=== PATIENT | female | born 1940 | race Caucasian/White ===

== ENCOUNTER 2017-01-23 23:00 | Inpatient (IN) | payer OTHER, MEDICAID, MEDICARE ==
[~2017-01-23] VITALS: Ht 134.6 cm; Wt 41.3 kg
[2017-01-23 23:15] VITALS: BP 129/62; PULSE 78; RESP 22; TEMP 98.1; O2SAT 98
[2017-01-24] VITALS (7 sets, daily range): BP systolic 120–136; BP diastolic 61–72; PULSE 65–85; RESP 15–18; TEMP 96.4–98.1; O2SAT 90–98
[2017-01-24] MEDS ORDERED: PERC5TAB12 PO (00:10)
--- NOTE | 2017-01-24 00:10 | PD ---
HPI Chief Complaint: Pain: Acute or Chronic Time Seen by Provider: 23:38 Travel History International Travel<30 days: No Contact w/Intl Traveler<30days: No Traveled to known affect area: No History of Present Illness HPI This is a 76-year-old female who has a history of breast cancer but unfortunately is too frail to receive chemotherapy who presents to the emergency department having recently had a workup at [facility] demonstrating diffuse bony metastasis. She comes into the emergency department today with poorly controlled pain. She says her pain is mostly in her back, constant, severe, worse with movement, improved with rest. She's been taking hydrocodone at home but that has not been helping. Her daughter says that when she was in the hospital she was on morphine and Percocet and that seemed to do better. Otherwise she has no new symptoms and she has a PET scan scheduled for tomorrow. They primarily came to the emergency department so she could get her pain under control. PFSH Past Medical History Cancer: Yes (SPINAL, LUNG, BREAST) Diminished Hearing: No Tetanus Vaccination: > 5 Years Influenza Vaccination: No ?: Not Past Surgical History Abdominal Surgery: Yes (HERNIA REPAIR) Appendectomy: Yes Hysterectomy: Yes Other Surgery: Yes (L MASTECTOMY) Social History Alcohol Use: No Tobacco Use: Yes Substance Use: No Allergies-Medications (Allergen,Severity, Reaction): Coded Allergies: Egg Allergy (Verified Allergy, Unknown, 01/23/17) Review of Systems Except as stated in HPI: all other systems reviewed are Neg Physical Exam Narrative GENERAL: Frail elderly female SKIN: Focused skin assessment warm and dry. HEAD: Atraumatic. Normocephalic. EYES: Pupils equal and round. No injection or drainage. ENT: Moist mucous membranes NECK: Trachea midline. CARDIOVASCULAR: Regular rate and rhythm. No murmur appreciated. RESPIRATORY: Clear to auscultation. Breath sounds equal bilaterally. GASTROINTESTINAL: Abdomen soft, non-tender, nondistended. MUSCULOSKELETAL: No obvious deformities. NEUROLOGICAL: Awake and alert. No obvious cranial nerve deficits. Moving all extremities. PSYCHIATRIC: Appropriate mood and affect; insight and judgment normal. Data Data Last Documented VS Vital Signs Date Time Temp Pulse Resp B/P Pulse Ox O2 Delivery O2 Flow Rate FiO2 01/23/17 23:15 98.1 78 22 129/62 98 Orders Morphine Inj (Morphine Inj) (01/24/17 00:00) [facility] Medical Decision Making Medical Screen Exam Complete: Yes Emergency Medical Condition: Yes Differential Diagnosis Compression fracture, metastatic disease, chronic pain Narrative Course This is a 76-year-old female has a history of breast cancer who was recently diagnosed with diffuse bony metastases. She is having poorly controlled pain. She just had an extensive workup at [facility]. Family is mostly concerned with controlling her pain and they don't want any additional studies done and she is scheduled for a PET scan tomorrow and has a follow-up with her oncologist later this week. Patient was given a dose of IV morphine. She'll be discharged on Percocet which should alleviate her symptoms better than Lortab. I think she is safe for discharge and follow-up tomorrow. Diagnosis Primary Impression: Pain of metastatic malignancy Patient Instructions: General Instructions Additional Instructions: If you develop severe chest pain, shortness of breath, sweating, lightheadedness , dizziness or difficulty breathing return to the emergency department immediately. Follow-up with her oncologist as scheduled. Med/Other Pt SpecificInfo: Prescription(s) given Scripts Oxycodone-Acetaminophen (Percocet)5-325 mg Tab1-2 Tab PO Q6H PRN (PAIN) #40 TAB Ref 0 Prov:Saray Elaine MD 01/24/17 Disposition: 01 DISCHARGE HOME Condition: Stable Saray Elaine MD Jan 24, 2017 00:10
[2017-01-24] MEDS ORDERED: WHEEMIS3 (01:16)
[2017-01-24] MEDS ORDERED: ONDANSETRON HCL 4 MG/2 ML VIAL ONE (01:55)
[2017-01-24] MEDS ORDERED: ONDANSETRON HCL 4 MG/2 ML VIAL IV ONE (02:00)
[2017-01-24] MEDS ORDERED: LACTULOSE SYRUP 20 GM/30 ML CUP PO ONE (02:15)
[2017-01-24] MEDS ORDERED: MORPHINE SULFATE 8 MG/ML INJ IV PUSH ONE ×2 (04:45)
[2017-01-24 06:43] LABS: AUTOMATED NEUTROPHIL # 11.3 TH/MM3 (1.8-7.7); BASOPHIL % 0.2 % (0.0-2.0); EOSINOPHIL # 0.2 TH/MM3 (0-0.4); HEMATOCRIT 32.2 % (35.0-46.0); LYMPH % 13.2 % (9.0-44.0); LYMPHOCYTE # 1.9 TH/MM3 (1.0-4.8); MEAN CELL VOLUME 91.9 FL (80.0-100.0); MEAN CORPUSCULAR HEMOGLOBIN 30.7 PG (27.0-34.0); MEAN CORPUSCULAR HGB CONC 33.3 % (32.0-36.0); MONO % 8.6 % (0.0-8.0); PLATELET COUNT 304 TH/MM3 (150-450); RED CELL DISTRIBUTION WIDTH 14.8 % (11.6-17.2); WHITE BLOOD COUNT 14.6 TH/MM3 (4.0-11.0)
[2017-01-24 06:46] LABS: HEMO FLAGS AUTO DIFF
--- NOTE | 2017-01-24 06:53 | RADRPT ---
EXAM DATE/TIME: 01/24/2017 06:31 [facility] COMPARISON: No previous studies available for comparison. INDICATIONS : Upper to middle back pain. MEDICAL HISTORY : None. SURGICAL HISTORY : None. ENCOUNTER: Initial ACUITY: 1 day PAIN SCORE: 0/10 LOCATION: Bilateral T-spine FINDINGS: There is normal alignment of the thoracic vertebral bodies. There is some mild chronic appearing loss of height of T6. No spondylolisthesis is seen. No paraspinal soft tissue swelling is demonstrated.. CONCLUSION: Mild chronic appearing loss of height of T6. Otherwise, unremarkable exam for patient's age. Telly Galloway MD on January 24, 2017 at 6:50 Board Certified Radiologist. This report was verified electronically.
--- NOTE | 2017-01-24 06:54 | RADRPT ---
EXAM DATE/TIME: 01/24/2017 06:33 [facility] COMPARISON: No previous studies available for comparison. INDICATIONS : Chest pain, Upper back pain. MEDICAL HISTORY : None. SURGICAL HISTORY : None. ENCOUNTER: Initial ACUITY: 1 day PAIN SCORE: 5/10 LOCATION: Bilateral chest FINDINGS: A single view of the chest demonstrates the lungs to be symmetrically aerated without evidence of mas s, infiltrate or effusion. The cardiomediastinal contours are unremarkable. Osseous structures are intact. CONCLUSION: No acute intrathoracic disease. Telly Galloway MD on January 24, 2017 at 6:52 Board Certified Radiologist. This report was verified electronically.
[2017-01-24 06:57] LABS: ALT (GPT) 19 U/L (10-53); ANION GAP 8 MEQ/L (5-15); AST (GOT) 39 U/L (15-37); BLOOD UREA NITROGEN 32 MG/DL (7-18); CHLORIDE 103 MEQ/L (98-107); GLOMERULAR FILTRATION RATE 65 ML/MIN (>89); POTASSIUM 4.1 MEQ/L (3.5-5.1); SODIUM (NA) 141 MEQ/L (136-145)
[2017-01-24 06:58] LABS: ALKALINE PHOSPHATASE 198 U/L (45-117); TOTAL BILIRUBIN ADULT 0.1 MG/DL (0.2-1.0)
[2017-01-24 07:24] LABS: BANDS 5 % (0-6); EOSINOPHILS 1 % (0-4); MYELOCYTES 2 % (0-0); NEUTROPHIL # MANUAL DIFF 11.4 TH/MM3 (1.8-7.7); OVALOCYTES 1+ (NORMAL); PLATELET ESTIMATE SMEAR NORMAL (NORMAL); PLATELET MORPHOLOGY NORMAL (NORMAL); POLYS (SEG NEUTROPHILS) 71 % (16-70); SCAN/DIFF FINAL DIFF MANUAL; WBC DIFF SAMPLE 100
[2017-01-24] MEDS ORDERED: ONDANSETRON HCL 4 MG/2 ML VIAL IVP ONE (08:00)
[2017-01-24] MEDS ORDERED: NALOXONE HCL 0.4 MG/ML AMP IV PRN (08:15)
[2017-01-24] MEDS ORDERED: SENNOSIDES 8.6 MG TAB PO PRN (08:15)
[2017-01-24] MEDS ORDERED: MAGNESIUM HYDROXIDE SUSP 30 ML CUP PO PRN (08:15)
[2017-01-24] MEDS ORDERED: oxyCODONE/ACETAMINOPHEN 5 MG/325 MG TAB PO PRN (08:15)
[2017-01-24] MEDS ORDERED: SODIUM CHLORIDE 0.9% FLUSH 10 ML FLUSH IV FLUSH PRN (08:15)
[2017-01-24] MEDS ORDERED: HYDROmorphone HCL PF 1 MG/ML VIAL IV PUSH PRN (08:15)
[2017-01-24] MEDS ORDERED: BISACODYL 10 MG SUPP RECTAL PRN (08:15)
[2017-01-24] MEDS ORDERED: LACTULOSE SYRUP 20 GM/30 ML CUP PO PRN (08:15)
[2017-01-24] MEDS ORDERED: HYDROmorphone HCL PF 1 MG/ML VIAL IVS ONE (09:30)
[2017-01-24] MEDS: SODIUM CHLORIDE 0.9% FLUSH 10 ML FLUSH IV FLUSH SCH ×2 (09:57→21:58)
[2017-01-24] MEDS: ENOXAPARIN SODIUM 40 MG/0.4 ML SYRINGE SQ SCH (09:57)
[2017-01-24] MEDS: DOCUSATE SODIUM 50 MG/SENNA 8.6 MG TAB PO SCH ×2 (09:57→21:57)
[2017-01-24 10:59] LABS: BACTERIA, URINE OCC /hpf; BLOOD, URINE NEG (NEG); COMMENT (UR) CULT NOT INDICATED; CULTURE IF INDICATED CULT NOT INDICATED; GLUCOSE,URINE NEG (NEG); HYALINE CAST, URINE 1 /lpf (RARE); KETONE, URINE NEG (NEG); NITRITE,URINE NEG (NEG); SQUAMOUS EPITHELIAL CELL URINE 1 /hpf (0-5); URINE COLOR YELLOW (YELLW/STRAW)
--- NOTE | 2017-01-24 12:44 | HHI.HP ---
HPI Service [facility] Hospitalists Primary Care Physician Porsche Angeles MD Admission Diagnosis metastatic breast cancer to chest and spine, intractable pain Diagnoses: Chief Complaint: Intractable back pain Travel History International Travel<30 Days: No Contact w/Intl Traveler <30 Da: No Traveled to Known Affected Are: No History of Present Illness Written by Danielle Avila PA-C acting as scribe for Dr. Cortés on 01/24/17 at 12:18. This is 76-year-old female with past medical history significant for breast cancer s/p left mastectomy May 2016 as well as adjuvant radiation treatments but not deemed a candidate for chemotherapy due to multiple comorbidities, COPD, h/o brain aneurysm and AAA who presented to [facility] ED with complaints of intractable back pain. Patient was recently treated at [facility] for aspiration pneumonia last week. During that hospitalization, CT scan was obtained which revealed diffuse bony metastasis. Patient is followed by Dr. Kirkpatrick as an outpatient and has been diagnosed with stage IIB breast carcinoma with both lobular and ductal features. She also had micrometastatic disease in one of the lymph nodes. Her cancer is hormone receptor positive. Following her mastectomy, patient had a PET scan which showed a small focal hypermetabolic mass in the anterior left chest wall. She has a repeat PET scan scheduled for today at noon. At present, patient's pain is controlled but she is actively vomiting due to side effect from her narcotic medication. She complains of 3 month history of back pain that has become much more severe and located in her mid upper back. She also reports left anterior chest wall pain. Additionally, she reports pain and weakness in the left upper extremity. She denies any complaints of radicular pain or weakness in her legs. She denies any fever, chills, headache, vision changes, shortness of breath, chest pain or abdominal pain. She also denies any bowel or bladder incontinence. Review of Systems Except as stated in HPI: all other systems reviewed are Neg Past Family Social History Past Medical History Breast cancer with bony metastasis Recent hospitalization at [facility] for aspiration pneumonia last week COPD Brain aneurysm AAA Anxiety Migraine headaches Osteoporosis Past Surgical History Left mastectomy May 2016 Appendectomy Hernia repair 2 Hysterectomy Reported Medications RN in the process of completing med rec of patients home medications Allergies: Coded Allergies: Egg Allergy (Verified Allergy, Unknown, 01/23/17) Active Ordered Medications Current Medications Medications (Trade) Dose Ordered Sig/Jimmy Route Start Time Stop Time Status Last Admin (NS Flush) 2 ml UNSCH PRN IV FLUSH 01/24/17 08:15 (NS Flush) 2 ml BID IV FLUSH 01/24/17 09:00 01/24/17 09:57 (Zofran Inj) 4 mg Q6H PRN IVP 01/24/17 08:15 (Lovenox Inj) 40 mg Q24H SQ 01/24/17 09:00 01/24/17 09:57 (Narcan Inj) 0.4 mg UNSCH PRN IV 01/24/17 08:15 (Klarissa-Colace) 1 tab BID PO 01/24/17 09:00 01/24/17 09:57 (Milk Of Magnesia Liq) 30 ml Q12H PRN PO 01/24/17 08:15 (Senokot) 17.2 mg Q12H PRN PO 01/24/17 08:15 (Dulcolax Supp) 10 mg DAILY PRN RECTAL 01/24/17 08:15 (Lactulose Liq) 30 ml DAILY PRN PO 01/24/17 08:15 (Percocet 5-325 Mg) 1 tab Q4H PRN PO 01/24/17 08:15 (Percocet 10-325 Mg) 1 tab Q4H PRN PO 01/24/17 08:15 (Dilaudid Pf Inj) 1 mg Q4H PRN IV PUSH 01/24/17 08:15 Family History Father, age 84, diabetes, hypertension and COPD Mother, at age 96 of natural causes Social History Patient has a history of tobacco use of 3 packs per day but has recently been weaning down to 3 cigs daily and has not had any cigarettes for the past few weeks. She denies any alcohol consumption or illicit drug use. Physical Exam Vital Signs Vital Signs Date Time Temp Pulse Resp B/P Pulse Ox O2 Delivery O2 Flow Rate FiO2 01/24/17 11:11 72 15 120/61 97 Nasal Cannula 2 01/24/17 11:10 72 15 120/61 95 01/24/17 08:00 70 16 121/63 98 Room Air 01/24/17 05:00 80 16 120/72 96 01/23/17 23:15 98.1 78 22 129/62 98 Physical Exam GENERAL: This is a frail elderly female who appears her stated age. Actively vomiting. Daughter is at the bedside. SKIN: No rashes, ecchymoses or lesions. Cool and dry. HEAD: Atraumatic. Normocephalic. No temporal or scalp tenderness. EYES: H/o brain aneurysm with left pupil dilated/larger than right, (+)left eyelid droop and decreased extraocular motions in the left eye. No scleral icterus. No injection or drainage. ENT: Nose without drainage. Airway patent. NECK: Trachea midline. No JVD or lymphadenopathy. Supple, nontender, no meningeal signs. CARDIOVASCULAR: Regular rate and rhythm without murmurs. RESPIRATORY: Bibasilar crackles noted. Breath sounds equal bilaterally. GASTROINTESTINAL: Abdomen soft, non-tender, nondistended. No hepato-splenomegaly , or palpable masses. No guarding. MUSCULOSKELETAL: Extremities without clubbing, cyanosis, or edema. No joint tenderness, effusion, or edema noted. No calf tenderness. (+)tenderness to palpation left anterior chest and diffusely over the upper, mid and low back. NEUROLOGICAL: Awake and alert. Able to move all extremities. Motor and sensory function grossly intact. Normal speech. Laboratory Laboratory Tests Test 01/24/17 01/24/17 06:25 10:30 White Blood Count 14.6 Red Blood Count 3.50 Hemoglobin 10.7 Hematocrit 32.2 Mean Corpuscular Volume 91.9 Mean Corpuscular Hemoglobin 30.7 Mean Corpuscular Hemoglobin 33.3 Concent Red Cell Distribution Width 14.8 Platelet Count 304 Mean Platelet Volume 8.8 Neutrophils (%) (Auto) 77.0 Lymphocytes (%) (Auto) 13.2 Monocytes (%) (Auto) 8.6 Eosinophils (%) (Auto) 1.0 Basophils (%) (Auto) 0.2 Neutrophils # (Auto) 11.3 Lymphocytes # (Auto) 1.9 Monocytes # (Auto) 1.3 Eosinophils # (Auto) 0.2 Basophils # (Auto) 0.0 CBC Comment AUTO DIFF Differential Total Cells 100 Counted Neutrophils % (Manual) 71 Band Neutrophils % 5 Lymphocytes % 12 Monocytes % 9 Eosinophils % 1 Neutrophils # (Manual) 11.4 Myelocytes 2 Differential Comment FINAL DIFF MANUAL Platelet Estimate NORMAL Platelet Morphology Comment NORMAL Ovalocytes 1+ Sodium Level 141 Potassium Level 4.1 Chloride Level 103 Carbon Dioxide Level 30.0 Anion Gap 8 Blood Urea Nitrogen 32 Creatinine 0.85 Estimat Glomerular Filtration 65 Rate Random Glucose 78 Calcium Level 10.0 Total Bilirubin 0.1 Aspartate Amino Transf 39 (AST/SGOT) Alanine Aminotransferase 19 (ALT/SGPT) Alkaline Phosphatase 198 Total Protein 6.2 Albumin 3.0 Urine Color YELLOW Urine Turbidity HAZY Urine pH 6.0 Urine Specific [place] 1.018 Urine Protein NEG Urine Glucose (UA) NEG Urine Ketones NEG Urine Occult Blood NEG Urine Nitrite NEG Urine Bilirubin NEG Urine Urobilinogen LESS THAN 2.0 Urine Leukocyte Esterase SMALL Urine RBC LESS THAN 1 Urine WBC 1 Urine Squamous Epithelial 1 Cells Urine Bacteria OCC Urine Hyaline Casts 1 Microscopic Urinalysis Comment CULT NOT INDICATED Result Diagram: 01/24/17 0625 01/24/17 0625 Imaging Last Impressions Thoracic Spine X-Ray 01/24/17 0000 Signed Impressions: Service Date/Time: Tuesday, January 24, 2017 06:31 - CONCLUSION: Mild chronic appearing loss of height of T6. Otherwise, unremarkable exam for patient's age. Telly Galloway MD Chest X-Ray 01/24/17 0000 Signed Impressions: Service Date/Time: Tuesday, January 24, 2017 06:33 - CONCLUSION: No acute intrathoracic disease. Telly Galloway MD Assessment and Plan Assessment and Plan 76-year-old female with past medical history significant for breast cancer s/p left mastectomy May 2016 as well as adjuvant radiation treatments, COPD, h/ o brain aneurysm and AAA who presented to [facility] ED with complaints of intractable back pain. Recent workup in [facility] revealed diffuse bony metastases. Intractable back pain Breast cancer Newly diagnosed diffuse bony metastases - Thoracic spine xray, images personally reviewed, shows chronic appearing loss of body height of T6 - Pain management with Percocet po and Dilaudid 1mg IV q 4h prn for breakthrough pain. Bowel regimen ordered. - IV Zofran when necessary nausea/vomiting - Consult Dr. Kirkpatrick , her oncologist - Discussed with the patient and daughter consultation of palliative care. They are both agreeable. Palliative care consult placed. Recent hospitalization for aspiration pneumonia - Incentive spirometry at the bedside encouraged hourly use - Bedside swallow evaluation ordered Leukocytosis - Likely stress/situational - Patient is afebrile. CXR, images personally reviewed, shows no acute cardiopulmonary disease - Repeat labs to monitor trend Anemia - mild - no evidence of active bleeding - monitor as indicated COPD Long history of tobaccoism, quit several weeks ago - Supplemental oxygen as needed to maintain O2 sats above 92% - DuoNeb as needed - Will resume any home bronchodilator therapy once med rec has been completed DVT prophylaxis - Lovenox 40 mg subcutaneous daily This note was transcribed by meera Avila. I, Dr. Anisa Cortés personally performed the history, physical exam, and medical decision making; and confirmed the accuracy of the information in the transcribed note. Authenticated by Dr. Anisa Cortés on 01/24/17 at 12:18. Code Status DNR Discussed Condition With ED physician, nursing staff, patient and daughter Danielle Avila Jan 24, 2017 12:44 Anisa Cortés MD Jan 24, 2017 15:07
[2017-01-24] MEDS ORDERED: VENTAER INH (14:04)
[2017-01-24] MEDS ORDERED: AMOX875T2 PO (14:04)
[2017-01-24] MEDS ORDERED: TAMO20TA6 PO (14:04)
[2017-01-24] MEDS ORDERED: DULE100A INH (14:04)
[2017-01-24] MEDS ORDERED: ALEN1TAB48 PO (14:04)
[2017-01-24] MEDS ORDERED: CARB100C PO (14:04)
[2017-01-24] MEDS ORDERED: ASPI325T PO (14:04)
[2017-01-24] MEDS ORDERED: PRED10 PO (14:04)
[2017-01-24] MEDS ORDERED: IPRASOL INH (14:04)
[2017-01-24] MEDS ORDERED: ALPR0.25 PO (14:04)
[2017-01-24] MEDS: ONDANSETRON HCL 4 MG/2 ML VIAL IVP PRN (14:06)
[2017-01-24] MEDS ORDERED: OMEP40CA2 PO (14:28)
[2017-01-24] MEDS ORDERED: ALBUTEROL SULFATE 90 MCG/ACT HFA 8 GM INHALER INH PRN (14:45)
[2017-01-24] MEDS ORDERED: METOCLOPRAMIDE HCL 10 MG/2 ML VIAL IV PUSH PRN (15:15)
[2017-01-24] MEDS: oxyCODONE/ACETAMINOPHEN 10 MG/325 MG TAB PO PRN ×2 (16:20→21:57)
--- NOTE | 2017-01-24 19:58 | EKG ---
Date Performed: 01/23/2017 Time Performed: 23:34:34 PTAGE: 76 years EKG: Sinus rhythm NORMAL ECG NO PREVIOUS TRACING DOCTOR: Pari Gautam Interpretating Date/Time 01/24/2017 19:57:21
--- NOTE | 2017-01-24 19:58 | EKG ---
Date Performed: 01/24/2017 Time Performed: 07:24:18 PTAGE: 76 years EKG: Sinus rhythm NORMAL ECG PREVIOUS TRACING : 01/23/2017 23.34 Since previous tracing, no significant change noted DOCTOR: Pari Gautam Interpretating Date/Time 01/24/2017 19:57:30
[2017-01-24] MEDS ORDERED: NON-FORMULARY DRUG (Mometasone-Formoterol 120 Act Inh (Dulera 120 Act Inh) 2 PUFF) INH SCH (21:00)
[2017-01-24] MEDS: RESP: ALBUTEROL 2.5 MG/IPRATROPIUM 0.5 MG NEB (PRN) NEB (22:05)
[2017-01-25] VITALS (7 sets, daily range): BP systolic 103–143; BP diastolic 56–70; PULSE 74–81; RESP 16–20; TEMP 96.9–98.8; O2SAT 90–98
[2017-01-25] MEDS: oxyCODONE/ACETAMINOPHEN 10 MG/325 MG TAB PO PRN ×3 (02:53→18:37)
[2017-01-25 06:30] LABS: AUTOMATED NEUTROPHIL # 7.7 TH/MM3 (1.8-7.7); BASOPHIL % 0.4 % (0.0-2.0); EOSINOPHIL # 0.3 TH/MM3 (0-0.4); EOSINOPHIL % 2.5 % (0.0-4.0); HEMATOCRIT 28.5 % (35.0-46.0); HEMO FLAGS DIFF FINAL; LYMPH % 13.6 % (9.0-44.0); LYMPHOCYTE # 1.4 TH/MM3 (1.0-4.8); MEAN CELL VOLUME 91.6 FL (80.0-100.0); MEAN CORPUSCULAR HEMOGLOBIN 31.4 PG (27.0-34.0); MEAN CORPUSCULAR HGB CONC 34.3 % (32.0-36.0); MONO % 7.1 % (0.0-8.0); NEUT % 76.4 % (16.0-70.0); PLATELET COUNT 261 TH/MM3 (150-450); RED BLOOD COUNT 3.11 MIL/MM3 (4.00-5.30); RED CELL DISTRIBUTION WIDTH 14.4 % (11.6-17.2); WHITE BLOOD COUNT 10.1 TH/MM3 (4.0-11.0)
[2017-01-25 07:01] LABS: BICARBONATE 30.7 MEQ/L (21.0-32.0); POTASSIUM 4.5 MEQ/L (3.5-5.1)
[2017-01-25] MEDS: ONDANSETRON HCL 4 MG/2 ML VIAL IVP PRN (07:51)
[2017-01-25] MEDS: DOCUSATE SODIUM 50 MG/SENNA 8.6 MG TAB PO SCH ×2 (08:30→22:07)
[2017-01-25] MEDS: TAMOXIFEN CITRATE 10 MG TAB PO SCH (08:30)
[2017-01-25] MEDS: PANTOPRAZOLE SOD 40 MG DELAYED RELEASE TAB PO SCH (08:30)
[2017-01-25] MEDS: ENOXAPARIN SODIUM 40 MG/0.4 ML SYRINGE SQ SCH (08:30)
[2017-01-25] MEDS: SODIUM CHLORIDE 0.9% FLUSH 10 ML FLUSH IV FLUSH SCH ×2 (08:31→22:00)
[2017-01-25] MEDS: ASPIRIN 325 MG TAB PO SCH (08:31)
[2017-01-25] MEDS: RESP: ALBUTEROL 2.5 MG/IPRATROPIUM 0.5 MG NEB (PRN) NEB (08:43)
[2017-01-25] MEDS: DULERA INH SCH ×2 (09:50→22:07)
--- NOTE | 2017-01-25 10:50 | HHI.PR ---
Subjective Remarks Patient reports she is feeling better. Ribs and back pain controlled with Percocet. No shortness of breath. She is eager to go home. Objective Vitals Vital Signs Date Time Temp Pulse Resp B/P Pulse Ox O2 Delivery O2 Flow Rate FiO2 01/25/17 08:47 97 Nasal Cannula 3.00 01/25/17 07:50 96.9 74 20 143/63 90 01/25/17 04:00 98.2 81 16 103/61 95 01/25/17 03:53 16 01/25/17 01:00 98.8 78 16 112/62 96 01/24/17 20:00 98.1 76 16 130/67 93 01/24/17 16:00 96.4 85 18 136/65 90 01/24/17 12:00 96.9 65 18 128/66 91 01/24/17 11:11 72 15 120/61 97 Nasal Cannula 2 01/24/17 11:10 72 15 120/61 95 I/O 01/24/17 01/24/17 01/24/17 01/25/17 01/25/17 01/25/17 06:59 14:59 22:59 06:59 14:59 22:59 Intake Total 240 ml 120 ml Balance 240 ml 120 ml Intake Oral 240 ml 120 ml # Voids 1 1 # Bowel Movements 1 Result Diagram: 01/25/17 0551 01/25/17 0537 Imaging Last Impressions Thoracic Spine X-Ray 01/24/17 0000 Signed Impressions: Service Date/Time: Tuesday, January 24, 2017 06:31 - CONCLUSION: Mild chronic appearing loss of height of T6. Otherwise, unremarkable exam for patient's age. Telly Galloway MD Chest X-Ray 01/24/17 0000 Signed Impressions: Service Date/Time: Tuesday, January 24, 2017 06:33 - CONCLUSION: No acute intrathoracic disease. Telly Galloway MD Objective Remarks GENERAL: Frail, elderly female in no apparent distress. CARDIOVASCULAR: Normal rate and regular rhythm without murmurs, gallops, or rubs. RESPIRATORY: Good respiratory efforts. Breath sounds equal and clear to auscultation bilaterally. GASTROINTESTINAL: Abdomen soft, non-tender, non-distended. Normal active bowel sounds MUSCULOSKELETAL: Diffusely tender anterior lower ribs and in the thoracic region. NEURO: Alert & Oriented x4 to person, place, time, situation. Moves all ext x4 PSYCH: Appropriate mood and affect. A/P Assessment and Plan 76-year-old female with past medical history significant for breast cancer s/p left mastectomy May 2016 as well as adjuvant radiation treatments, COPD, h/ o brain aneurysm and AAA who presented to [facility] ED with complaints of intractable back pain. Recent workup in [facility] revealed diffuse bony metastases. Intractable back pain Breast cancer Newly diagnosed diffuse bony metastases at recent outside hospital admission per family .per ER note, She just had a CT scan performed on January 15 at [facility] which demonstrates lytic lesions throughout the axial and appendicular skeleton suggestive of extensive metastatic disease - Thoracic spine xray, images personally reviewed, shows chronic appearing loss of body height of T6 -Pain currently controlled with Percocet. Bowel regimen ordered. - IV Zofran when necessary nausea/vomiting -Awaiting further input from oncology. -Palliative care previously consulted. Recent hospitalization for aspiration pneumonia - Incentive spirometry at the bedside encouraged hourly use - Bedside swallow evaluation ordered Anemia - mild - no evidence of active bleeding - monitor as indicated COPD Long history of tobaccoism, quit several weeks ago - Supplemental oxygen as needed to maintain O2 sats above 92% - DuoNeb as needed DVT prophylaxis - Lovenox 40 mg subcutaneous daily Discharge Planning Awaiting input from Oncology. Adele Michaud MD Jan 25, 2017 10:50
[2017-01-25] MEDS ORDERED: PERC5TAB12 PO (10:56)
[2017-01-25] MEDS ORDERED: SENN1TAB PO (10:56)
--- NOTE | 2017-01-25 14:05 | PD.CONS ---
Consult Service Palliative Care Consult Requested By Dr. Cortés. Primary Care Physician Porsche Angeles MD Reason for Consultation a. To assist with evaluation and management of symptoms including: Pain and debility. b. To assist medical decision maker(s) with: better understanding of current medical conditions; weighing benefits/burdens of medical treatment options; making medical treatment decisions. . HPI History of Present Illness Mrs. Gunter is a 76-year-old female with a past medical history significant for invasive mammary carcinoma status post left simple mastectomy with sentinel lymph node sampling which was positive for micrometastasis. Patient underwent radiation therapy to left breast, she was not a candidate for chemotherapy secondary to multiple comorbidities. Patient also with history of COPD and emphysema, O2 dependent. Patient presented to ED on 01/23/17 endorsing severe pain to back and chest. As per medical records, patient just had a CT scan performed on 01/15/17 at [facility] which demonstrates lytic lesions throughout the axial and appendicular skeleton suggestive of extensive metastatic disease. Thoracic spine chest x-ray showing mild chronic appearing loss of height of T6. Chest x-ray negative for acute process. UA negative for nitrates, small leukocyte. Patient was admitted for further management. Palliative care has been consulted for further clarifications of goals of care and assistance with pain management. Oncology consultation pending. Reviewed medical records. Patient following with Dr. Kirkpatrick outpatient. Last seen on 12/16/16. Patient has completed adjuvant radiation treatments to her left breast and continues with tamoxifen. As per medical record,/CT scan was previously obtained which showed some increase uptake medially on the left chest wall. Patient was advised that because of her age and other comorbidities that she was not a candidate for chemotherapy. She has been recently treated at [facility] for pneumonia. Patient seen in her room, resting in bed in no acute distress. Alert and oriented x self, place and situation. Patient endorsing pain to chest and thoracic spine. pain is sharp, intermittent. Currently rated at 5/10. Taking Percocet 10/325mg q4h PRN. Has taken 4 doses since admission. Patient feels that Percocet is more effective than home regimen of Lortab. Endorsing mild nausea earlier this morning. Tolerating regular diet, no difficulty swallowing. No vomiting, shortness of breath or abdominal discomfort reported. Patient afebrile, stable hemodynamically. Currently on 3 L O2 via nasal cannula, oxygen saturation in the mid 90s. Laboratory workup today showing WBC 10.1, Hgb 9.8, platelet count 261. Sodium 140, potassium 4.1, BUN/creatinine 28 /0.79. Met with patient and daughter Cynthia. Obtain a past medical history and psychosocial history. In this first visit, reviewed the role of palliative care in regards to symptom management as well as to assistance with advance directives and goals of care. Patient with a good understanding of her diagnosis to include breast cancer with bony metastasis. Reviewed that her disease is metastatic and is not curable. Pending oncology consultation for treatment recommendations. Patient not likely candidate for chemotherapy given his chronic comorbidities and poor performance status. Patient tells me that if radiation to bony lesions is offered, she will likely proceed. Discussed difference between palliative radiation versus curative treatment. Introduce hospice philosophy and benefits. Discussed the future role of hospice should her clinical condition continues to worsen, increased since important or additional functional decline. Patient and family receptive to this. Assisted patient in completion of living will and designation of healthcare surrogate. . Function/Cognitive Trajectory Patient residing with daughter prior to this hospitalization. Progressive decline, debility. Independent with ADLs, requiring intermittent assistance with bathing. Walking without assistance device. O2 at home secondary to COPD. . Review of Systems Constitutional: COMPLAINS OF: Fatigue, Weight loss, Pain, DENIES: Fever Endocrine: DENIES: Heat/cold intolerance Eyes: DENIES: Eye pain Ears, nose, mouth, throat: DENIES: Hearing loss, Nasal discharge, Hoarseness, Running Nose Respiratory: COMPLAINS OF: Cough, Shortness of breath Cardiovascular: COMPLAINS OF: Chest pain, Dyspnea on Exertion, DENIES: Lower Extremity Edema Gastrointestinal: COMPLAINS OF: Nausea, DENIES: Abdominal pain, Vomiting, Difficulty Swallowing Genitourinary: DENIES: Urinary frequency, Urinary incontinence Musculoskeletal: COMPLAINS OF: Back pain, DENIES: Stiffness, Decreased range of motion Integumentary: DENIES: Abnormal pigmentation, Pruritus Hematologic/Lymphatics: COMPLAINS OF: Bruising Immunologic/Allergic: DENIES: Eczema Neurologic: COMPLAINS OF: Headache, DENIES: Localized weakness, Seizures, Speech Problems Psychiatric: COMPLAINS OF: Anxiety, Depression, DENIES: Hallucinations, Agitation Past Family Social History Coded Allergies: Egg Allergy (Verified Allergy, Unknown, 01/23/17) Past Medical History Breast cancer with bony metastasis COPD Brain aneurysm AAA Anxiety Migraine headaches Osteoporosis Arthritis Cataracts Ptosis of the left eyelid . Past Surgical History Left mastectomy May 2016 Appendectomy Hernia repair 2 Hysterectomy . Reported Medications Senna Plus 8.6-50 mg (Sennosides-Docusate Sodium) 1 Tab Tab 1 Tab PO BID Percocet (Oxycodone-Acetaminophen) 5-325 mg Tab 1-2 Tab PO Q6H PRN Omeprazole 40 Mg Cap 40 Mg PO DAILY Duoneb (Ipratropium-Albuterol Neb) 0.5-2.5 Mg/3 Ml Neb 1 Nebule INH Q6HR NEB Dulera 120 Act Inh (Mometasone-Formoterol 120 Act Inh) 100-5 Mcg/Act Inh 2 Puff INH BID Ventolin Hfa 18 GM Inh (Albuterol Sulfate) 90 Mcg/Act Aer 1 Puff INH Q4H PRN Alendronate (Alendronate Sodium) 70 Mg Tab 70 Mg PO Q7D Aspirin 325 Mg Tab 325 Mg PO DAILY Alprazolam 0.25 Mg Tab 0.25 Mg PO Q8H PRN Tamoxifen (Tamoxifen Citrate) 20 Mg Tab 20 Mg PO DAILY Amoxicillin-Clavulanate 875-125 mg Tab 875 Mg PO BID 7 Days Prednisone 10 Mg Tab 10 Mg PO BID Carbamazepine 100 Mg Chew 100 Mg PO TID . Current Medications Medications (Trade) Dose Ordered Sig/Jimmy Route Start Time Stop Time Status Last Admin (NS Flush) 2 ml UNSCH PRN IV FLUSH 01/24/17 08:15 (NS Flush) 2 ml BID IV FLUSH 01/24/17 09:00 01/25/17 08:31 (Zofran Inj) 4 mg Q6H PRN IVP 01/24/17 08:15 01/25/17 07:51 (Lovenox Inj) 40 mg Q24H SQ 01/24/17 09:00 01/25/17 08:30 (Narcan Inj) 0.4 mg UNSCH PRN IV 01/24/17 08:15 (Klarissa-Colace) 1 tab BID PO 01/24/17 09:00 01/25/17 08:30 (Milk Of Magnesia Liq) 30 ml Q12H PRN PO 01/24/17 08:15 (Senokot) 17.2 mg Q12H PRN PO 01/24/17 08:15 (Dulcolax Supp) 10 mg DAILY PRN RECTAL 01/24/17 08:15 01/24/17 14:58 (Lactulose Liq) 30 ml DAILY PRN PO 01/24/17 08:15 (Percocet 5-325 Mg) 1 tab Q4H PRN PO 01/24/17 08:15 (Percocet 10-325 Mg) 1 tab Q4H PRN PO 01/24/17 08:15 01/25/17 07:54 (Dilaudid Pf Inj) 1 mg Q4H PRN IV PUSH 01/24/17 08:15 (Dilaudid Pf Inj) 0.5 mg Q4H PRN IV PUSH 01/24/17 14:45 (Proair Hfa Inh) 1 puff Q4H PRN INH 01/24/17 14:45 (Xanax) 0.25 mg Q8H PRN PO 01/24/17 14:45 (Aspirin) 325 mg DAILY PO 01/25/17 09:00 01/25/17 08:31 (TEGretol CHEW) 100 mg TID PO 01/24/17 18:00 01/25/17 12:27 (Nolvadex) 20 mg DAILY PO 01/25/17 09:00 01/25/17 08:30 (Protonix) 40 mg DAILY PO 01/25/17 09:00 01/25/17 08:30 (Reglan Inj) 10 mg Q8H PRN IV PUSH 01/24/17 15:15 Patient Own Medication PT OWN MED: DUL... BID INH 01/24/17 21:00 01/25/17 09:50 Family History Father, age 84, diabetes, hypertension and COPD Mother, at age 96 of natural causes . Substance Use Tobacco: Smoked call of her adult years and continues to smoke 2-3 cigarettes a day. Alcohol: None reported. Prescription med abuse: None reported. Illicits: None reported. . Psychosocial History Patient originally from [place]. Moved to [place] in 1956. She is , has 3 children. 2 daughters and 1 son who lives in [place]. 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 No history. Residing with daughter Cynthia and grandchild prior to this hospitalization. . Spiritual/Cultural Factors No samaritan affiliation. . Living Will: Copy in medical record Health Care Surrogate: Copy in medical record Durable Power of Metal Weather Stripper: Never completed Date completed: 01/25/17. Health Care Surrogate(s): HCS/daughter Cynthia Ty grandson/alt HCS: Rafael Ty . Documented care wishes: Living will completed with standard verbiage as it pertains to life support. . Today's verbally stated goals: No code. DNR/DNI. Continue conservative management short of no code. Pending oncology consultation. . Family/friends goals: Daughter Cynthia fully supportive of patient's goals of care. . Ethical and Legal Issues No ethical legal issues identified. . Physical Exam Vital Signs Date Time Temp Pulse Resp B/P Pulse Ox O2 Delivery O2 Flow Rate FiO2 01/25/17 11:30 98.2 78 20 111/58 95 01/25/17 08:47 97 Nasal Cannula 3.00 01/25/17 07:50 96.9 74 20 143/63 90 01/25/17 04:00 98.2 81 16 103/61 95 01/25/17 03:53 16 01/25/17 01:00 98.8 78 16 112/62 96 01/24/17 20:00 98.1 76 16 130/67 93 01/24/17 16:00 96.4 85 18 136/65 90 01/24/17 01/25/17 18:59 06:59 Intake Total 360 ml Balance 360 ml Intake Oral 360 ml # Voids 1 # Bowel Movements 1 Exam CONSTITUTIONAL/GENERAL: This is a thin elderly female in no apparent distress. TUBES/LINES/DRAINS: PIV's, nasal cannula. SKIN: No jaundice, rashes, or lesions. Ecchymoses on upper extremities. No wounds seen anteriorly. Skin temperature appropriate. Not diaphoretic. HEAD: Atraumatic. Normocephalic. EYES: Pupils equal and round and reactive. Extraocular motions intact. No scleral icterus. No injection or drainage. ptosis to left eye. ENT: Hearing grossly normal. Nose without bleeding or purulent drainage. Moist oral mucosa. NECK: Trachea midline. Supple, nontender. CARDIOVASCULAR: Regular rate and rhythm without murmurs, gallops, or rubs. No JVD. Peripheral pulses symmetric. RESPIRATORY/CHEST: Symmetric, unlabored respirations. Clear to auscultation. Breath sounds equal bilaterally. No wheezes, rales, or rhonchi. GASTROINTESTINAL: Abdomen round, mildly distended, nontender. No guarding. Bowel sounds present. GENITOURINARY: Without palpable bladder distension. MUSCULOSKELETAL: Extremities without clubbing, cyanosis, or edema. No mottling or clubbing. NEUROLOGICAL: Awake and alert. Motor and sensory grossly within normal limits. Follows commands. Cognitively sharp. Moves all extremities. PSYCHIATRIC: No obvious anxiety/depression. Pleasant and cooperative. . Diagnostic Tests Laboratory Laboratory Tests Test 01/24/17 01/24/17 01/25/17 01/25/17 06:25 10:30 05:37 05:51 White Blood Count 14.6 TH/MM3 10.1 TH/MM3 (4.0-11.0) (4.0-11.0) Red Blood Count 3.50 MIL/MM3 3.11 MIL/MM3 (4.00-5.30) (4.00-5.30) Hemoglobin 10.7 GM/DL 9.8 GM/DL (11.6-15.3) (11.6-15.3) Hematocrit 32.2 % 28.5 % (35.0-46.0) (35.0-46.0) Mean Corpuscular Volume 91.9 FL 91.6 FL (80.0-100.0) (80.0-100.0) Mean Corpuscular Hemoglobin 30.7 PG 31.4 PG (27.0-34.0) (27.0-34.0) Mean Corpuscular Hemoglobin 33.3 % 34.3 % Concent (32.0-36.0) (32.0-36.0) Red Cell Distribution Width 14.8 % 14.4 % (11.6-17.2) (11.6-17.2) Platelet Count 304 TH/MM3 261 TH/MM3 (150-450) (150-450) Mean Platelet Volume 8.8 FL 8.7 FL (7.0-11.0) (7.0-11.0) Neutrophils (%) (Auto) 77.0 % 76.4 % (16.0-70.0) (16.0-70.0) Lymphocytes (%) (Auto) 13.2 % 13.6 % (9.0-44.0) (9.0-44.0) Monocytes (%) (Auto) 8.6 % (0.0-8.0) 7.1 % (0.0-8.0) Eosinophils (%) (Auto) 1.0 % (0.0-4.0) 2.5 % (0.0-4.0) Basophils (%) (Auto) 0.2 % (0.0-2.0) 0.4 % (0.0-2.0) Neutrophils # (Auto) 11.3 TH/MM3 7.7 TH/MM3 (1.8-7.7) (1.8-7.7) Lymphocytes # (Auto) 1.9 TH/MM3 1.4 TH/MM3 (1.0-4.8) (1.0-4.8) Monocytes # (Auto) 1.3 TH/MM3 0.7 TH/MM3 (0-0.9) (0-0.9) Eosinophils # (Auto) 0.2 TH/MM3 0.3 TH/MM3 (0-0.4) (0-0.4) Basophils # (Auto) 0.0 TH/MM3 0.0 TH/MM3 (0-0.2) (0-0.2) CBC Comment AUTO DIFF DIFF FINAL Differential Total Cells 100 Counted Neutrophils % (Manual) 71 % (16-70) Band Neutrophils % 5 % (0-6) Lymphocytes % 12 % (9-44) Monocytes % 9 % (0-8) Eosinophils % 1 % (0-4) Neutrophils # (Manual) 11.4 TH/MM3 (1.8-7.7) Myelocytes 2 % (0-0) Differential Comment FINAL DIFF MANUAL Platelet Estimate NORMAL (NORMAL) Platelet Morphology Comment NORMAL (NORMAL) Ovalocytes 1+ (NORMAL) Sodium Level 141 MEQ/L 140 MEQ/L (136-145) (136-145) Potassium Level 4.1 MEQ/L 4.5 MEQ/L (3.5-5.1) (3.5-5.1) Chloride Level 103 MEQ/L 105 MEQ/L (98-107) (98-107) Carbon Dioxide Level 30.0 MEQ/L 30.7 MEQ/L (21.0-32.0) (21.0-32.0) Anion Gap 8 MEQ/L (5-15) 4 MEQ/L (5-15) Blood Urea Nitrogen 32 MG/DL (7-18) 28 MG/DL (7-18) Creatinine 0.85 MG/DL 0.79 MG/DL (0.50-1.00) (0.50-1.00) Estimat Glomerular Filtration 65 ML/MIN (>89) 71 ML/MIN (>89) Rate Random Glucose 78 MG/DL 89 MG/DL (74-106) (74-106) Calcium Level 10.0 MG/DL 10.1 MG/DL (8.5-10.1) (8.5-10.1) Total Bilirubin 0.1 MG/DL (0.2-1.0) Aspartate Amino Transf 39 U/L (15-37) (AST/SGOT) Alanine Aminotransferase 19 U/L (10-53) (ALT/SGPT) Alkaline Phosphatase 198 U/L (45-117) Total Protein 6.2 GM/DL (6.4-8.2) Albumin 3.0 GM/DL (3.4-5.0) Urine Color YELLOW (YELLW/STRAW) Urine Turbidity HAZY (CLEAR) Urine pH 6.0 (5.0-8.5) Urine Specific [place] 1.018 (1.002-1.035) Urine Protein NEG mg/dL (NEG-TRACE) Urine Glucose (UA) NEG mg/dL (NEG) Urine Ketones NEG mg/dL (NEG) Urine Occult Blood NEG (NEG) Urine Nitrite NEG (NEG) Urine Bilirubin NEG (NEG) Urine Urobilinogen LESS THAN 2.0 MG/DL (LESS THAN 2.0) Urine Leukocyte Esterase SMALL (NEG) Urine RBC LESS THAN 1 /hpf (0-3) Urine WBC 1 /hpf (0-5) Urine Squamous Epithelial 1 /hpf (0-5) Cells Urine Bacteria OCC /hpf (NONE) Urine Hyaline Casts 1 /lpf (RARE) Microscopic Urinalysis Comment CULT NOT INDICATED Result Diagram: 01/25/17 0551 01/25/17 0537 Imaging Last Impressions Thoracic Spine X-Ray 01/24/17 0000 Signed Impressions: Service Date/Time: Tuesday, January 24, 2017 06:31 - CONCLUSION: Mild chronic appearing loss of height of T6. Otherwise, unremarkable exam for patient's age. Telly Galloway MD Chest X-Ray 01/24/17 0000 Signed Impressions: Service Date/Time: Tuesday, January 24, 2017 06:33 - CONCLUSION: No acute intrathoracic disease. Telly Galloway MD Patient/Family Conference Present at Family Conference: Patient and daughter Cynthia. . Family Conference Time (mins): 48 Family Conference Location: Bedside Issues Discussed: * Palliative care role, purpose, approach * Additional medical, psychosocial, and spiritual history * Patients general health, functional status, and cognitive changes in the months leading up to the current hospitalization * Patient/family understanding of the current medical problems -metastatic breast cancer * Patient/family understanding of prognosis * Patients goals of care as best understood from advance directives and/or conversations and/or values * Current medical treatment options and benefits/burdens of those options * Questions answered to the best of my ability * Palliative care contact information provided * Risks, benefits and limitations of CPR given patient's clinical condition and metastatic disease. * Hospice philosophy and benefits . Assessment and Plan Disease Oriented Problem List: (1) Pain of metastatic malignancy (2) COPD (chronic obstructive pulmonary disease) with emphysema (3) Anemia (4) Physical deconditioning Symptom Scale: (1) Pain 0-10 Scale: 5 Comment: Secondary to burden of disease. Bony metastasis. (2) Nausea 0-10 Scale: 0 (3) Debility 0-10 Scale: Unable to quantify Comment: Progressive. Worsen within the past 2 months. Pertinent Non-Medical Issues Psychosocial: Originally from [place]. , has 3 children. 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 Spiritual: No samaritan affiliation. Legal: Advance directives completed. Ethical issues impacting care: No ethical issues identified. Patient participating in medical decision-making. . Important Contacts HCS/daughter Cynthia Ty grandson/alt HCS: Rafael Ty . Prognosis Mrs. Gunter is a 76-year-old female with a past medical history significant for invasive mammary carcinoma status post left simple mastectomy with sentinel lymph node sampling which was positive for micrometastasis. Patient underwent radiation therapy to left breast, she was not a candidate for chemotherapy secondary to multiple comorbidities. Patient also with history of COPD and emphysema, O2 dependent. Patient with newly diagnosed bony metastasis. Patient at high risk for further complications, continue decline and . . Code Status: No Code Plan * CODE STATUS: No code. DNR/DNI. Community DNR has been completed. Copy in chart. * MEDICAL DECISION-MAKING: Patient participating in medical decision-making. Patient demonstrates a good understanding of her medical condition and the ability to weight the benefits and burdens of treatment options. Patient designated her daughter Cynthia as HCS, alternate surrogate grandson Rafael Ty. * GOALS OF CARE: Patient electing to continue with current conservative management short of no code. Pending oncology consultation. Patient understands that chemotherapy may not be an option secondary to comorbidities and frailty status. Patient receptive to palliative radiation to bony metastasis if offered. Introduce hospice philosophy and benefits. Discussed the future role of hospice should patient's clinical condition continues to worsen, increased symptom burden or additional physical decline. Patient and daughter receptive to this. * SYMPTOMS: =Pain to chest and thoracic spine, secondary to bony metastasis/ burden of disease. Home regimen of Lortab. Patient feels that home regimen is not effective. Currently on Percocet 5/325mg q4h for moderate pain or 10/325mg q4h PRN for severe pain. Has received 4 doses of 10/325mg since admission. Patient feels that pain is controlled at this time. Palliative care recommends continuation of Percocet PRN when discharge home. May consider long-acting opioid, morphine ER 20 mg every 12 hours in addition to Percocet PRN = Shortness of breath, history of COPD -O2 dependent. = Debility, progressive and worsened during the past 2 months. * Palliative care assisted in completion of living will or designation of healthcare surrogate. Copies in chart. * Palliative care contact information has been provided to patient and daughter. * Palliative care will continue to follow-up for further clarifications of goals of care as patient's clinical course continued to evolve. . Time Spent Total Floor Time (mins): 97 (Total time to include review and summarization of available medical records to include prior oncology and radiation oncology notes , physical exam, goals of care conversation with patient and daughter, assistance in completion of living will and community DNR.) >50% Counseling/Coord of Care: Yes Thank you for the opportunity to participate in the care of Ms. Gunter. Attestation To help prompt me to consider important information that might be impacting today's encounter and assessment, information from prior notes written by myself or my colleagues may have been "brought forward" into today's note. My signature on this note, however, is an attestation that I personally performed the exam, history, and/or decision-making noted today, and, unless otherwise indicated, the interactions with patient, family, and staff as well as the review of records all occurred today. I also attest that the listed assessment and stated plan reflect my best clinical judgment today based on the combination of historical information, prior notes, and today's exam/ interactions. When time spent is documented, it refers only to time spent today by the signer, or if indicated, combined time spent today by collaborating physician/nurse practitioner. Ysabel Garnica Jan 25, 2017 14:05
[2017-01-25] MEDS: ALPRAZolam 0.25 MG TAB PO PRN (22:00)
[2017-01-25] MEDS: HYDROmorphone HCL PF 1 MG/ML VIAL IV PUSH PRN (22:05)
[2017-01-26 00:30] VITALS: BP 115/58; PULSE 75; RESP 18; TEMP 98.2; O2SAT 95
[2017-01-26 04:30] VITALS: BP 130/61; PULSE 77; RESP 18; TEMP 99; O2SAT 94
--- NOTE | 2017-01-26 05:55 | MB ---
cc: SHANIQUA BALES DATE OF 1940 DATE OF CONSULTATION January 25, 2017 REASON FOR CONSULTATION Patient with a history of breast cancer who presents with severe back pain. CHIEF COMPLAINT Back pain. Severe weakness. HISTORY OF PRESENT ILLNESS Ms. Gunter is a 75-year-old female who has a diagnosis of Stage II-B, T2 N1 M0 breast cancer. She was diagnosed in 2015 after she developed a painful lump in her left breast. A mammogram revealed suspicious abnormality in the left breast. She underwent ultrasound-guided biopsy which confirmed invasive mammary carcinoma with mixed ductal and lobular features. This was ER positive 41%, NC negative, HER2 negative tumor. She underwent left breast mastectomy. Final biopsy confirmed the above diagnosis. She had one sentinel lymph node which was positive for micrometastatic disease. There was lymphovascular invasion. She was deemed not to be a candidate for any chemotherapy. She received adjuvant radiation treatments. The patient recently was seen in the oncology clinic post mastectomy. She had a PET scan which showed a small focal hypermetabolic mass in the anterior left chest wall. A follow-up PET scan was recommended. The patient was felt scheduled for this PET scan yesterday but unfortunately she was not able to get this done because she developed severe back pain. She was brought to the emergency room. The patient tells me that recently she was admitted to [facility] for aspiration pneumonia. During her hospitalization a CT scan revealed diffuse bony metastasis. I do not have access to this imaging. The patient was admitted to the hospital. She is currently receiving IV narcotics to control her pain. She appears weak and frail. Her pain is in control at this time. She denies any headache, no chest pain, no shortness of breath, no abdominal pain. No lower extremity edema or pain. REVIEW OF SYSTEMS A comprehensive 14-point review of systems was completed which is negative except as described in the HPI. PAST MEDICAL HISTORY 1. Breast cancer. 2. Recent hospitalization at [facility]. 3. COPD. 4. Brain aneurysm. 5. AAA. 6. Anxiety. 7. Migraine headaches. 8. Osteoporosis. PAST SURGICAL HISTORY 1. Left mastectomy in May of 2016. 2. Appendectomy. 3. Hernia repair surgery. 4. Hysterectomy. MEDICATIONS 1. Aspirin 325 mg p.o. daily. 2. Tamoxifen 20 mg p.o. daily. 3. Pantoprazole 40 mg p.o. daily. 4. Carbamazepine 800 mg p.o. t.i.d. 5. DuoNebs q.6 hours p.r.n. 6. Reglan 10 mg IV q.8 hours p.r.n. 7. Dilaudid 0.5 mg IV q.4 hours p.r.n. 8. Albuterol 1 tablet q. 4 hours INH. 9. Alprazolam 0.25 mg p.o. q.8 hours p.r.n. 10. Lovenox 40 mg subcu q. 24 hours. 11. Senna 1 tablet p.o. b.i.d. 12. Zofran 4 mg IV q.6 hours p.r.n. 13. Milk of Magnesia 30 cc p.o. q.12 hours. 14. Senokot 17.2 mg p.o. q.12 hours. 15. Percocet 5/325 mg 1 tablet p.o. q.4 hours p.r.n. 16. Dilaudid 1 mg IV q.4 hours p.r.n. ALLERGIES No known drug allergies. FAMILY HISTORY Reviewed and is noncontributory to this admission. SOCIAL HISTORY She does has a past history of smoking three packs per day but she has cut down to three cigarettes daily. She has more than 30 pack-year smoking history. No alcohol or drug use. PHYSICAL EXAMINATION VITAL SIGNS: Blood pressure is 120/56, pulse is in the 70s, temperature is 98.5, O2 sats are 98% on room air. GENERAL: Thin, elderly, frail female in no apparent distress. HEENT: Pupils are equal, round, reactive to light. EOMI. No oral thrush. No oral lesions. NECK: Supple. No JVD, no bruits. No lymphadenopathy. CHEST: Clear to auscultation bilaterally. CARDIAC: S1, S2. Regular rate and rhythm. ABDOMEN: Nontender, nondistended. Bowel sounds are present. EXTREMITIES: Without any edema, erythema or cyanosis. SKIN: Without any petechiae, lesion or bruises. NEURO: No focal deficits. PSYCHIATRIC: Mood and affect is appropriate. Tenderness in the upper and lower back. LABORATORY DATA WBC 7.1, hemoglobin 9.8, platelet count 261. Serum chemistries - Sodium 140, potassium 4.5, chloride 103, CO2 30, anion gap 8, BUN 32, creatinine 0.85, GFR 65, total bilirubin 0.1, AST 39, ALT 19, alk phos 198, total protein 6.2, albumin 3.0. X-RAYS Reviewed in the EMR. ASSESSMENT AND PLAN This is a 76-year-old female who has a history of Stage II breast cancer who has undergone left-sided mastectomy. She is currently on hormone blockade therapy. She had micrometastasis to her lymph nodes. She did receive adjuvant radiation therapy. She now presents with intractable pain in her upper back and lower back. 1. Concern for bony metastatic disease. She apparently had CT scans at [facility] and I am being told that there was bony metastatic disease seen in the CT scans. She now has severe back pain in both upper and lower spinal area. We need to make sure that she does not have any metastatic disease to the spine. We will obtain MRI of the lumbar and thoracic spine. If she is found to have any lesions, will need to have a biopsy. We will try to obtain imaging from [facility] to evaluate the distribution of bony metastatic disease that was seen on the CT. According to the patient, this was a CT scan of the chest, abdomen and pelvis. I had a long discussion with the patient and I also spoke with her daughter. The patient was scheduled for a PET scan outpatient but she did not have that completed. She will need a PET scan in the outpatient setting. I will obtain tumor markers including CEA, CA15-3 and CA27-29. This could be metastatic breast cancer but there is also a possibility of lung cancer since the patient has a very long history of tobacco abuse. 2. Intractable back pain. Continue pain control with IV narcotics and p.r.n. oral pain meds. 3. Anemia. Obtain anemia studies. Thank you for allowing me to participate in the care of this patient. I will continue to follow this patient along. MD MEREDITH Mejia/FREDY /1:03 AM /5:37 AM
[2017-01-26 07:50] VITALS: BP 119/63; PULSE 77; RESP 20; TEMP 98.4; O2SAT 96
[2017-01-26] MEDS: TAMOXIFEN CITRATE 10 MG TAB PO SCH (08:02)
[2017-01-26] MEDS: ASPIRIN 325 MG TAB PO SCH (08:02)
[2017-01-26] MEDS: ENOXAPARIN SODIUM 40 MG/0.4 ML SYRINGE SQ SCH (08:02)
[2017-01-26] MEDS: DOCUSATE SODIUM 50 MG/SENNA 8.6 MG TAB PO SCH ×2 (08:02→20:06)
[2017-01-26] MEDS: PANTOPRAZOLE SOD 40 MG DELAYED RELEASE TAB PO SCH (08:03)
[2017-01-26] MEDS: oxyCODONE/ACETAMINOPHEN 10 MG/325 MG TAB PO PRN ×3 (08:03→20:06)
[2017-01-26] MEDS: DULERA INH SCH ×2 (08:05→20:08)
[2017-01-26] MEDS: SODIUM CHLORIDE 0.9% FLUSH 10 ML FLUSH IV FLUSH SCH ×2 (08:05→20:09)
[2017-01-26 08:28] LABS: TRANSFERRIN IRON PROFILE 177 MG/DL (200-360)
--- NOTE | 2017-01-26 09:46 | HHI.PR ---
Subjective Remarks Patient reports she is feeling okay. Back pain is controlled. Not much appetite. No nausea or vomiting. Objective Vitals Vital Signs Date Time Temp Pulse Resp B/P Pulse Ox O2 Delivery O2 Flow Rate FiO2 01/26/17 07:50 98.4 77 20 119/63 96 01/26/17 04:30 99.0 77 18 130/61 94 01/26/17 00:30 98.2 75 18 115/58 95 01/25/17 22:35 16 01/25/17 20:45 98.6 74 20 137/70 96 01/25/17 19:37 16 01/25/17 15:50 98.5 76 20 120/56 98 01/25/17 11:30 98.2 78 20 111/58 95 I/O 01/25/17 01/25/17 01/25/17 01/26/17 01/26/17 01/26/17 07:00 15:00 23:00 07:00 15:00 23:00 Intake Total 120 ml 360 ml 480 ml 120 ml Output Total 450 ml 400 ml Balance 120 ml 360 ml 30 ml -280 ml Intake Oral 120 ml 360 ml 480 ml 120 ml Output Urine Total 450 ml 400 ml # Voids 1 2 # Bowel Movements 0 Result Diagram: 01/25/17 0551 01/25/17 0537 Objective Remarks GENERAL: Frail, elderly female in no apparent distress. CARDIOVASCULAR: Normal rate and regular rhythm without murmurs, gallops, or rubs. RESPIRATORY: Good respiratory efforts. Breath sounds equal and clear to auscultation bilaterally. GASTROINTESTINAL: Abdomen soft, non-tender, non-distended. Normal active bowel sounds MUSCULOSKELETAL: Diffusely tender anterior lower ribs and in the thoracic region. NEURO: Alert & Oriented x4 to person, place, time, situation. Moves all ext x4 PSYCH: Appropriate mood and affect. A/P Assessment and Plan 76-year-old female with past medical history significant for breast cancer s/p left mastectomy May 2016 as well as adjuvant radiation treatments, COPD, h/ o brain aneurysm and AAA who presented to [facility] ED with complaints of intractable back pain. Recent workup in [facility] revealed diffuse bony metastases. Intractable back pain Breast cancer Newly diagnosed diffuse bony metastases at recent outside hospital admission per family .per ER note, She just had a CT scan performed on January 15 at [facility] which demonstrates lytic lesions throughout the axial and appendicular skeleton suggestive of extensive metastatic disease - Thoracic spine x-ray, images personally reviewed, shows chronic appearing loss of body height of T6 - Pain currently controlled with Percocet. Bowel regimen ordered. - IV Zofran when necessary nausea/vomiting - Appreciate oncology input. MRI ordered. We'll need biopsy, tumor markers ordered per oncology. - Palliative care following. Anemia - mild - no evidence of active bleeding - monitor as indicated COPD Long history of tobaccoism, quit several weeks ago - Supplemental oxygen as needed to maintain O2 sats above 92% - DuoNeb as needed DVT prophylaxis - Lovenox 40 mg subcutaneous daily Discharge Planning Continue inpatient care. Workup ongoing. Adele Michaud MD Jan 26, 2017 09:46
[2017-01-26 11:00] VITALS: BP 114/56; PULSE 76; RESP 20; TEMP 98.9; O2SAT 96
[2017-01-26 15:30] VITALS: BP 143/65; PULSE 97; RESP 20; TEMP 97.3; O2SAT 97
[2017-01-26] MEDS ORDERED: GADODIAMIDE PF 287 MG/ML 10 ML VIAL (for RAD MRI) IV ONE (16:27)
--- NOTE | 2017-01-26 16:38 | HHI.HCPN ---
Reason for visit a. To assist with evaluation and management of symptoms including: Pain and debility. b. To assist medical decision maker(s) with: better understanding of current medical conditions; weighing benefits/burdens of medical treatment options; making medical treatment decisions. . Subjective/Interval History Mrs. Gunter is a 76-year-old female with a past medical history significant for invasive mammary carcinoma status post left simple mastectomy with sentinel lymph node sampling which was positive for micrometastasis. Patient underwent radiation therapy to left breast, she was not a candidate for chemotherapy secondary to multiple comorbidities. Patient also with history of COPD and emphysema, O2 dependent. Patient presented to ED on 01/23/17 endorsing severe pain to back and chest. As per medical records, patient just had a CT scan performed on 01/15/17 at [facility] which demonstrates lytic lesions throughout the axial and appendicular skeleton suggestive of extensive metastatic disease. Palliative care has been consulted for further clarifications of goals of care and assistance with pain management. Oncology, Dr. Kirkpatrick consulted on 01/25/17. recommending MRI of lumbar of thoracic spine, if lesions are found, biopsy needed. Patient to follow-up with outpatient PET scan, pending tumor markers. As per oncology, this may represent metastatic breast cancer versus lung cancer given patient's long history of tobacco abuse. Patient seen in her room earlier this morning, resting in bed in no acute distress. Alert and oriented x self, place and situation. Patient endorsing pain to chest and thoracic spine. pain is sharp, intermittent. Reports that pain is controlled with Percocet 10/325mg q4h PRN. Tolerating regular diet, no difficulty swallowing. Poor oral intake. Ate 10% of her breakfast. No vomiting, shortness of breath or abdominal discomfort reported. Patient afebrile, stable hemodynamically. Oxygen saturation in the high 90s. No new laboratory or imaging for review. Met with patient and daughter Cynthia. Daughter Cynthia reports feeling optimistic but is realistic to the fact that patient is likely to have metastatic disease. Ongoing goals of care conversation at this time, pending MRI and additional studies. Daughter verbalized that patient's quality of life to include symptom management is their priority. . Family/friend interactions See interval note. . Advance Directives Living Will: Copy in medical record Health Care Surrogate: Copy in medical record Durable Power of Form Tamping Machine Operator: Never completed Advance Directive Specifics Date completed: 01/25/17. Health Care Surrogate(s): HCS/daughter Cynthia Ty grandson/alt HCS: Rafael Ty . Documented care wishes: Living will completed with standard verbiage as it pertains to life support. . Significant change in goals: Goals of care remain unchanged. Pending additional testing. . Objective Vital Signs Date Time Temp Pulse Resp B/P Pulse Ox O2 Delivery O2 Flow Rate FiO2 01/26/17 11:00 98.9 76 20 114/56 96 01/26/17 07:50 98.4 77 20 119/63 96 01/26/17 04:30 99.0 77 18 130/61 94 01/26/17 00:30 98.2 75 18 115/58 95 01/25/17 22:35 16 01/25/17 20:45 98.6 74 20 137/70 96 01/25/17 19:37 16 Intake & Output 01/26/17 01/26/17 07:00 19:00 Intake Total 600 ml Output Total 850 ml Balance -250 ml Intake Oral 600 ml Output Urine Total 850 ml Physical Exam CONSTITUTIONAL/GENERAL: This is a thin elderly female in no apparent distress. TUBES/LINES/DRAINS: PIV's. SKIN: No jaundice, rashes, or lesions. Ecchymoses on upper extremities. No wounds seen anteriorly. Skin temperature appropriate. Not diaphoretic. HEAD: Atraumatic. Normocephalic. EYES: Pupils equal and round and reactive. Extraocular motions intact. No scleral icterus. No injection or drainage. ptosis to left eye. ENT: Hearing grossly normal. Nose without bleeding or purulent drainage. Moist oral mucosa. NECK: Trachea midline. Supple, nontender. CARDIOVASCULAR: Regular rate and rhythm without murmurs, gallops, or rubs. No JVD. Peripheral pulses symmetric. RESPIRATORY/CHEST: Symmetric, unlabored respirations. Clear to auscultation. Breath sounds equal bilaterally. No wheezes, rales, or rhonchi. GASTROINTESTINAL: Abdomen round, mildly distended, nontender. No guarding. Bowel sounds present. GENITOURINARY: Without palpable bladder distension. MUSCULOSKELETAL: Extremities without clubbing, cyanosis, or edema. No mottling or clubbing. NEUROLOGICAL: Awake and alert. Motor and sensory grossly within normal limits. Follows commands. Cognitively sharp. Moves all extremities. PSYCHIATRIC: Pleasant and cooperative. . Diagnostic Tests Laboratory Laboratory Tests Test 01/24/17 01/24/17 01/25/17 01/25/17 06:25 10:30 05:37 05:51 White Blood Count 14.6 TH/MM3 10.1 TH/MM3 (4.0-11.0) (4.0-11.0) Red Blood Count 3.50 MIL/MM3 3.11 MIL/MM3 (4.00-5.30) (4.00-5.30) Hemoglobin 10.7 GM/DL 9.8 GM/DL (11.6-15.3) (11.6-15.3) Hematocrit 32.2 % 28.5 % (35.0-46.0) (35.0-46.0) Mean Corpuscular Volume 91.9 FL 91.6 FL (80.0-100.0) (80.0-100.0) Mean Corpuscular Hemoglobin 30.7 PG 31.4 PG (27.0-34.0) (27.0-34.0) Mean Corpuscular Hemoglobin 33.3 % 34.3 % Concent (32.0-36.0) (32.0-36.0) Red Cell Distribution Width 14.8 % 14.4 % (11.6-17.2) (11.6-17.2) Platelet Count 304 TH/MM3 261 TH/MM3 (150-450) (150-450) Mean Platelet Volume 8.8 FL 8.7 FL (7.0-11.0) (7.0-11.0) Neutrophils (%) (Auto) 77.0 % 76.4 % (16.0-70.0) (16.0-70.0) Lymphocytes (%) (Auto) 13.2 % 13.6 % (9.0-44.0) (9.0-44.0) Monocytes (%) (Auto) 8.6 % (0.0-8.0) 7.1 % (0.0-8.0) Eosinophils (%) (Auto) 1.0 % (0.0-4.0) 2.5 % (0.0-4.0) Basophils (%) (Auto) 0.2 % (0.0-2.0) 0.4 % (0.0-2.0) Neutrophils # (Auto) 11.3 TH/MM3 7.7 TH/MM3 (1.8-7.7) (1.8-7.7) Lymphocytes # (Auto) 1.9 TH/MM3 1.4 TH/MM3 (1.0-4.8) (1.0-4.8) Monocytes # (Auto) 1.3 TH/MM3 0.7 TH/MM3 (0-0.9) (0-0.9) Eosinophils # (Auto) 0.2 TH/MM3 0.3 TH/MM3 (0-0.4) (0-0.4) Basophils # (Auto) 0.0 TH/MM3 0.0 TH/MM3 (0-0.2) (0-0.2) CBC Comment AUTO DIFF DIFF FINAL Differential Total Cells 100 Counted Neutrophils % (Manual) 71 % (16-70) Band Neutrophils % 5 % (0-6) Lymphocytes % 12 % (9-44) Monocytes % 9 % (0-8) Eosinophils % 1 % (0-4) Neutrophils # (Manual) 11.4 TH/MM3 (1.8-7.7) Myelocytes 2 % (0-0) Differential Comment FINAL DIFF MANUAL Platelet Estimate NORMAL (NORMAL) Platelet Morphology Comment NORMAL (NORMAL) Ovalocytes 1+ (NORMAL) Sodium Level 141 MEQ/L 140 MEQ/L (136-145) (136-145) Potassium Level 4.1 MEQ/L 4.5 MEQ/L (3.5-5.1) (3.5-5.1) Chloride Level 103 MEQ/L 105 MEQ/L (98-107) (98-107) Carbon Dioxide Level 30.0 MEQ/L 30.7 MEQ/L (21.0-32.0) (21.0-32.0) Anion Gap 8 MEQ/L (5-15) 4 MEQ/L (5-15) Blood Urea Nitrogen 32 MG/DL (7-18) 28 MG/DL (7-18) Creatinine 0.85 MG/DL 0.79 MG/DL (0.50-1.00) (0.50-1.00) Estimat Glomerular Filtration 65 ML/MIN (>89) 71 ML/MIN (>89) Rate Random Glucose 78 MG/DL 89 MG/DL (74-106) (74-106) Calcium Level 10.0 MG/DL 10.1 MG/DL (8.5-10.1) (8.5-10.1) Total Bilirubin 0.1 MG/DL (0.2-1.0) Aspartate Amino Transf 39 U/L (15-37) (AST/SGOT) Alanine Aminotransferase 19 U/L (10-53) (ALT/SGPT) Alkaline Phosphatase 198 U/L (45-117) Total Protein 6.2 GM/DL (6.4-8.2) Albumin 3.0 GM/DL (3.4-5.0) Urine Color YELLOW (YELLW/STRAW) Urine Turbidity HAZY (CLEAR) Urine pH 6.0 (5.0-8.5) Urine Specific [place] 1.018 (1.002-1.035) Urine Protein NEG mg/dL (NEG-TRACE) Urine Glucose (UA) NEG mg/dL (NEG) Urine Ketones NEG mg/dL (NEG) Urine Occult Blood NEG (NEG) Urine Nitrite NEG (NEG) Urine Bilirubin NEG (NEG) Urine Urobilinogen LESS THAN 2.0 MG/DL (LESS THAN 2.0) Urine Leukocyte Esterase SMALL (NEG) Urine RBC LESS THAN 1 /hpf (0-3) Urine WBC 1 /hpf (0-5) Urine Squamous Epithelial 1 /hpf (0-5) Cells Urine Bacteria OCC /hpf (NONE) Urine Hyaline Casts 1 /lpf (RARE) Microscopic Urinalysis Comment CULT NOT INDICATED Test 01/26/17 01/26/17 06:48 06:49 Iron Level 31 MCG/DL (50-170) Total Iron Binding Capacity 248 MCG/DL (250-450) Percent Iron Saturation 12.5 % (20-50) Transferrin 177 MG/DL (213-418) Vitamin B12 Level 298 PG/ML (193-986) Carcinoembryonic Antigen 2.5 NG/ML (0.2-5.0) CA 15-3 Antigen 34.1 U/ML (0.0-32.4) Result Diagram: 01/25/17 0551 01/25/17 0537 Assessment and Plan Disease Oriented Problem List: (1) Pain of metastatic malignancy (2) COPD (chronic obstructive pulmonary disease) with emphysema (3) Anemia (4) Physical deconditioning Symptom Scale: (1) Pain 0-10 Scale: 4 Comment: Secondary to burden of disease. Bony metastasis. (2) Nausea 0-10 Scale: 0 (3) Debility 0-10 Scale: Unable to quantify Comment: Progressive. Worsen within the past 2 months. Pertinent Non-Medical Issues Psychosocial: Originally from [place]. , has 3 children. 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 Spiritual: No faith affiliation. Legal: Advance directives completed. Ethical issues impacting care: No ethical issues identified. Patient participating in medical decision-making. . Important Contacts HCS/daughter Cynthia Ty grandson/alt HCS: Rafael Ty . Prognosis Mrs. Gunter is a 76-year-old female with a past medical history significant for invasive mammary carcinoma status post left simple mastectomy with sentinel lymph node sampling which was positive for micrometastasis. Patient underwent radiation therapy to left breast, she was not a candidate for chemotherapy secondary to multiple comorbidities. Patient also with history of COPD and emphysema, O2 dependent. Patient with newly diagnosed bony metastasis. Patient at high risk for further complications, continue decline and . . Code Status: No Code Plan * CODE STATUS: No code. DNR/DNI. Community DNR has been completed. Copy in chart. * MEDICAL DECISION-MAKING: Patient participating in medical decision-making. Patient demonstrates a good understanding of her medical condition and the ability to weight the benefits and burdens of treatment options. Patient designated her daughter Cynthia as HCS, alternate surrogate grandson Rafael Ty. * GOALS OF CARE: Patient electing to continue with current conservative management short of no code. Pending MRI results and additional testing to confirm metastatic breast ca vs lung cancer given patient's history with tobacco abuse, oncology following. Patient and daughter tell me that patient's quality of life/adequate control of pain and other symptoms is their main priority at this time. Discussed the future role of hospice should patient's clinical condition continues to worsen, increased symptom burden or additional physical decline. * SYMPTOMS: =Pain to chest and thoracic spine, secondary to burden of disease. Home regimen of Lortab. Patient feels that home regimen is not effective. Currently on Percocet 5/325mg q4h for moderate pain or 10/325mg q4h PRN for severe pain. Patient reports that pain is controlled with current management. Palliative care recommends continuation of Percocet PRN when discharge home. May consider long-acting opioid, morphine ER 20 mg every 12 hours in addition to Percocet PRN = Shortness of breath, history of COPD -O2 dependent. = Debility , progressive and worsened during the past 2 months. = Decreased oral intake, exacerbated by nausea. Subsequent available as needed. Patient a 10% of her breakfast this morning, requesting ensure with meals. Verbal order placed with bedside RN. * Ongoing emotional support and active listening has been provided. Patient's daughter requesting palliative care to follow-up tomorrow 01/27/17 once MRI results are available. * Palliative care contact information has been provided to patient and daughter. * Palliative care will continue to follow-up for further clarifications of goals of care as patient's clinical course continued to evolve. . Time Spent Total Floor Time (mins): 32 (Total time to include review medical records, physical exam, discussion with patient and daughter, and case discussion with bedside RN.) >50% Counseling/Coord of Care: Yes Attestation To help prompt me to consider important information that might be impacting today's encounter and assessment, information from prior notes written by myself or my colleagues may have been "brought forward" into today's note. My signature on this note, however, is an attestation that I personally performed the exam, history, and/or decision-making noted today, and, unless otherwise indicated, the interactions with patient, family, and staff as well as the review of records all occurred today. I also attest that the listed assessment and stated plan reflect my best clinical judgment today based on the combination of historical information, prior notes, and today's exam/ interactions. When time spent is documented, it refers only to time spent today by the signer, or if indicated, combined time spent today by collaborating physician/nurse practitioner. Ysabel Garnica Jan 26, 2017 16:38
--- NOTE | 2017-01-26 16:53 | RADRPT ---
EXAM DATE/TIME: 01/26/2017 15:12 [facility] COMPARISON: No previous studies available for comparison. INDICATIONS : Metastatic disease. CONTRAST: 9 cc Omniscan (gadodiamide) IV MEDICAL HISTORY : Carcinoma, breast. Chronic obstructive pulmonary disease. SURGICAL HISTORY : Mastectomy, left. Inguinal hernia repair. Hysterectomy. Aneurysm clipping. ENCOUNTER: Initial ACUITY: 4-6 days PAIN SCORE: 4/10 LOCATION: l-spine TECHNIQUE: Multiplanar multisequence MRI of the lumbar spine was performed with and without contrast. FINDINGS: The most caudal appearing lumbar vertebra is numbered as L5. VERTEBRAE: Markedly heterogeneous signal in a pattern suggesting widespread metastatic disease throughout all of the bones of the lumbar spine and sacrum Normal alignment. CONUS: Normal level and configuration. POST CONTRAST: Marked enhancement throughout the lumbar spine. T12-L1: The thecal sac has a normal diameter. No evidence of disc bulge or protrusion. The neural foramina are patent bilaterally. L1-L2: The thecal sac has a normal diameter. No evidence of disc bulge or protrusion. The neural foramina are patent bilaterally. L2-L3: The thecal sac has a normal diameter. No evidence of disc bulge or protrusion. The neural foramina are patent bilaterally. L3-L4: The thecal sac has a normal diameter. No evidence of disc bulge or protrusion. The neural foramina are patent bilaterally. L4-L5: The thecal sac has a normal diameter. No evidence of disc bulge or protrusion. The neural foramina are patent bilaterally. L5-S1: The thecal sac has a normal diameter. No evidence of disc bulge or protrusion. The neural foramina are patent bilaterally. CONCLUSION: Almost complete replacement of the bone marrow with widespread metastatic disease. No disc herniatio n or protrusion. No abnormal areas of enhancement within the epidural space. Zacarias Sagastume MD on January 26, 2017 at 16:50 Board Certified Radiologist. This report was verified electronically.
--- NOTE | 2017-01-26 16:59 | RADRPT ---
EXAM DATE/TIME: 01/26/2017 15:12 [place] COMPARISON: No previous studies available for comparison. INDICATIONS : Metastatic disease. Breast ca. CONTRAST: 9 cc Omniscan (gadodiamide) IV MEDICAL HISTORY : Carcinoma, breast. SURGICAL HISTORY : Mastectomy, left. Inguinal hernia repair. Aneurysm clipping. ENCOUNTER: Initial ACUITY: 3 day PAIN SCORE: 4/10 LOCATION: T-spine TECHNIQUE: Multiplanar multisequence MRI of the thoracic spine was performed. FINDINGS: VERTEBRA: Normal vertebral body height with diffuse kyphosis throughout the thoracic spine. Widespread metastat ic disease throughout the entire thoracic and visualized lumbar spine. Multiple lesions show marrow r eplacement, marrow edema and diffuse widespread enhancement. I do not see distinct compression fractu re ALIGNMENT: Diffuse kyphosis CORD: Normal position and configuration. POST CONTRAST: Widespread enhancement throughout the vertebral bodies. T1-T2: Normal. T2-T3: The thecal sac has a normal diameter. No evidence of disc bulge or protrusion. T3-T4: The thecal sac has a normal diameter. No evidence of disc bulge or protrusion. T4-T5: The thecal sac has a normal diameter. No evidence of disc bulge or protrusion. T5-T6: The thecal sac has a normal diameter. No evidence of disc bulge or protrusion. T6-T7: The thecal sac has a normal diameter. No evidence of disc bulge or protrusion. T7-T8: The thecal sac has a normal diameter. No evidence of disc bulge or protrusion. T8-T9: The thecal sac has a normal diameter. No evidence of disc bulge or protrusion. T9-T10: The thecal sac has a normal diameter. No evidence of disc bulge or protrusion. T10-T11: The thecal sac has a normal diameter. No evidence of disc bulge or protrusion. T11-T12: The thecal sac has a normal diameter. No evidence of disc bulge or protrusion. T12-L1: The thecal sac has a normal diameter. No evidence of disc bulge or protrusion. CONCLUSION: Widespread metastatic disease throughout the bones of the thoracic spine and upper lumbar spine. Both the posterior elements and vertebral bodies are involved. I do not see any evidence of compression f racture or mass effect upon the cord. No enhancement within the cord. Zacarias Sagastume MD on January 26, 2017 at 16:56 Board Certified Radiologist. This report was verified electronically.
[2017-01-26 20:00] VITALS: BP 167/74; PULSE 82; RESP 18; TEMP 97.2; O2SAT 93
[2017-01-26] MEDS: ALPRAZolam 0.25 MG TAB PO PRN (20:06)
[2017-01-26] MEDS: ONDANSETRON HCL 4 MG/2 ML VIAL IVP PRN (20:09)
--- NOTE | 2017-01-26 23:03 | PD.ONC.PN ---
Subjective Subjective Remarks frail/weak no fevers/bleeding pain better controlled d/w rn Objective Data Date Time Temp Pulse Resp B/P Pulse Ox O2 Delivery O2 Flow Rate FiO2 01/26/17 21:06 16 01/26/17 20:00 97.2 82 18 167/74 93 01/26/17 19:55 Nasal Cannula 2.00 01/26/17 15:30 97.3 97 20 143/65 97 01/26/17 11:00 98.9 76 20 114/56 96 01/26/17 07:50 98.4 77 20 119/63 96 01/26/17 04:30 99.0 77 18 130/61 94 01/26/17 00:30 98.2 75 18 115/58 95 01/26/17 01/26/17 01/26/17 07:00 15:00 23:00 Intake Total 120 ml 600 ml Output Total 400 ml Balance -280 ml 600 ml Result Diagram: 01/25/17 0551 01/25/17 0537 Laboratory Results Laboratory Tests Test 01/26/17 01/26/17 06:48 06:49 Iron Level 31 MCG/DL Total Iron Binding Capacity 248 MCG/DL Percent Iron Saturation 12.5 % Transferrin 177 MG/DL Vitamin B12 Level 298 PG/ML Carcinoembryonic Antigen 2.5 NG/ML CA 15-3 Antigen 34.1 U/ML Imaging Studies Last 24 hours Impressions Thoracic Spine MRI 01/26/17 0000 Signed Impressions: Service Date/Time: Thursday, January 26, 2017 15:12 - CONCLUSION: Widespread metastatic disease throughout the bones of the thoracic spine and upper lumbar spine. Both the posterior elements and vertebral bodies are involved. I do not see any evidence of compression fracture or mass effect upon the cord. No enhancement within the cord. Zacarias Sagastume MD Lumbar Spine MRI 01/26/17 0000 Signed Impressions: Service Date/Time: Thursday, January 26, 2017 15:12 - CONCLUSION: Almost complete replacement of the bone marrow with widespread metastatic disease. No disc herniation or protrusion. No abnormal areas of enhancement within the epidural space. Zacarias Sagastume MD Administered Medications Medications (Trade) Dose Ordered Sig/Jimmy Route PRN Reason Start Time Stop Time Status Last Admin Dose Admin Sodium Chloride (NS Flush) 2 ml BID IV FLUSH 01/24/17 09:00 01/26/17 20:09 Ondansetron HCl (Zofran Inj) 4 mg Q6H PRN IVP NAUSEA OR VOMITING 01/24/17 08:15 01/26/17 20:09 Enoxaparin Sodium (Lovenox Inj) 40 mg Q24H SQ 01/24/17 09:00 01/26/17 08:02 Senna/Docusate Sodium (Klarissa-Colace) 1 tab BID PO 01/24/17 09:00 01/26/17 20:06 Bisacodyl (Dulcolax Supp) 10 mg DAILY PRN RECTAL SEVERE CONSITIPATION 01/24/17 08:15 01/24/17 14:58 Oxycodone/ Acetaminophen (Percocet 10-325 Mg) 1 tab Q4H PRN PO PAIN SCALE 6 TO 10 01/24/17 08:15 01/26/17 20:06 Hydromorphone HCl (Dilaudid Pf Inj) 0.5 mg Q4H PRN IV PUSH BREAKTHROUGH PAIN 01/24/17 14:45 01/25/17 22:05 Alprazolam (Xanax) 0.25 mg Q8H PRN PO ANXIETY 01/24/17 14:45 01/26/17 20:06 Aspirin (Aspirin) 325 mg DAILY PO 01/25/17 09:00 01/26/17 08:02 Carbamazepine (TEGretol CHEW) 100 mg TID PO 01/24/17 18:00 01/26/17 17:23 Tamoxifen Citrate (Nolvadex) 20 mg DAILY PO 01/25/17 09:00 01/26/17 08:02 Pantoprazole Sodium (Protonix) 40 mg DAILY PO 01/25/17 09:00 01/26/17 08:03 Patient Own Medication PT OWN MED: DUL... BID INH 01/24/17 21:00 01/26/17 20:08 Objective Remarks GENERAL: nad, thin frail SKIN: Warm and dry. NECK: Supple, trachea midline. No JVD or lymphadenopathy. LYMPHATIC: No adenopathy. CARDIOVASCULAR: Regular rate and rhythm without murmurs. RESPIRATORY: Breath sounds equal bilaterally. No accessory muscle use. GASTROINTESTINAL: Abdomen soft, non-tender, nondistended. EXTREMITIES: No cyanosis, or edema. Assessment/Plan Problem List: (1) Anemia Status: Acute (2) Physical deconditioning Status: Acute (3) COPD (chronic obstructive pulmonary disease) with emphysema Status: Acute (4) Pain of metastatic malignancy Status: Acute (5) Breast cancer Status: Acute (6) Bone metastasis Status: Acute Assessment 76-year-old female who has a history of Stage II breast cancer who has undergone left-sided mastectomy. She is currently on hormone blockade therapy. She had micrometastasis to her lymph nodes. She did receive adjuvant radiation therapy but no adjuvant chemotherapy. She now presents with intractable pain in her upper back and lower back. 1. Diffused bony metastatic disease based on MRI lumbar and thoracic spine - will ask IR for biopsy - Obtain CT chest/abdomen and pelvis to assess disease - Likely metastatic breast cancer or another primary such as lung ca - CA 15-3 elevated 2. Intractable back pain. Continue pain control with IV narcotics and p.r.n. oral pain meds. 3. Anemia. iron deficient - will give iron infusion d/w Eric Casey MD Jan 26, 2017 23:03
[2017-01-27] VITALS (8 sets, daily range): BP systolic 104–153; BP diastolic 54–79; PULSE 69–81; RESP 16–20; TEMP 96.7–98.4; O2SAT 90–97
[2017-01-27] MEDS: oxyCODONE/ACETAMINOPHEN 10 MG/325 MG TAB PO PRN ×3 (01:12→18:20)
[2017-01-27] MEDS: DULERA INH SCH ×2 (08:52→20:53)
[2017-01-27] MEDS: TAMOXIFEN CITRATE 10 MG TAB PO SCH (08:53)
[2017-01-27] MEDS: SODIUM CHLORIDE 0.9% FLUSH 10 ML FLUSH IV FLUSH SCH ×2 (08:54→20:51)
[2017-01-27] MEDS: DOCUSATE SODIUM 50 MG/SENNA 8.6 MG TAB PO SCH ×2 (08:55→20:50)
[2017-01-27] MEDS: ENOXAPARIN SODIUM 40 MG/0.4 ML SYRINGE SQ SCH (09:00)
[2017-01-27] MEDS: ASPIRIN 325 MG TAB PO SCH (09:00)
[2017-01-27] MEDS: PANTOPRAZOLE SOD 40 MG DELAYED RELEASE TAB PO SCH (09:00)
--- NOTE | 2017-01-27 10:43 | HHI.PR ---
Subjective Remarks Patient complains of persistent rib and back pain. Percocet helps when she receives it. Objective Vitals Vital Signs Date Time Temp Pulse Resp B/P Pulse Ox O2 Delivery O2 Flow Rate FiO2 01/27/17 07:30 98.0 71 20 108/54 96 01/27/17 04:00 97.7 69 16 108/57 96 01/27/17 02:12 16 01/27/17 00:00 98.2 73 17 129/62 97 01/26/17 20:00 97.2 82 18 167/74 93 01/26/17 19:55 Nasal Cannula 2.00 01/26/17 15:30 97.3 97 20 143/65 97 01/26/17 11:00 98.9 76 20 114/56 96 I/O 01/26/17 01/26/17 01/26/17 01/27/17 01/27/17 01/27/17 07:00 15:00 23:00 07:00 15:00 23:00 Intake Total 120 ml 600 ml Output Total 400 ml Balance -280 ml 600 ml Intake Oral 120 ml 600 ml Output Urine Total 400 ml # Voids 1 Result Diagram: 01/25/17 0551 01/25/17 0537 Imaging Last Impressions Thoracic Spine MRI 01/26/17 0000 Signed Impressions: Service Date/Time: Thursday, January 26, 2017 15:12 - CONCLUSION: Widespread metastatic disease throughout the bones of the thoracic spine and upper lumbar spine. Both the posterior elements and vertebral bodies are involved. I do not see any evidence of compression fracture or mass effect upon the cord. No enhancement within the cord. Zacarias Sagastume MD Lumbar Spine MRI 01/26/17 0000 Signed Impressions: Service Date/Time: Thursday, January 26, 2017 15:12 - CONCLUSION: Almost complete replacement of the bone marrow with widespread metastatic disease. No disc herniation or protrusion. No abnormal areas of enhancement within the epidural space. Zacarias Sagastume MD Thoracic Spine X-Ray 01/24/17 0000 Signed Impressions: Service Date/Time: Tuesday, January 24, 2017 06:31 - CONCLUSION: Mild chronic appearing loss of height of T6. Otherwise, unremarkable exam for patient's age. Telly Galloway MD Chest X-Ray 01/24/17 0000 Signed Impressions: Service Date/Time: Tuesday, January 24, 2017 06:33 - CONCLUSION: No acute intrathoracic disease. Telly Galloway MD Objective Remarks GENERAL: Frail, elderly female in no apparent distress. CARDIOVASCULAR: Normal rate and regular rhythm without murmurs, gallops, or rubs. RESPIRATORY: Good respiratory efforts. Breath sounds equal and clear to auscultation bilaterally. GASTROINTESTINAL: Abdomen soft, non-tender, non-distended. Normal active bowel sounds MUSCULOSKELETAL: Diffusely tender anterior lower ribs and in the thoracic region. NEURO: Alert & Oriented x4 to person, place, time, situation. Moves all ext x4 PSYCH: Appropriate mood and affect. A/P Assessment and Plan 76-year-old female with past medical history significant for breast cancer s/p left mastectomy May 2016 as well as adjuvant radiation treatments, COPD, h/ o brain aneurysm and AAA who presented to [facility] ED with complaints of intractable back pain. Recent workup in [facility] revealed diffuse bony metastases. Intractable back pain Breast cancer Newly diagnosed diffuse bony metastases at recent outside hospital admission per family .per ER note, She just had a CT scan performed on January 15 at [facility] which demonstrates lytic lesions throughout the axial and appendicular skeleton suggestive of extensive metastatic disease -Oncology following - MRI confirmed widespread metastatic disease to the thoracic and lumbar spine. - CT-guided biopsy ordered per oncology. - IV Zofran when necessary nausea/vomiting - Palliative care following. - Add long-acting morphine 15 mg twice a day. Anemia - mild - no evidence of active bleeding - monitor as indicated COPD Long history of tobaccoism, quit several weeks ago - Supplemental oxygen as needed to maintain O2 sats above 92% - DuoNeb as needed DVT prophylaxis - Lovenox 40 mg subcutaneous daily Discharge Planning Continue inpatient care. Workup ongoing. Adele Michaud MD Jan 27, 2017 10:43
--- NOTE | 2017-01-27 11:46 | HHI.HCPN ---
Reason for visit a. To assist with evaluation and management of symptoms including: Pain and debility. b. To assist medical decision maker(s) with: better understanding of current medical conditions; weighing benefits/burdens of medical treatment options; making medical treatment decisions. . Subjective/Interval History Mrs. Gunter is a 76-year-old female with a past medical history significant for invasive mammary carcinoma status post left simple mastectomy with sentinel lymph node sampling which was positive for micrometastasis. Patient underwent radiation therapy to left breast, she was not a candidate for chemotherapy secondary to multiple comorbidities. Patient also with history of COPD and emphysema, O2 dependent. Patient presented to ED on 01/23/17 endorsing severe pain to back and chest. As per medical records, patient just had a CT scan performed on 01/15/17 at [facility] which demonstrates lytic lesions throughout the axial and appendicular skeleton suggestive of extensive metastatic disease. Palliative care has been consulted for further clarifications of goals of care and assistance with pain management. Oncology, Dr. Kirkpatrick consulted on 01/25/17. MRI of lumbar of thoracic spine revealing widespread metastasis. Pending CT of chest and abdomen/pelvis to assess progression of disease. Patient is scheduled for bone biopsy today. As per oncology, likely metastatic breast cancer or another primary such as lung cancer given her smoking history. No new laboratory for review. Patient seen in her room, resting in bed in no acute distress. Alert and oriented x self, place and situation. Patient endorsing pain to chest that is intermittent and sharp. Exacerbated by inspiration, alleviated with pain medications. Pain currently rated at 7/10. Patient endorsing poor appetite, ate some dinner last night. Fasting this morning for bone biopsy. Ensure was order yesterday with meals. Patient endorsing shortness of breath on minimal exertion, reports feeling weak. Denies nausea, vomiting or dominant no discomfort. Last bowel movement yesterday. Patient reports feeling sad as her pain seems to be worsen. Educated patient on current pain management and encourage her to report pain to nursing staff before pain reaches moderate to severe. Patient reports feeling too weak and is worry that she may not regain strength. Discussed with patient that additional workup such as bone biopsy is still pending, oncology following. Spiritual services offered and accepted. Referral made. Provided ongoing emotional support and active listening to patient. Palliative care will follow up for assistance with symptom management and emotional support. Case discussed with ALESSANDRA Swann. . Family/friend interactions No family at bedside during my visit. . Advance Directives Living Will: Copy in medical record Health Care Surrogate: Copy in medical record Durable Power of Cardiovascular Technologist: Never completed Advance Directive Specifics Date completed: 01/25/17. Health Care Surrogate(s): HCS/daughter Cynthia Ty grandson/alt HCS: Rafael Ty . Documented care wishes: Living will completed with standard verbiage as it pertains to life support. . Significant change in goals: No code. DNR/DNI. Continue with conservative management short of no code. Pending bone biopsy. . Objective Vital Signs Date Time Temp Pulse Resp B/P Pulse Ox O2 Delivery O2 Flow Rate FiO2 01/27/17 07:30 98.0 71 20 108/54 96 01/27/17 04:00 97.7 69 16 108/57 96 01/27/17 02:12 16 01/27/17 00:00 98.2 73 17 129/62 97 01/26/17 20:00 97.2 82 18 167/74 93 01/26/17 19:55 Nasal Cannula 2.00 01/26/17 15:30 97.3 97 20 143/65 97 Intake & Output 01/27/17 01/27/17 07:00 19:00 Intake Total 600 ml Balance 600 ml Intake Oral 600 ml # Voids 1 Physical Exam CONSTITUTIONAL/GENERAL: This is a thin elderly female in no apparent distress. TUBES/LINES/DRAINS: PIV's. Nasal cannula. SKIN: No jaundice, rashes, or lesions. Ecchymoses on upper extremities, left upper arm. No wounds seen anteriorly. Skin temperature appropriate. Not diaphoretic. HEAD: Atraumatic. Normocephalic. EYES: Pupils equal and round and reactive. Extraocular motions intact. No scleral icterus. No injection or drainage. ptosis to left eye. ENT: Hearing grossly normal. Nose without bleeding or purulent drainage. Moist oral mucosa. NECK: Trachea midline. Supple, nontender. CARDIOVASCULAR: Regular rate and rhythm without murmurs, gallops, or rubs. No JVD. Peripheral pulses symmetric. RESPIRATORY/CHEST: Symmetric, unlabored respirations. Clear to auscultation. Breath sounds equal bilaterally. No wheezes, rales, or rhonchi. GASTROINTESTINAL: Abdomen round, mildly distended, nontender. No guarding. Bowel sounds present. GENITOURINARY: Without palpable bladder distension. MUSCULOSKELETAL: Extremities without clubbing, cyanosis, or edema. No mottling or clubbing. NEUROLOGICAL: Awake and alert. Motor and sensory grossly within normal limits. Follows commands. Cognitively sharp. Moves all extremities. PSYCHIATRIC: Sad. Diagnostic Tests Laboratory Laboratory Tests Test 01/25/17 01/25/17 01/26/17 01/26/17 05:37 05:51 06:48 06:49 Sodium Level 140 MEQ/L (136-145) Potassium Level 4.5 MEQ/L (3.5-5.1) Chloride Level 105 MEQ/L (98-107) Carbon Dioxide Level 30.7 MEQ/L (21.0-32.0) Anion Gap 4 MEQ/L (5-15) Blood Urea Nitrogen 28 MG/DL (7-18) Creatinine 0.79 MG/DL (0.50-1.00) Estimat Glomerular Filtration 71 ML/MIN (>89) Rate Random Glucose 89 MG/DL (74-106) Calcium Level 10.1 MG/DL (8.5-10.1) White Blood Count 10.1 TH/MM3 (4.0-11.0) Red Blood Count 3.11 MIL/MM3 (4.00-5.30) Hemoglobin 9.8 GM/DL (11.6-15.3) Hematocrit 28.5 % (35.0-46.0) Mean Corpuscular Volume 91.6 FL (80.0-100.0) Mean Corpuscular Hemoglobin 31.4 PG (27.0-34.0) Mean Corpuscular Hemoglobin 34.3 % Concent (32.0-36.0) Red Cell Distribution Width 14.4 % (11.6-17.2) Platelet Count 261 TH/MM3 (150-450) Mean Platelet Volume 8.7 FL (7.0-11.0) Neutrophils (%) (Auto) 76.4 % (16.0-70.0) Lymphocytes (%) (Auto) 13.6 % (9.0-44.0) Monocytes (%) (Auto) 7.1 % (0.0-8.0) Eosinophils (%) (Auto) 2.5 % (0.0-4.0) Basophils (%) (Auto) 0.4 % (0.0-2.0) Neutrophils # (Auto) 7.7 TH/MM3 (1.8-7.7) Lymphocytes # (Auto) 1.4 TH/MM3 (1.0-4.8) Monocytes # (Auto) 0.7 TH/MM3 (0-0.9) Eosinophils # (Auto) 0.3 TH/MM3 (0-0.4) Basophils # (Auto) 0.0 TH/MM3 (0-0.2) CBC Comment DIFF FINAL Differential Comment Iron Level 31 MCG/DL (50-170) Total Iron Binding Capacity 248 MCG/DL (250-450) Percent Iron Saturation 12.5 % (20-50) Transferrin 177 MG/DL (213-418) Vitamin B12 Level 298 PG/ML (193-986) Carcinoembryonic Antigen 2.5 NG/ML (0.2-5.0) CA 15-3 Antigen 34.1 U/ML (0.0-32.4) Result Diagram: 01/25/17 0551 01/25/17 0537 Imaging Last 48 hours Impressions Thoracic Spine MRI 01/26/17 0000 Signed Impressions: Service Date/Time: Thursday, January 26, 2017 15:12 - CONCLUSION: Widespread metastatic disease throughout the bones of the thoracic spine and upper lumbar spine. Both the posterior elements and vertebral bodies are involved. I do not see any evidence of compression fracture or mass effect upon the cord. No enhancement within the cord. Zacarias Sagastume MD Lumbar Spine MRI 01/26/17 0000 Signed Impressions: Service Date/Time: Thursday, January 26, 2017 15:12 - CONCLUSION: Almost complete replacement of the bone marrow with widespread metastatic disease. No disc herniation or protrusion. No abnormal areas of enhancement within the epidural space. Zacarias Sagastume MD Assessment and Plan Disease Oriented Problem List: (1) Pain of metastatic malignancy (2) COPD (chronic obstructive pulmonary disease) with emphysema (3) Anemia (4) Physical deconditioning Symptom Scale: (1) Pain 0-10 Scale: 7 Comment: Secondary to burden of disease. Bony metastasis. (2) Nausea 0-10 Scale: 0 (3) Debility 0-10 Scale: Unable to quantify Comment: Progressive. Worsen within the past 2 months. Pertinent Non-Medical Issues Psychosocial: Originally from [place]. , has 3 children. 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 Spiritual: No synagogue affiliation. Legal: Advance directives completed. Ethical issues impacting care: No ethical issues identified. Patient participating in medical decision-making. . Important Contacts HCS/daughter Cynthia Ty grandson/alt HCS: Rafael Ty . Prognosis Mrs. Gunter is a 76-year-old female with a past medical history significant for invasive mammary carcinoma status post left simple mastectomy with sentinel lymph node sampling which was positive for micrometastasis. Patient underwent radiation therapy to left breast, she was not a candidate for chemotherapy secondary to multiple comorbidities. Patient also with history of COPD and emphysema, O2 dependent. Patient with newly diagnosed bony metastasis. Patient at high risk for further complications, continue decline and . . Code Status: No Code Plan * CODE STATUS: No code. DNR/DNI. Community DNR has been completed. * MEDICAL DECISION-MAKING: Patient participating in medical decision-making. Patient demonstrates a good understanding of her medical condition and the ability to weight the benefits and burdens of treatment options. Patient designated her daughter Cynthia as HCS, alternate surrogate grandson Rafael Ty. * GOALS OF CARE: Patient electing to continue with current conservative management short of no code. Oncology following, MRI of lumbar and thoracic spine revealing widespread metastatic disease throughout the bones of the thoracic and lumbar spine. Pending bone biopsy, oncology following. Patient wishing to continue goals of care conversation once pathology report is available and treatment options have been discussed. The future role of hospice has been discussed with patient and daughter should patient's clinical condition continues to worsen, increased symptom burden or additional physical decline. * SYMPTOMS: =Pain to chest and thoracic spine, secondary to burden of disease. Currently on Percocet 5/325mg q4h for moderate pain or 10/325mg q4h PRN for severe pain. Has taken 5 doses of Percocet 10/325 mg with moderate effect. Continue endorsing severe pain to chest wall and lumbar thoracic spine. Morphine ER 15 mg q12h added this morning by attending. Patient's morphine equivalent daily dose for the past 24h is 75mg. In the setting of intractable pain, Morphine ER can be safely titrated up to 25mg q12h. Patient was encourage to notify nursing staff of pain greater than 4/10. = Shortness of breath, history of COPD -O2 dependent. = Debility, progressive and worsened during the past 2 months. = Decreased oral intake, exacerbated by nausea. Ensure with meals was added yesterday at patient's request. * Case discussed with bedside ALESSANDRA Swann. * Ongoing emotional support and active listening has been provided. * Spiritual services offered and accepted. Referral made. * Palliative care contact information has been provided to patient and daughter. * Palliative care will continue to follow-up for further clarifications of goals of care, assist with symptom management and provide emotional support as patient's clinical course continued to evolve. . Time Spent Total Floor Time (mins): 40 (Total time to include review of medical records, physical exam, bedside conversation with patient and case discussion with bedside ALESSANDRA Swann.) >50% Counseling/Coord of Care: Yes Attestation To help prompt me to consider important information that might be impacting today's encounter and assessment, information from prior notes written by myself or my colleagues may have been "brought forward" into today's note. My signature on this note, however, is an attestation that I personally performed the exam, history, and/or decision-making noted today, and, unless otherwise indicated, the interactions with patient, family, and staff as well as the review of records all occurred today. I also attest that the listed assessment and stated plan reflect my best clinical judgment today based on the combination of historical information, prior notes, and today's exam/ interactions. When time spent is documented, it refers only to time spent today by the signer, or if indicated, combined time spent today by collaborating physician/nurse practitioner. Ysabel aGrnica Jan 27, 2017 11:46
[2017-01-27] MEDS: HYDROmorphone HCL PF 1 MG/ML VIAL IV PUSH PRN (13:35)
[2017-01-27] MEDS: ONDANSETRON HCL 4 MG/2 ML VIAL IVP PRN (13:46)
[2017-01-27] MEDS: IRON SUCROSE INJ 200 MG in SODIUM CHLORIDE 0.9% INJ 100 ML IV SCH (13:47)
[2017-01-27 13:51] LABS: APTT (PATIENT) 22.3 SEC (24.3-30.1); INTERNATIONAL NORMALIZED RATIO 0.9 RATIO; PROTHROMBIN TIME - PATIENT 10.4 SEC (9.8-11.6)
[2017-01-27] MEDS ORDERED: MIDAZOLAM HCL 5 MG/5 ML VIAL ONE (16:00)
[2017-01-27] MEDS ORDERED: fentaNYL CITRATE 250 MCG/5 ML AMP ONE (16:01)
--- NOTE | 2017-01-27 17:02 | PD.RAD ---
Post CT Procedure Prog Note Pre Procedure Diagnosis: (1) Bone metastasis Post Procedure Diagnosis: Procedure Date: Jan 27, 2017 Supervising Radiologist: Yomi Salgado Proceduralist/Assist: Casi Diggs Anesthesia: Conscious Sedation Plan of Activity Patient to Unit: [facility] See PACS Report for procedural detail/treatment Yomi Salgado MD Jan 27, 2017 17:02
[2017-01-27] MEDS ORDERED: IOHEXOL 350 MG/ML 10 ML VIAL (for RAD DIAG) IV ONE (18:15)
--- NOTE | 2017-01-27 18:29 | RADRPT ---
EXAM DATE/TIME: 01/27/2017 16:16 [facility] COMPARISON: MRI LUMBAR SPINE W & W/O CONTRAST, January 26, 2017, 15:12. MRI THORACIC SPINE W & W/O CONTRAST, January 082016, 15:12. INDICATIONS : Breast cancer; evaluate for metastases. IV CONTRAST: 85 cc Omnipaque 350 (iohexol) IV ; Cumulative dose for multiple exams. ORAL CONTRAST: No oral contrast ingested. RADIATION DOSE: 6.73 CTDIvol (mGy) ; Combined studies - Thorax/Abdomen/Pelvis MEDICAL HISTORY : Aneurysm, abdominal. Renal calculi. Chronic obstructive pulmonary disease.Hypertension, breast cancer . SURGICAL HISTORY : Appendectomy. Mastectomy, left. ENCOUNTER: Initial ACUITY: 1 day PAIN SCALE: 0/10 LOCATION: abdomen. TECHNIQUE: Volumetric scanning of the abdomen and pelvis was performed. Using automated exposure control and ad justment of the mA and/or kV according to patient size, radiation dose was kept as low as reasonably achievable to obtain optimal diagnostic quality images. DICOM format image data is available electro nically for review and comparison. FINDINGS: Mild hepatic steatosis. There is dilatation of the common bile duct up to 1.3 cm. There is aneurysmal dilatation of the infrarenal abdominal aorta which measures 4.4 x 4.7 cm in AP and transverse dimens ion on axial image 32. On image 34 measures 4.4 x 4.8 cm in AP and transverse dimension. Common iliac arteries are mildly increased in diameter, 1.5 cm on the left and 1.8 cm on the right. Urinary bladd er is unremarkable. The patient is status post hysterectomy. There is no evidence of bowel obstructio n. Stomach unremarkable. Small bowel loops are unremarkable. There is no ascites. There are bilateral internal iliac artery aneurysms measuring 2.8 cm on the right and one point centimeters on the left. There is a large exophytic cyst of the right measuring 5.9 cm at the lower pole. A few tiny 2 mm george culi within both kidneys, nonobstructing. The osseous structures demonstrate diffuse lytic lesions th roughout the visualized bones. CONCLUSION: 1. Atherosclerotic disease and infrarenal abdominal aortic aneurysm extending 8.5 cm in cephalocaudal extent, bilateral common iliac artery dilatation and focal aneurysmal dilatation of the bilateral in ternal iliac arteries. 2. Hepatic steatosis. 3. There is dilatation of the common hepatic and common bile duct believed to be secondary to mass ef fect from the aortic aneurysm which displaces the pancreas anteriorly. 4. Widespread osseous metastatic disease. Pancho Valencia MD on January 27, 2017 at 18:23 Board Certified Radiologist. This report was verified electronically.
--- NOTE | 2017-01-27 18:35 | RADRPT ---
EXAM DATE/TIME: 01/27/2017 16:16 [facility] COMPARISON: CT ABDOMEN & PELVIS W CONTRAST, January 27, 2017, 16:16. MRI THORACIC SPINE W & W/O CONTRAST, January 26, 2017, 15:12. CHEST SINGLE AP, January 24, 2017, 6:33. INDICATIONS : Breast cancer; evaluate for metastases. IV CONTRAST: 85 cc Omnipaque 350 (iohexol) IV ; Cumulative dose for multiple exams. RADIATION DOSE: 6.73 CTDIvol (mGy) ; Combined studies - Thorax/Abdomen/Pelvis MEDICAL HISTORY : Aneurysm, abdominal. Chronic obstructive pulmonary disease. Renal calculi.Hypertension, breast cancer . SURGICAL HISTORY : Appendectomy. Mastectomy, left. ENCOUNTER: Initial ACUITY: 1 day PAIN SCALE: 0/10 LOCATION: chest TECHNIQUE: Volumetric scanning of the chest was performed. Using automated exposure control and adjustment of t he mA and/or kV according to patient size, radiation dose was kept as low as reasonably achievable to obtain optimal diagnostic quality images. DICOM format image data is available electronically for review and comparison. Follow-up recommendations for incidentally detected pulmonary nodules are based at a minimum on nodul e size and patient risk factors according to Fleischner Society Guidelines. FINDINGS: There is widespread metastatic disease to the visualized axial and appendicular skeleton with numerou s lytic lesions scattered throughout the visualized bones. There are is severe emphysema. There is li near scarring in the lingula and left lower lobe. Probable scarring in the right middle lobe and righ t lower lobe severe costophrenic angle atelectatic changes suspected. No definite masses are seen in the lungs. There is no adenopathy. No pleural or pericardial effusions. Atherosclerotic disease is id entified. CONCLUSION: 1. Widespread osseous metastatic disease and severe emphysema. Pancho Valencia MD on January 27, 2017 at 18:31 Board Certified Radiologist. This report was verified electronically.
[2017-01-27] MEDS ORDERED: MORPHINE SULFATE 15 MG CONTROLLED RELEASE TAB PO SCH (21:00)
--- NOTE | 2017-01-27 23:45 | PD.ONC.PN ---
Subjective Subjective Remarks plans for biopsy today having pain no fevers/no cough no bleeding weak d/w rn Objective Data Date Time Temp Pulse Resp B/P Pulse Ox O2 Delivery O2 Flow Rate FiO2 01/27/17 20:00 98.1 72 17 104/57 95 01/27/17 18:15 96.7 74 20 150/70 90 01/27/17 17:46 72 17 153/79 91 01/27/17 17:16 98.0 81 18 143/73 91 01/27/17 11:30 98.4 73 20 113/54 96 01/27/17 07:30 98.0 71 20 108/54 96 01/27/17 04:00 97.7 69 16 108/57 96 01/27/17 02:12 16 01/27/17 00:00 98.2 73 17 129/62 97 01/27/17 01/27/17 01/27/17 06:59 14:59 22:59 Intake Total 120 ml Output Total 400 ml Balance -280 ml Result Diagram: 01/25/17 0551 01/25/17 0537 Laboratory Results Laboratory Tests Test 01/27/17 13:14 Prothrombin Time 10.4 SEC Prothromb Time International 0.9 RATIO Ratio Activated Partial 22.3 SEC Thromboplast Time Administered Medications Medications (Trade) Dose Ordered Sig/Jimmy Route PRN Reason Start Time Stop Time Status Last Admin Dose Admin Sodium Chloride (NS Flush) 2 ml BID IV FLUSH 01/24/17 09:00 01/27/17 20:51 Ondansetron HCl (Zofran Inj) 4 mg Q6H PRN IVP NAUSEA OR VOMITING 01/24/17 08:15 01/27/17 13:46 Enoxaparin Sodium (Lovenox Inj) 40 mg Q24H SQ 01/24/17 09:00 01/26/17 08:02 Senna/Docusate Sodium (Klarissa-Colace) 1 tab BID PO 01/24/17 09:00 01/27/17 20:50 Bisacodyl (Dulcolax Supp) 10 mg DAILY PRN RECTAL SEVERE CONSITIPATION 01/24/17 08:15 01/24/17 14:58 Oxycodone/ Acetaminophen (Percocet 10-325 Mg) 1 tab Q4H PRN PO PAIN SCALE 6 TO 10 01/24/17 08:15 01/27/17 18:20 Hydromorphone HCl (Dilaudid Pf Inj) 0.5 mg Q4H PRN IV PUSH BREAKTHROUGH PAIN 01/24/17 14:45 01/27/17 13:35 Alprazolam (Xanax) 0.25 mg Q8H PRN PO ANXIETY 01/24/17 14:45 01/26/17 20:06 Aspirin (Aspirin) 325 mg DAILY PO 01/25/17 09:00 01/26/17 08:02 Carbamazepine (TEGretol CHEW) 100 mg TID PO 01/24/17 18:00 01/27/17 18:19 Tamoxifen Citrate (Nolvadex) 20 mg DAILY PO 01/25/17 09:00 01/27/17 08:53 Pantoprazole Sodium (Protonix) 40 mg DAILY PO 01/25/17 09:00 01/26/17 08:03 Patient Own Medication PT OWN MED: DUL... BID INH 01/24/17 21:00 01/27/17 20:53 Iron Sucrose/ Sodium Chloride (Venofer Inj/NS Inj) 110 ml @ 110 mls/hr DAILY IV 01/27/17 09:00 01/29/17 09:59 01/27/17 13:47 Morphine Sulfate (Oramorph Sr) 15 mg Q12HR PO 01/27/17 21:00 01/27/17 20:51 Objective Remarks GENERAL: nad/weak SKIN: Warm and dry. NECK: Supple, trachea midline. No JVD or lymphadenopathy. LYMPHATIC: No adenopathy. CARDIOVASCULAR: Regular rate and rhythm without murmurs. RESPIRATORY: Breath sounds equal bilaterally. No accessory muscle use. GASTROINTESTINAL: Abdomen soft, non-tender, nondistended. EXTREMITIES: No cyanosis, or edema. Assessment/Plan Problem List: (1) Anemia Status: Acute (2) Physical deconditioning Status: Acute (3) COPD (chronic obstructive pulmonary disease) with emphysema Status: Acute (4) Pain of metastatic malignancy Status: Acute (5) Breast cancer Status: Acute (6) Bone metastasis Status: Acute Assessment 76-year-old female who has a history of Stage II breast cancer who has undergone left-sided mastectomy. She is currently on hormone blockade therapy. She had micrometastasis to her lymph nodes. She did receive adjuvant radiation therapy but no adjuvant chemotherapy. She now presents with intractable pain in her upper back and lower back. 1. Diffused bony metastatic disease based on MRI lumbar and thoracic spine - IR to biopsy today - CTT chest/abdomen and pelvis to assess disease - Likely metastatic breast cancer but could be another primary such as lung ca - CA 15-3 elevated 2. Intractable back pain. - Pain not controlled with Oramorph 15. requiring break through dilaudid IV. Will increase oramorph to 30 mg BID 3. Anemia. iron deficient - getting iron infusion Long discussion with patient and her daughter. d/w Eric Casey MD Jan 27, 2017 23:45
[2017-01-28] VITALS: BP 99/57; PULSE 76; RESP 17; TEMP 98.5; O2SAT 91
[2017-01-28] MEDS: oxyCODONE/ACETAMINOPHEN 10 MG/325 MG TAB PO PRN ×2 (01:33→23:38)
[2017-01-28 04:00] VITALS: BP 104/54; PULSE 72; RESP 17; TEMP 98.1; O2SAT 97
[2017-01-28 06:54] LABS: HEMATOCRIT 29.2 % (35.0-46.0); MEAN CELL VOLUME 91.8 FL (80.0-100.0); MEAN CORPUSCULAR HGB CONC 33.8 % (32.0-36.0); PLATELET COUNT 306 TH/MM3 (150-450); RED BLOOD COUNT 3.19 MIL/MM3 (4.00-5.30); RED CELL DISTRIBUTION WIDTH 14.4 % (11.6-17.2); REVIEW FLAG FINAL; WHITE BLOOD COUNT 9.6 TH/MM3 (4.0-11.0)
[2017-01-28 07:15] LABS: BICARBONATE 32.3 MEQ/L (21.0-32.0); POTASSIUM 3.9 MEQ/L (3.5-5.1)
--- NOTE | 2017-01-28 07:46 | RADRPT ---
EXAM DATE/TIME: 01/27/2017 16:35 [facility] COMPARISON: No previous studies available for comparison. INDICATIONS : Metastatic breast cancer. SEDATION TIME: 30 minutes BIOPSY SITE: Left ilium. MEDICATION(S): 1.) 2 mg midazolam (Versed) IV 2.) 100 mcg fentanyl (Sublimaze) IV DEVICE(S): 1.) 12 gauge Bone biopsy needle MEDICAL HISTORY : Aneurysm, abdominal. Hypertension. Chronic obstructive pulmonary disease. Breast cancer, renal stones . SURGICAL HISTORY : Appendectomy. Mastectomy, left. ENCOUNTER: Initial ACUITY: 1 day PAIN SCORE: 0/10 LOCATION: Left pelvis A total of two core specimen(s) were obtained and sent to the laboratory for pathologic evaluation. PROCEDURE: 1. CT guided bone deep biopsy. 2. Conscious sedation with continuous EKG and oximetry monitoring. 3. EKG and oximetry remained stable throughout the procedure. Prior to the procedure informed consent was obtained. Any appropriate prior imaging studies were rev iewed. Using automated exposure control and adjustment of the mA and/or kV according to patient size, radiat ion dose was kept as low as reasonably achievable to obtain optimal diagnostic quality images. DICOM format image data is available electronically for review and comparison. The site was prepped in a sterile fashion. Full sterile technique was used, including cap, mask, lilibeth rile gloves and gown and a large sterile sheet. Hand hygiene and 2% chlorhexidine and/or betadine/al cohol prep was utilized per protocol for cutaneous antisepsis. The skin and subcutaneous tissues wer e infiltrated with local anesthetic solution. With CT guidance the previously identified target was localized. Biopsy was performed using the presc ribed needle as above. Adequate hemostasis was obtained with compression at the puncture site. Follow-up CT scan reveals no hemorrhage. The patient tolerated the procedure well and there were no complications. The patient was returned to the Radiology Outpatient Unit in stable condition. CONCLUSION: Uncomplicated CT guided biopsy of left iliac bone. Yomi Salgado MD on January 28, 2017 at 7:44 Board Certified Radiologist. This report was verified electronically.
[2017-01-28 08:00] VITALS: BP 111/58; PULSE 74; RESP 20; TEMP 98.3; O2SAT 94
[2017-01-28] MEDS: IRON SUCROSE INJ 200 MG in SODIUM CHLORIDE 0.9% INJ 100 ML IV SCH (08:52)
[2017-01-28] MEDS: PANTOPRAZOLE SOD 40 MG DELAYED RELEASE TAB PO SCH (08:52)
[2017-01-28] MEDS: ENOXAPARIN SODIUM 40 MG/0.4 ML SYRINGE SQ SCH (08:53)
[2017-01-28] MEDS: DOCUSATE SODIUM 50 MG/SENNA 8.6 MG TAB PO SCH ×2 (08:53→20:33)
[2017-01-28] MEDS: ASPIRIN 325 MG TAB PO SCH (08:53)
[2017-01-28] MEDS: TAMOXIFEN CITRATE 10 MG TAB PO SCH (08:54)
[2017-01-28] MEDS: SODIUM CHLORIDE 0.9% FLUSH 10 ML FLUSH IV FLUSH SCH ×2 (08:54→20:36)
[2017-01-28] MEDS: MORPHINE SULFATE 30 MG CONTROLLED RELEASE TAB PO SCH ×2 (08:54→20:33)
[2017-01-28] MEDS: DULERA INH SCH ×2 (08:55→20:36)
--- NOTE | 2017-01-28 10:15 | HHI.PR ---
Subjective Remarks Patient reports that her pain is better controlled with the increased dose of morphine. No nausea or vomiting. Objective Vitals Vital Signs Date Time Temp Pulse Resp B/P Pulse Ox O2 Delivery O2 Flow Rate FiO2 01/28/17 08:00 98.3 74 20 111/58 94 01/28/17 04:00 98.1 72 17 104/54 97 01/28/17 00:00 98.5 76 17 99/57 91 01/27/17 20:00 98.1 72 17 104/57 95 01/27/17 18:15 96.7 74 20 150/70 90 01/27/17 17:46 72 17 153/79 91 01/27/17 17:16 98.0 81 18 143/73 91 01/27/17 11:30 98.4 73 20 113/54 96 I/O 01/27/17 01/27/17 01/27/17 01/28/17 01/28/17 01/28/17 06:59 14:59 22:59 06:59 14:59 22:59 Intake Total 120 ml Output Total 400 ml Balance -280 ml IV Total 120 ml Output Urine Total 400 ml # Voids 1 1 1 Result Diagram: 01/28/17 0557 01/28/17 0557 Objective Remarks GENERAL: Frail, elderly female in no apparent distress. CARDIOVASCULAR: Normal rate and regular rhythm without murmurs, gallops, or rubs. RESPIRATORY: Good respiratory efforts. Breath sounds equal and clear to auscultation bilaterally. GASTROINTESTINAL: Abdomen soft, non-tender, non-distended. Normal active bowel sounds MUSCULOSKELETAL: Diffusely tender anterior lower ribs and in the thoracic region. NEURO: Alert & Oriented x4 to person, place, time, situation. Moves all ext x4 PSYCH: Appropriate mood and affect. A/P Assessment and Plan 76-year-old female with past medical history significant for breast cancer s/p left mastectomy May 2016 as well as adjuvant radiation treatments, COPD, h/ o brain aneurysm and AAA who presented to [facility] ED with complaints of intractable back pain. Recent workup in [facility] revealed diffuse bony metastases. Intractable back pain Breast cancer Newly diagnosed diffuse bony metastases at recent outside hospital admission per family .per ER note, She just had a CT scan performed on January 15 at [facility] which demonstrates lytic lesions throughout the axial and appendicular skeleton suggestive of extensive metastatic disease -Oncology following - MRI confirmed widespread metastatic disease to the thoracic and lumbar spine. - Status post CT-guided biopsy. Pathology pending. - IV Zofran when necessary nausea/vomiting - Palliative care following. -Continue Oramorph 30 mg twice a day. Anemia - Iron deficiency - Iron infusion ongoing - no evidence of active bleeding - monitor COPD Long history of tobaccoism, quit several weeks ago - Supplemental oxygen as needed to maintain O2 sats above 92% - DuoNeb as needed DVT prophylaxis - Lovenox 40 mg subcutaneous daily Discharge Planning Plan for DC in 1-2 days. Will need [facility]. Adele Michaud MD Jan 28, 2017 10:15
[2017-01-28 12:00] VITALS: BP 110/55; PULSE 72; RESP 20; TEMP 98; O2SAT 93
--- NOTE | 2017-01-28 12:29 | PD.ONC.PN ---
Subjective Subjective Remarks Afebrile overnight. s/p biopsy yesterday. Denies any pain at present. when she does have pain its beneath her right breast bone and in her back. Objective Data Date Time Temp Pulse Resp B/P Pulse Ox O2 Delivery O2 Flow Rate FiO2 01/28/17 08:00 98.3 74 20 111/58 94 01/28/17 04:00 98.1 72 17 104/54 97 01/28/17 00:00 98.5 76 17 99/57 91 01/27/17 20:00 98.1 72 17 104/57 95 01/27/17 18:15 96.7 74 20 150/70 90 01/27/17 17:46 72 17 153/79 91 01/27/17 17:16 98.0 81 18 143/73 91 Result Diagram: 01/28/17 0557 01/28/17 0557 Laboratory Results Laboratory Tests Test 01/27/17 01/28/17 13:14 05:57 Prothrombin Time 10.4 SEC Prothromb Time International 0.9 RATIO Ratio Activated Partial 22.3 SEC Thromboplast Time White Blood Count 9.6 TH/MM3 Red Blood Count 3.19 MIL/MM3 Hemoglobin 9.9 GM/DL Hematocrit 29.2 % Mean Corpuscular Volume 91.8 FL Mean Corpuscular Hemoglobin 31.0 PG Mean Corpuscular Hemoglobin 33.8 % Concent Red Cell Distribution Width 14.4 % Platelet Count 306 TH/MM3 Mean Platelet Volume 8.0 FL Sodium Level 141 MEQ/L Potassium Level 3.9 MEQ/L Chloride Level 104 MEQ/L Carbon Dioxide Level 32.3 MEQ/L Anion Gap 5 MEQ/L Blood Urea Nitrogen 18 MG/DL Creatinine 0.78 MG/DL Estimat Glomerular Filtration 72 ML/MIN Rate Random Glucose 95 MG/DL Calcium Level 12.2 MG/DL Protein Corrected Calcium MG/DL Total Protein 5.8 GM/DL Administered Medications Medications (Trade) Dose Ordered Sig/Jimmy Route PRN Reason Start Time Stop Time Status Last Admin Dose Admin Sodium Chloride (NS Flush) 2 ml BID IV FLUSH 01/24/17 09:00 01/28/17 08:54 Ondansetron HCl (Zofran Inj) 4 mg Q6H PRN IVP NAUSEA OR VOMITING 01/24/17 08:15 01/27/17 13:46 Enoxaparin Sodium (Lovenox Inj) 40 mg Q24H SQ 01/24/17 09:00 01/28/17 08:53 Senna/Docusate Sodium (Klarissa-Colace) 1 tab BID PO 01/24/17 09:00 01/27/17 20:50 Bisacodyl (Dulcolax Supp) 10 mg DAILY PRN RECTAL SEVERE CONSITIPATION 01/24/17 08:15 01/24/17 14:58 Oxycodone/ Acetaminophen (Percocet 10-325 Mg) 1 tab Q4H PRN PO PAIN SCALE 6 TO 10 01/24/17 08:15 01/28/17 01:33 Hydromorphone HCl (Dilaudid Pf Inj) 0.5 mg Q4H PRN IV PUSH BREAKTHROUGH PAIN 01/24/17 14:45 01/27/17 13:35 Alprazolam (Xanax) 0.25 mg Q8H PRN PO ANXIETY 01/24/17 14:45 01/26/17 20:06 Aspirin (Aspirin) 325 mg DAILY PO 01/25/17 09:00 01/28/17 08:53 Carbamazepine (TEGretol CHEW) 100 mg TID PO 01/24/17 18:00 01/28/17 08:53 Tamoxifen Citrate (Nolvadex) 20 mg DAILY PO 01/25/17 09:00 01/28/17 08:54 Pantoprazole Sodium (Protonix) 40 mg DAILY PO 01/25/17 09:00 01/28/17 08:52 Patient Own Medication PT OWN MED: DUL... BID INH 01/24/17 21:00 01/28/17 08:55 Iron Sucrose/ Sodium Chloride (Venofer Inj/NS Inj) 110 ml @ 110 mls/hr DAILY IV 01/27/17 09:00 01/29/17 09:59 01/28/17 08:52 Morphine Sulfate (Oramorph Sr) 30 mg Q12HR PO 01/28/17 09:00 01/28/17 08:54 Objective Remarks GENERAL: Elderly female upright in bed in nad. SKIN: Warm and dry. HEAD: Normocephalic. EYES: No injection or drainage. NECK: Supple, trachea midline. CARDIOVASCULAR: Regular rate and rhythm RESPIRATORY: Breath sounds equal bilaterally. No accessory muscle use. GASTROINTESTINAL: Abdomen soft, non-tender, nondistended. EXTREMITIES: No cyanosis NEUROLOGICAL: awake and alert, normal speech. Assessment/Plan Problem List: (1) Anemia Status: Acute (2) Physical deconditioning Status: Acute (3) COPD (chronic obstructive pulmonary disease) with emphysema Status: Acute (4) Pain of metastatic malignancy Status: Acute (5) Breast cancer Status: Acute (6) Bone metastasis Status: Acute Assessment 76-year-old female who has a history of Stage II breast cancer who has undergone left-sided mastectomy. She is currently on hormone blockade therapy. She had micrometastasis to her lymph nodes. She did receive adjuvant radiation therapy but no adjuvant chemotherapy. She now presents with intractable pain in her upper back and lower back. 1. Diffuse bony metastatic disease based on MRI lumbar and thoracic spine - s/p biopsy in IR on 01/27, pathology pending. - CTT chest/abdomen and pelvis to assess disease - Likely metastatic breast cancer but could be another primary such as lung ca - CA 15-3 elevated 2. Intractable back pain. - on Oramorph 30 mg BID with Percocet 10/325 for breakthrough. pain seems to be well controlled on this regimen. 3. Anemia. iron deficient --iron sucrose given. 4. hypercalcemia: ?hypercalcemia of malignancy. start hydration. may need pamidronate. discharge: patient clear for discharge from oncology perspective when pain is controlled and calcium improved. fs faxed to new patient referrals for follow up in 1-2 weeks. Attending Statement The exam, history, and the medical decision-making described in the above note were completed with the assistance of the mid-level provider. I reviewed and agree with the findings presented. I attest that I had a [id number] encounter with the patient on the same day, and personally performed and documented my assessment and findings in the medical record. Long discussion with patient and her daughter Pain better controlled with current regimen Hypercalcemia of malignancy with bone mets--With give IV Zometa 4mg X 1 Bone biopsy was completed --path pending Pain control/nutrition/supportive care and PT over the weekend d/w Gisele Alejandro Jan 28, 2017 12:29 Eric Kirkpatrick MD Jan 28, 2017 21:34
--- NOTE | 2017-01-28 12:42 | HHI.HCPN ---
Reason for visit a. To assist with evaluation and management of symptoms including: Pain and debility. b. To assist medical decision maker(s) with: better understanding of current medical conditions; weighing benefits/burdens of medical treatment options; making medical treatment decisions. . Subjective/Interval History Mrs. Gunter is a 76-year-old female with a past medical history significant for invasive mammary carcinoma status post left simple mastectomy with sentinel lymph node sampling which was positive for micrometastasis. Patient underwent radiation therapy to left breast, she was not a candidate for chemotherapy secondary to multiple comorbidities. Patient also with history of COPD and emphysema, O2 dependent. Patient presented to ED on 01/23/17 endorsing severe pain to back and chest. MRI of lumbar of thoracic spine 01/26/17 revealing widespread metastasis. Oncology, Dr. Casimiro louie. Palliative care has been consulted for further clarifications of goals of care and assistance with pain management. Patient underwent biopsy of left iliac bone on 01/28/17, pending pathology. Abdomen and pelvis CT revealing infrarenal AAA extending 8.5 cm, dilation of the common hepatic and bile duct likely secondary to mass effect from the AAA which displaces the pancreas anteriorly, widespread osseous metastatic disease. Patient was placed yesterday on morphine SR 15 mg twice a day for refractory pain to lumbar and chest bone. Patient seen in her room, resting in bed in no acute distress. Alert and oriented x self, place and situation. Patient in good spirit, endorsing no pain or discomfort. Morphine SR was increased from 15 mg to 30 mg twice a day with good effect. Appetite has improved, she ate her breakfast plus ensure this morning. Denies nausea. Last bowel movement today. Denies shortness of breath. Patient tells me that she is likely to be discharge sometime early next week. Patient remains afebrile, stable hemodynamically. On O2 via nasal cannula 3 L, oxygen saturation in the mid to high 90s. Case discussed with ALESSANDRA Swann. . Family/friend interactions No family at bedside during my visit. . Advance Directives Living Will: Copy in medical record Health Care Surrogate: Copy in medical record Durable Power of Groundskeeping Maintenance: Never completed Advance Directive Specifics Date completed: 01/25/17. Health Care Surrogate(s): HCS/daughter Cynthia Ty grandson/alt HCS: Rafael Ty . Documented care wishes: Living will completed with standard verbiage as it pertains to life support. . Significant change in goals: Goals of care remain unchanged. Continue conservative management short of no code. . Objective Vital Signs Date Time Temp Pulse Resp B/P Pulse Ox O2 Delivery O2 Flow Rate FiO2 01/28/17 08:00 98.3 74 20 111/58 94 01/28/17 04:00 98.1 72 17 104/54 97 01/28/17 00:00 98.5 76 17 99/57 91 01/27/17 20:00 98.1 72 17 104/57 95 01/27/17 18:15 96.7 74 20 150/70 90 01/27/17 17:46 72 17 153/79 91 01/27/17 17:16 98.0 81 18 143/73 91 Intake & Output 01/28/17 01/28/17 07:00 19:00 # Voids 1 Physical Exam CONSTITUTIONAL/GENERAL: This is a thin elderly female in no apparent distress. TUBES/LINES/DRAINS: PIV's. Nasal cannula. SKIN: No jaundice, rashes, or lesions. Ecchymoses on upper extremities, left upper arm. No wounds seen anteriorly. Skin temperature appropriate. Not diaphoretic. HEAD: Atraumatic. Normocephalic. EYES: Pupils equal and round and reactive. Extraocular motions intact. No scleral icterus. No injection or drainage. ptosis to left eye. ENT: Hearing grossly normal. Nose without bleeding or purulent drainage. Moist oral mucosa. NECK: Trachea midline. Supple, nontender. CARDIOVASCULAR: Regular rate and rhythm without murmurs, gallops, or rubs. No JVD. Peripheral pulses symmetric. RESPIRATORY/CHEST: Symmetric, unlabored respirations. Clear to auscultation. Breath sounds equal bilaterally. No wheezes, rales, or rhonchi. GASTROINTESTINAL: Abdomen round, mildly distended, nontender. No guarding. Bowel sounds present. GENITOURINARY: Without palpable bladder distension. MUSCULOSKELETAL: Extremities without clubbing, cyanosis, or edema. No mottling or clubbing. NEUROLOGICAL: Awake and alert. Motor and sensory grossly within normal limits. Follows commands. Cognitively sharp. Moves all extremities. PSYCHIATRIC: Pleasant and cooperative. . Diagnostic Tests Laboratory Laboratory Tests Test 7/1901/26/17 01/27/17 01/28/17 06:48 06:49 13:14 05:57 Iron Level 31 MCG/DL (50-170) Total Iron Binding Capacity 248 MCG/DL (250-450) Percent Iron Saturation 12.5 % (20-50) Transferrin 177 MG/DL (213-418) Vitamin B12 Level 298 PG/ML (193-986) Carcinoembryonic Antigen 2.5 NG/ML (0.2-5.0) CA 15-3 Antigen 34.1 U/ML (0.0-32.4) Prothrombin Time 10.4 SEC (9.8-11.6) Prothromb Time International 0.9 RATIO Ratio Activated Partial 22.3 SEC Thromboplast Time (24.3-30.1) White Blood Count 9.6 TH/MM3 (4.0-11.0) Red Blood Count 3.19 MIL/MM3 (4.00-5.30) Hemoglobin 9.9 GM/DL (11.6-15.3) Hematocrit 29.2 % (35.0-46.0) Mean Corpuscular Volume 91.8 FL (80.0-100.0) Mean Corpuscular Hemoglobin 31.0 PG (27.0-34.0) Mean Corpuscular Hemoglobin 33.8 % Concent (32.0-36.0) Red Cell Distribution Width 14.4 % (11.6-17.2) Platelet Count 306 TH/MM3 (150-450) Mean Platelet Volume 8.0 FL (7.0-11.0) Sodium Level 141 MEQ/L (136-145) Potassium Level 3.9 MEQ/L (3.5-5.1) Chloride Level 104 MEQ/L (98-107) Carbon Dioxide Level 32.3 MEQ/L (21.0-32.0) Anion Gap 5 MEQ/L (5-15) Blood Urea Nitrogen 18 MG/DL (7-18) Creatinine 0.78 MG/DL (0.50-1.00) Estimat Glomerular Filtration 72 ML/MIN (>89) Rate Random Glucose 95 MG/DL (74-106) Calcium Level 12.2 MG/DL (8.5-10.1) Protein Corrected Calcium MG/DL (8.5-10.1) Total Protein 5.8 GM/DL (6.4-8.2) Result Diagram: 01/28/17 0557 01/28/17 0557 Imaging Last Impressions Thoracic Spine MRI 01/26/17 0000 Signed Impressions: Service Date/Time: Thursday, January 26, 2017 15:12 - CONCLUSION: Widespread metastatic disease throughout the bones of the thoracic spine and upper lumbar spine. Both the posterior elements and vertebral bodies are involved. I do not see any evidence of compression fracture or mass effect upon the cord. No enhancement within the cord. Zacarias Sagastume MD Lumbar Spine MRI 01/26/17 0000 Signed Impressions: Service Date/Time: Thursday, January 26, 2017 15:12 - CONCLUSION: Almost complete replacement of the bone marrow with widespread metastatic disease. No disc herniation or protrusion. No abnormal areas of enhancement within the epidural space. Zacarias Sagastume MD Chest CT 01/26/17 0000 Signed Impressions: Service Date/Time: January 16:16 - CONCLUSION: 1. Widespread osseous metastatic disease and severe emphysema. Pancho Valencia MD Bone Biopsy CT 01/26/17 0000 Signed Impressions: Service Date/Time: January 16:35 - CONCLUSION: Uncomplicated CT guided biopsy of left iliac bone. Yomi Salgado MD Abdomen/Pelvis CT 01/26/17 0000 Signed Impressions: Service Date/Time: January 16:16 - CONCLUSION: 1. Atherosclerotic disease and infrarenal abdominal aortic aneurysm extending 8.5 cm in cephalocaudal extent, bilateral common iliac artery dilatation and focal aneurysmal dilatation of the bilateral internal iliac arteries. 2. Hepatic steatosis. 3. There is dilatation of the common hepatic and common bile duct believed to be secondary to mass effect from the aortic aneurysm which displaces the pancreas anteriorly. 4. Widespread osseous metastatic disease. Pancho Valencia MD Thoracic Spine X-Ray 01/24/17 0000 Signed Impressions: Service Date/Time: Tuesday, January 24, 2017 06:31 - CONCLUSION: Mild chronic appearing loss of height of T6. Otherwise, unremarkable exam for patient's age. Telly Galloway MD Chest X-Ray 01/24/17 0000 Signed Impressions: Service Date/Time: Tuesday, January 24, 2017 06:33 - CONCLUSION: No acute intrathoracic disease. Telly Galloway MD Procedures * 01/27/17 -left iliac biopsy. . Assessment and Plan Disease Oriented Problem List: (1) Pain of metastatic malignancy (2) COPD (chronic obstructive pulmonary disease) with emphysema (3) Anemia (4) Physical deconditioning Symptom Scale: (1) Pain 0-10 Scale: 0 Comment: Secondary to burden of disease. Bony metastasis. (2) Nausea 0-10 Scale: 0 (3) Debility 0-10 Scale: Unable to quantify Comment: Progressive. Worsen within the past 2 months. Pertinent Non-Medical Issues Psychosocial: Originally from [place]. , has 3 children. 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 Spiritual: No christianity affiliation. Legal: Advance directives completed. Ethical issues impacting care: No ethical issues identified. Patient participating in medical decision-making. . Important Contacts HCS/daughter Cynthia Ty grandson/alt HCS: Rafael Ty . Prognosis Mrs. Gunter is a 76-year-old female with a past medical history significant for invasive mammary carcinoma status post left simple mastectomy with sentinel lymph node sampling which was positive for micrometastasis. Patient underwent radiation therapy to left breast, she was not a candidate for chemotherapy secondary to multiple comorbidities. Patient also with history of COPD and emphysema, O2 dependent. Patient with newly diagnosed bony metastasis. Patient at high risk for further complications, continue decline and . . Code Status: No Code Plan * CODE STATUS: DNR/DNI. Community DNR completed. * MEDICAL DECISION-MAKING: Patient participating in medical decision-making. Patient demonstrates a good understanding of her medical condition and the ability to weight the benefits and burdens of treatment options. Patient designated her daughter Cynthia as HCS, alternate surrogate grandson Rafael Ty. * GOALS OF CARE: Patient electing to continue with current conservative management short of no code. Patient wishing to continue goals of care conversation once left iliac bone pathology report is available and treatment options have been discussed. The future role of hospice has been discussed with patient and daughter should patient's clinical condition continues to worsen, increased symptom burden or additional physical decline. Patient and family receptive to this. * SYMPTOMS: =Pain to chest and thoracic spine, secondary to burden of disease. Patient was placed on morphine SR 15 mg twice a day yesterday, dose was increased to 30 mg today secondary to intractable pain. Patient reports that current pain regimen is effective, endorses no pain this morning. Currently on Percocet 5/325mg q4h for moderate pain or 10/325mg q4h PRN for severe pain as needed. = Shortness of breath, history of COPD -O2 dependent. Currently on 3 L nasal cannula = Debility, progressive and worsened during the past 2 months. = Decreased oral intake, improving. Ensure with meals ordered. * Case discussed with bedside ALESSANDRA Swann. * Ongoing emotional support and active listening provided. * Spiritual services offered and accepted. Referral made. * Palliative care contact information has been provided to patient and daughter. * Palliative care will continue to follow-up as needed for further clarifications of goals of care, assist with symptom management and provide emotional support as patient's clinical course continued to evolve. . Time Spent Total Floor Time (mins): 28 (Total time to include review medical records, physical exam, goals of care conversation with patient and case discussion with bedside ALESSANDRA Swann.) >50% Counseling/Coord of Care: Yes Attestation To help prompt me to consider important information that might be impacting today's encounter and assessment, information from prior notes written by myself or my colleagues may have been "brought forward" into today's note. My signature on this note, however, is an attestation that I personally performed the exam, history, and/or decision-making noted today, and, unless otherwise indicated, the interactions with patient, family, and staff as well as the review of records all occurred today. I also attest that the listed assessment and stated plan reflect my best clinical judgment today based on the combination of historical information, prior notes, and today's exam/ interactions. When time spent is documented, it refers only to time spent today by the signer, or if indicated, combined time spent today by collaborating physician/nurse practitioner. Ysabel Garnica Jan 28, 2017 12:41
[2017-01-28] MEDS ORDERED: WHEEMIS3 (13:45)
[2017-01-28] MEDS ORDERED: BEDSIDE COMMODE1 MI1 (13:45)
[2017-01-28] MEDS ORDERED: WALKER WHEELS/F1 MIS (13:45)
--- NOTE | 2017-01-28 13:47 | HHI.FF ---
Face to Face Verification Diagnosis: (1) Pain of metastatic malignancy (2) Breast cancer (3) Bone metastasis (4) Physical deconditioning Physical Therapy Order: Evaluate and Treat, Improve ambulation, Strength and gait training Home Health Nursing Order: Medical education Signs/symptoms of disease process Medication education-adverse effect Nursing assessment with vital signs I have seen patient Henrietta Gunter on 01/28/17. My clinical findings support the need for the requested home health care services because: Ltd mobility - disease progression Deconditioned w/ increased weakness Limited ability to care for self Need for psychosocial assistance High risk of falls I certify that my clinical findings support that this patient is homebound because: Unsteady gait/balance Need for psychosocial assistance Adele Michaud MD Jan 28, 2017 13:47
[2017-01-28 16:00] VITALS: BP 121/57; PULSE 80; RESP 20; TEMP 97.7; O2SAT 94
[2017-01-28] MEDS: SODIUM CHLOR 0.9% 1000 ML INJ 1,000 ML IV SCH (16:30)
[2017-01-28 20:00] VITALS: BP 137/65; PULSE 83; RESP 17; TEMP 97.6; O2SAT 97
[2017-01-28] MEDS ORDERED: ZOLEDRONIC ACID INJ 4 MG in SODIUM CHLOR 0.9% 250 ML INJ 150 ML IV ONE (21:45)
[2017-01-29] VITALS: BP 143/63; PULSE 91; RESP 17; TEMP 97; O2SAT 93
[2017-01-29 04:00] VITALS: BP 113/58; PULSE 70; RESP 18; TEMP 97.3; O2SAT 97
[2017-01-29 07:16] LABS: AUTOMATED NEUTROPHIL # 8.9 TH/MM3 (1.8-7.7); BASOPHIL % 0.3 % (0.0-2.0); EOSINOPHIL # 0.1 TH/MM3 (0-0.4); HEMATOCRIT 27.6 % (35.0-46.0); HEMO FLAGS DIFF FINAL; LYMPH % 12.4 % (9.0-44.0); LYMPHOCYTE # 1.4 TH/MM3 (1.0-4.8); MEAN CELL VOLUME 91.5 FL (80.0-100.0); MEAN CORPUSCULAR HEMOGLOBIN 30.7 PG (27.0-34.0); MEAN CORPUSCULAR HGB CONC 33.6 % (32.0-36.0); MONO % 6.8 % (0.0-8.0); NEUT % 79.5 % (16.0-70.0); PLATELET COUNT 291 TH/MM3 (150-450); RED BLOOD COUNT 3.01 MIL/MM3 (4.00-5.30); RED CELL DISTRIBUTION WIDTH 14.9 % (11.6-17.2); WHITE BLOOD COUNT 11.2 TH/MM3 (4.0-11.0)
[2017-01-29 07:57] LABS: BICARBONATE 30.7 MEQ/L (21.0-32.0); POTASSIUM 3.7 MEQ/L (3.5-5.1)
[2017-01-29 08:00] VITALS: BP 131/61; PULSE 73; RESP 20; TEMP 98.1; O2SAT 95
[2017-01-29] MEDS: PANTOPRAZOLE SOD 40 MG DELAYED RELEASE TAB PO SCH (08:39)
[2017-01-29] MEDS: TAMOXIFEN CITRATE 10 MG TAB PO SCH (08:39)
[2017-01-29] MEDS: ASPIRIN 325 MG TAB PO SCH (08:40)
[2017-01-29] MEDS: ENOXAPARIN SODIUM 40 MG/0.4 ML SYRINGE SQ SCH (08:40)
[2017-01-29] MEDS: DOCUSATE SODIUM 50 MG/SENNA 8.6 MG TAB PO SCH ×2 (08:40→20:59)
[2017-01-29] MEDS: IRON SUCROSE INJ 200 MG in SODIUM CHLORIDE 0.9% INJ 100 ML IV SCH (08:41)
[2017-01-29] MEDS: MORPHINE SULFATE 30 MG CONTROLLED RELEASE TAB PO SCH ×2 (08:42→20:59)
[2017-01-29] MEDS: SODIUM CHLORIDE 0.9% FLUSH 10 ML FLUSH IV FLUSH SCH ×2 (08:43→20:59)
[2017-01-29] MEDS: DULERA INH SCH ×2 (09:00→20:59)
--- NOTE | 2017-01-29 10:33 | HHI.PR ---
Subjective Remarks Pain is controlled. Getting iron infusion. Objective Vitals Vital Signs Date Time Temp Pulse Resp B/P Pulse Ox O2 Delivery O2 Flow Rate FiO2 01/29/17 08:00 98.1 73 20 131/61 95 01/29/17 04:00 97.3 70 18 113/58 97 01/29/17 00:00 97.0 91 17 143/63 93 01/28/17 20:00 97.6 83 17 137/65 97 01/28/17 16:00 97.7 80 20 121/57 94 01/28/17 12:00 98.0 72 20 110/55 93 I/O 01/28/17 01/28/17 01/28/17 01/29/17 01/29/17 01/29/17 07:00 15:00 23:00 07:00 15:00 23:00 Intake Total 598 ml Balance 598 ml Intake Oral 480 ml IV Total 118 ml # Voids 1 2 1 1 # Bowel Movements 1 Result Diagram: 01/29/1751601/29/17516 Objective Remarks GENERAL: Frail, elderly female in no apparent distress. CARDIOVASCULAR: Normal rate and regular rhythm without murmurs, gallops, or rubs. RESPIRATORY: Good respiratory efforts. Breath sounds equal and clear to auscultation bilaterally. GASTROINTESTINAL: Abdomen soft, non-tender, non-distended. Normal active bowel sounds MUSCULOSKELETAL: Diffusely tender anterior lower ribs and in the thoracic region. NEURO: Alert & Oriented x4 to person, place, time, situation. Moves all ext x4 PSYCH: Appropriate mood and affect. A/P Assessment and Plan 76-year-old female with past medical history significant for breast cancer s/p left mastectomy May 2016 as well as adjuvant radiation treatments, COPD, h/ o brain aneurysm and AAA who presented to [facility] ED with complaints of intractable back pain. Recent workup in [facility] revealed diffuse bony metastases. Intractable back pain Breast cancer Newly diagnosed diffuse bony metastases at recent outside hospital admission per family .per ER note, She just had a CT scan performed on January 15 at [facility] which demonstrates lytic lesions throughout the axial and appendicular skeleton suggestive of extensive metastatic disease -Oncology following - MRI confirmed widespread metastatic disease to the thoracic and lumbar spine. - Status post CT-guided biopsy. Pathology pending. - IV Zofran when necessary nausea/vomiting - Palliative care following. -Continue Oramorph 30 mg twice a day. Anemia - Iron deficiency -Continue iron infusion. - no evidence of active bleeding - monitor COPD Long history of tobaccoism, quit several weeks ago - Supplemental oxygen as needed to maintain O2 sats above 92% - DuoNeb as needed DVT prophylaxis - Lovenox 40 mg subcutaneous daily Discharge Planning Plan for DC on Tuesday Adele Michaud MD Jan 29, 2017 10:33
[2017-01-29 12:00] VITALS: BP 121/59; PULSE 77; RESP 18; TEMP 98.5; O2SAT 93
[2017-01-29] MEDS: SODIUM CHLOR 0.9% 1000 ML INJ 1,000 ML IV SCH (15:49)
[2017-01-29 16:00] VITALS: BP 115/61; PULSE 72; RESP 20; TEMP 97.1; O2SAT 95
[2017-01-29] MEDS: oxyCODONE/ACETAMINOPHEN 10 MG/325 MG TAB PO PRN (19:52)
[2017-01-29 20:00] VITALS: BP 168/80; PULSE 85; RESP 17; TEMP 96.6; O2SAT 91
[2017-01-30] VITALS: BP 123/68; PULSE 78; RESP 18; TEMP 99; O2SAT 96
[2017-01-30 04:00] VITALS: BP 113/61; PULSE 78; RESP 17; TEMP 99.4; O2SAT 97
[2017-01-30 06:53] LABS: BICARBONATE 30.8 MEQ/L (21.0-32.0); POTASSIUM 3.5 MEQ/L (3.5-5.1)
[2017-01-30] MEDS: ONDANSETRON ODT 4 MG TAB PO PRN ×2 (07:58→20:44)
[2017-01-30] MEDS: PANTOPRAZOLE SOD 40 MG DELAYED RELEASE TAB PO SCH (07:59)
[2017-01-30] MEDS: DOCUSATE SODIUM 50 MG/SENNA 8.6 MG TAB PO SCH ×2 (07:59→20:48)
[2017-01-30] MEDS: ASPIRIN 325 MG TAB PO SCH (07:59)
[2017-01-30] MEDS: TAMOXIFEN CITRATE 10 MG TAB PO SCH (07:59)
[2017-01-30 08:00] VITALS: BP 130/70; PULSE 81; RESP 24; O2SAT 93
[2017-01-30] MEDS: MORPHINE SULFATE 30 MG CONTROLLED RELEASE TAB PO SCH (08:00)
[2017-01-30] MEDS: SODIUM CHLORIDE 0.9% FLUSH 10 ML FLUSH IV FLUSH SCH ×2 (08:00→20:45)
[2017-01-30] MEDS: ENOXAPARIN SODIUM 40 MG/0.4 ML SYRINGE SQ SCH (08:00)
[2017-01-30] MEDS: DULERA INH SCH ×2 (08:01→20:47)
--- NOTE | 2017-01-30 11:52 | HHI.PR ---
Subjective Remarks Discussed with RN and patient's daughter at bedside. She is getting too sedated with the 30 mg of Oramorph. She reports her pain is well controlled. No nausea or vomiting. Objective Vitals Vital Signs Date Time Temp Pulse Resp B/P Pulse Ox O2 Delivery O2 Flow Rate FiO2 01/30/17 08:00 81 24 130/70 93 01/30/17 04:00 99.4 78 17 113/61 97 01/30/17 00:00 99.0 78 18 123/68 96 01/29/17 20:00 96.6 85 17 168/80 91 01/29/17 16:00 97.1 72 20 115/61 95 01/29/17 12:00 98.5 77 18 121/59 93 I/O 01/29/17 01/29/17 01/29/17 01/30/17 01/30/17 01/30/17 07:00 15:00 23:00 07:00 15:00 23:00 Intake Total 120 ml 120 ml 0 ml Output Total 300 ml Balance -180 ml 120 ml 0 ml Intake Oral 120 ml 120 ml 0 ml Output Urine Total 300 ml # Voids 1 1 0 # Bowel Movements 0 0 Result Diagram: 01/29/17 0517 01/30/17 0516 Objective Remarks GENERAL: Frail, elderly female in no apparent distress. CARDIOVASCULAR: Normal rate and regular rhythm without murmurs, gallops, or rubs. RESPIRATORY: Good respiratory efforts. Breath sounds equal and clear to auscultation bilaterally. GASTROINTESTINAL: Abdomen soft, non-tender, non-distended. Normal active bowel sounds MUSCULOSKELETAL: Diffusely tender to palpation anterior lower ribs and in the thoracic region. NEURO: Alert & Oriented x4 to person, place, time, situation. Moves all ext x4 PSYCH: Appropriate mood and affect. A/P Assessment and Plan 76-year-old female with past medical history significant for breast cancer s/p left mastectomy May 2016 as well as adjuvant radiation treatments, COPD, h/ o brain aneurysm and AAA who presented to [facility] ED with complaints of intractable back pain. Recent workup in [facility] revealed diffuse bony metastases. Intractable back pain Breast cancer Newly diagnosed diffuse bony metastases at recent outside hospital admission per family .per ER note, She just had a CT scan performed on January 15 at [facility] which demonstrates lytic lesions throughout the axial and appendicular skeleton suggestive of extensive metastatic disease -Oncology following - MRI confirmed widespread metastatic disease to the thoracic and lumbar spine. - Status post CT-guided biopsy. Pathology pending. - IV Zofran when necessary nausea/vomiting - Palliative care following. -Decrease or more to 15 mg twice a day. Continue PRN Percocet Anemia - Iron deficiency -Continue iron infusion. - no evidence of active bleeding - monitor COPD Long history of tobaccoism, quit several weeks ago - Supplemental oxygen as needed to maintain O2 sats above 92% - DuoNeb as needed DVT prophylaxis - Lovenox 40 mg subcutaneous daily Discharge Planning Plan for DC tomorrow with home health. Adele Michaud MD Jan 30, 2017 11:52
[2017-01-30 12:00] VITALS: BP 107/61; PULSE 82; RESP 20; TEMP 96.9; O2SAT 93
[2017-01-30 16:00] VITALS: BP 103/53; PULSE 62; RESP 20; TEMP 95.9; O2SAT 99
[2017-01-30 20:00] VITALS: BP 110/55; PULSE 73; RESP 16; TEMP 98.9; O2SAT 93
[2017-01-30] MEDS: MORPHINE SULFATE 15 MG CONTROLLED RELEASE TAB PO SCH (20:44)
[2017-01-31] VITALS: BP 112/50; PULSE 76; RESP 16; TEMP 98.5; O2SAT 93
[2017-01-31 04:00] VITALS: BP 112/52; PULSE 72; RESP 16; TEMP 98.5; O2SAT 98
[2017-01-31 08:00] VITALS: BP 114/58; PULSE 75; RESP 20; TEMP 98.3; O2SAT 99
[2017-01-31] MEDS ORDERED: MORP1TAB24 PO (08:33)
--- NOTE | 2017-01-31 09:19 | HHI.DS ---
Discharge Summary Admission Date Jan 24, 2017 at 15:07 Discharge Date: Jan 31, 2017 Admitting Diagnosis metastatic breast cancer to chest and spine, intractable pain (1) Bone metastasis ICD Code: C79.51 (2) Physical deconditioning ICD Code: R53.81 (3) Pain of metastatic malignancy ICD Code: G89.3 (4) Debility ICD Code: R53.81 (5) COPD (chronic obstructive pulmonary disease) with emphysema ICD Code: J43.[address]-guided biopsy Brief History - From Admission Written by Danielle Avila PA-C acting as scribe for Dr. Cortés on 01/24/17 at 12:18. This is 76-year-old female with past medical history significant for breast cancer s/p left mastectomy May 2016 as well as adjuvant radiation treatments but not deemed a candidate for chemotherapy due to multiple comorbidities, COPD, h/o brain aneurysm and AAA who presented to [facility] ED with complaints of intractable back pain. Patient was recently treated at [facility] for aspiration pneumonia last week. During that hospitalization, CT scan was obtained which revealed diffuse bony metastasis. Patient is followed by Dr. Kirkpatrick as an outpatient and has been diagnosed with stage IIB breast carcinoma with both lobular and ductal features. She also had micrometastatic disease in one of the lymph nodes. Her cancer is hormone receptor positive. Following her mastectomy, patient had a PET scan which showed a small focal hypermetabolic mass in the anterior left chest wall. She has a repeat PET scan scheduled for today at noon. At present, patient's pain is controlled but she is actively vomiting due to side effect from her narcotic medication. She complains of 3 month history of back pain that has become much more severe and located in her mid upper back. She also reports left anterior chest wall pain. Additionally, she reports pain and weakness in the left upper extremity. She denies any complaints of radicular pain or weakness in her legs. She denies any fever, chills, headache, vision changes, shortness of breath, chest pain or abdominal pain. She also denies any bowel or bladder incontinence. CBC/BMP: 01/29/17 0517 01/30/17 0516 Significant Findings Laboratory Tests Test 01/29/17 01/30/17 05:17 05:16 White Blood Count 11.2 TH/MM3 (4.0-11.0) Red Blood Count 3.01 MIL/MM3 (4.00-5.30) Hemoglobin 9.3 GM/DL (11.6-15.3) Hematocrit 27.6 % (35.0-46.0) Neutrophils (%) (Auto) 79.5 % (16.0-70.0) Neutrophils # (Auto) 8.9 TH/MM3 (1.8-7.7) Estimat Glomerular Filtration 79 ML/MIN (>89) 70 ML/MIN (>89) Rate Calcium Level 12.5 MG/DL 11.2 MG/DL (8.5-10.1) (8.5-10.1) Total Protein 5.9 GM/DL (6.4-8.2) Blood Urea Nitrogen 22 MG/DL (7-18) PE at Discharge GENERAL: Frail, elderly female in no apparent distress. CARDIOVASCULAR: Normal rate and regular rhythm without murmurs, gallops, or rubs. RESPIRATORY: Good respiratory efforts. Breath sounds equal and clear to auscultation bilaterally. GASTROINTESTINAL: Abdomen soft, non-tender, non-distended. Normal active bowel sounds MUSCULOSKELETAL: Diffusely tender to palpation anterior lower ribs and in the thoracic region. NEURO: Alert & Oriented x4 to person, place, time, situation. Moves all ext x4 PSYCH: Appropriate mood and affect. Pt update on day of discharge Pain is controlled. No increased in shortness of breath. Eating and drinking okay. Hospital Course 76-year-old female with past medical history significant for breast cancer s/p left mastectomy May 2016 as well as adjuvant radiation treatments, COPD, h/ o brain aneurysm and AAA who presented to [facility] ED with complaints of intractable back pain. Recent workup in [facility] revealed diffuse bony metastases. Evaluation and treatment course detailed below: Intractable back pain Breast cancer Newly diagnosed diffuse bony metastases at recent outside hospital admission per family .per ER note, She just had a CT scan performed on January 15 at [facility] which demonstrates lytic lesions throughout the axial and appendicular skeleton suggestive of extensive metastatic disease -Oncology and palliative care followed the patient - MRI confirmed widespread metastatic disease to the thoracic and lumbar spine. - Status post CT-guided biopsy. Pathology pending. -Pain is controlled with oral more 50 mg twice a day and PRN Percocet - Patient has a scheduled PET scan on Tuesday and will follow-up with oncology this week. Anemia - Iron deficiency. Hematology/oncology followed the patient. She received 3 days of iron infusion. She did not have any evidence of active bleeding. H& H remained stable. Will continue to follow up outpatient. COPD Long history of tobaccoism, quit several weeks ago - Continue home Supplemental oxygen as needed to maintain O2 sats above 92% - DuoNeb as needed Pt Condition on Discharge: Stable Discharge Disposition: Disch w/ Home Health Serv Discharge Time: > 30 minutes Discharge Instructions DIET: Follow Instructions for: Heart Healthy Diet Activities you can perform: Regular-No Restrictions New Medications: Bedside Commode (Bedside Commode) 1 Mis Mis 1 EA .ROUTE DIRECTED #1 EA Walker with Front Wheels (Walker with Front Wheels) 1 Mis Mis 1 EA .ROUTE DIRECTED #1 Ref 0 EA Wheelchair (Wheelchair) 1 Mis Mis 1 EA .ROUTE DIRECTED #1 Ref 0 EA Morphine ER (Morphine ER) 15 Mg Tab 15 MG PO Q12HR #60 TAB Sennosides-Docusate Sodium (Senna Plus 8.6-50 mg) 1 Tab Tab 1 TAB PO BID #60 TAB Continued Medications: Albuterol 18 GM Inh (Ventolin Hfa 18 GM Inh) 90 Mcg/Act Aer 1 PUFF INH Q4H PRN SHORTNESS OF BREATH #1 Ref 0 INHALER Alendronate (Alendronate) 70 Mg Tab 70 MG PO Q7D Osteporosis Treatment #4 Ref 0 TAB Alprazolam (Alprazolam) 0.25 Mg Tab 0.25 MG PO Q8H PRN ANXIETY Ref 0 TAB Aspirin (Aspirin) 325 Mg Tab 325 MG PO DAILY #30 Ref 0 TAB Carbamazepine (Carbamazepine) 100 Mg Chew 100 MG PO TID #60 Ref 0 TAB Ipratropium-Albuterol Neb (Duoneb) 0.5-2.5 Mg/3 Ml Neb 1 NEBULE INH Q6HR NEB Breathing Treatment #120 Ref 0 NEBULE Mometasone-Formoterol 120 Act Inh (Dulera 120 Act Inh) 100-5 Mcg/Act Inh 2 PUFF INH BID Asthma Management #1 Ref 0 INHALER Omeprazole (Omeprazole) 40 Mg Cap 40 MG PO DAILY #30 Ref 0 CAP Oxycodone-Acetaminophen (Percocet) 5-325 mg Tab 1-2 TAB PO Q6H PRN PAIN #60 Ref 0 TAB (This prescription has been renewed) Prednisone (Prednisone) 10 Mg Tab 10 MG PO BID #2 Ref 0 TAB Tamoxifen (Tamoxifen) 20 Mg Tab 20 MG PO DAILY Chemotherapy Management #60 Ref 0 TAB Discontinued Medications: Amoxicillin-Clavulanate (Amoxicillin-Clavulanate) 875-125 mg Tab 875 MG PO BID not for use in CrCl <30 mL/minute Infection Days 7 Ref 0 TAB Adele Michaud MD Jan 31, 2017 09:19
[2017-01-31] MEDS: MORPHINE SULFATE 15 MG CONTROLLED RELEASE TAB PO SCH (10:13)
[2017-01-31] MEDS: DOCUSATE SODIUM 50 MG/SENNA 8.6 MG TAB PO SCH (10:13)
[2017-01-31] MEDS: PANTOPRAZOLE SOD 40 MG DELAYED RELEASE TAB PO SCH (10:13)
[2017-01-31] MEDS: ASPIRIN 325 MG TAB PO SCH (10:13)
[2017-01-31] MEDS: TAMOXIFEN CITRATE 10 MG TAB PO SCH (10:13)
[2017-01-31] MEDS: SODIUM CHLORIDE 0.9% FLUSH 10 ML FLUSH IV FLUSH SCH (10:14)
[2017-01-31] MEDS: DULERA INH SCH (10:15)
[2017-01-31] MEDS: ENOXAPARIN SODIUM 40 MG/0.4 ML SYRINGE SQ SCH (10:17)
[2017-01-31 12:00] VITALS: BP 129/60; PULSE 78; RESP 24; TEMP 98.3; O2SAT 97
--- NOTE | 2017-01-31 13:11 | PD.ONC.PN ---
Subjective Subjective Remarks Afebrile overnight. Patient feeling well today. Pain improved. Objective Data Date Time Temp Pulse Resp B/P Pulse Ox O2 Delivery O2 Flow Rate FiO2 01/31/17 12:00 98.3 78 24 129/60 97 01/31/17 08:00 98.3 75 20 114/58 99 01/31/17 04:00 98.5 72 16 112/52 98 01/31/17 00:00 98.5 76 16 112/50 93 01/30/17 20:00 98.9 73 16 110/55 93 01/30/17 16:00 95.9 62 20 103/53 99 01/31/17 01/31/17 01/31/17 06:59 14:59 22:59 Intake Total 150 ml Output Total 400 ml Balance -250 ml Result Diagram: 01/29/1751601/30/17515 Administered Medications Medications (Trade) Dose Ordered Sig/Jimmy Route PRN Reason Start Time Stop Time Status Last Admin Dose Admin Sodium Chloride (NS Flush) 2 ml BID IV FLUSH 01/24/17 09:00 01/31/17 10:14 Ondansetron HCl (Zofran Inj) 4 mg Q6H PRN IVP NAUSEA OR VOMITING 01/24/17 08:15 01/27/17 13:46 Enoxaparin Sodium (Lovenox Inj) 40 mg Q24H SQ 01/24/17 09:00 01/31/17 10:17 Senna/Docusate Sodium (Klarissa-Colace) 1 tab BID PO 01/24/17 09:00 01/31/17 10:13 Bisacodyl (Dulcolax Supp) 10 mg DAILY PRN RECTAL SEVERE CONSITIPATION 01/24/17 08:15 01/24/17 14:58 Oxycodone/ Acetaminophen (Percocet 10-325 Mg) 1 tab Q4H PRN PO PAIN SCALE 6 TO 10 01/24/17 08:15 01/29/17 19:52 Hydromorphone HCl (Dilaudid Pf Inj) 0.5 mg Q4H PRN IV PUSH BREAKTHROUGH PAIN 01/24/17 14:45 01/27/17 13:35 Alprazolam (Xanax) 0.25 mg Q8H PRN PO ANXIETY 01/24/17 14:45 01/26/17 20:06 Aspirin (Aspirin) 325 mg DAILY PO 01/25/17 09:00 01/31/17 10:13 Carbamazepine (TEGretol CHEW) 100 mg TID PO 01/24/17 18:00 01/31/17 10:13 Tamoxifen Citrate (Nolvadex) 20 mg DAILY PO 01/25/17 09:00 01/31/17 10:13 Pantoprazole Sodium (Protonix) 40 mg DAILY PO 01/25/17 09:00 01/31/17 10:13 Metoclopramide HCl (Reglan Inj) 10 mg Q8H PRN IV PUSH NAUSEA OR VOMITING 01/24/17 15:15 01/29/17 10:13 Patient Own Medication PT OWN MED: DUL... BID INH 01/24/17 21:00 01/31/17 10:15 Ondansetron HCl (Zofran Odt) 4 mg Q6H PRN PO NAUSEA OR VOMITING 01/29/17 16:00 01/30/17 20:44 Morphine Sulfate (Oramorph Sr) 15 mg Q12HR PO 01/30/17 21:00 01/31/17 10:13 Objective Remarks GENERAL: Elderly female sitting up in bed in [facility]. SKIN: Warm and dry. HEAD: Normocephalic. EYES: No injection or drainage. NECK: Supple, trachea midline. CARDIOVASCULAR: Regular rate and rhythm RESPIRATORY: Breath sounds equal bilaterally. No accessory muscle use. GASTROINTESTINAL: Abdomen soft, non-tender, nondistended. EXTREMITIES: No cyanosis NEUROLOGICAL: awake and alert, normal speech. Assessment/Plan Problem List: (1) Anemia Status: Acute (2) Physical deconditioning Status: Acute (3) COPD (chronic obstructive pulmonary disease) with emphysema Status: Acute (4) Pain of metastatic malignancy Status: Acute (5) Breast cancer Status: Acute (6) Bone metastasis Status: Acute Assessment 76-year-old female who has a history of Stage II breast cancer who has undergone left-sided mastectomy. She is currently on hormone blockade therapy. She had micrometastasis to her lymph nodes. She did receive adjuvant radiation therapy but no adjuvant chemotherapy. She now presents with intractable pain in her upper back and lower back. 1. Diffuse bony metastatic disease based on MRI lumbar and thoracic spine - s/p biopsy in IR on 01/27, pathology pending. - CTT chest/abdomen and pelvis show widespread osseous disease - Likely metastatic breast cancer but could be another primary such as lung ca - CA 15-3 elevated 2. Intractable back pain. - on Oramorph 15 mg BID with Percocet 10/325 for breakthrough. pain seems to be well controlled on this regimen. 3. Anemia. iron deficient --iron sucrose given. 4. hypercalcemia: ?hypercalcemia of malignancy. Zometa given. calcium improving. discharge: patient clear for discharge. d/w patient's daughter. patient goes to [facility] for labs. advised to obtain CBC, CMP Tuesday and follow up with Dr. Kirkpatrick this . Attending Statement The exam, history, and the medical decision-making described in the above note were completed with the assistance of the mid-level provider. I reviewed and agree with the findings presented. I attest that I had a [id number] encounter with the patient on the same day, and personally performed and documented my assessment and findings in the medical record. Gisele Wilson Jan 31, 2017 13:11 Eric Kirkpatrick MD Feb 01, 2017 22:49
[2017-01-31 13:12] LABS: POTASSIUM 3.5 MEQ/L (3.5-5.1)
[2017-01-31] MEDS: oxyCODONE/ACETAMINOPHEN 10 MG/325 MG TAB PO PRN (13:59)
== END 2017-01-31 15:40 | disposition home health service (06) | DRG 479 ==
LOC: NEPC 23:00 → NEDA 01-24 07:45 → HOCB 01-24 11:42 → OBSVTOIN 01-24 15:07
PROVIDERS: ADMIT Family Medicine; ATTEND Family Medicine
PROC: 0QB33ZX Excision of Left Pelvic Bone, Percutaneous Approach, Diagnostic (ICD-10-PCS; principal; 2017-01-27)
DX: C79.51 Secondary malignant neoplasm of bone (principal); Z99.81 Dependence on supplemental oxygen; E83.52 Hypercalcemia; C50.912 Malignant neoplasm of unspecified site of left female breast; J44.9 Chronic obstructive pulmonary disease, unspecified; D50.9 Iron deficiency anemia, unspecified; F17.210 Nicotine dependence, cigarettes, uncomplicated; F41.9 Anxiety disorder, unspecified; G89.3 Neoplasm related pain (acute) (chronic); M81.0 Age-related osteoporosis without current pathological fracture; I71.4 Abdominal aortic aneurysm, without rupture; Z17.0 Estrogen receptor positive status [ER+]; Z92.3 Personal history of irradiation
CPT/HCPCS: 20225; 71010; 71260; 72072; 72157; 72158; 74177; 77012; 80048; 80053; 81001; 82378; 82607; 82747; 83540; 83550; 84155; 84466; 85007; 85025; 85027; 85610; 85730; 86300; 88305; 88341; 88342; 93005; 94150; 94640; 94664; 96374; 96375; 96376; 99152; 99153; A9579; J1170; J1650; J1756; J2250; J2270; J2405; J2765; J3010; J3489; J7030; J7050; Q9967

== ENCOUNTER 2017-02-27 14:35 | Inpatient (IN) | payer OTHER, MEDICARE ==
[~2017-02-27] VITALS: Ht 157.5 cm; Wt 38.1 kg
[~2017-02-27 14:35] MED LIST: ALEN1TAB48 PO; ALPR0.25 PO; ASPI325T PO; BEDSIDE COMMODE1 MI1; CARB100C PO; DULE100A INH; IPRASOL INH; MORP1TAB24 PO; OMEP40CA2 PO; PERC5TAB12 PO; PRED10 PO; SENN1TAB PO; TAMO20TA6 PO; VENTAER INH; WALKER WHEELS/F1 MIS; WHEEMIS3
[2017-02-27 14:44] VITALS: BP 115/58; PULSE 84; RESP 26; TEMP 98.5; O2SAT 96
[2017-02-27] MEDS ORDERED: PIPERACIL-TAZO 4.5 GM PREMIX 100 ML IV ONE (15:00)
[2017-02-27] MEDS ORDERED: methylPREDNISolone SOD SUCC 125 MG/2 ML VIAL IV ONE (15:00)
[2017-02-27] MEDS ORDERED: AZITHROMYCIN INJ 500 MG in SODIUM CHLOR 0.9% 250 ML INJ 250 ML IV ONE (15:00)
[2017-02-27] MEDS ORDERED: SODIUM CHLORIDE 0.9% FLUSH 10 ML FLUSH IVF PRN (15:00)
--- NOTE | 2017-02-27 15:09 | PD ---
HPI Chief Complaint: Respiratory Distress Time Seen by Provider: 14:56 Travel History International Travel<30 days: No Contact w/Intl Traveler<30days: No Traveled to known affect area: No History of Present Illness HPI Patient comes in by EMS complaining of shortness of breath that began around 10 AM this morning. Patient's been using breathing treatments at home with no improvement of symptoms. Patient complaining of pain throughout her lungs is worse with deep inspiration. Denies any radiation of the pain. Denies any nausea, vomiting, headaches, or known fevers. Patient is currently on antibiotics for an aspiration pneumonia and daughter's concern is thinking that may have happened again. States her mother has had some difficulty swallowing. Denies any loss change in bowel or bladder. Patient is currently on chemotherapy for metastatic breast cancer. Patient is a DNR and has paperwork with her. PFSH Past Medical History Arthritis: No Asthma: No Anxiety: No Depression: Yes Heart Rhythm Problems: No Cancer: Yes (SPINAL, LUNG, BREAST) Cardiovascular Problems: Yes (AAA) High Cholesterol: No Chemotherapy: No Chest Pain: Yes (R/T BONES) Congestive Heart Failure: No COPD: Yes Cerebrovascular Accident: No Diminished Hearing: No Endocrine: No Gastrointestinal Disorders: Yes GERD: Yes Genitourinary: Yes Headaches: Yes Hiatal Hernia: No Hypertension: Yes Immune Disorder: No Implanted Vascular Access Dvce: Yes Kidney Stones: Yes Musculoskeletal: Yes Neurologic: Yes Psychiatric: Yes Reproductive: No Respiratory: Yes Migraines: Yes Radiation Therapy: Yes Renal Failure: No Seizures: No Sleep Apnea: No Ulcer: No ?: Not Past Surgical History Abdominal Surgery: Yes (HERNIA REPAIR, APPENDECTOMY ) Appendectomy: Yes Body Medical Devices: PIPELINE DEVICE Cardiac Surgery: Yes Ear Surgery: No Endocrine Surgery: No Eye Surgery: No Genitourinary Surgery: No Gynecologic Surgery: Yes (LEFT MASTECTOMY ) Hysterectomy: Yes Neurologic Surgery: Yes (BRAIN ANEURYSM) Oral Surgery: No Thoracic Surgery: No Other Surgery: Yes (L MASTECTOMY, DOUBLE HERNIA REPAIR, BRAIN ANEURYSM , HYSTERECTOMY, APPENDEC) Social History Alcohol Use: No Tobacco Use: Yes Substance Use: No Allergies-Medications (Allergen,Severity, Reaction): Coded Allergies: egg (Unverified Allergy, Unknown, 02/22/17) grapefruit (Verified Allergy, Unknown, 02/27/17) CONTRAINCDICATED WITH IBRANCE Reported Meds & Prescriptions Reported Meds & Active Scripts Active Senna Plus 8.6-50 mg (Sennosides-Docusate Sodium) 1 Tab Tab 1 Tab PO BID Percocet (Oxycodone-Acetaminophen) 5-325 mg Tab 1-2 Tab PO Q6H PRN Reported Ibrance (Palbociclib) 125 Mg Capsule 125 Mg PO HS 21 DAYS ON, 7 DAYS OFF Morphine ER (Morphine Sulfate) 30 Mg Tab 30 Mg PO Q12HR Miralax Powder (Polyethylene Glycol 3350 Powder) 17 Gm Powd 17 Gm PO DAILY PRN Mix and dissolve one measuring cap-ful (17 grams) in water or juice. Zofran (Ondansetron HCl) 4 Mg Tab 4 Mg PO Q6HR PRN Breo Ellipta Inh (Fluticasone/Vilanterol) 100-25 Mcg/Act Inh 1 Puff INH BID Use daily at the same time. Omeprazole 40 Mg Cap 40 Mg PO DAILY Duoneb (Ipratropium-Albuterol Neb) 0.5-2.5 Mg/3 Ml Neb 1 Nebule INH Q6HR NEB Ventolin Hfa 18 GM Inh (Albuterol Sulfate) 90 Mcg/Act Aer 1 Puff INH Q4H PRN Aspirin 325 Mg Tab 325 Mg PO DAILY Alprazolam 0.25 Mg Tab 0.25 Mg PO Q8H PRN Review of Systems Except as stated in HPI: all other systems reviewed are Neg Physical Exam Narrative GENERAL: Well-developed, under nourished, and non-ill appearing. SKIN: Focused skin assessment warm and dry. HEAD: Atraumatic. Normocephalic. EYES: Pupils equal and round. EOMI. No scleral icterus. No injection or drainage. ENT: No nasal bleeding or discharge. Mucous membranes pink and moist. NECK: Trachea midline. Supple. No nuclear rigidity. CARDIOVASCULAR: Regular rate and rhythm. No murmur appreciated. RESPIRATORY: Mild accessory muscle use. Mild respiratory distress. Decreased breath sounds throughout able speak in full sentences without difficulty. MUSCULOSKELETAL: No obvious deformities. No clubbing. No cyanosis. No edema. Full range of motion of bilateral upper extremities. NEUROLOGICAL: Awake and alert. No obvious cranial nerve deficits. Motor grossly within normal limits. Normal speech. PSYCHIATRIC: Appropriate mood and affect; insight and judgment normal. Data Data Last Documented VS Vital Signs Date Time Temp Pulse Resp B/P (MAP) Pulse Ox O2 Delivery O2 Flow Rate FiO2 02/27/17 16:00 26 95 Nasal Cannula 2.00 02/27/17 14:44 98.5 84 115/58 (77) Orders Orders Electrocardiogram (02/27/17 14:56) Basic Metabolic Panel (Bmp) (02/27/17 14:56) Complete Blood Count With Diff (02/27/17 14:56) Lactic Acid Sepsis Protocol (02/27/17 14:56) Blood Culture (02/27/17 14:56) Chest, Single Ap (02/27/17 14:56) Arterial Blood Gas (Abg) (02/27/17 14:56) Ecg Monitoring (02/27/17 14:56) Iv Access Insert/Monitor (02/27/17 14:56) Oximetry (02/27/17 14:56) Oxygen Administration (02/27/17 14:56) Sodium Chloride 0.9% Flush (Ns Flush) (02/27/17 15:00) Piperacil-Tazo 4.5 Gm Premix (Zosyn 4.5 (02/27/17 15:00) Azithromycin Inj (Zithromax Inj) (02/27/17 15:00) Albuterol-Ipratropium Neb (Duoneb Neb) (02/27/17 15:00) Methylprednisolone So Succ Inj (Solumedr (02/27/17 15:00) Morphine Inj (Morphine Inj) (02/27/17 15:45) Ondansetron Inj (Zofran Inj) (02/27/17 15:45) Hydromorphone Pf Inj (Dilaudid Pf Inj) (02/27/17 15:45) Ct Pulmonary Angiogram (02/27/17 ) Prothrombin Time / Inr (Pt) (02/27/17 16:03) Act Partial Throm Time (Ptt) (02/27/17 16:03) Iohexol 350 Inj (Omnipaque 350 Inj) (02/27/17 17:49) Add Patient To Providers List (02/27/17 ) Place In Observation (02/27/17 ) Vital Signs (Adult) ELXUS.Q4H (02/27/17 19:26) Activity Bed Rest (02/27/17 19:26) Intake + Output 06,14,22 (02/27/17 19:26) Diet Heart Healthy (02/28/17 Breakfast) Resp Oxygen Torsten C Titrat 1-4 L (02/27/17 ) Sodium Chloride 0.9% Flush (Ns Flush) (02/27/17 19:30) Sodium Chloride 0.9% Flush (Ns Flush) (02/27/17 21:00) Admit Order (Ed Use Only) (02/27/17 19:33) Labs Laboratory Tests Test 02/27/17 15:05 02/27/17 15:18 02/27/17 15:25 02/27/17 16:55 Blood Urea Nitrogen 13 MG/DL Creatinine 0.69 MG/DL Random Glucose 101 MG/DL Calcium Level 8.8 MG/DL Sodium Level 142 MEQ/L Potassium Level 4.1 MEQ/L Chloride Level 112 MEQ/L Carbon Dioxide Level 24.7 MEQ/L Anion Gap 5 MEQ/L Estimat Glomerular Filtration Rate 82 ML/MIN Blood Gas Puncture Site RT RADIAL Blood Gas Patient Temperature 98.6 Blood Gas HCO3 21 mmol/L Blood Gas Base Excess -3.2 mmol/L Blood Gas Oxygen Saturation 90 % Arterial Blood pH 7.38 Arterial Blood Partial Pressure CO2 37 mmHg Arterial Blood Partial Pressure O2 65 mmHG Arterial Blood Oxygen Content 11.2 Vol % Arterial Blood Carboxyhemoglobin 3.0 % Arterial Blood Methemoglobin 0.7 % Blood Gas Hemoglobin 8.9 G/DL Oxygen Delivery Device NASAL CANNULA Blood Gas Liter Flow 2 L/M Lactic Acid Level 1.5 mmol/L White Blood Count 3.0 TH/MM3 Red Blood Count 3.05 MIL/MM3 Hemoglobin 9.4 GM/DL Hematocrit 29.4 % Mean Corpuscular Volume 96.4 FL Mean Corpuscular Hemoglobin 30.7 PG Mean Corpuscular Hemoglobin Concent 31.9 % Red Cell Distribution Width 16.9 % Platelet Count 77 TH/MM3 Mean Platelet Volume 8.7 FL Neutrophils (%) (Auto) 58.1 % Lymphocytes (%) (Auto) 37.3 % Monocytes (%) (Auto) 2.8 % Eosinophils (%) (Auto) 1.2 % Basophils (%) (Auto) 0.6 % Neutrophils # (Auto) 1.7 TH/MM3 Lymphocytes # (Auto) 1.1 TH/MM3 Monocytes # (Auto) 0.1 TH/MM3 Eosinophils # (Auto) 0.0 TH/MM3 Basophils # (Auto) 0.0 TH/MM3 CBC Comment AUTO DIFF Differential Comment AUTO DIFF CONFIRMED Platelet Estimate LOW Platelet Morphology Comment NORMAL Red Cell Morphology Comment Prothrombin Time 12.4 SEC Prothromb Time International Ratio 1.1 RATIO Activated Partial Thromboplast Time 25.6 SEC MDM Medical Decision Making Medical Screen Exam Complete: Yes Emergency Medical Condition: Yes Interpretation(s) Chest x-ray read by the radiologist shows: Slight right lung base linear atelectasis. EKG reviewed by Dr. Chauhan shows sinus rhythm with ventricular rate of 92. No STEMI. CT pulmonary angiogram read by the radiologist shows: There is no evidence for PE for technique. Differential Diagnosis COPD exacerbation, pneumonia, pneumothorax, pleural effusion, electrolyte abnormality, worsening metastatic disease, other Narrative Course Patient was seen and examined. IV was established. Patient was in cardiac monitoring. Initial laboratory and radiological studies were ordered. Patient was given steroids and DuoNeb, long with a dose of Zosyn and Zithromax based on patient's history. 1605 patient reports improvement of symptoms status post breathing treatments, IV antibiotics, and steroids. Discussed chest x-ray findings and need for CT pulmonary angiogram with patient and family is agreeable to proceed. Discussed patient with Dr. Chauhan who saw and evaluated patient and is in agreement with plan of care. Will await CT results and final disposition. [address] findings with patient and family. Patient was not comfortable going home secondary to breathing issues and her pain. We'll place patient on observation for additional breathing treatments and steroids along with additional pain control. Discussed this with Dr. Chauhan, who is agreement with plan of care and disposition. Discussed patient with hospitalist who is agreeable to admit the patient. Physician Communication Physician Communication [address] Dsouza, who is agreeable to admit the patient for additional breathing treatments, steroids, and pain control. Diagnosis Primary Impression: COPD exacerbation Additional Impression: Pain of metastatic malignancy Admitting Information Admitting Physician Requests: Observation Condition: Stable Nadeem Savage Feb 27, 2017 15:09
[2017-02-27] MEDS: RESP: ALBUTEROL 2.5 MG/IPRATROPIUM 0.5 MG NEB (SCH) INH (15:19)
[2017-02-27 15:20] VITALS: O2SAT 94
[2017-02-27 15:30] LABS: BLOOD GAS BASE EXCESS -3.2 mmol/L (-2-2); BLOOD GAS HCO3 21 mmol/L (22-26); BLOOD GAS METHEMOGLOBIN 0.7 % (0-2); BLOOD GAS O2 HGB SATURATION 90 % (90-100); BLOOD GAS OXYGEN CONTENT 11.2 Vol % (12.0-20.0); BLOOD GAS PCO2 37 mmHg (38-42); BLOOD GAS PO2 65 mmHG (61-120); BLOOD GAS TOTAL HGB 8.9 G/DL (12.0-16.0); CRITICAL VALUE NO; DRAW SITE RT RADIAL; LITER FLOW 2 L/M; NUMBER OF ARTERIAL PUNCTURES 1; OXYGEN DEVICE NASAL CANNULA; STAT YES; TEMP CORR TO 98.6; ULNAR PULSE PRESENT
[2017-02-27] MEDS ORDERED: MORPHINE SULFATE 4 MG/ML INJ IV PUSH ONE (15:45)
[2017-02-27] MEDS ORDERED: HYDROmorphone HCL PF 1 MG/ML VIAL IV PUSH ONE (15:45)
[2017-02-27] MEDS ORDERED: ONDANSETRON HCL 4 MG/2 ML VIAL IV PUSH ONE (15:45)
--- NOTE | 2017-02-27 15:51 | RADRPT ---
EXAM DATE/TIME: 02/27/2017 15:26 [facility] COMPARISON: CHEST SINGLE AP, January 24, 2017, 6:33. INDICATIONS : Shortness of breath. MEDICAL HISTORY : Aneurysm, abdominal. Hypertension Chronic obstructive pulmonary disease. Breast cancer Renal ston es SURGICAL HISTORY : Appendectomy. Mastectomy, left. ENCOUNTER: Initial ACUITY: 1 day PAIN SCORE: 10/10 LOCATION: Bilateral Back FINDINGS: Slight right lung base atelectasis is seen. There are atherosclerotic calcifications of the aorta due to chronic atherosclerotic disease.There is no appreciable pleural effusion for technique. Heart an d mediastinum are unremarkable. CONCLUSION: Slight right lung base linear atelectasis. Kathryn Arroyo MD on February 27, 2017 at 15:48 Board Certified Radiologist. This report was verified electronically.
[2017-02-27 16:00] VITALS: RESP 26; O2SAT 95
[2017-02-27 16:08] LABS: BICARBONATE 24.7 MEQ/L (21.0-32.0); POTASSIUM 4.1 MEQ/L (3.5-5.1)
[2017-02-27 16:13] LABS: AUTOMATED NEUTROPHIL # 1.7 TH/MM3 (1.8-7.7); BASOPHIL % 0.6 % (0.0-2.0); EOSINOPHIL % 1.2 % (0.0-4.0); HEMATOCRIT 29.4 % (35.0-46.0); LYMPH % 37.3 % (9.0-44.0); LYMPHOCYTE # 1.1 TH/MM3 (1.0-4.8); MEAN CELL VOLUME 96.4 FL (80.0-100.0); MEAN CORPUSCULAR HEMOGLOBIN 30.7 PG (27.0-34.0); MEAN CORPUSCULAR HGB CONC 31.9 % (32.0-36.0); MONO % 2.8 % (0.0-8.0); NEUT % 58.1 % (16.0-70.0); PLATELET COUNT 77 TH/MM3 (150-450); RED BLOOD COUNT 3.05 MIL/MM3 (4.00-5.30); RED CELL DISTRIBUTION WIDTH 16.9 % (11.6-17.2)
--- NOTE | 2017-02-27 17:19 | PD ---
Data Data Last Documented VS Vital Signs Date Time Temp Pulse Resp B/P (MAP) Pulse Ox O2 Delivery O2 Flow Rate FiO2 02/27/17 16:00 26 95 Nasal Cannula 2.00 02/27/17 14:44 98.5 84 115/58 (77) Orders Orders Electrocardiogram (02/27/17 14:56) Basic Metabolic Panel (Bmp) (02/27/17 14:56) Complete Blood Count With Diff (02/27/17 14:56) Lactic Acid Sepsis Protocol (02/27/17 14:56) Blood Culture (02/27/17 14:56) Chest, Single Ap (02/27/17 14:56) Arterial Blood Gas (Abg) (02/27/17 14:56) Ecg Monitoring (02/27/17 14:56) Iv Access Insert/Monitor (02/27/17 14:56) Oximetry (02/27/17 14:56) Oxygen Administration (02/27/17 14:56) Sodium Chloride 0.9% Flush (Ns Flush) (02/27/17 15:00) Piperacil-Tazo 4.5 Gm Premix (Zosyn 4.5 (02/27/17 15:00) Azithromycin Inj (Zithromax Inj) (02/27/17 15:00) Albuterol-Ipratropium Neb (Duoneb Neb) (02/27/17 15:00) Methylprednisolone So Succ Inj (Solumedr (02/27/17 15:00) Morphine Inj (Morphine Inj) (02/27/17 15:45) Ondansetron Inj (Zofran Inj) (02/27/17 15:45) Hydromorphone Pf Inj (Dilaudid Pf Inj) (02/27/17 15:45) Ct Pulmonary Angiogram (02/27/17 ) Prothrombin Time / Inr (Pt) (02/27/17 16:03) Act Partial Throm Time (Ptt) (02/27/17 16:03) Iohexol 350 Inj (Omnipaque 350 Inj) (02/27/17 17:49) Add Patient To Providers List (02/27/17 ) Place In Observation (02/27/17 ) Vital Signs (Adult) LEXUS.Q4H (02/27/17 19:26) Activity Bed Rest (02/27/17 19:26) Intake + Output 06,14,22 (02/27/17 19:26) Resp Oxygen Torsten C Titrat 1-4 L (02/27/17 ) Sodium Chloride 0.9% Flush (Ns Flush) (02/27/17 19:30) Sodium Chloride 0.9% Flush (Ns Flush) (02/27/17 21:00) Admit Order (Ed Use Only) (02/27/17 19:33) Labs Laboratory Tests Test 02/27/17 15:05 02/27/17 15:18 02/27/17 15:25 02/27/17 16:55 Blood Urea Nitrogen 13 MG/DL Creatinine 0.69 MG/DL Random Glucose 101 MG/DL Calcium Level 8.8 MG/DL Sodium Level 142 MEQ/L Potassium Level 4.1 MEQ/L Chloride Level 112 MEQ/L Carbon Dioxide Level 24.7 MEQ/L Anion Gap 5 MEQ/L Estimat Glomerular Filtration Rate 82 ML/MIN Blood Gas Puncture Site RT RADIAL Blood Gas Patient Temperature 98.6 Blood Gas HCO3 21 mmol/L Blood Gas Base Excess -3.2 mmol/L Blood Gas Oxygen Saturation 90 % Arterial Blood pH 7.38 Arterial Blood Partial Pressure CO2 37 mmHg Arterial Blood Partial Pressure O2 65 mmHG Arterial Blood Oxygen Content 11.2 Vol % Arterial Blood Carboxyhemoglobin 3.0 % Arterial Blood Methemoglobin 0.7 % Blood Gas Hemoglobin 8.9 G/DL Oxygen Delivery Device NASAL CANNULA Blood Gas Liter Flow 2 L/M Lactic Acid Level 1.5 mmol/L White Blood Count 3.0 TH/MM3 Red Blood Count 3.05 MIL/MM3 Hemoglobin 9.4 GM/DL Hematocrit 29.4 % Mean Corpuscular Volume 96.4 FL Mean Corpuscular Hemoglobin 30.7 PG Mean Corpuscular Hemoglobin Concent 31.9 % Red Cell Distribution Width 16.9 % Platelet Count 77 TH/MM3 Mean Platelet Volume 8.7 FL Neutrophils (%) (Auto) 58.1 % Lymphocytes (%) (Auto) 37.3 % Monocytes (%) (Auto) 2.8 % Eosinophils (%) (Auto) 1.2 % Basophils (%) (Auto) 0.6 % Neutrophils # (Auto) 1.7 TH/MM3 Lymphocytes # (Auto) 1.1 TH/MM3 Monocytes # (Auto) 0.1 TH/MM3 Eosinophils # (Auto) 0.0 TH/MM3 Basophils # (Auto) 0.0 TH/MM3 CBC Comment AUTO DIFF Differential Comment AUTO DIFF CONFIRMED Platelet Estimate LOW Platelet Morphology Comment NORMAL Red Cell Morphology Comment Prothrombin Time 12.4 SEC Prothromb Time International Ratio 1.1 RATIO Activated Partial Thromboplast Time 25.6 SEC MDM Supervised Visit with WILY: Yes Narrative Course I, Dr. Chauhan, have reviewed the advance practice practitioner's documentation and am in agreement, met with the patient face to face, made the diagnosis, and the medical decision making was done by me. *My assessment and Findings: Patient seen and examined by me in addition to Palomo Savage, this is an unfortunate 76-year-old female presents emergency Department with shortness of breath. She does have a history of cancer. After an at length discussion regarding pain control versus admission to the hospital the patient ultimately opted for admission to the hospital. PE study was negative. Further management by medical team Diagnosis Primary Impression: COPD (chronic obstructive pulmonary disease) with emphysema Additional Impression: COPD exacerbation Condition: Stable Jono Chauhan MD Feb 27, 2017 17:19
[2017-02-27 17:34] LABS: HEMO FLAGS AUTO DIFF
[2017-02-27 17:35] LABS: PLATELET ESTIMATE SMEAR LOW (NORMAL); PLATELET MORPHOLOGY NORMAL (NORMAL); SCAN/DIFF AUTO DIFF CONFIRMED
[2017-02-27 17:41] LABS: APTT (PATIENT) 25.6 SEC (24.3-30.1); INTERNATIONAL NORMALIZED RATIO 1.1 RATIO; PROTHROMBIN TIME - PATIENT 12.4 SEC (9.8-11.6)
[2017-02-27] MEDS ORDERED: IOHEXOL 350 MG/ML 10 ML VIAL (for RAD DIAG) IVCONTRAST ONE (17:49)
--- NOTE | 2017-02-27 18:08 | RADRPT ---
EXAM DATE/TIME: 02/27/2017 17:45 [facility] COMPARISON: MRI THORACIC SPINE W & W/O CONTRAST, January 26, 2017, 15:12. CT THORAX W CONTRAST, January 27, 2017, 16:1 6. INDICATIONS : Respiratory distress; rule out pulmonary embolus. IV CONTRAST: 60 cc Omnipaque 350 (iohexol) IV RADIATION DOSE: 21.58 CTDIvol (mGy) MEDICAL HISTORY : Cardiovascular disease. Hypertension. Chronic obstructive pulmonary disease.Breast and lung cancer SURGICAL HISTORY : Mastectomy, left. ENCOUNTER: Initial ACUITY: 1 day PAIN SCALE: 6/10 LOCATION: chest TECHNIQUE: Volumetric scanning of the chest was performed using a pulmonary embolism protocol MIP images were re constructed. Using automated exposure control and adjustment of the mA and/or kV according to patien t size, radiation dose was kept as low as reasonably achievable to obtain optimal diagnostic quality images. DICOM format image data is available electronically for review and comparison. Follow-up recommendations for detected pulmonary nodules are based at a minimum on nodule size and pa tient risk factors according to Fleischner Society Guidelines. FINDINGS: Widespread bony metastatic disease is seen manifested as multiple lytic lesions not changed. The re is atelectasis and/or infiltrate in right middle lobe and lingula. There is no evidence for PE for technique. There is no pleural effusion. CONCLUSION: There is no evidence for PE for technique. Kathryn Arroyo MD on February 27, 2017 at 18:02 Board Certified Radiologist. This report was verified electronically.
[2017-02-27] MEDS ORDERED: FLUT1INH INH (18:27)
[2017-02-27] MEDS ORDERED: MIRA3350 PO (18:33)
[2017-02-27] MEDS ORDERED: ZOFR4TAB PO (18:33)
[2017-02-27] MEDS ORDERED: PALB125C PO (18:33)
[2017-02-27] MEDS ORDERED: MORP1TAB25 PO (18:33)
[2017-02-27] MEDS ORDERED: SODIUM CHLORIDE 0.9% FLUSH 10 ML FLUSH IV FLUSH PRN (19:30)
[2017-02-27] MEDS ORDERED: PALB125C (20:03)
[2017-02-27 20:28] VITALS: O2SAT 95
[2017-02-27 20:43] VITALS: BP 111/56; PULSE 92; RESP 16; O2SAT 96
[2017-02-27] MEDS ORDERED: SENNOSIDES 8.6 MG TAB PO PRN (21:30)
[2017-02-27] MEDS ORDERED: ACETAMINOPHEN 325 MG TAB PO PRN ×2 (21:30)
[2017-02-27] MEDS ORDERED: ONDANSETRON HCL 4 MG/2 ML VIAL IVP PRN (21:30)
[2017-02-27] MEDS ORDERED: NALOXONE HCL 0.4 MG/ML AMP IV PRN (21:30)
[2017-02-27] MEDS ORDERED: BISACODYL 10 MG SUPP RECTAL PRN (21:30)
[2017-02-27] MEDS ORDERED: oxyCODONE/ACETAMINOPHEN 10 MG/325 MG TAB PO PRN (21:30)
[2017-02-27] MEDS ORDERED: MORPHINE SULFATE 30 MG CONTROLLED RELEASE TAB PO SCH (21:30)
[2017-02-27] MEDS ORDERED: Vancomycin Consult Pharmacy 1 EA OTHER SCH (21:30)
[2017-02-27] MEDS ORDERED: MAGNESIUM HYDROXIDE SUSP 30 ML CUP PO PRN (21:30)
--- NOTE | 2017-02-27 21:40 | EKG ---
Date Performed: 02/27/2017 Time Performed: 16:24:14 PTAGE: 76 years EKG: Sinus rhythm NORMAL ECG NO PREVIOUS TRACING DOCTOR: Serge Hall Interpretating Date/Time 02/27/2017 21:37:51
[2017-02-27] MEDS ORDERED: PHARMACY ORDERED LAB ONE (21:45)
[2017-02-27] MEDS ORDERED: VANCOMYCIN IV ONE (22:00)
[2017-02-27] MEDS ORDERED: SODIUM CHLOR 0.9% IV ONE (22:00)
[2017-02-27] MEDS ORDERED: VANCOMYCIN INJ 750 MG in SODIUM CHLOR 0.9% 250 ML INJ 250 ML IV ONE (22:00)
[2017-02-27 22:09] VITALS: BP 107/56; PULSE 88; RESP 18; TEMP 98.1; O2SAT 91
--- NOTE | 2017-02-27 22:28 | HHI.HP ---
[facility] Porsche Angeles MD Admission Diagnosis COPD exacerbation, metastatic cancer Diagnoses: Chief Complaint: cough Travel History International Travel<30 Days: No Contact w/Intl Traveler <30 Da: No Traveled to Known Affected Are: No History of Present Illness Written by DAX Schilling acting as scribe for [Zakio] on 02/27/17 at 22 :07. 76 y/o female with a history of breast cancer with mets to the bone, anxiety, arthritis, copd on 2L cont at home, AAA, and emphysema presented to the ED with shortness of breath. Patient states she was at home and was having increasing shortness of breath despite breathing treatments. She states she has a non productive cough, and it is exacerbated by drinking liquids. She denies any associated fever, chills. She has worsening upper back pain radiating around her chest wall not relieved with Percocet. She was prescribed doxycycline 2 days ago for aspiration pneumonia, but per the daughter her cough seems to be worse. She is currently on oral chemotherapy and follows outpatient with Dr. Bailey. Review of Systems Except as stated in HPI: all other systems reviewed are Neg Past Family Social History Past Medical History Breast Cancer with mets to bone Anxiety Arthritis Asthma COPD Emphysema Migraines Osteoporosis AAA 4.3 Past Surgical History Appendectomy Breast Biopsy Hernia Repair Hysterectomy Left Mastectomy in 2016 Reported Medications Current Medications Medications (Trade) Dose Ordered Sig/Jimmy Route Start Time Stop Time Status Last Admin (NS Flush) 2 ml UNSCH PRN IVF 02/27/17 15:00 (NS Flush) 2 ml UNSCH PRN IV FLUSH 02/27/17 19:30 (NS Flush) 2 ml BID IV FLUSH 02/27/17 21:00 (Xanax) 0.25 mg Q8H PRN PO 02/27/17 21:30 (Breo Ellipta 100-25 Inh) 1 puff BID INH 02/28/17 09:00 (Duoneb Neb) 1 ampule QID NEB INH 02/28/17 08:00 (Protonix) 40 mg DAILY PO 02/28/17 09:00 (SoluMEDROL INJ) 60 mg Q8HR IV PUSH 02/27/17 22:00 Piperacillin Sod/ Tazobactam Sod 100 ml @ 200 mls/hr Q6H IV 02/27/17 22:00 Pharmacy Profile Note 0 ml @ 0 mls/hr UNSCH OTHER 02/27/17 21:30 (Oramorph Sr) 30 mg Q12HR PO 02/27/17 22:00 (Tylenol) 650 mg Q4H PRN PO 02/27/17 21:30 (Zofran Inj) 4 mg Q6H PRN IVP 02/27/17 21:30 (Tylenol) 650 mg Q6H PRN PO 02/27/17 21:30 (Roxicodone) 15 mg Q4H PRN PO 02/27/17 21:30 (Dilaudid Pf Inj) 0.5 mg Q3H PRN IV 02/27/17 21:30 (Narcan Inj) 0.4 mg UNSCH PRN IV 02/27/17 21:30 (Klarissa-Colace) 1 tab BID PO 02/28/17 09:00 (Milk Of Magnvirgil Liq) 30 ml Q12H PRN PO 02/27/17 21:30 (Senokot) 17.2 mg Q12H PRN PO 02/27/17 21:30 (Dulcolax Supp) 10 mg DAILY PRN RECTAL 02/27/17 21:30 Vancomycin HCl 750 mg/Sodium Chloride 257.5 ml @ 262.5 mls/ hr ONCE ONCE IV 02/27/17 22:00 02/27/17 22:58 Vancomycin HCl 500 mg/Sodium Chloride 100 ml @ 200 mls/hr Q24H IV 02/28/17 22:00 (Roxicodone) 10 mg Q4H PRN PO 02/27/17 22:15 UNV (Tessalon) 200 mg Q8H PRN PO 02/27/17 22:15 UNV (Mucinex Er) 600 mg BID PO 02/27/17 22:15 UNV Non-Formulary Medication 125 mg HS PO 02/28/17 21:00 UNV Allergies: Coded Allergies: egg (Unverified Allergy, Unknown, 02/22/17) grapefruit (Verified Allergy, Unknown, 02/27/17) CONTRAINCDICATED WITH IBRANCE Active Ordered Medications Current Medications Medications (Trade) Dose Ordered Sig/Jimmy Route Start Time Stop Time Status Last Admin (NS Flush) 2 ml UNSCH PRN IVF 02/27/17 15:00 (NS Flush) 2 ml UNSCH PRN IV FLUSH 02/27/17 19:30 (NS Flush) 2 ml BID IV FLUSH 02/27/17 21:00 (Xanax) 0.25 mg Q8H PRN PO 02/27/17 21:30 (Breo Ellipta 100-25 Inh) 1 puff BID INH 02/28/17 09:00 (Duoneb Neb) 1 ampule QID NEB INH 02/28/17 08:00 (Protonix) 40 mg DAILY PO 02/28/17 09:00 (SoluMEDROL INJ) 60 mg Q8HR IV PUSH 02/27/17 22:00 Piperacillin Sod/ Tazobactam Sod 100 ml @ 200 mls/hr Q6H IV 02/27/17 22:00 Pharmacy Profile Note 0 ml @ 0 mls/hr UNSCH OTHER 02/27/17 21:30 (Oramorph Sr) 30 mg Q12HR PO 02/27/17 22:00 (Tylenol) 650 mg Q4H PRN PO 02/27/17 21:30 (Zofran Inj) 4 mg Q6H PRN IVP 02/27/17 21:30 (Tylenol) 650 mg Q6H PRN PO 02/27/17 21:30 (Roxicodone) 15 mg Q4H PRN PO 02/27/17 21:30 (Dilaudid Pf Inj) 0.5 mg Q3H PRN IV 02/27/17 21:30 (Narcan Inj) 0.4 mg UNSCH PRN IV 02/27/17 21:30 (Klarissa-Colace) 1 tab BID PO 02/28/17 09:00 (Milk Of Magnesia Liq) 30 ml Q12H PRN PO 02/27/17 21:30 (Senokot) 17.2 mg Q12H PRN PO 02/27/17 21:30 (Dulcolax Supp) 10 mg DAILY PRN RECTAL 02/27/17 21:30 Vancomycin HCl 750 mg/Sodium Chloride 257.5 ml @ 262.5 mls/ hr ONCE ONCE IV 02/27/17 22:00 02/27/17 22:58 Vancomycin HCl 500 mg/Sodium Chloride 100 ml @ 200 mls/hr Q24H IV 02/28/17 22:00 (Roxicodone) 10 mg Q4H PRN PO 02/27/17 22:15 UNV (Tessalon) 200 mg Q8H PRN PO 02/27/17 22:15 UNV (Mucinex Er) 600 mg BID PO 02/27/17 22:15 UNV Non-Formulary Medication 125 mg HS PO 02/28/17 21:00 UNV Family History Patient denies any family history, no heart disease or cancer. Social History Tobacco use: 2 cigarettes a day Alcohol use: Denies Illicit drug use: Denies Physical Exam Vital Signs Vital Signs Date Time Temp Pulse Resp B/P (MAP) Pulse Ox O2 Delivery O2 Flow Rate FiO2 02/27/17 20:47 02/27/17 20:43 92 16 111/56 (74) 96 Nasal Cannula 3.00 02/27/17 20:28 95 Nasal Cannula 3.00 02/27/17 16:00 26 95 Nasal Cannula 2.00 02/27/17 16:00 95 Nasal Cannula 2.00 02/27/17 15:20 94 Nasal Cannula 2.00 02/27/17 14:51 96 Nasal Cannula 2.00 02/27/17 14:44 98.5 84 26 115/58 (77) 96 Physical Exam GENERAL: This is a well-nourished, well-developed patient, in no apparent distress. SKIN: No rashes, ecchymoses or lesions. Cool and dry. HEAD: Atraumatic. Normocephalic. No temporal or scalp tenderness. EYES: Pupils equal round and reactive. Left eye stenosis ENT: Nose without bleeding, purulent drainage or septal hematoma. Airway patent. NECK: Trachea midline. No JVD or lymphadenopathy. Supple, nontender, no meningeal signs. CARDIOVASCULAR: Tachycardic rate and rhythm without murmurs, gallops, or rubs. RESPIRATORY: Diminished Breath sounds equal bilaterally. No wheezes, rales, or rhonchi. GASTROINTESTINAL: Abdomen soft, non-tender, nondistended. No guarding. MUSCULOSKELETAL: Extremities without clubbing, cyanosis, or edema. Upper back spine tenderness with palpitation. No calf tenderness. NEUROLOGICAL: Awake and alert. Motor and sensory grossly within normal limits. Normal speech. Laboratory Laboratory Tests Test 02/27/17 15:05 02/27/17 15:18 02/27/17 15:25 02/27/17 16:55 Blood Urea Nitrogen 13 Creatinine 0.69 Random Glucose 101 Calcium Level 8.8 Sodium Level 142 Potassium Level 4.1 Chloride Level 112 Carbon Dioxide Level 24.7 Anion Gap 5 Estimat Glomerular Filtration Rate 82 Blood Gas Puncture Site RT RADIAL Blood Gas Patient Temperature 98.6 Blood Gas HCO3 21 Blood Gas Base Excess -3.2 Blood Gas Oxygen Saturation 90 Arterial Blood pH 7.38 Arterial Blood Partial Pressure CO2 37 Arterial Blood Partial Pressure O2 65 Arterial Blood Oxygen Content 11.2 Arterial Blood Carboxyhemoglobin 3.0 Arterial Blood Methemoglobin 0.7 Blood Gas Hemoglobin 8.9 Oxygen Delivery Device NASAL CANNULA Blood Gas Liter Flow 2 Lactic Acid Level 1.5 White Blood Count 3.0 Red Blood Count 3.05 Hemoglobin 9.4 Hematocrit 29.4 Mean Corpuscular Volume 96.4 Mean Corpuscular Hemoglobin 30.7 Mean Corpuscular Hemoglobin Concent 31.9 Red Cell Distribution Width 16.9 Platelet Count 77 Mean Platelet Volume 8.7 Neutrophils (%) (Auto) 58.1 Lymphocytes (%) (Auto) 37.3 Monocytes (%) (Auto) 2.8 Eosinophils (%) (Auto) 1.2 Basophils (%) (Auto) 0.6 Neutrophils # (Auto) 1.7 Lymphocytes # (Auto) 1.1 Monocytes # (Auto) 0.1 Eosinophils # (Auto) 0.0 Basophils # (Auto) 0.0 CBC Comment AUTO DIFF Differential Comment AUTO DIFF CONFIRMED Platelet Estimate LOW Platelet Morphology Comment NORMAL Red Cell Morphology Comment Prothrombin Time 12.4 Prothromb Time International Ratio 1.1 Activated Partial Thromboplast Time 25.6 Date/Time Source Procedure Growth Status 02/27/17 15:10 Blood Peripheral Aerobic Blood Culture Pending Received 02/27/17 15:10 Blood Peripheral Anaerobic Blood Culture Pending Received Result Diagram: 02/27/17 7640 02/27/17 1505 Imaging Chest x-ray with right lung base atelectasis image interpreted by me Lewis VTE Risk Assessment Caprini VTE Risk Assessment: Mod/High Risk (score >= 2) VTE Pharm Contraindication: High risk for bleeding Caprini Risk Assessment Model Point Value = 1 Point Value = 2 Point Value = 3 Point Value = 5 Age 41-60 Minor surgery BMI > 25 kg/m2 Swollen legs Varicose veins or History of unexplained or recurrent spontaneous Oral contraceptives or hormone replacement Sepsis (< 1 month) Serious lung disease, including pneumonia (< 1 month) Abnormal pulmonary function Acute myocardial infarction Congestive heart failure (< 1 month) History of inflammatory bowel disease Medical patient at bed rest Age 61-74 Arthroscopic surgery Major open surgery (> 45 min) Laparoscopic surgery (> 45 min) Malignancy Confined to bed (> 72 hours) Immobilizing plaster cast Central venous access Age >= 75 History of VTE Family history of VTE Factor V Leiden Prothrombin [id number] Lupus anticoagulant Anticardiolipin antibodies Elevated serum homocysteine Heparin-induced thrombocytopenia Other congenital or acquired thrombophilia Stroke (< 1 month) Elective arthroplasty Hip, pelvis, or leg fracture Acute spinal cord injury (< 1 month) Prophylaxis Regimen Total Risk Factor Score Risk Level Prophylaxis Regimen 0-1 Low Early ambulation 2 Moderate Order ONE of the following: *Sequential Compression Device (SCD) *Heparin 5000 units SQ BID 3-4 Higher Order ONE of the following medications: *Heparin 5000 units SQ TID *Enoxaparin/Lovenox 40 mg SQ daily (WT < 150 kg, CrCl > 30 mL/min) *Enoxaparin/Lovenox 30 mg SQ daily (WT < 150 kg, CrCl > 10-29 mL/min) *Enoxaparin/Lovenox 30 mg SQ BID (WT < 150 kg, CrCl > 30 mL/min) AND/OR *Sequential Compression Device (SCD) 5 or more Highest Order ONE of the following medications: *Heparin 5000 units SQ TID (Preferred with Epidurals) *Enoxaparin/Lovenox 40 mg SQ daily (WT < 150 kg, CrCl > 30 mL/min) *Enoxaparin/Lovenox 30 mg SQ daily (WT < 150 kg, CrCl > 10-29 mL/min) *Enoxaparin/Lovenox 30 mg SQ BID (WT < 150 kg, CrCl > 30 mL/min) AND *Sequential Compression Device (SCD) Assessment and Plan Problem List: (1) Aspiration pneumonia ICD Code: J69.0 - Pneumonitis due to inhalation of food and vomit Status: Acute (2) Sepsis ICD Code: A41.9 - Sepsis, unspecified organism Status: Acute (3) Bone metastasis ICD Code: C79.51 - Secondary malignant neoplasm of bone Status: Acute Assessment and Plan 76 y/o female with a history of breast cancer with mets to the bone, anxiety, arthritis, copd on 2L cont at home, AAA, and emphysema presented to the ED with shortness of breath. Sepsis, immunocompromised due to chemotherapy, WBC 3.0, respiratory rate 26, suspected due to Aspiration pneumonia from drinking liquids CT chest reviewed and shows atelectasis and/or infiltrate in right middle lobe. -IV antibiotics: Vancomycin and Zosyn cover for hospital-acquired pneumonia -ST for swallow eval,may consider GI for dilation -Mucinex PO BID -CBC in AM COPD exacerbation, likely related to pneumonia with history of chronic respiratory failure on home oxygen at 2 L -Duonebs ordered -Solumedrol IV -O2 as needed Bone Metastasis -Cont home chemotherapy -Will consider Dr. Kirkpatrick input if needed -Pain management with IV Dilaudid and po oxycodone DVT prophylaxis: SCDs, hold chemical due to acute thrombocytopenia Code status: DNR Code Status DNR Discussed Condition With Patient and patients daughter This note was transcribed by DAX Liu. I, Dr. Conrad Dsouza personally performed the history, physical exam, and medical decision making; and confirmed the accuracy of the information in the transcribed note. Authenticated by Dr. Conrad Dsouza on 02/27/17 at 22:35. Physician Certification 2 Midnight Certification Type: Admission for Inpatient Services Order for Inpatient Services The services are ordered in accordance with Medicare regulations or non- Medicare payer requirements, as applicable. In the case of services not specified as inpatient-only, they are appropriately provided as inpatient services in accordance with the 2-midnight benchmark. Estimated LOS (days): 2 days is the estimated time the patient will need to remain in the hospital, assuming treatment plan goals are met and no additional complications. Post-Hospital Plan: Not yet determined Problem Qualifiers (1) Aspiration pneumonia: Qualified Codes: J69.0 - Pneumonitis due to inhalation of food and vomit (2) Sepsis: Qualified Codes: A41.9 - Sepsis, unspecified organism Christina Archer Feb 27, 2017 22:28 Conrad Dsouza MD Feb 27, 2017 22:35
[2017-02-27] MEDS: SODIUM CHLORIDE 0.9% FLUSH 10 ML FLUSH IV FLUSH SCH (23:33)
[2017-02-27] MEDS: methylPREDNISolone SOD SUCC 125 MG/2 ML VIAL IV PUSH SCH (23:33)
[2017-02-27] MEDS: PIPERACIL-TAZO 4.5 GM PREMIX 100 ML IV SCH (23:33)
[2017-02-28] VITALS (8 sets, daily range): BP systolic 99–129; BP diastolic 53–65; PULSE 88–103; RESP 16–20; TEMP 96.1–98.3; O2SAT 93–97
[2017-02-28] MEDS: ALPRAZolam 0.25 MG TAB PO PRN ×2 (01:34→22:38)
[2017-02-28] MEDS: MORPHINE SULFATE 30 MG CONTROLLED RELEASE TAB PO SCH ×3 (01:35→22:28)
[2017-02-28] MEDS: guaiFENesin E.R. 600 MG TAB PO SCH ×3 (01:37→22:28)
[2017-02-28] MEDS: PIPERACIL-TAZO 4.5 GM PREMIX 100 ML IV SCH ×4 (06:01→22:31)
[2017-02-28] MEDS: methylPREDNISolone SOD SUCC 125 MG/2 ML VIAL IV PUSH SCH (06:02)
[2017-02-28] MEDS: RESP: ALBUTEROL 2.5 MG/IPRATROPIUM 0.5 MG NEB (SCH) INH ×4 (07:55→21:05)
--- NOTE | 2017-02-28 08:52 | HHI.PR ---
Subjective Remarks Pt states that she is still having a lot of pain but the meds seem to be helping. She states "I have pain on all the same places". She states that she does have a cough but cannot "bring up anything". Denies any fevers or chills. States that she came in because of SOB and pain. Her oncologist is Objective Vitals Vital Signs Date Time Temp Pulse Resp B/P (MAP) Pulse Ox O2 Delivery O2 Flow Rate FiO2 02/28/17 07:55 96 Nasal Cannula 2.00 02/28/17 04:00 98.1 88 16 116/60 (78) 93 02/28/17 01:04 96.1 91 16 129/65 (86) 94 02/27/17 22:09 98.1 88 18 107/56 (73) 91 02/27/17 20:47 02/27/17 20:43 92 16 111/56 (74) 96 Nasal Cannula 3.00 02/27/17 20:28 95 Nasal Cannula 3.00 02/27/17 16:00 26 95 Nasal Cannula 2.00 02/27/17 16:00 95 Nasal Cannula 2.00 02/27/17 15:20 94 Nasal Cannula 2.00 02/27/17 14:51 96 Nasal Cannula 2.00 02/27/17 14:44 98.5 84 26 115/58 (77) 96 I/O 02/27/17 02/27/17 02/27/17 02/28/17 02/28/17 02/28/17 07:00 15:00 23:00 07:00 15:00 23:00 Intake Total 240 ml Balance 240 ml Intake Oral 240 ml # Voids 1 Result Diagram: 02/27/17 1655 02/27/17 1505 Objective Remarks GENERAL: This is a well-nourished, well-developed patient, laying in bed. EYES: Left eye stenosis ENT: Nose without drainage . Airway patent. NECK: Trachea midline. No JVD or lymphadenopathy. Supple, nontender, no meningeal signs. CARDIOVASCULAR:RRR without murmurs RESPIRATORY: Diminished Breath sounds equal bilaterally. No wheezes, rales, or rhonchi. GASTROINTESTINAL: Abdomen soft, non-tender, nondistended. No guarding. MUSCULOSKELETAL: Extremities without edema. Upper back spine tenderness with palpitation. No calf tenderness. NEUROLOGICAL: Awake and alert. Motor and sensory grossly within normal limits. Normal speech. A/P Problem List: (1) Aspiration pneumonia ICD Code: J69.0 - Pneumonitis due to inhalation of food and vomit Status: Acute (2) Sepsis ICD Code: A41.9 - Sepsis, unspecified organism Status: Acute (3) Bone metastasis ICD Code: C79.51 - Secondary malignant neoplasm of bone Status: Acute Assessment and Plan 76 y/o female with a history of breast cancer with mets to the bone, anxiety, arthritis, copd on 2L cont at home, AAA, and emphysema presented to the ED with shortness of breath, cough and pain. Sepsis, immunocompromised due to chemotherapy, WBC 3.0, respiratory rate 26, suspected due to Aspiration pneumonia from drinking liquids. CT chest reviewed and shows atelectasis and/or infiltrate in right middle lobe. -currently on Vancomycin and Zosyn IV cover for hospital-acquired pneumonia.. Closely monitor Cr levels. Consult ID for assistance on Abx management in an immunocompromised pt -ST for swallow eval,may consider GI for dilation. -Mucinex PO BID -CBC in AM COPD exacerbation, likely related to pneumonia with history of chronic respiratory failure on home oxygen at 2 L -Duonebs ordered -change Solumedrol IV to 40mg q8hr -O2 as needed -encourage use of IS q1hr while awake. Bone Metastasis -Cont home chemotherapy -consult to Dr. Kirkpatrick in place. -Pain management with IV Dilaudid and morphine and oxycodone. will consult palliative care as well for assistance. PT and ST consulted. Appreciate input DVT prophylaxis: SCDs, hold chemical due to acute thrombocytopenia Discharge Planning d/c pending further recommendations Problem Qualifiers (1) Aspiration pneumonia: Qualified Codes: J69.0 - Pneumonitis due to inhalation of food and vomit (2) Sepsis: Qualified Codes: A41.9 - Sepsis, unspecified organism Anisa Cortés MD Feb 28, 2017 08:52
[2017-02-28] MEDS: DOCUSATE SODIUM 50 MG/SENNA 8.6 MG TAB PO SCH ×2 (09:15→22:32)
[2017-02-28] MEDS: PANTOPRAZOLE SOD 40 MG DELAYED RELEASE TAB PO SCH (09:15)
[2017-02-28] MEDS: SODIUM CHLORIDE 0.9% FLUSH 10 ML FLUSH IV FLUSH SCH ×2 (09:20→22:29)
[2017-02-28] MEDS: FLUTICASONE 100 MCG/VILANTEROL 25 MCG INHALER INH SCH ×2 (09:20→22:30)
--- NOTE | 2017-02-28 14:51 | PD.CONS ---
Consult Service Palliative Care Consult Requested By Shannan Cortés MD. Primary Care Physician Porsche Angeles MD Reason for Consultation a. To assist with evaluation and management of symptoms including: Pain, shortness of breath, decreased appetite, debility. b. To assist medical decision maker(s) with: better understanding of current medical conditions; weighing benefits/burdens of medical treatment options; making medical treatment decisions. . HPI History of Present Illness Mrs. Gunter is a 76-year-old female with a past medical history significant for invasive mammary carcinoma status post left simple mastectomy with sentinel lymph node sampling which was positive for micrometastasis. 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 Patient also with history of COPD and emphysema, O2 dependent. Patient presented to ED via [facility] on 02/27/17 for evaluation of worsening shortness of breath and intractable pain. CTA negative for PE, chest x-ray revealing slight right lung base atelectasis. Laboratory workup revealing WBC 3.0, Hgb 9.4, platelet count 77. Sodium 142, potassium 4.1, BUN/creatinine 13/0.69. Patient was admitted for further management. Palliative care has been consulted for further assistance and symptom management, pain control. Patient following with Dr. Casimiro cruz. Last seen on 02/17/17. As per oncology medical records, patient has been on tamoxifen for hormonal blockage therapy area and she was initiated on Ibrance and started on Xgeva. Patient endorsing intractable pain to bony metastasis. She was on morphine ER 20 mg BID , dosed was increased to 30 mg on 02/17/17 while continued on Percocet 10/325mg for breakthrough pain. Reviewed prior medical history and acute hospitalizations. Most recent hospitalization from 01/23/17 to 01/31/17 secondary to intractable pain. During that admission, thoracic spine MRI revealing widespread metastatic disease throughout the bones of the thoracic spine and upper lumbar spine. No evidence of compression fracture noted. Lumbar spine MRI 01/26/17 revealing almost complete replacement of the bone marrow with widespread metastatic disease. No disc herniation of protrusion noted. Iliac bone biopsy obtained 01/27/17, pathology confirmed metastatic breast carcinoma. Abdomen/pelvis CT 01/27/17 revealing AAA extending 8.5 cm in cephalocaudal extent as well as widespread osseous metastatic disease. Patient seen in her room, she was resting in bed in no acute distress. Daughter Cynthia at bedside. Patient endorsing thoracic, lumbar and sacral pain as well as pain to left ribs that is described as sharp, intermittent. Exacerbated by movement, physical exertion. Alleviated to some extent with opioid medication. Home regimen of morphine ER 30 mg twice a day and Percocet 10/327 mg Q6h PRN for breakthrough pain. Patient reports that morphine ER dose was increased 2 weeks ago from 20 mg to 30 mg with good effect. However, patient reports that her pain has worsened since starting physical therapy at home. She reports that during first PT visit, her pain has worsened. Patient reports that pain is interfering with sleep and appetite. Patient denies nausea or vomiting. Frequently constipated, last BM 2 days ago. Appetite reported as poor. Patient remains afebrile, stable hemodynamically. Tolerating O2 via nasal cannula 2 L. Discussed patient's past medical history and psychosocial history. Reviewed events leading to this hospitalization, clinical course and current medical management. Patient tells me that her goal of therapy remains unchanged, continue with disease specific treatment under Dr. Kirkpatrick while maintaining the best quality of life. Patient's main goal is for pain and symptom control. Discussed at length home regimen and recommendations. All questions were answered in great detail. . Function/Cognitive Trajectory Patient residing with daughter prior to this hospitalization. Progressive decline, debility. Independent with ADLs, requiring intermittent assistance with bathing. Walking without assistance device. O2 at home secondary to COPD. No cognitive decline reported. . Review of Systems Constitutional: COMPLAINS OF: Fatigue, Weight loss, Change in appetite, Pain, Generalized weakness, DENIES: Fever Endocrine: DENIES: Abnorml menstrual pattern Eyes: DENIES: Eye pain, Vision loss Ears, nose, mouth, throat: DENIES: Tinnitus, Hearing loss, Ear Pain, Running Nose Respiratory: COMPLAINS OF: Shortness of breath, DENIES: Cough, Wheezing Cardiovascular: COMPLAINS OF: Chest pain, Dyspnea on Exertion, DENIES: Lower Extremity Edema Gastrointestinal: COMPLAINS OF: Constipation, Anorexia, DENIES: Abdominal pain , Nausea, Vomiting, Difficulty Swallowing Genitourinary: DENIES: Urinary incontinence Musculoskeletal: COMPLAINS OF: Back pain, DENIES: Muscle aches, Joint Swelling Integumentary: DENIES: Abnormal pigmentation, Rash Hematologic/Lymphatics: COMPLAINS OF: Bruising Immunologic/Allergic: DENIES: Eczema Neurologic: DENIES: Localized weakness, Seizures Psychiatric: COMPLAINS OF: Anxiety, DENIES: Confusion, Depression, Agitation Past Family Social History Coded Allergies: grapefruit (Verified Allergy, Unknown, 02/27/17) CONTRAINCDICATED WITH IBRANCE Past Medical History Breast cancer with bony metastasis COPD Brain aneurysm AAA Anxiety Migraine headaches Osteoporosis Arthritis Cataracts Ptosis of the left eyelid . Past Surgical History Appendectomy Breast Biopsy Hernia Repair Hysterectomy Left Mastectomy in 2016 . Reported Medications Senna Plus 8.6-50 mg (Sennosides-Docusate Sodium) 1 Tab Tab 1 Tab PO BID Percocet (Oxycodone-Acetaminophen) 5-325 mg Tab 1-2 Tab PO Q6H PRN Ibrance (Palbociclib) 125 Mg Capsule Ibrance (Palbociclib) 125 Mg Capsule 125 Mg PO HS 21 DAYS ON, 7 DAYS OFF Morphine ER (Morphine Sulfate) 30 Mg Tab 30 Mg PO Q12HR Miralax Powder (Polyethylene Glycol 3350 Powder) 17 Gm Powd 17 Gm PO DAILY PRN Mix and dissolve one measuring cap-ful (17 grams) in water or juice. Zofran (Ondansetron HCl) 4 Mg Tab 4 Mg PO Q6HR PRN Breo Ellipta Inh (Fluticasone/Vilanterol) 100-25 Mcg/Act Inh 1 Puff INH BID Use daily at the same time. Omeprazole 40 Mg Cap 40 Mg PO DAILY Duoneb (Ipratropium-Albuterol Neb) 0.5-2.5 Mg/3 Ml Neb 1 Nebule INH Q6HR NEB Ventolin Hfa 18 GM Inh (Albuterol Sulfate) 90 Mcg/Act Aer 1 Puff INH Q4H PRN Aspirin 325 Mg Tab 325 Mg PO DAILY Alprazolam 0.25 Mg Tab 0.25 Mg PO Q8H PRN . Current Medications Medications (Trade) Dose Ordered Sig/Jimmy Route Start Time Stop Time Status Last Admin (NS Flush) 2 ml UNSCH PRN IV FLUSH 02/27/17 19:30 (NS Flush) 2 ml BID IV FLUSH 02/27/17 21:00 02/28/17 09:20 (Xanax) 0.25 mg Q8H PRN PO 02/27/17 21:30 02/28/17 01:34 (Breo Ellipta 100-25 Inh) 1 puff BID INH 02/28/17 09:00 02/28/17 09:20 (Duoneb Neb) 1 ampule QID NEB INH 02/28/17 08:00 02/28/17 11:58 (Protonix) 40 mg DAILY PO 02/28/17 09:00 02/28/17 09:15 Piperacillin Sod/ Tazobactam Sod 100 ml @ 200 mls/hr Q6H IV 02/27/17 22:00 Future hold 02/28/17 12:20 Pharmacy Profile Note 0 ml @ 0 mls/hr UNSCH OTHER 02/27/17 21:30 (Oramorph Sr) 30 mg Q12HR PO 02/27/17 22:00 02/28/17 12:20 (Tylenol) 650 mg Q4H PRN PO 02/27/17 21:30 (Zofran Inj) 4 mg Q6H PRN IVP 02/27/17 21:30 (Tylenol) 650 mg Q6H PRN PO 02/27/17 21:30 (Roxicodone) 15 mg Q4H PRN PO 02/27/17 21:30 (Dilaudid Pf Inj) 0.5 mg Q3H PRN IV 02/27/17 21:30 (Narcan Inj) 0.4 mg UNSCH PRN IV 02/27/17 21:30 (Klarissa-Colace) 1 tab BID PO 02/28/17 09:00 02/28/17 09:15 (Milk Of Magnesia Liq) 30 ml Q12H PRN PO 02/27/17 21:30 (Senokot) 17.2 mg Q12H PRN PO 02/27/17 21:30 (Dulcolax Supp) 10 mg DAILY PRN RECTAL 02/27/17 21:30 (Roxicodone) 10 mg Q4H PRN PO 02/27/17 22:15 (Tessalon) 200 mg Q8H PRN PO 02/27/17 22:15 (Mucinex Er) 600 mg BID PO 02/27/17 22:15 02/28/17 09:15 (SoluMEDROL INJ) 40 mg Q8HR IV PUSH 02/28/17 14:00 (Duoneb Neb) 1 ampule Q6HR NEB PRN NEB 02/28/17 09:00 Vancomycin HCl 750 mg/Sodium Chloride 257.5 ml @ 250 mls/hr Q24H IV 03/01/17 04:00 Miscellaneous Information SPECIFIC LAB TO BE ... ONCE ONCE .XX 03/03/17 03:45 03/03/17 03:46 Patient Own Medication PT OWN MED: Ibrance (Palbocicl... HS PO 02/28/17 21:00 03/02/17 21:01 Miscellaneous Information PHYSICIAN MUST RE-OR... BID OTHER 03/03/17 09:00 Family History Father, age 84, diabetes, hypertension and COPD Mother, at age 96 of natural causes. . Substance Use Tobacco: Smoker. Continues to smoke 2-3 cigarettes daily. Alcohol: None. Prescription med abuse: None. Illicits: None. . Psychosocial History Patient originally from [place]. Moved to [place] in 1956. She is , has 3 children. 2 daughters and 1 son who lives in [place]. 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 No history. Residing with alexa Marie and grandchild prior to this hospitalization. . Spiritual/Cultural Factors No yazidism affiliations. . Health Care Surrogate: Copy in medical record Date completed: 01/25/17. . Health Care Surrogate(s): HCS/alexa Ty grandson/alt HCS: Rafael Ty . Documented care wishes: Living will completed with standard verbiage as it pertains to life support. . Today's verbally stated goals: No code. DNR/DNI. Continue disease specific management short of no code. . Family/friends goals: Alexa Marie fully supportive of patient's wishes. . Ethical and Legal Issues No ethical legal issues identified. . Physical Exam Vital Signs Date Time Temp Pulse Resp B/P (MAP) Pulse Ox O2 Delivery O2 Flow Rate FiO2 02/28/17 12:00 97.6 90 16 111/59 (76) 94 02/28/17 08:00 98.3 91 20 123/56 (78) 97 02/28/17 07:55 96 Nasal Cannula 2.00 02/28/17 04:00 98.1 88 16 116/60 (78) 93 02/28/17 01:04 96.1 91 16 129/65 (86) 94 02/27/17 22:09 98.1 88 18 107/56 (73) 91 02/27/17 20:47 02/27/17 20:43 92 16 111/56 (74) 96 Nasal Cannula 3.00 02/27/17 20:28 95 Nasal Cannula 3.00 02/27/17 16:00 26 95 Nasal Cannula 2.00 02/27/17 16:00 95 Nasal Cannula 2.00 02/27/17 15:20 94 Nasal Cannula 2.00 02/27/17 14:51 96 Nasal Cannula 2.00 02/27/17 14:44 98.5 84 26 115/58 (77) 96 02/28/17 03/01/17 18:59 06:59 # Voids 1 Exam CONSTITUTIONAL/GENERAL: This is a thin elderly female resting in bed in no acute distress. TUBES/LINES/DRAINS: Nasal cannula, PIV. SKIN: No jaundice, rashes, or lesions. Ecchymoses on upper extremities. No wounds seen anteriorly. Skin temperature appropriate. Not diaphoretic. HEAD: Atraumatic. Normocephalic. EYES: Pupils equal and round and reactive. Extraocular motions intact. No scleral icterus. No injection or drainage. Ptosis is to left eye. ENT: Hearing grossly normal. Nose without bleeding or purulent drainage. Moist oral mucosa. NECK: Trachea midline. Supple, nontender. CARDIOVASCULAR: Regular rate and rhythm without murmurs, gallops, or rubs. No JVD. Peripheral pulses symmetric. RESPIRATORY/CHEST: Symmetric, unlabored respirations. Clear, diminished to auscultation. Breath sounds equal bilaterally. No wheezes, rales, or rhonchi. GASTROINTESTINAL: Abdomen soft, round, non-tender. No guarding. Bowel sounds present. GENITOURINARY: Without palpable bladder distension. MUSCULOSKELETAL: Extremities without clubbing, cyanosis, or edema. Tender thoracic and lumbar spine to palpation. NEUROLOGICAL: Awake and alert x self, place and situation. Motor and sensory grossly within normal limits. Follows commands. Cognitively sharp. Moves all extremities. PSYCHIATRIC: No obvious anxiety/depression. no apparent hallucinations or other psychotic thought process. Pleasant and cooperative. . Diagnostic Tests Laboratory Laboratory Tests Test 02/27/17 15:05 02/27/17 15:18 02/27/17 15:25 02/27/17 16:55 Blood Urea Nitrogen 13 MG/DL (7-18) Creatinine 0.69 MG/DL (0.50-1.00) Random Glucose 101 MG/DL (74-106) Calcium Level 8.8 MG/DL (8.5-10.1) Sodium Level 142 MEQ/L (136-145) Potassium Level 4.1 MEQ/L (3.5-5.1) Chloride Level 112 MEQ/L (98-107) Carbon Dioxide Level 24.7 MEQ/L (21.0-32.0) Anion Gap 5 MEQ/L (5-15) Estimat Glomerular Filtration Rate 82 ML/MIN (>89) Blood Gas Puncture Site RT RADIAL Blood Gas Patient Temperature 98.6 Blood Gas HCO3 21 mmol/L (22-26) Blood Gas Base Excess -3.2 mmol/L (-2-2) Blood Gas Oxygen Saturation 90 % (90-100) Arterial Blood pH 7.38 (7.380-7.420) Arterial Blood Partial Pressure CO2 37 mmHg (38-42) Arterial Blood Partial Pressure O2 65 mmHG (61-120) Arterial Blood Oxygen Content 11.2 Vol % (12.0-20.0) Arterial Blood Carboxyhemoglobin 3.0 % (0-4) Arterial Blood Methemoglobin 0.7 % (0-2) Blood Gas Hemoglobin 8.9 G/DL (12.0-16.0) Oxygen Delivery Device NASAL CANNULA Blood Gas Liter Flow 2 L/M Lactic Acid Level 1.5 mmol/L (0.4-2.0) White Blood Count 3.0 TH/MM3 (4.0-11.0) Red Blood Count 3.05 MIL/MM3 (4.00-5.30) Hemoglobin 9.4 GM/DL (11.6-15.3) Hematocrit 29.4 % (35.0-46.0) Mean Corpuscular Volume 96.4 FL (80.0-100.0) Mean Corpuscular Hemoglobin 30.7 PG (27.0-34.0) Mean Corpuscular Hemoglobin Concent 31.9 % (32.0-36.0) Red Cell Distribution Width 16.9 % (11.6-17.2) Platelet Count 77 TH/MM3 (150-450) Mean Platelet Volume 8.7 FL (7.0-11.0) Neutrophils (%) (Auto) 58.1 % (16.0-70.0) Lymphocytes (%) (Auto) 37.3 % (9.0-44.0) Monocytes (%) (Auto) 2.8 % (0.0-8.0) Eosinophils (%) (Auto) 1.2 % (0.0-4.0) Basophils (%) (Auto) 0.6 % (0.0-2.0) Neutrophils # (Auto) 1.7 TH/MM3 (1.8-7.7) Lymphocytes # (Auto) 1.1 TH/MM3 (1.0-4.8) Monocytes # (Auto) 0.1 TH/MM3 (0-0.9) Eosinophils # (Auto) 0.0 TH/MM3 (0-0.4) Basophils # (Auto) 0.0 TH/MM3 (0-0.2) CBC Comment AUTO DIFF Differential Comment AUTO DIFF CONFIRMED Platelet Estimate LOW (NORMAL) Platelet Morphology Comment NORMAL (NORMAL) Red Cell Morphology Comment (NORMAL) Prothrombin Time 12.4 SEC (9.8-11.6) Prothromb Time International Ratio 1.1 RATIO Activated Partial Thromboplast Time 25.6 SEC (24.3-30.1) Result Diagram: 02/27/17 1655 02/27/17 1505 Microbiology Microbiology Date/Time Source Procedure Growth Status 02/27/17 15:10 Blood Peripheral Aerobic Blood Culture - Preliminary NO GROWTH IN 1 DAY Resulted 02/27/17 15:10 Blood Peripheral Anaerobic Blood Culture - Preliminary NO GROWTH IN 1 DAY Resulted 02/27/17 15:05 Blood Peripheral Aerobic Blood Culture - Preliminary NO GROWTH IN 1 DAY Resulted 02/27/17 15:05 Blood Peripheral Anaerobic Blood Culture - Preliminary NO GROWTH IN 1 DAY Resulted Patient/Family Conference Present at Family Conference: Patient and daughter Cynthia. Family Conference Time (mins): 32 Family Conference Location: Bedside Issues Discussed: * Palliative care role, purpose, approach * Additional medical, psychosocial, and spiritual history * Patients general health, functional status, and cognitive changes in the months leading up to the current hospitalization * Patient/family understanding of the current medical problems -metastatic breast cancer involving spine and ribs * Patient/family understanding of prognosis -high risk for further complications , clinical decline and * Patients goals of care as best understood from advance directives and/or conversations and/or values * Current medical treatment options and benefits/burdens of those options * Likely scenarios comparing ongoing aggressive care with a transition to comfort measures only * Questions answered to the best of my ability * Palliative care contact information provided * Hospice philosophy and benefits as previously discussed . Assessment and Plan Disease Oriented Problem List: (1) COPD exacerbation (2) Aspiration pneumonia (3) Pain of metastatic malignancy (4) Bone metastasis (5) Physical deconditioning Symptom Scale: (1) Pain 0-10 Scale: 8 Comment: To thoracic and lumbar spine secondary to bony metastasis. (2) Shortness of breath 0-10 Scale: Unable to quantify Comment: COPD, pneumonia. (3) Debility 0-10 Scale: Unable to quantify Comment: Progressive. Pertinent Non-Medical Issues Psychosocial: Originally from [place]. , has 3 children. 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 Spiritual: No yazidism affiliation. Legal: Advance directives completed. Ethical issues impacting care: No ethical issues identified. Patient participating in medical decision-making. . Important Contacts HCS/daughter Cynthia Ty grandson/alt HCS: Rafael Ty . Prognosis Mrs. Gunter is a 76-year-old female with a past medical history significant for invasive mammary carcinoma status post left simple mastectomy with sentinel lymph node sampling which was positive for micrometastasis. Patient also with history of COPD and emphysema, O2 dependent. Patient with newly diagnosed bony metastasis to entire spine and ribs, currently receiving palliative chemotherapy. Patient at high risk for further complications, continue decline and given multiple chronic ongoing comorbidities, progressive physical decline, advanced age and overall debilitated state. . Code Status: No Code Plan * CODE STATUS: No code. DNR/DNI. [facility] DNR completed on 01/25/17. Patient and daughter confirmed no CODE STATUS. * MEDICAL DECISION-MAKING: Patient participating in medical decision-making. Patient demonstrates a good understanding of her medical condition and the ability to weight the benefits and burdens of treatment options. Patient designated her daughter Cynthia as HCS, alternate surrogate grandson Rafael Ty. * GOALS OF CARE: Patient electing to continue with current disease specific management of metastatic breast cancer while maintaining the best quality of life. Goal of therapy is to achieve the best pain and symptom control. Patient currently under the treatment of Dr. Kirkpatrick, she plans to continue f/u upon discharge. Hospice philosophy and benefits has been previously introduced, patient and daughter receptive to hospice should her clinical condition worsened , increased symptom burden or additional physical decline. * SYMPTOMS: =Pain to chest and thoracic and lumbar spine, secondary to bony metastasis/burden of disease. pain is sharp, intermittent. Exacerbated by movement, physical exertion. Alleviated to some extent with opioid medication. Home regimen of morphine ER 30 mg twice a day and Percocet 10/327 mg Q6h PRN for breakthrough pain. Patient's pain goal is 4 to 5/10. Patient reports that morphine ER dose was increased 2 weeks ago from 20 mg to 30 mg with good effect. However, her pain has worsened since starting physical therapy at home. Patient remains currently on morphine ER 30 mg every 12 hours, Percocet has been discontinued as patient reports that is not longer effective. Currently on oxycodone 10 mg to 15mg q4h PRN and hydromorphone 0.5 mg IV Q3h PRN. Patient has received one dose of Dilaudid 1mg IV in the past 24 hours. Palliative care recommends to monitor opioid total use for the next 24 hours in order to make any further recommendations or adjustments. =Anxiety, exacerbated by pain. Xanax 0.25 mg every 8 hours PRN. Patient reports that at home she takes 4 doses in a 24-hour period. Palliative care recommends increasing interval to Xanax 0.25mg q6h PRN. = Constipation, exacerbated by opioid and bedrest. Last BM 2 days ago. Patient currently on Klarissa-Colace 1 tab twice a day. MOM, Dulcolax sup and Senokot available as needed. = Shortness of breath, COPD O2 dependent at home. Exacerbated by pneumonia. Currently tolerating O2 via nasal cannula 2 L. =Debility, progressive. Patient not tolerating PT at home secondary to worsening pain. * Patient was extensively educated and current pain regimen. * Palliative care contact information has been provided to patient and daughter. * Palliative care will continue to follow-up for assistance and symptom management as patient's clinical condition continues to evolve. . Time Spent Total Floor Time (mins): 66 (Total time to include review and summarization of available medical records to include prior hospitalizations, physical exam, goals of care conversation with patient and daughter, discussion regarding pain regimen and symptom management.) >50% Counseling/Coord of Care: Yes Thank you for the opportunity to participate in the care of Ms. Gunter. Attestation To help prompt me to consider important information that might be impacting today's encounter and assessment, information from prior notes written by myself or my colleagues may have been "brought forward" into today's note. My signature on this note, however, is an attestation that I personally performed the exam, history, and/or decision-making noted today, and, unless otherwise indicated, the interactions with patient, family, and staff as well as the review of records all occurred today. I also attest that the listed assessment and stated plan reflect my best clinical judgment today based on the combination of historical information, prior notes, and today's exam/ interactions. When time spent is documented, it refers only to time spent today by the signer, or if indicated, combined time spent today by collaborating physician/nurse practitioner. Ysabel Garnica Feb 28, 2017 14:51
[2017-02-28] MEDS: methylPREDNISolone SOD SUCC 40 MG/1 ML VIAL IV PUSH SCH ×2 (14:55→22:33)
[2017-02-28] MEDS: POLYETHYLENE GLYCOL 17 GM PKG PO SCH (14:55)
[2017-02-28 16:25] LABS: AUTOMATED NEUTROPHIL # 3.2 TH/MM3 (1.8-7.7); HEMATOCRIT 25.7 % (35.0-46.0); LYMPH % 7.4 % (9.0-44.0); LYMPHOCYTE # 0.3 TH/MM3 (1.0-4.8); MEAN CELL VOLUME 96.3 FL (80.0-100.0); MEAN CORPUSCULAR HEMOGLOBIN 31.7 PG (27.0-34.0); MEAN CORPUSCULAR HGB CONC 32.9 % (32.0-36.0); MONO % 1.3 % (0.0-8.0); NEUT % 91.3 % (16.0-70.0); PLATELET COUNT 58 TH/MM3 (150-450); RED BLOOD COUNT 2.66 MIL/MM3 (4.00-5.30); WHITE BLOOD COUNT 3.5 TH/MM3 (4.0-11.0)
[2017-02-28 16:30] LABS: HEMO FLAGS AUTO DIFF
[2017-02-28 16:49] LABS: BICARBONATE 20.9 MEQ/L (21.0-32.0); POTASSIUM 4.3 MEQ/L (3.5-5.1)
[2017-02-28 17:02] LABS: PLATELET ESTIMATE SMEAR LOW (NORMAL); PLATELET MORPHOLOGY NORMAL (NORMAL); SCAN/DIFF AUTO DIFF CONFIRMED
--- NOTE | 2017-02-28 17:08 | PD.ID.CON ---
History of Present Illness Service ID Consult Requested By Dr Valentin Reason for Consult PNA Primary Care Physician Porsche Angeles MD Diagnoses: History of Present Illness 70 yo with wide spread mestatic breast CA (sp L mastectomy) , and COPD , with still active tobacco use, presents with worsening SOB x few weeks and non produvctive cough She is unable to expecvtorate She apparently was unsuccessfullyn treated with abx (doxycyline) earlier for PNA she also c/o chest pain She is on NC O2 She is afebrile, WBC is low SHe Review of Systems Constitutional: COMPLAINS OF: Weight loss Respiratory: COMPLAINS OF: Cough, Shortness of breath Cardiovascular: COMPLAINS OF: Chest pain Musculoskeletal: COMPLAINS OF: Back pain Integumentary: COMPLAINS OF: Breast skin changes Except as stated in HPI: all other systems reviewed are Neg Past Family Social History Allergies: Coded Allergies: grapefruit (Verified Allergy, Unknown, 02/27/17) CONTRAINCDICATED WITH IBRANCE Past Medical History Breast Cancer with mets to bone Anxiety Arthritis Asthma COPD Emphysema Migraines Osteoporosis AAA 4.3 Past Surgical History Appendectomy Breast Biopsy Hernia Repair Hysterectomy Left Mastectomy in 2016 Active Ordered Medications Medications where reviewed in EMR Antibiotics Include: zosyn vncomycin Family History reviewed; non contributory Social History Tobacco use: 2 cigarettes a day Alcohol use: Denies Illicit drug use: Denies Physical Exam Vital Signs Vital Signs Date Time Temp Pulse Resp B/P (MAP) Pulse Ox O2 Delivery O2 Flow Rate FiO2 02/28/17 12:00 97.6 90 16 111/59 (76) 94 02/28/17 08:00 98.3 91 20 123/56 (78) 97 02/28/17 07:55 96 Nasal Cannula 2.00 02/28/17 04:00 98.1 88 16 116/60 (78) 93 02/28/17 01:04 96.1 91 16 129/65 (86) 94 02/27/17 22:09 98.1 88 18 107/56 (73) 91 02/27/17 20:47 02/27/17 20:43 92 16 111/56 (74) 96 Nasal Cannula 3.00 02/27/17 20:28 95 Nasal Cannula 3.00 Physical Exam CONSTITUTIONAL/GENERAL: This is a thin elderlly patient, in no apparent distress. TUBES/LINES/DRAINS: SKIN: No jaundice, rashes, or lesions. Skin temperature appropriate. Not diaphoretic. BREASTS: s/p mastectomy scar - well healed, nt very tender to palpation, no masses HEAD: Atraumatic. Normocephalic. EYES: Pupils equal and round and reactive. Extraocular motions intact. No scleral icterus. No injection or drainage. Fundi not examined. ENT: Hearing grossly normal. Nose without bleeding or purulent drainage. Throat without visible erythema, exudates, masses, or lesions. NECK: Trachea midline. Supple, nontender. CARDIOVASCULAR: Regular rate and rhythm without murmurs, gallops, or rubs. No JVD. Peripheral pulses symmetric. RESPIRATORY/CHEST: Symmetric, unlabored respirations. Rhonchi and wheezing to auscultation. Breath sounds equal bilaterally. GASTROINTESTINAL: Abdomen soft, non-tender, nondistended. No hepato-splenomegaly , or palpable masses. No guarding. Bowel sounds present. GENITOURINARY: Without palpable bladder distension. MUSCULOSKELETAL: Extremities without clubbing, cyanosis, or edema. No joint tenderness or effusion noted. No calf tenderness. No mottling or clubbing. LYMPHATICS: No palpable cervical or supraclavicular adenopathy. NEUROLOGICAL: Awake and alert. Motor and sensory grossly within normal limits. Follows commands. Clear speech. Moves all extremities. PSYCHIATRIC: No obvious anxiety/depression. no apparent hallucinations or other psychotic thought process. Laboratory Laboratory Tests Test 02/27/17 16:55 02/28/17 15:45 White Blood Count 3.0 3.5 Red Blood Count 3.05 2.66 Hemoglobin 9.4 8.5 Hematocrit 29.4 25.7 Mean Corpuscular Volume 96.4 96.3 Mean Corpuscular Hemoglobin 30.7 31.7 Mean Corpuscular Hemoglobin Concent 31.9 32.9 Red Cell Distribution Width 16.9 17.0 Platelet Count 77 58 Mean Platelet Volume 8.7 9.3 Neutrophils (%) (Auto) 58.1 91.3 Lymphocytes (%) (Auto) 37.3 7.4 Monocytes (%) (Auto) 2.8 1.3 Eosinophils (%) (Auto) 1.2 0.0 Basophils (%) (Auto) 0.6 0.0 Neutrophils # (Auto) 1.7 3.2 Lymphocytes # (Auto) 1.1 0.3 Monocytes # (Auto) 0.1 0.0 Eosinophils # (Auto) 0.0 0.0 Basophils # (Auto) 0.0 0.0 CBC Comment AUTO DIFF AUTO DIFF Differential Comment AUTO DIFF CONFIRMED Platelet Estimate LOW Platelet Morphology Comment NORMAL Red Cell Morphology Comment Prothrombin Time 12.4 Prothromb Time International Ratio 1.1 Activated Partial Thromboplast Time 25.6 Date/Time Source Procedure Growth Status 02/27/17 15:10 Blood Peripheral Aerobic Blood Culture - Preliminary NO GROWTH IN 1 DAY Resulted 02/27/17 15:10 Blood Peripheral Anaerobic Blood Culture - Preliminary NO GROWTH IN 1 DAY Resulted Result Diagram: 02/28/17 1545 02/27/17 1505 Imaging CXR R LL ATX Last Impressions Chest X-Ray 02/27/17 1456 Signed Impressions: Service Date/Time: Monday, February 27, 2017 15:26 - CONCLUSION: Slight right lung base linear atelectasis. Kathryn Arroyo MD CT Angiography 02/27/17 0000 Signed Impressions: Service Date/Time: Monday, February 27, 2017 17:45 - CONCLUSION: There is no evidence for PE for technique. Kathryn Arroyo MD Assessment and Plan Assessment and Plan RML/RLL infiltrate Metastatic breas ca - cont zosyn, vanco - add azithromycin - sputum clx if feasible - fu blood clx Discussed Condition With Dr Moo Aguilar,Sandra Pederson MD Feb 28, 2017 17:08
[2017-02-28] MEDS ORDERED: VANCOMYCIN 500 MG/NS 100 ML IV SCH ×2 (22:00)
[2017-02-28] MEDS: PALBOCICLIB PO SCH (22:29)
[2017-02-28] MEDS: AZITHROMYCIN INJ 500 MG in SODIUM CHLOR 0.9% 250 ML INJ 250 ML IV SCH (23:40)
[2017-03-01] VITALS (7 sets, daily range): BP systolic 100–126; BP diastolic 48–60; PULSE 85–102; RESP 17–18; TEMP 96.6–98.6; O2SAT 90–98
[2017-03-01] MEDS: VANCOMYCIN INJ 750 MG in SODIUM CHLOR 0.9% 250 ML INJ 250 ML IV SCH (02:45)
[2017-03-01] MEDS: PIPERACIL-TAZO 4.5 GM PREMIX 100 ML IV SCH ×4 (02:46→20:17)
[2017-03-01] MEDS: methylPREDNISolone SOD SUCC 40 MG/1 ML VIAL IV PUSH SCH ×3 (05:34→20:19)
[2017-03-01] MEDS: RESP: ALBUTEROL 2.5 MG/IPRATROPIUM 0.5 MG NEB (SCH) INH ×4 (08:00→20:37)
[2017-03-01] MEDS ORDERED: ALPRAZolam 0.25 MG TAB PO PRN (08:15)
[2017-03-01 08:22] LABS: LYMPH % 5.8 % (9.0-44.0); LYMPHOCYTE # 0.3 TH/MM3 (1.0-4.8); MEAN CELL VOLUME 96.3 FL (80.0-100.0); MEAN CORPUSCULAR HEMOGLOBIN 31.6 PG (27.0-34.0); MEAN CORPUSCULAR HGB CONC 32.8 % (32.0-36.0); MONO % 1.5 % (0.0-8.0); NEUT % 92.7 % (16.0-70.0); PLATELET COUNT 44 TH/MM3 (150-450); RED CELL DISTRIBUTION WIDTH 16.4 % (11.6-17.2); WHITE BLOOD COUNT 4.3 TH/MM3 (4.0-11.0)
[2017-03-01 08:29] LABS: HEMO FLAGS AUTO DIFF
--- NOTE | 2017-03-01 08:42 | HHI.PR ---
Subjective Remarks Pt states that she is feeling SOB. She feels that it is related to anxiety and gets panic attacks. Denies any chest pains. States that her "pains" are about a 3/10 at this time. Denies any nausea or vomiting. Objective Vitals Vital Signs Date Time Temp Pulse Resp B/P (MAP) Pulse Ox O2 Delivery O2 Flow Rate FiO2 03/01/17 04:00 97.6 85 17 118/56 (76) 98 03/01/17 00:00 97.5 87 18 106/56 (73) 95 02/28/17 21:05 94 Nasal Cannula 2.00 02/28/17 20:00 98.2 95 18 99/56 (70) 96 02/28/17 18:25 16 02/28/17 18:24 16 02/28/17 16:00 98.1 103 18 101/53 (69) 94 02/28/17 12:00 97.6 90 16 111/59 (76) 94 I/O 02/28/17 02/28/17 02/28/17 03/01/17 03/01/17 03/01/17 06:59 14:59 22:59 06:59 14:59 22:59 Intake Total 240 ml 240 ml 150 ml 600 ml Balance 240 ml 240 ml 150 ml 600 ml Intake Oral 240 ml 240 ml 150 ml IV Total 600 ml # Voids 2 2 Result Diagram: 03/01/17 0737 02/28/17 1545 Imaging Last Impressions Chest X-Ray 02/27/17 1456 Signed Impressions: Service Date/Time: Monday, February 27, 2017 15:26 - CONCLUSION: Slight right lung base linear atelectasis. Kathryn Arroyo MD CT Angiography 02/27/17 0000 Signed Impressions: Service Date/Time: Monday, February 27, 2017 17:45 - CONCLUSION: There is no evidence for PE for technique. Kathryn Arroyo MD Objective Remarks GENERAL: This is a well-nourished, well-developed patient, laying in bed. EYES: Left eye stenosis ENT: Airway patent. NECK: Trachea midline. No JVD or lymphadenopathy. Supple, nontender, no meningeal signs. CARDIOVASCULAR:RRR without murmurs RESPIRATORY: Diminished Breath sounds equal bilaterally. No wheezes GASTROINTESTINAL: Abdomen soft, non-tender, nondistended. No guarding. MUSCULOSKELETAL: Extremities without edema. No calf tenderness. NEUROLOGICAL: Awake and alert. Motor and sensory grossly within normal limits. Normal speech. A/P Problem List: (1) Aspiration pneumonia ICD Code: J69.0 - Pneumonitis due to inhalation of food and vomit Status: Acute (2) Sepsis ICD Code: A41.9 - Sepsis, unspecified organism Status: Acute (3) Bone metastasis ICD Code: C79.51 - Secondary malignant neoplasm of bone Status: Acute Assessment and Plan 76 y/o female with a history of breast cancer with mets to the bone, anxiety, arthritis, copd on 2L cont at home, AAA, and emphysema presented to the ED with shortness of breath, cough and pain. Sepsis, immunocompromised due to chemotherapy, WBC 3.0, respiratory rate 26 on admission, suspected due to Aspiration pneumonia from drinking liquids. CT chest reviewed and shows atelectasis and/or infiltrate in right middle lobe. -currently on Vancomycin and Zosyn IV cover for hospital-acquired pneumonia.. Closely monitor Cr levels. ID following and agrees w current choice of abx and has also added azithromycin -ST recommends regular thin liquid diet. -Mucinex PO BID -CBC in AM COPD exacerbation, likely related to pneumonia with history of chronic respiratory failure on home oxygen at 2 L -Duonebs ordered -on Solumedrol IV to 40mg q8hr, slowly continue to taper steroids. -O2 as needed -encourage use of IS q1hr while awake. Bone Metastasis -Cont home chemotherapy -consult to Dr. Kirkpatrick in place. -Pain management with IV Dilaudid and morphine and oxycodone. Palliative care following, would like to monitor pt on current pain med regimen for the next 24 hrs then adjust pain meds. Appreciate assistance. PT following. DVT prophylaxis: SCDs, hold chemical due to acute thrombocytopenia Discharge Planning Continue abx. Continue pain control. Xanax dose has been adjusted per palliative care's recommendations as pt does have increasing anxiety. D/C once pain better controlled, SOB improved and abx switch to po by ID. Problem Qualifiers (1) Aspiration pneumonia: Qualified Codes: J69.0 - Pneumonitis due to inhalation of food and vomit (2) Sepsis: Qualified Codes: A41.9 - Sepsis, unspecified organism Anisa Cortés MD Mar 01, 2017 08:42
[2017-03-01 08:43] LABS: BICARBONATE 20.5 MEQ/L (21.0-32.0); MAGNESIUM 2.5 MG/DL (1.5-2.5); POTASSIUM 4.2 MEQ/L (3.5-5.1)
[2017-03-01] MEDS ORDERED: ALPRAZolam 0.25 MG TAB PO ONE (08:45)
[2017-03-01 09:49] LABS: OVALOCYTES 1+ (NORMAL); PLATELET ESTIMATE SMEAR LOW (NORMAL); PLATELET MORPHOLOGY NORMAL (NORMAL); SCAN/DIFF AUTO DIFF CONFIRMED
[2017-03-01] MEDS: guaiFENesin E.R. 600 MG TAB PO SCH ×2 (09:59→20:16)
[2017-03-01] MEDS: MORPHINE SULFATE 30 MG CONTROLLED RELEASE TAB PO SCH ×2 (09:59→20:18)
[2017-03-01] MEDS: PANTOPRAZOLE SOD 40 MG DELAYED RELEASE TAB PO SCH (09:59)
[2017-03-01] MEDS: DOCUSATE SODIUM 50 MG/SENNA 8.6 MG TAB PO SCH ×2 (09:59→20:15)
[2017-03-01] MEDS: POLYETHYLENE GLYCOL 17 GM PKG PO SCH (10:00)
[2017-03-01] MEDS: SODIUM CHLORIDE 0.9% FLUSH 10 ML FLUSH IV FLUSH SCH ×2 (10:02→20:16)
[2017-03-01] MEDS: FLUTICASONE 100 MCG/VILANTEROL 25 MCG INHALER INH SCH ×2 (10:02→20:16)
[2017-03-01] MEDS: HYDROmorphone HCL PF 1 MG/ML VIAL IV PRN (11:07)
--- NOTE | 2017-03-01 13:37 | HHI.HCPN ---
Reason for visit a. To assist with evaluation and management of symptoms including: Pain, shortness of breath, decreased appetite, debility. b. To assist medical decision maker(s) with: better understanding of current medical conditions; weighing benefits/burdens of medical treatment options; making medical treatment decisions. . Subjective/Interval History Mrs. Gunter is a 76-year-old female with a past medical history significant for invasive mammary carcinoma status post left simple mastectomy with sentinel lymph node sampling which was positive for micrometastasis. 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 Patient also with history of COPD and emphysema, O2 dependent. Patient following with Dr. Kirkpatrick outpatient. Last seen on 02/17/17. As per oncology notes, patient has been on tamoxifen for hormonal blockage therapy area and she was initiated on Ibrance and started on Xgeva. Palliative care consulted for further assistance with pain and symptom management. Patient seen in her room, she was resting in bed in no acute distress. Eating lunch. Patient and oriented x self, place and situation. Endorsing thoracic, lumbar and sacral pain as well as pain to left ribs that is described as sharp, intermittent. Exacerbated by movement, physical exertion. Alleviated with rest and opioid medication. Patient endorsing shortness of breath with minimal exertion, nonproductive cough and decreased appetite. Last bowel movement 3 days ago, had MiraLAX early this morning. Patient currently on home regimen of morphine ER 30 mg twice a day and oxycodone 10mg to 15mg q4h PRN for breakthrough pain. In the past 24 hours, patient has taken 2 doses of oxycodone 10 mg with good effect. Xanax for anxiety was increased yesterday from every 8 hrs to every 6 hrs with good effect. Patient reports that she was able to participate in PT this morning, ambulating with walker. Require frequent rest secondary to pain and shortness of breath. Patient remains afebrile, stable hemodynamically. Tolerating O2 via nasal cannula 2 L. laboratory workup of today reviewed, platelet count trending down, today 44 from 58 yesterday. No new imaging for review. Blood culture 02/27/17 with no growth thus far. . Family/friend interactions No family at bedside. . Advance Directives Health Care Surrogate: Copy in medical record Advance Directive Specifics Date completed: 01/25/17. . Health Care Surrogate(s): HCS/daughter Cynthia Ty grandson/alt HCS: Rafael Ty . Documented care wishes: Living will completed with standard verbiage as it pertains to life support. . Significant change in goals: Goals of care remain unchanged. . Objective Vital Signs Date Time Temp Pulse Resp B/P (MAP) Pulse Ox O2 Delivery O2 Flow Rate FiO2 03/01/17 12:00 98.6 102 18 100/52 (68) 91 03/01/17 08:51 97.6 90 18 126/59 (81) 90 03/01/17 08:43 92 Nasal Cannula 2.00 03/01/17 04:00 97.6 85 17 118/56 (76) 98 03/01/17 00:00 97.5 87 18 106/56 (73) 95 02/28/17 21:05 94 Nasal Cannula 2.00 02/28/17 20:00 98.2 95 18 99/56 (70) 96 02/28/17 18:25 16 02/28/17 18:24 16 02/28/17 16:00 98.1 103 18 101/53 (69) 94 Intake & Output 03/01/17 03/01/17 07:00 19:00 Intake Total 600 ml Balance 600 ml IV Total 600 ml # Voids 1 Physical Exam CONSTITUTIONAL/GENERAL: This is a thin elderly female resting in bed in no acute distress. TUBES/LINES/DRAINS: Nasal cannula, PIV. SKIN: No jaundice, rashes, or lesions. Ecchymoses on upper extremities. No wounds seen anteriorly. Skin temperature appropriate. Not diaphoretic. Bilateral temporal wasting noted. HEAD: Atraumatic. Normocephalic. EYES: Pupils equal and round and reactive. Extraocular motions intact. No scleral icterus. No injection or drainage. Ptosis to left eye. ENT: Hearing grossly normal. Nose without bleeding or purulent drainage. Moist oral mucosa. NECK: Trachea midline. Supple, nontender. CARDIOVASCULAR: Regular rate and rhythm without murmurs, gallops, or rubs. No JVD. Peripheral pulses symmetric. RESPIRATORY/CHEST: Symmetric, unlabored respirations. Diminished to auscultation. O2 via nasal cannula at 2 L. GASTROINTESTINAL: Abdomen soft, round, non-tender. No guarding. Bowel sounds present. GENITOURINARY: Without palpable bladder distension. MUSCULOSKELETAL: Extremities without clubbing, cyanosis, or edema. Tender thoracic and lumbar spine to palpation. NEUROLOGICAL: Awake and alert x self, place and situation. Motor and sensory grossly within normal limits. Follows commands. Cognitively sharp. Moves all extremities. PSYCHIATRIC: No obvious anxiety/depression. no apparent hallucinations or other psychotic thought process. Pleasant and cooperative. . Diagnostic Tests Laboratory Laboratory Tests Test 02/27/17 15:05 02/27/17 15:18 02/27/17 15:25 02/27/17 16:55 Blood Urea Nitrogen 13 MG/DL (7-18) Creatinine 0.69 MG/DL (0.50-1.00) Random Glucose 101 MG/DL (74-106) Calcium Level 8.8 MG/DL (8.5-10.1) Sodium Level 142 MEQ/L (136-145) Potassium Level 4.1 MEQ/L (3.5-5.1) Chloride Level 112 MEQ/L (98-107) Carbon Dioxide Level 24.7 MEQ/L (21.0-32.0) Anion Gap 5 MEQ/L (5-15) Estimat Glomerular Filtration Rate 82 ML/MIN (>89) Blood Gas Puncture Site RT RADIAL Blood Gas Patient Temperature 98.6 Blood Gas HCO3 21 mmol/L (22-26) Blood Gas Base Excess -3.2 mmol/L (-2-2) Blood Gas Oxygen Saturation 90 % (90-100) Arterial Blood pH 7.38 (7.380-7.420) Arterial Blood Partial Pressure CO2 37 mmHg (38-42) Arterial Blood Partial Pressure O2 65 mmHG (61-120) Arterial Blood Oxygen Content 11.2 Vol % (12.0-20.0) Arterial Blood Carboxyhemoglobin 3.0 % (0-4) Arterial Blood Methemoglobin 0.7 % (0-2) Blood Gas Hemoglobin 8.9 G/DL (12.0-16.0) Oxygen Delivery Device NASAL CANNULA Blood Gas Liter Flow 2 L/M Lactic Acid Level 1.5 mmol/L (0.4-2.0) White Blood Count 3.0 TH/MM3 (4.0-11.0) Red Blood Count 3.05 MIL/MM3 (4.00-5.30) Hemoglobin 9.4 GM/DL (11.6-15.3) Hematocrit 29.4 % (35.0-46.0) Mean Corpuscular Volume 96.4 FL (80.0-100.0) Mean Corpuscular Hemoglobin 30.7 PG (27.0-34.0) Mean Corpuscular Hemoglobin Concent 31.9 % (32.0-36.0) Red Cell Distribution Width 16.9 % (11.6-17.2) Platelet Count 77 TH/MM3 (150-450) Mean Platelet Volume 8.7 FL (7.0-11.0) Neutrophils (%) (Auto) 58.1 % (16.0-70.0) Lymphocytes (%) (Auto) 37.3 % (9.0-44.0) Monocytes (%) (Auto) 2.8 % (0.0-8.0) Eosinophils (%) (Auto) 1.2 % (0.0-4.0) Basophils (%) (Auto) 0.6 % (0.0-2.0) Neutrophils # (Auto) 1.7 TH/MM3 (1.8-7.7) Lymphocytes # (Auto) 1.1 TH/MM3 (1.0-4.8) Monocytes # (Auto) 0.1 TH/MM3 (0-0.9) Eosinophils # (Auto) 0.0 TH/MM3 (0-0.4) Basophils # (Auto) 0.0 TH/MM3 (0-0.2) CBC Comment AUTO DIFF Differential Comment AUTO DIFF CONFIRMED Platelet Estimate LOW (NORMAL) Platelet Morphology Comment NORMAL (NORMAL) Red Cell Morphology Comment (NORMAL) Prothrombin Time 12.4 SEC (9.8-11.6) Prothromb Time International Ratio 1.1 RATIO Activated Partial Thromboplast Time 25.6 SEC (24.3-30.1) Test 02/28/17 15:45 03/01/17 07:37 White Blood Count 3.5 TH/MM3 (4.0-11.0) 4.3 TH/MM3 (4.0-11.0) Red Blood Count 2.66 MIL/MM3 (4.00-5.30) 2.60 MIL/MM3 (4.00-5.30) Hemoglobin 8.5 GM/DL (11.6-15.3) 8.2 GM/DL (11.6-15.3) Hematocrit 25.7 % (35.0-46.0) 25.0 % (35.0-46.0) Mean Corpuscular Volume 96.3 FL (80.0-100.0) 96.3 FL (80.0-100.0) Mean Corpuscular Hemoglobin 31.7 PG (27.0-34.0) 31.6 PG (27.0-34.0) Mean Corpuscular Hemoglobin Concent 32.9 % (32.0-36.0) 32.8 % (32.0-36.0) Red Cell Distribution Width 17.0 % (11.6-17.2) 16.4 % (11.6-17.2) Platelet Count 58 TH/MM3 (150-450) 44 TH/MM3 (150-450) Mean Platelet Volume 9.3 FL (7.0-11.0) 8.4 FL (7.0-11.0) Neutrophils (%) (Auto) 91.3 % (16.0-70.0) 92.7 % (16.0-70.0) Lymphocytes (%) (Auto) 7.4 % (9.0-44.0) 5.8 % (9.0-44.0) Monocytes (%) (Auto) 1.3 % (0.0-8.0) 1.5 % (0.0-8.0) Eosinophils (%) (Auto) 0.0 % (0.0-4.0) 0.0 % (0.0-4.0) Basophils (%) (Auto) 0.0 % (0.0-2.0) 0.0 % (0.0-2.0) Neutrophils # (Auto) 3.2 TH/MM3 (1.8-7.7) 4.0 TH/MM3 (1.8-7.7) Lymphocytes # (Auto) 0.3 TH/MM3 (1.0-4.8) 0.3 TH/MM3 (1.0-4.8) Monocytes # (Auto) 0.0 TH/MM3 (0-0.9) 0.1 TH/MM3 (0-0.9) Eosinophils # (Auto) 0.0 TH/MM3 (0-0.4) 0.0 TH/MM3 (0-0.4) Basophils # (Auto) 0.0 TH/MM3 (0-0.2) 0.0 TH/MM3 (0-0.2) CBC Comment AUTO DIFF AUTO DIFF Differential Comment AUTO DIFF CONFIRMED AUTO DIFF CONFIRMED Platelet Estimate LOW (NORMAL) LOW (NORMAL) Platelet Morphology Comment NORMAL (NORMAL) NORMAL (NORMAL) Blood Urea Nitrogen 13 MG/DL (7-18) 20 MG/DL (7-18) Creatinine 0.91 MG/DL (0.50-1.00) 0.87 MG/DL (0.50-1.00) Random Glucose 132 MG/DL (74-106) 125 MG/DL (74-106) Calcium Level 8.8 MG/DL (8.5-10.1) 8.3 MG/DL (8.5-10.1) Sodium Level 142 MEQ/L (136-145) 143 MEQ/L (136-145) Potassium Level 4.3 MEQ/L (3.5-5.1) 4.2 MEQ/L (3.5-5.1) Chloride Level 111 MEQ/L (98-107) 112 MEQ/L (98-107) Carbon Dioxide Level 20.9 MEQ/L (21.0-32.0) 20.5 MEQ/L (21.0-32.0) Anion Gap 10 MEQ/L (5-15) 11 MEQ/L (5-15) Estimat Glomerular Filtration Rate 60 ML/MIN (>89) 63 ML/MIN (>89) Ovalocytes 1+ (NORMAL) Magnesium Level 2.5 MG/DL (1.5-2.5) Result Diagram: 03/01/17 0737 03/01/17 0737 Microbiology Microbiology Date/Time Source Procedure Growth Status 02/27/17 15:10 Blood Peripheral Aerobic Blood Culture - Preliminary NO GROWTH IN 2 DAYS Resulted 02/27/17 15:10 Blood Peripheral Anaerobic Blood Culture - Preliminary NO GROWTH IN 2 DAYS Resulted 02/27/17 15:05 Blood Peripheral Aerobic Blood Culture - Preliminary NO GROWTH IN 2 DAYS Resulted 02/27/17 15:05 Blood Peripheral Anaerobic Blood Culture - Preliminary NO GROWTH IN 2 DAYS Resulted Assessment and Plan Disease Oriented Problem List: (1) COPD exacerbation (2) Aspiration pneumonia (3) Pain of metastatic malignancy (4) Bone metastasis (5) Physical deconditioning Symptom Scale: (1) Pain 0-10 Scale: 3 Comment: To thoracic and lumbar spine secondary to bony metastasis. (2) Shortness of breath 0-10 Scale: Unable to quantify Comment: COPD, pneumonia. (3) Debility 0-10 Scale: Unable to quantify Comment: Progressive. Pertinent Non-Medical Issues Psychosocial: Originally from [place]. , has 3 children. 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 Spiritual: No mormonism affiliation. Legal: Advance directives completed. Ethical issues impacting care: No ethical issues identified. Patient participating in medical decision-making. . Important Contacts HCS/daughter Cynthia Ty grandson/alt HCS: Rafael Ty . Prognosis Mrs. Gunter is a 76-year-old female with a past medical history significant for invasive mammary carcinoma status post left simple mastectomy with sentinel lymph node sampling which was positive for micrometastasis. Patient also with history of COPD and emphysema, O2 dependent. Patient with newly diagnosed bony metastasis to entire spine and ribs, currently receiving palliative chemotherapy. Patient at high risk for further complications, continue decline and given multiple chronic ongoing comorbidities, progressive physical decline, advanced age and overall debilitated state. . Code Status: No Code Plan * CODE STATUS: No code. DNR/DNI. Community DNR completed on 01/25/17. * MEDICAL DECISION-MAKING: Patient participating in medical decision-making. Patient demonstrates a good understanding of her medical condition and the ability to weight the benefits and burdens of treatment options. Patient designated her daughter Cynthia as HCS, alternate surrogate grandson Rafael Ty. * GOALS OF CARE: Goals of therapy remain unchanged. Patient electing to continue with current disease specific management of metastatic breast cancer while maintaining the best quality of life. Goal of therapy is to achieve the best pain and symptom control. Patient currently under the treatment of Dr. Kirkpatrick , she plans to continue f/u upon discharge. Hospice philosophy and benefits has been previously introduced, patient and daughter receptive to hospice should her clinical condition worsened, increased symptom burden or additional physical decline. * SYMPTOMS: * =Pain to chest and thoracic and lumbar spine, secondary to bony metastasis/ burden of disease. pain is sharp, intermittent. Exacerbated by movement, physical exertion. Alleviated with rest and opioid medication. Patient's pain goal is 4/10 to 5/10. Patient currently on home regimen of morphine ER 30 mg twice a day. Oxycodone 10mg to 15mg added q4h PRN for breakthrough pain. In the past 24 hours, patient has taken 2 doses of oxycodone 10 mg with good effect. Given Opioid use during the past 24 hours and pain reported as controlled, no further recommendations from pain management at this time. * =Anxiety, exacerbated by pain and shortness of breath. Xanax 0.25 mg frequency changed yesterday to q6h hours PRN with good effect. * = Constipation, exacerbated by opioid and bedrest. Last BM 3 days ago. Patient currently on Klarissa-Colace 1 tab twice a day. MOM, Dulcolax sup and Senokot available as needed. Received MiraLAX earlier this morning. Patient was encouraged to request Dulcolax suppository. * = Shortness of breath, COPD O2 dependent at home. Exacerbated by pneumonia. Currently tolerating O2 via nasal cannula 2 L. * =Debility, progressive. Patient not tolerating home PT secondary to worsening pain. Currently participating with PT. * Patient was extensively educated and current pain regimen. * Palliative care contact information has been provided to patient and daughter. * Palliative care will continue to follow-up for assistance and symptom management as patient's clinical condition continues to evolve. . Time Spent Total Floor Time (mins): 34 (Total time to include review of medical records, physical exam, and goals of care conversation/symptom control discussion with patient.) >50% Counseling/Coord of Care: Yes Attestation To help prompt me to consider important information that might be impacting today's encounter and assessment, information from prior notes written by myself or my colleagues may have been "brought forward" into today's note. My signature on this note, however, is an attestation that I personally performed the exam, history, and/or decision-making noted today, and, unless otherwise indicated, the interactions with patient, family, and staff as well as the review of records all occurred today. I also attest that the listed assessment and stated plan reflect my best clinical judgment today based on the combination of historical information, prior notes, and today's exam/ interactions. When time spent is documented, it refers only to time spent today by the signer, or if indicated, combined time spent today by collaborating physician/nurse practitioner. Ysabel Garnica Mar 01, 2017 13:37
[2017-03-01] MEDS: PALBOCICLIB PO SCH (20:16)
[2017-03-01] MEDS: ALPRAZolam 0.25 MG TAB PO PRN (20:25)
[2017-03-01] MEDS: AZITHROMYCIN INJ 500 MG in SODIUM CHLOR 0.9% 250 ML INJ 250 ML IV SCH (22:55)
[2017-03-01] MEDS: RESP: ALBUTEROL 2.5 MG/IPRATROPIUM 0.5 MG NEB (PRN) NEB (23:54)
[2017-03-02] VITALS (8 sets, daily range): BP systolic 110–141; BP diastolic 58–68; PULSE 89–96; RESP 12–18; TEMP 96–97.8; O2SAT 91–96
--- NOTE | 2017-03-02 00:18 | MB ---
cc: BALESROMAN ALMONTEIS DATE OF CONSULTATION: 03/01/2017 DATE OF : 1940 REASON FOR CONSULTATION Patient with history of metastatic breast cancer who presents with shortness of breath. HISTORY OF PRESENT ILLNESS: The patient is a 76 year-old female who has a diagnosis of stage IV breast cancer with mets to the bone involving the spine. She has metastatic disease involving the entire spine and her ribs. The patient is currently being treated with tamoxifen and Ibrance. She is also receiving Xgeva. The patient was originally diagnosed with stage II-B breast cancer in February of 2016. She underwent adjuvant radiation treatment. She did not receive any adjuvant chemotherapy treatment. She has undergone left breast mastectomy. The patient presents to the emergency department with symptoms of progressive dyspnea. She is on supplemental oxygen. She has a history of severe COPD. The patient also has a nonproductive cough. She has COPD exacerbation. On admission CT angiogram was obtained which did not show any evidence of pulmonary embolism. Widespread bony metastatic disease was seen. There was atelectasis / infiltrate in the right middle lobe and lingula. She also had a chest x-ray which again showed a slight right lung base linear atelectasis. The patient was admitted to the hospital. Blood cultures were obtained. Sputum culture was also obtained which is pending. The patient was started on IV antibiotics including vancomycin, azithromycin and Zosyn. She is also on IV steroids and breathing treatments. At the time of this exam, the patient was up and awake and she was eating her lunch. She has nasal cannula in place. She does not appear to be in any distress. Her O2 sats were in the mid 90s. She denies any headache, no blurry vision, no chest pain, no abdominal pain. No lower extremity edema or pain. She does have back pain due to diffusely metastatic disease. REVIEW OF SYSTEMS A comprehensive 14-point review of systems was completed which is negative except as described in the HPI. PAST MEDICAL HISTORY: 1. Stage IV breast cancer with metastases to the bone, involving her spine as well as ribs. 2. Anxiety. 3. Arthritis. 4. Asthma. 5. Severe COPD. 6. Severe asthma, chronically on supplemental oxygen. 7. Migraines. 8. History of osteoporosis. 9. Abdominal aortic aneurysm. PAST SURGICAL HISTORY: 1. Mastectomy. 2. Breast biopsy. 3. Appendectomy. 4. Total hysterectomy. FAMILY HISTORY: Reviewed, noncontributory to this admission. SOCIAL HISTORY: She smokes two cigarettes a day. She has a past medical history of greater than 50 pack-years smoking history. She states she has significantly cut down on her smoking. She denies any alcohol use. No illicit drug use. She lives with her daughter. MEDICATIONS: 1. Vancomycin IV q24 h. 2. Azithromycin 500 mg IV q24 hours. 3. Solu-Medrol 40 mg IV q8 h 4. Breo Ellipta one puff b.i.d. INH. 5. Pantoprazole 40 mg daily. 6. Senna Docusate p.o. b.i.d. p.r.n. 7. DuoNebs q6 h p.r.n. 8. Oxycodone 10 milligrams one tablet p.o. q4 hours p.r.n. 9. Tessalon 200 milligrams p.o. q8 hours p.r.n. 10. Guaifenesin 600 milligrams p.o. b.i.d. 11. Zosyn IV q6 hours. 12. Morphine sulfate 30 milligrams p.o. q12 hours. 13. Tylenol 650 milligrams p.o. q4 hours p.r.n. 14. Dilaudid 0.5 mg IV q3 hours p.r.n. 15. Milk of magnesia. 16. Senokot. 17. . ALLERGIES: No drug allergies. PHYSICAL EXAMINATION: VITAL SIGNS: Blood pressure is 121/60, pulse is in the 80s. Temperature 96.7. Respiratory rate 18. O2 sats are 95% on two liters nasal cannula. General: Elderly frail female who appears cachectic and quite deconditioned. HEENT: Pupils are equal, round, reactive to light. EOMI. No oral thrush. No oral lesions. Neck: Supple. No JVD, no bruits. No lymphadenopathy. Chest: Bilateral scattered rhonchi, bilateral upper lobe expiratory wheezes. Cardiac: S1-S2 regular rate and rhythm. Abdomen is soft, nontender, nondistended. Bowel sounds are present. Extremities: Without any edema, erythema or cyanosis. Skin: Without any petechiae, lesion or bruises. Neuro: No focal deficits. Psychiatric: Mood and affect is appropriate. LABORATORY DATA WBC 12.3, hemoglobin 8.2, MCV 96.3, platelet count 44. Serum chemistries show a sodium 143, potassium 4.2, chloride 112, CO2 20.5, BUN 20, creatinine 0.87, GFR is 0.87, lactic acid is 1.5, calcium is 8.3, magnesium 2.5. Serum coags show PT of 12.4, INR 1.1, PTT 25.6. IMAGING STUDIES Chest x-ray and CT angiogram was reviewed. ASSESSMENT/PLAN This is a 76-year-old female who has stage IV breast cancer with metastasis to the spine as well as to her ribs. She presents to the emergency room with progressive dyspnea. 1. Right lung pneumonia. I agree with antibiotics. She has been in the hospital in the last 30 days. She will be treated for HCAP. Blood cultures are pending. Continue steroids and breathing treatments. 2. COPD exacerbation. Plan as above. 3. Anemia with hemoglobin of 8.2. This is normocytic anemia with MCV of 96.3. Obtain iron studies. Check B12 and folate. 4. Thrombocytopenia. This is a significant drop from her baseline. We will check LDH and haptoglobin. We will review peripheral smear, will obtain a DIC panel. 5. Poor oral intake. Check pre-albumin, encourage oral intake, supplement meals with Ensure or Boost. 6. Stage IV breast cancer. Continue tamoxifen while in the hospital. Hold Ibrance. The patient will follow up in the clinic with me after hospital discharge. Thank you for allowing me to participate in the care of this patient. I will continue follow this patient along. MD MEREDITH Mejia/ADELINA /11:16 PM /11:42 PM NANCY
[2017-03-02] MEDS: ALPRAZolam 0.25 MG TAB PO PRN ×3 (04:21→22:38)
[2017-03-02] MEDS: PIPERACIL-TAZO 4.5 GM PREMIX 100 ML IV SCH ×4 (04:21→22:38)
[2017-03-02] MEDS: methylPREDNISolone SOD SUCC 40 MG/1 ML VIAL IV PUSH SCH ×3 (05:46→22:39)
[2017-03-02] MEDS: VANCOMYCIN INJ 750 MG in SODIUM CHLOR 0.9% 250 ML INJ 250 ML IV SCH (05:46)
[2017-03-02 06:50] LABS: AUTOMATED NEUTROPHIL # 4.1 TH/MM3 (1.8-7.7); HEMATOCRIT 25.9 % (35.0-46.0); LYMPH % 5.5 % (9.0-44.0); LYMPHOCYTE # 0.2 TH/MM3 (1.0-4.8); MEAN CELL VOLUME 96.8 FL (80.0-100.0); MEAN CORPUSCULAR HEMOGLOBIN 31.5 PG (27.0-34.0); MEAN CORPUSCULAR HGB CONC 32.5 % (32.0-36.0); MONO % 1.5 % (0.0-8.0); PLATELET COUNT 41 TH/MM3 (150-450); RED BLOOD COUNT 2.67 MIL/MM3 (4.00-5.30); RED CELL DISTRIBUTION WIDTH 16.4 % (11.6-17.2); WHITE BLOOD COUNT 4.4 TH/MM3 (4.0-11.0)
[2017-03-02 06:55] LABS: HEMO FLAGS AUTO DIFF
[2017-03-02 07:02] LABS: INTERNATIONAL NORMALIZED RATIO 1.1 RATIO; PROTHROMBIN TIME - PATIENT 12.4 SEC (9.8-11.6)
[2017-03-02 07:11] LABS: BICARBONATE 22.2 MEQ/L (21.0-32.0); POTASSIUM 3.8 MEQ/L (3.5-5.1)
[2017-03-02 08:10] LABS: SCAN/DIFF AUTO DIFF CONFIRMED
[2017-03-02] MEDS: PANTOPRAZOLE SOD 40 MG DELAYED RELEASE TAB PO SCH (09:08)
[2017-03-02] MEDS: MORPHINE SULFATE 30 MG CONTROLLED RELEASE TAB PO SCH ×2 (09:08→20:27)
[2017-03-02] MEDS: DOCUSATE SODIUM 50 MG/SENNA 8.6 MG TAB PO SCH ×2 (09:08→20:28)
[2017-03-02] MEDS: guaiFENesin E.R. 600 MG TAB PO SCH ×2 (09:09→20:27)
[2017-03-02] MEDS: POLYETHYLENE GLYCOL 17 GM PKG PO SCH (09:09)
[2017-03-02] MEDS: ASPIRIN 325 MG TAB PO SCH (09:09)
[2017-03-02] MEDS: FLUTICASONE 100 MCG/VILANTEROL 25 MCG INHALER INH SCH ×2 (09:17→20:26)
[2017-03-02] MEDS: SODIUM CHLORIDE 0.9% FLUSH 10 ML FLUSH IV FLUSH SCH ×2 (09:22→20:28)
[2017-03-02] MEDS: RESP: ALBUTEROL 2.5 MG/IPRATROPIUM 0.5 MG NEB (SCH) INH ×4 (09:35→20:16)
[2017-03-02] MEDS ORDERED: GETGO ROLLING W1 MI1 (10:34)
--- NOTE | 2017-03-02 15:21 | HHI.HCPN ---
Reason for visit a. To assist with evaluation and management of symptoms including: Pain, shortness of breath, decreased appetite, debility. b. To assist medical decision maker(s) with: better understanding of current medical conditions; weighing benefits/burdens of medical treatment options; making medical treatment decisions. . Subjective/Interval History Mrs. Gunter is a 76-year-old female with a past medical history significant for invasive mammary carcinoma status post left simple mastectomy with sentinel lymph node sampling which was positive for micrometastasis. 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 Patient also with history of COPD and emphysema, O2 dependent. Patient following with Dr. Kirkpatrick outpatient. Last seen on 02/17/17. As per oncology notes, patient has been on tamoxifen for hormonal blockage therapy area and she was initiated on Ibrance and started on Xgeva. Palliative care consulted for further assistance with pain and symptom management. Patient seen in her room, she was resting in bed in no acute distress. Patient and oriented x self, place and situation. Endorsing thoracic, lumbar and sacral pain as well as pain to left ribs that is described as sharp, intermittent. Exacerbated by movement, physical exertion. Alleviated with rest and opioid medication. Pain currently 03/20. Was just assisted to bed from bedside commode. Last BM today. Patient endorsing shortness of breath with minimal exertion, nonproductive cough and decreased appetite. Patient remains on morphine ER 30 mg twice a day and oxycodone 10mg to 15mg q4h PRN for breakthrough pain. In the past 24 hours, patient has taken 1 doses of oxycodone 10 mg and 4 doses of 15 mg with moderate effect. Patient remains afebrile, stable hemodynamically. Tolerating O2 via nasal cannula 2 L. laboratory workup of today reviewed, platelet count 41. No new imaging for review. Blood culture 02/27/17 with no growth thus far. No family at bedside. . Family/friend interactions No family at bedside. . Advance Directives Health Care Surrogate: Copy in medical record Advance Directive Specifics Date completed: 01/25/17. . Health Care Surrogate(s): HCS/daughter Cynthia Ty grandson/alt HCS: Rafael Ty . Documented care wishes: Living will completed with standard verbiage as it pertains to life support. . Significant change in goals: Goals of care remain unchanged. . Objective Vital Signs Date Time Temp Pulse Resp B/P (MAP) Pulse Ox O2 Delivery O2 Flow Rate FiO2 03/02/17 12:00 97.7 96 14 110/59 (76) 91 03/02/17 09:36 96 High Flow Nasal Cannula 2.00 03/02/17 08:00 97.8 91 12 141/68 (92) 93 03/02/17 04:00 96.9 91 17 128/59 (82) 94 03/02/17 00:00 97.2 89 18 138/64 (88) 94 03/01/17 20:37 Nasal Cannula 2.00 03/01/17 20:00 96.6 87 18 121/60 (80) 95 03/01/17 16:00 97.9 99 18 115/48 (70) 92 Intake & Output 03/02/17 03/02/17 07:00 19:00 Intake Total 350 ml 595 ml Balance 350 ml 595 ml Intake Oral 595 ml IV Total 350 ml # Voids 2 2 # Bowel Movements 0 Physical Exam CONSTITUTIONAL/GENERAL: This is a thin elderly female resting in bed in no acute distress. TUBES/LINES/DRAINS: Nasal cannula, PIV. SKIN: No jaundice, rashes, or lesions. Ecchymoses on upper extremities. No wounds seen anteriorly. Skin temperature appropriate. Not diaphoretic. Bilateral temporal wasting noted. HEAD: Atraumatic. Normocephalic. EYES: Pupils equal and round and reactive. Extraocular motions intact. No scleral icterus. No injection or drainage. Ptosis to left eye. ENT: Hearing grossly normal. Nose without bleeding or purulent drainage. Moist oral mucosa. NECK: Trachea midline. Supple, nontender. CARDIOVASCULAR: Regular rate and rhythm without murmurs, gallops, or rubs. No JVD. Peripheral pulses symmetric. RESPIRATORY/CHEST: Symmetric, unlabored respirations. Diminished to auscultation. O2 via nasal cannula at 2 L. GASTROINTESTINAL: Abdomen soft, round, non-tender. No guarding. Bowel sounds present. GENITOURINARY: Without palpable bladder distension. MUSCULOSKELETAL: Extremities without clubbing, cyanosis, or edema. Tender thoracic and lumbar spine to palpation. NEUROLOGICAL: Awake and alert x self, place and situation. Motor and sensory grossly within normal limits. Follows commands. Cognitively sharp. Moves all extremities. PSYCHIATRIC: No obvious anxiety/depression. no apparent hallucinations or other psychotic thought process. Pleasant and cooperative. . Diagnostic Tests Laboratory Laboratory Tests Test 02/27/17 15:18 02/27/17 15:25 02/27/17 16:55 02/28/17 15:45 Blood Gas Puncture Site RT RADIAL Blood Gas Patient Temperature 98.6 Blood Gas HCO3 21 mmol/L (22-26) Blood Gas Base Excess -3.2 mmol/L (-2-2) Blood Gas Oxygen Saturation 90 % (90-100) Arterial Blood pH 7.38 (7.380-7.420) Arterial Blood Partial Pressure CO2 37 mmHg (38-42) Arterial Blood Partial Pressure O2 65 mmHG (61-120) Arterial Blood Oxygen Content 11.2 Vol % (12.0-20.0) Arterial Blood Carboxyhemoglobin 3.0 % (0-4) Arterial Blood Methemoglobin 0.7 % (0-2) Blood Gas Hemoglobin 8.9 G/DL (12.0-16.0) Oxygen Delivery Device NASAL CANNULA Blood Gas Liter Flow 2 L/M Lactic Acid Level 1.5 mmol/L (0.4-2.0) White Blood Count 3.0 TH/MM3 (4.0-11.0) 3.5 TH/MM3 (4.0-11.0) Red Blood Count 3.05 MIL/MM3 (4.00-5.30) 2.66 MIL/MM3 (4.00-5.30) Hemoglobin 9.4 GM/DL (11.6-15.3) 8.5 GM/DL (11.6-15.3) Hematocrit 29.4 % (35.0-46.0) 25.7 % (35.0-46.0) Mean Corpuscular Volume 96.4 FL (80.0-100.0) 96.3 FL (80.0-100.0) Mean Corpuscular Hemoglobin 30.7 PG (27.0-34.0) 31.7 PG (27.0-34.0) Mean Corpuscular Hemoglobin Concent 31.9 % (32.0-36.0) 32.9 % (32.0-36.0) Red Cell Distribution Width 16.9 % (11.6-17.2) 17.0 % (11.6-17.2) Platelet Count 77 TH/MM3 (150-450) 58 TH/MM3 (150-450) Mean Platelet Volume 8.7 FL (7.0-11.0) 9.3 FL (7.0-11.0) Neutrophils (%) (Auto) 58.1 % (16.0-70.0) 91.3 % (16.0-70.0) Lymphocytes (%) (Auto) 37.3 % (9.0-44.0) 7.4 % (9.0-44.0) Monocytes (%) (Auto) 2.8 % (0.0-8.0) 1.3 % (0.0-8.0) Eosinophils (%) (Auto) 1.2 % (0.0-4.0) 0.0 % (0.0-4.0) Basophils (%) (Auto) 0.6 % (0.0-2.0) 0.0 % (0.0-2.0) Neutrophils # (Auto) 1.7 TH/MM3 (1.8-7.7) 3.2 TH/MM3 (1.8-7.7) Lymphocytes # (Auto) 1.1 TH/MM3 (1.0-4.8) 0.3 TH/MM3 (1.0-4.8) Monocytes # (Auto) 0.1 TH/MM3 (0-0.9) 0.0 TH/MM3 (0-0.9) Eosinophils # (Auto) 0.0 TH/MM3 (0-0.4) 0.0 TH/MM3 (0-0.4) Basophils # (Auto) 0.0 TH/MM3 (0-0.2) 0.0 TH/MM3 (0-0.2) CBC Comment AUTO DIFF AUTO DIFF Differential Comment AUTO DIFF CONFIRMED AUTO DIFF CONFIRMED Platelet Estimate LOW (NORMAL) LOW (NORMAL) Platelet Morphology Comment NORMAL (NORMAL) NORMAL (NORMAL) Red Cell Morphology Comment (NORMAL) Prothrombin Time 12.4 SEC (9.8-11.6) Prothromb Time International Ratio 1.1 RATIO Activated Partial Thromboplast Time 25.6 SEC (24.3-30.1) Blood Urea Nitrogen 13 MG/DL (7-18) Creatinine 0.91 MG/DL (0.50-1.00) Random Glucose 132 MG/DL (74-106) Calcium Level 8.8 MG/DL (8.5-10.1) Sodium Level 142 MEQ/L (136-145) Potassium Level 4.3 MEQ/L (3.5-5.1) Chloride Level 111 MEQ/L (98-107) Carbon Dioxide Level 20.9 MEQ/L (21.0-32.0) Anion Gap 10 MEQ/L (5-15) Estimat Glomerular Filtration Rate 60 ML/MIN (>89) Test 03/01/17 07:37 03/02/17 06:03 White Blood Count 4.3 TH/MM3 (4.0-11.0) 4.4 TH/MM3 (4.0-11.0) Red Blood Count 2.60 MIL/MM3 (4.00-5.30) 2.67 MIL/MM3 (4.00-5.30) Hemoglobin 8.2 GM/DL (11.6-15.3) 8.4 GM/DL (11.6-15.3) Hematocrit 25.0 % (35.0-46.0) 25.9 % (35.0-46.0) Mean Corpuscular Volume 96.3 FL (80.0-100.0) 96.8 FL (80.0-100.0) Mean Corpuscular Hemoglobin 31.6 PG (27.0-34.0) 31.5 PG (27.0-34.0) Mean Corpuscular Hemoglobin Concent 32.8 % (32.0-36.0) 32.5 % (32.0-36.0) Red Cell Distribution Width 16.4 % (11.6-17.2) 16.4 % (11.6-17.2) Platelet Count 44 TH/MM3 (150-450) 41 TH/MM3 (150-450) Mean Platelet Volume 8.4 FL (7.0-11.0) 9.2 FL (7.0-11.0) Neutrophils (%) (Auto) 92.7 % (16.0-70.0) 93.0 % (16.0-70.0) Lymphocytes (%) (Auto) 5.8 % (9.0-44.0) 5.5 % (9.0-44.0) Monocytes (%) (Auto) 1.5 % (0.0-8.0) 1.5 % (0.0-8.0) Eosinophils (%) (Auto) 0.0 % (0.0-4.0) 0.0 % (0.0-4.0) Basophils (%) (Auto) 0.0 % (0.0-2.0) 0.0 % (0.0-2.0) Neutrophils # (Auto) 4.0 TH/MM3 (1.8-7.7) 4.1 TH/MM3 (1.8-7.7) Lymphocytes # (Auto) 0.3 TH/MM3 (1.0-4.8) 0.2 TH/MM3 (1.0-4.8) Monocytes # (Auto) 0.1 TH/MM3 (0-0.9) 0.1 TH/MM3 (0-0.9) Eosinophils # (Auto) 0.0 TH/MM3 (0-0.4) 0.0 TH/MM3 (0-0.4) Basophils # (Auto) 0.0 TH/MM3 (0-0.2) 0.0 TH/MM3 (0-0.2) CBC Comment AUTO DIFF AUTO DIFF Differential Comment AUTO DIFF CONFIRMED AUTO DIFF CONFIRMED Platelet Estimate LOW (NORMAL) Platelet Morphology Comment NORMAL (NORMAL) Ovalocytes 1+ (NORMAL) Blood Urea Nitrogen 20 MG/DL (7-18) 23 MG/DL (7-18) Creatinine 0.87 MG/DL (0.50-1.00) 0.80 MG/DL (0.50-1.00) Random Glucose 125 MG/DL (74-106) 118 MG/DL (74-106) Calcium Level 8.3 MG/DL (8.5-10.1) 8.8 MG/DL (8.5-10.1) Magnesium Level 2.5 MG/DL (1.5-2.5) Sodium Level 143 MEQ/L (136-145) 141 MEQ/L (136-145) Potassium Level 4.2 MEQ/L (3.5-5.1) 3.8 MEQ/L (3.5-5.1) Chloride Level 112 MEQ/L (98-107) 109 MEQ/L (98-107) Carbon Dioxide Level 20.5 MEQ/L (21.0-32.0) 22.2 MEQ/L (21.0-32.0) Anion Gap 11 MEQ/L (5-15) 10 MEQ/L (5-15) Estimat Glomerular Filtration Rate 63 ML/MIN (>89) 70 ML/MIN (>89) Blood Smear Pathologist Review Haptoglobin 222 MG/DL (30-200) Prothrombin Time 12.4 SEC (9.8-11.6) Prothromb Time International Ratio 1.1 RATIO Lactate Dehydrogenase 170 U/L (84-246) Result Diagram: 03/02/1760203/02/1703 Microbiology Microbiology Date/Time Source Procedure Growth Status 02/27/17 15:10 Blood Peripheral Aerobic Blood Culture - Preliminary NO GROWTH IN 3 DAYS Resulted 02/27/17 15:10 Blood Peripheral Anaerobic Blood Culture - Preliminary NO GROWTH IN 3 DAYS Resulted 03/01/17 18:35 Sputum Expectorated Sputum Gram Stain - Final Resulted 03/01/17 18:35 Sputum Expectorated Sputum Sputum Culture - Preliminary IMMATURE GROWTH - REINCUBATE Resulted Assessment and Plan Disease Oriented Problem List: (1) COPD exacerbation (2) Aspiration pneumonia (3) Pain of metastatic malignancy (4) Bone metastasis (5) Physical deconditioning Symptom Scale: (1) Pain 0-10 Scale: 9 Comment: To thoracic and lumbar spine secondary to bony metastasis. (2) Shortness of breath 0-10 Scale: Unable to quantify Comment: COPD, pneumonia. (3) Debility 0-10 Scale: Unable to quantify Comment: Progressive. Pertinent Non-Medical Issues Psychosocial: Originally from [place]. , has 3 children. 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 Spiritual: No jewish affiliation. Legal: Advance directives completed. Ethical issues impacting care: No ethical issues identified. Patient participating in medical decision-making. . Important Contacts HCS/daughter Cynthia Ty grandson/alt HCS: Rafael Ty . Prognosis Mrs. Gunter is a 76-year-old female with a past medical history significant for invasive mammary carcinoma status post left simple mastectomy with sentinel lymph node sampling which was positive for micrometastasis. Patient also with history of COPD and emphysema, O2 dependent. Patient with newly diagnosed bony metastasis to entire spine and ribs, currently receiving palliative chemotherapy. Patient at high risk for further complications, continue decline and given multiple chronic ongoing comorbidities, progressive physical decline, advanced age and overall debilitated state. . Code Status: No Code Plan * CODE STATUS: No code. DNR/DNI. [facility] DNR completed on 01/25/17. * MEDICAL DECISION-MAKING: Patient participating in medical decision-making. Patient demonstrates a good understanding of her medical condition and the ability to weight the benefits and burdens of treatment options. Patient designated her daughter Cynthia as HCS, alternate surrogate grandson Rafael Ty. * GOALS OF CARE: Goals of therapy remain unchanged. Patient electing to continue with current disease specific management of metastatic breast cancer while maintaining the best quality of life. Goal of therapy is to achieve the best pain and symptom control. Patient currently under the treatment of Dr. Kirkpatrick , she plans to continue f/u upon discharge. Hospice philosophy and benefits has been previously introduced, patient and daughter receptive to hospice should her clinical condition worsened, increased symptom burden or additional physical decline. * SYMPTOMS: * =Pain to chest and thoracic and lumbar spine, secondary to bony metastasis/ burden of disease. pain is sharp, intermittent. Exacerbated by movement, physical exertion. Alleviated with rest and opioid medication. Patient's pain goal is 4/10 to 5/10. Patient currently on home regimen of morphine ER 30 mg twice a day. Oxycodone 10mg to 15mg added q4h on admission PRN for breakthrough pain. In the past 24 hours, patient has taken 1 dose of oxycodone 10 mg and 4 doses of oxycodone 15 mg with moderate effect for a total of 105mg MEDD. Given increased usage of oxycodone PRN within the past 24 hours, palliative care recommends discontinuing oxycodone 10 mg, keeping oxycodone 15 mg q4h PRN for moderate pain and adding oxycodone 20 mg q4h PRN for severe pain. No adjustments on extended release morphine recommended at this time. * =Anxiety, exacerbated by pain and shortness of breath. Xanax 0.25 mg PRN q6h hours available. Received 1 dose yesterday and 1 dose today with good effect. * =Constipation, exacerbated by opioid and bedrest. Last BM today. Patient currently on Klarissa-Colace 1 tab twice a day. MOM, Dulcolax sup and Senokot available as needed. * =Shortness of breath, COPD O2 dependent at home. Exacerbated by pneumonia. Currently tolerating O2 via nasal cannula 2 L. patient reports that Xanax is effective for shortness of breath. * =Debility, progressive. Patient not tolerating home PT secondary to worsening pain. Currently participating with PT. likely to discharge home with home health/PT. * Patient was extensively educated and current pain regimen. * Palliative care contact information has been provided to patient and daughter. * Palliative care will continue to follow-up for assistance in symptom management as patient's clinical condition continues to evolve. . Time Spent Total Floor Time (mins): 36 (Total time to include review of medical records, physical exam, symptom management and education provided to patient.) >50% Counseling/Coord of Care: Yes Attestation To help prompt me to consider important information that might be impacting today's encounter and assessment, information from prior notes written by myself or my colleagues may have been "brought forward" into today's note. My signature on this note, however, is an attestation that I personally performed the exam, history, and/or decision-making noted today, and, unless otherwise indicated, the interactions with patient, family, and staff as well as the review of records all occurred today. I also attest that the listed assessment and stated plan reflect my best clinical judgment today based on the combination of historical information, prior notes, and today's exam/ interactions. When time spent is documented, it refers only to time spent today by the signer, or if indicated, combined time spent today by collaborating physician/nurse practitioner. Ysabel Garnica Mar 02, 2017 15:21
--- NOTE | 2017-03-02 15:55 | HHI.PR ---
Subjective Remarks Follow-up for pain Patient still complaining of pain more controlled, with generalized weakness, mildly short of breath, does not think she can get discharge today. Objective Vitals Vital Signs Date Time Temp Pulse Resp B/P (MAP) Pulse Ox O2 Delivery O2 Flow Rate FiO2 03/02/17 12:00 97.7 96 14 110/59 (76) 91 03/02/17 09:36 96 High Flow Nasal Cannula 2.00 03/02/17 08:00 97.8 91 12 141/68 (92) 93 03/02/17 04:00 96.9 91 17 128/59 (82) 94 03/02/17 00:00 97.2 89 18 138/64 (88) 94 03/01/17 20:37 Nasal Cannula 2.00 03/01/17 20:00 96.6 87 18 121/60 (80) 95 03/01/17 16:00 97.9 99 18 115/48 (70) 92 I/O 03/01/17 03/01/17 03/01/17 03/02/17 03/02/17 03/02/17 06:59 14:59 22:59 06:59 14:59 22:59 Intake Total 600 ml 660 ml 250 ml 945 ml Balance 600 ml 660 ml 250 ml 945 ml Intake Oral 560 ml 595 ml IV Total 600 ml 100 ml 250 ml 350 ml # Voids 2 2 2 # Bowel Movements 0 Result Diagram: 03/02/17 0603 03/02/17 0603 Objective Remarks Not in distress, appears weak. PERRL Normal rate and regular rhythm, no murmurs gallops or rubs appreciated. Decreased breath sounds symmetrically. Normal bowel sounds, soft, non-tender, nondistended, no guarding. No edema. Alert awake and oriented 3 A/P Problem List: (1) Aspiration pneumonia ICD Code: J69.0 - Pneumonitis due to inhalation of food and vomit Status: Acute (2) Sepsis ICD Code: A41.9 - Sepsis, unspecified organism Status: Acute (3) Bone metastasis ICD Code: C79.51 - Secondary malignant neoplasm of bone Status: Acute Assessment and Plan 76 y/o female with a history of breast cancer with mets to the bone, anxiety, arthritis, copd on 2L cont at home, AAA, and emphysema presented to the ED with shortness of breath, cough and pain. Sepsis, immunocompromised due to chemotherapy, WBC 3.0, respiratory rate 26 on admission, suspected due to Aspiration pneumonia from drinking liquids. CT chest reviewed and shows atelectasis and/or infiltrate in right middle lobe. -currently on Vancomycin and Zosyn IV cover for hospital-acquired pneumonia.. Azithromycin added per infectious disease. Continue Mucinex. Leukocytosis resolved. COPD exacerbation, likely related to pneumonia with history of chronic respiratory failure on home oxygen at 2 L -Duonebs ordered, switch to oral. Continue oxygen support Bone Metastasis -Cont home chemotherapy, Dr. Chávez is seen the patient, follow-up iron status, B-12 and folic acid. -Pain management with IV Dilaudid and morphine and oxycodone. Palliative care following, would like to monitor pt on current pain med regimen for the next 24 hrs then adjust pain meds. Appreciate assistance. , [id number] workup, hematology following. No bleeding. PT following. DVT prophylaxis: SCDs, hold chemical due to acute thrombocytopenia Discharge Planning Will likely need home health care and discharge. Problem Qualifiers (1) Aspiration pneumonia: Qualified Codes: J69.0 - Pneumonitis due to inhalation of food and vomit (2) Sepsis: Qualified Codes: A41.9 - Sepsis, unspecified organism Jaylene Muñoz MD Mar 02, 2017 15:55
--- NOTE | 2017-03-02 15:57 | HHI.FF ---
Face to Face Verification Diagnosis: (1) COPD (chronic obstructive pulmonary disease) with emphysema (2) Sepsis Physical Therapy Order: Evaluate and Treat Home Health Nursing Order: Medical education Signs/symptoms of disease process I have seen patient Henrietta Gunter on 03/02/17. My clinical findings support the need for the requested home health care services because: Ltd mobility - disease progression Patient has SOB I certify that my clinical findings support that this patient is homebound because: Hx COPD- exertion dyspnea/weakness Unsteady gait/balance Jaylene Muñoz MD Mar 02, 2017 15:57
--- NOTE | 2017-03-02 19:53 | HHI.IDPN ---
Subjective Subjective Remarks co SOB started to expectorate, clx P Gstain with mixed rolan afebrile Antibiotics azythromycin vanco zosyn Allergies: Coded Allergies: grapefruit (Verified Allergy, Unknown, 02/27/17) CONTRAINCDICATED WITH IBRANCE Objective . Vital Signs Date Time Temp Pulse Resp B/P (MAP) Pulse Ox O2 Delivery O2 Flow Rate FiO2 03/02/17 16:00 96.3 94 14 129/62 (84) 92 03/02/17 12:00 97.7 96 14 110/59 (76) 91 03/02/17 09:36 96 High Flow Nasal Cannula 2.00 03/02/17 08:00 97.8 91 12 141/68 (92) 93 03/02/17 04:00 96.9 91 17 128/59 (82) 94 03/02/17 00:00 97.2 89 18 138/64 (88) 94 03/01/17 20:37 Nasal Cannula 2.00 03/01/17 20:00 96.6 87 18 121/60 (80) 95 03/02/17 03/02/17 03/03/17 15:00 23:00 07:00 Intake Total 945 ml Balance 945 ml Intake Oral 595 ml IV Total 350 ml # Voids 2 # Bowel Movements 0 . Laboratory Tests Test 03/01/17 07:37 03/02/17 06:03 White Blood Count 4.3 TH/MM3 4.4 TH/MM3 Red Blood Count 2.60 MIL/MM3 2.67 MIL/MM3 Hemoglobin 8.2 GM/DL 8.4 GM/DL Hematocrit 25.0 % 25.9 % Mean Corpuscular Volume 96.3 FL 96.8 FL Mean Corpuscular Hemoglobin 31.6 PG 31.5 PG Mean Corpuscular Hemoglobin Concent 32.8 % 32.5 % Red Cell Distribution Width 16.4 % 16.4 % Platelet Count 44 TH/MM3 41 TH/MM3 Mean Platelet Volume 8.4 FL 9.2 FL Neutrophils (%) (Auto) 92.7 % 93.0 % Lymphocytes (%) (Auto) 5.8 % 5.5 % Monocytes (%) (Auto) 1.5 % 1.5 % Eosinophils (%) (Auto) 0.0 % 0.0 % Basophils (%) (Auto) 0.0 % 0.0 % Neutrophils # (Auto) 4.0 TH/MM3 4.1 TH/MM3 Lymphocytes # (Auto) 0.3 TH/MM3 0.2 TH/MM3 Monocytes # (Auto) 0.1 TH/MM3 0.1 TH/MM3 Eosinophils # (Auto) 0.0 TH/MM3 0.0 TH/MM3 Basophils # (Auto) 0.0 TH/MM3 0.0 TH/MM3 CBC Comment AUTO DIFF AUTO DIFF Differential Comment AUTO DIFF CONFIRMED AUTO DIFF CONFIRMED Platelet Estimate LOW Platelet Morphology Comment NORMAL Ovalocytes 1+ Blood Smear Pathologist Review Haptoglobin 222 MG/DL Laboratory Tests Test 03/01/17 07:37 03/02/17 06:03 Blood Urea Nitrogen 20 MG/DL 23 MG/DL Creatinine 0.87 MG/DL 0.80 MG/DL Random Glucose 125 MG/DL 118 MG/DL Calcium Level 8.3 MG/DL 8.8 MG/DL Magnesium Level 2.5 MG/DL Sodium Level 143 MEQ/L 141 MEQ/L Potassium Level 4.2 MEQ/L 3.8 MEQ/L Chloride Level 112 MEQ/L 109 MEQ/L Carbon Dioxide Level 20.5 MEQ/L 22.2 MEQ/L Anion Gap 11 MEQ/L 10 MEQ/L Estimat Glomerular Filtration Rate 63 ML/MIN 70 ML/MIN Lactate Dehydrogenase 170 U/L Microbiology Date/Time Source Procedure Growth Status 03/01/17 18:35 Sputum Expectorated Sputum Gram Stain - Final Resulted 03/01/17 18:35 Sputum Expectorated Sputum Sputum Culture - Preliminary IMMATURE GROWTH - REINCUBATE Resulted Imaging Last Impressions Chest X-Ray 02/27/17 1456 Signed Impressions: Service Date/Time: Monday, February 27, 2017 15:26 - CONCLUSION: Slight right lung base linear atelectasis. Kathryn Arroyo MD CT Angiography 02/27/17 0000 Signed Impressions: Service Date/Time: Monday, February 27, 2017 17:45 - CONCLUSION: There is no evidence for PE for technique. Kathryn Arroyo MD Physical Exam CONSTITUTIONAL/GENERAL: This is a thin elderlly patient, in no apparent distress. TUBES/LINES/DRAINS: SKIN: No jaundice, rashes, or lesions. Skin temperature appropriate. Not diaphoretic. BREASTS: s/p mastectomy scar - well healed, nt very tender to palpation, no masses CARDIOVASCULAR: Regular rate and rhythm without murmurs, gallops, or rubs. No JVD. Peripheral pulses symmetric. RESPIRATORY/CHEST: Symmetric, unlabored respirations. Scattered rhonchi but no wheezing to auscultation. Breath sounds equal bilaterally. GASTROINTESTINAL: Abdomen soft, non-tender, nondistended. No hepato-splenomegaly , or palpable masses. No guarding. Bowel sounds present. MUSCULOSKELETAL: Extremities without clubbing, cyanosis, or edema. No joint tenderness or effusion noted. No calf tenderness. No mottling or clubbing. NEUROLOGICAL: Awake and alert. Motor and sensory grossly within normal limits. Follows commands. Clear speech. Moves all extremities. PSYCHIATRIC: No obvious anxiety/depression. no apparent hallucinations or other psychotic thought process. Assessment & Plan Remarks RML/RLL infiltrate COPD Metastatic breast ca - cont zosyn, vanco - add azithromycin - fu sputum clx results - fu blood clx - will adjust abx per clx - anticipate dc on oral abx unless dealing with MDRO Discussed Condition With family member @ b/s Sandra Aguilar MD Mar 02, 2017 19:53
[2017-03-02] MEDS: TAMOXIFEN CITRATE 10 MG TAB PO SCH (20:27)
[2017-03-02] MEDS: PALBOCICLIB PO SCH (20:27)
[2017-03-02] MEDS: AZITHROMYCIN INJ 500 MG in SODIUM CHLOR 0.9% 250 ML INJ 250 ML IV SCH (22:39)
--- NOTE | 2017-03-02 23:52 | PD.ONC.PN ---
Subjective Subjective Remarks pain not well controlled feels very weak no nausea/no headaches eating no fevers d.w rn Objective Data Date Time Temp Pulse Resp B/P (MAP) Pulse Ox O2 Delivery O2 Flow Rate FiO2 03/02/17 21:17 18 03/02/17 20:30 18 03/02/17 20:17 93 Nasal Cannula 2.00 03/02/17 20:00 96.0 91 17 119/58 (78) 95 03/02/17 16:00 96.3 94 14 129/62 (84) 92 03/02/17 12:00 97.7 96 14 110/59 (76) 91 03/02/17 09:36 96 High Flow Nasal Cannula 2.00 03/02/17 08:00 97.8 91 12 141/68 (92) 93 03/02/17 04:00 96.9 91 17 128/59 (82) 94 03/02/17 00:00 97.2 89 18 138/64 (88) 94 Result Diagram: 03/02/17 0603 03/02/17 0603 Laboratory Results Laboratory Tests Test 03/02/17 06:03 White Blood Count 4.4 TH/MM3 Red Blood Count 2.67 MIL/MM3 Hemoglobin 8.4 GM/DL Hematocrit 25.9 % Mean Corpuscular Volume 96.8 FL Mean Corpuscular Hemoglobin 31.5 PG Mean Corpuscular Hemoglobin Concent 32.5 % Red Cell Distribution Width 16.4 % Platelet Count 41 TH/MM3 Mean Platelet Volume 9.2 FL Neutrophils (%) (Auto) 93.0 % Lymphocytes (%) (Auto) 5.5 % Monocytes (%) (Auto) 1.5 % Eosinophils (%) (Auto) 0.0 % Basophils (%) (Auto) 0.0 % Neutrophils # (Auto) 4.1 TH/MM3 Lymphocytes # (Auto) 0.2 TH/MM3 Monocytes # (Auto) 0.1 TH/MM3 Eosinophils # (Auto) 0.0 TH/MM3 Basophils # (Auto) 0.0 TH/MM3 CBC Comment AUTO DIFF Differential Comment AUTO DIFF CONFIRMED Blood Smear Pathologist Review Haptoglobin 222 MG/DL Prothrombin Time 12.4 SEC Prothromb Time International Ratio 1.1 RATIO Blood Urea Nitrogen 23 MG/DL Creatinine 0.80 MG/DL Random Glucose 118 MG/DL Calcium Level 8.8 MG/DL Lactate Dehydrogenase 170 U/L Sodium Level 141 MEQ/L Potassium Level 3.8 MEQ/L Chloride Level 109 MEQ/L Carbon Dioxide Level 22.2 MEQ/L Anion Gap 10 MEQ/L Estimat Glomerular Filtration Rate 70 ML/MIN Culture Results Microbiology Date/Time Source Procedure Growth Status 03/01/17 18:35 Sputum Expectorated Sputum Gram Stain - Final Resulted 03/01/17 18:35 Sputum Expectorated Sputum Sputum Culture - Preliminary IMMATURE GROWTH - REINCUBATE Resulted Administered Medications Medications (Trade) Dose Ordered Sig/Jimmy Route PRN Reason Start Time Stop Time Status Last Admin Dose Admin Sodium Chloride (NS Flush) 2 ml UNSCH PRN IV FLUSH FLUSH AFTER USING IV ACCESS 02/27/17 19:30 03/02/17 14:03 Sodium Chloride (NS Flush) 2 ml BID IV FLUSH 02/27/17 21:00 03/02/17 20:28 Fluticasone/ Vilanterol (Breo Ellipta 100-25 Inh) 1 puff BID INH 02/28/17 09:00 03/02/17 20:26 Albuterol/ Ipratropium (Duoneb Neb) 1 ampule QID NEB INH 02/28/17 08:00 03/02/17 20:16 Pantoprazole Sodium (Protonix) 40 mg DAILY PO 02/28/17 09:00 03/02/17 09:08 Piperacillin Sod/ Tazobactam Sod 100 ml @ 200 mls/hr Q6H IV 02/27/17 22:00 Future hold 03/02/17 22:38 Morphine Sulfate (Oramorph Sr) 30 mg Q12HR PO 02/27/17 22:00 03/02/17 20:27 Oxycodone HCl (Roxicodone) 15 mg Q4H PRN PO PAIN SCALE 6 TO 10 02/27/17 21:30 03/02/17 19:58 Hydromorphone HCl (Dilaudid Pf Inj) 0.5 mg Q3H PRN IV BREAKTHROUGH PAIN 02/27/17 21:30 03/01/17 11:07 Senna/Docusate Sodium (Klarissa-Colace) 1 tab BID PO 02/28/17 09:00 03/02/17 09:08 Magnesium Hydroxide (Milk Of Magnesia Liq) 30 ml Q12H PRN PO MILD - MODERATE CONSTIPATION 02/27/17 21:30 03/02/17 09:17 Oxycodone HCl (Roxicodone) 10 mg Q4H PRN PO pain 3-5 02/27/17 22:15 03/01/17 10:00 Guaifenesin (Mucinex Er) 600 mg BID PO 02/27/17 22:15 03/02/17 20:27 Methylprednisolone Sodium Succinate (SoluMEDROL INJ) 40 mg Q8HR IV PUSH 02/28/17 14:00 03/02/17 22:39 Albuterol/ Ipratropium (Duoneb Neb) 1 ampule Q6HR NEB PRN NEB SOB/WHEEZING 02/28/17 09:00 03/01/17 23:54 Vancomycin HCl 750 mg/Sodium Chloride 257.5 ml @ 250 mls/hr Q24H IV 03/01/17 04:00 03/02/17 05:46 Polyethylene Glycol (Miralax) 17 gm DAILY PO 02/28/17 15:00 03/02/17 09:09 Azithromycin 500 mg/Sodium Chloride 250 ml @ 250 mls/hr Q24H IV 02/28/17 22:45 03/02/17 22:39 Alprazolam (Xanax) 0.25 mg Q6H PRN PO ANXIETY 03/01/17 15:00 03/02/17 22:38 Aspirin (Aspirin) 325 mg DAILY PO 03/02/17 09:00 03/02/17 09:09 Tamoxifen Citrate (Nolvadex) 20 mg HS PO 03/02/17 21:00 03/02/17 20:27 Objective Remarks GENERAL: thin, weak, elderly female SKIN: Warm and dry. HEAD: Normocephalic. LYMPHATIC: No adenopathy. CARDIOVASCULAR: Regular rate and rhythm without murmurs. RESPIRATORY: Breath sounds equal bilaterally. No accessory muscle use. GASTROINTESTINAL: Abdomen soft, non-tender, nondistended. EXTREMITIES: No cyanosis, or edema. Assessment/Plan Problem List: (1) Anemia ICD Codes: D64.9 - Anemia, unspecified Status: Acute (2) Nausea ICD Codes: R11.0 - Nausea Status: Acute (3) Breast cancer ICD Codes: C50.919 - Malignant neoplasm of unspecified site of unspecified female breast Status: Acute (4) Pain of metastatic malignancy ICD Codes: G89.3 - Pain of metastatic malignancy Status: Acute (5) Aspiration pneumonia ICD Codes: J69.0 - Pneumonitis due to inhalation of food and vomit Status: Acute (6) Sepsis ICD Codes: A41.9 - Sepsis, unspecified organism Status: Acute (7) Bone metastasis ICD Codes: C79.51 - Secondary malignant neoplasm of bone Status: Acute (8) Debility ICD Codes: R53.81 - Other malaise Status: Acute (9) Physical deconditioning ICD Codes: R53.81 - Other malaise Status: Acute (10) COPD exacerbation ICD Codes: J44.1 - Chronic obstructive pulmonary disease with (acute) exacerbation Status: Acute (11) Shortness of breath ICD Codes: R06.02 - Shortness of breath Assessment 76-year-old female who has stage IV breast cancer with metastasis to the spine as well as to her ribs. She presents to the emergency room with progressive dyspnea. 1. Right lung pneumonia. - On abx - blood cultures negative 02/27 2. COPD exacerbation. - nebs - steroids 3. Anemia with hemoglobin of 8.2. - symptomatic - will transfuse 2 units of pRBC - Premedicate with tylenol and benadryl - Lasix 20mg after 1st unit 4. Thrombocytopenia. - no evidence of hemolysis or overt DIC - likely due to acute illnes - Continue to monitor 5. Poor oral intake. encourage oral intake, supplement meals with Ensure or Boost. 6. Metastatic Pain - Increase MS contin to 30mg q8 hrs - Cont. prn dilaudid - continue breakthrough oxycodone 7. Stage IV breast cancer. Continue tamoxifen while in the hospital. Hold Ibrance. Problem Qualifiers (1) Aspiration pneumonia: Qualified Codes: J69.0 - Pneumonitis due to inhalation of food and vomit (2) Sepsis: Qualified Codes: A41.9 - Sepsis, unspecified organism Eric Kirkpatrick MD Mar 02, 2017 23:52
[2017-03-03] VITALS (13 sets, daily range): BP systolic 128–173; BP diastolic 71–98; PULSE 69–99; RESP 16–21; TEMP 96.6–98.1; O2SAT 91–99
[2017-03-03] MEDS ORDERED: ACETAMINOPHEN 325 MG TAB PO ONE
[2017-03-03] MEDS ORDERED: FUROSEMIDE 20 MG/2 ML VIAL IV PUSH ONE
[2017-03-03] MEDS ORDERED: diphenhydrAMINE HCL 25 MG CAP PO ONE
[2017-03-03] MEDS ORDERED: PHARMACY ORDERED LAB ONE (03:45)
[2017-03-03] MEDS: VANCOMYCIN INJ 750 MG in SODIUM CHLOR 0.9% 250 ML INJ 250 ML IV SCH ×2 (04:22→16:29)
[2017-03-03] MEDS: PIPERACIL-TAZO 4.5 GM PREMIX 100 ML IV SCH ×4 (04:22→20:47)
[2017-03-03] MEDS: ALPRAZolam 0.25 MG TAB PO PRN ×2 (05:43→18:18)
[2017-03-03] MEDS: BENZONATATE 100 MG CAP PO PRN (05:51)
[2017-03-03] MEDS: methylPREDNISolone SOD SUCC 40 MG/1 ML VIAL IV PUSH SCH ×2 (05:54→13:15)
[2017-03-03] MEDS: RESP: ALBUTEROL 2.5 MG/IPRATROPIUM 0.5 MG NEB (SCH) INH ×3 (08:00→19:41)
[2017-03-03] MEDS: [UNRECOGNIZED DRUG - REMARK] OTHER SCH (09:00)
[2017-03-03] MEDS: POLYETHYLENE GLYCOL 17 GM PKG PO SCH (09:00)
[2017-03-03] MEDS: MORPHINE SULFATE 30 MG CONTROLLED RELEASE TAB PO SCH ×2 (10:57→20:37)
[2017-03-03] MEDS: MORPHINE SULFATE 15 MG CONTROLLED RELEASE TAB PO SCH ×2 (10:58→20:37)
[2017-03-03] MEDS: ASPIRIN 325 MG TAB PO SCH (10:58)
[2017-03-03] MEDS: PANTOPRAZOLE SOD 40 MG DELAYED RELEASE TAB PO SCH (10:58)
[2017-03-03] MEDS: guaiFENesin E.R. 600 MG TAB PO SCH ×2 (10:58→20:36)
[2017-03-03] MEDS: DOCUSATE SODIUM 50 MG/SENNA 8.6 MG TAB PO SCH ×2 (10:59→20:37)
[2017-03-03] MEDS: SODIUM CHLORIDE 0.9% FLUSH 10 ML FLUSH IV FLUSH SCH ×2 (10:59→20:36)
[2017-03-03] MEDS: FLUTICASONE 100 MCG/VILANTEROL 25 MCG INHALER INH SCH ×2 (13:14→20:39)
--- NOTE | 2017-03-03 15:48 | HHI.PR ---
Subjective Remarks Follow-up for pneumonia Patient feels more short of breath today than yesterday, blood pressure increasing, denies any headache, chest pain, nausea or vomiting. Cough is about the same. Nonproductive. Objective Vitals Vital Signs Date Time Temp Pulse Resp B/P (MAP) Pulse Ox O2 Delivery O2 Flow Rate FiO2 03/03/17 14:49 128/78 (95) 03/03/17 12:47 96 Nasal Cannula 2.00 03/03/17 12:39 97.8 79 20 172/98 (122) 91 03/03/17 08:00 98.1 71 19 167/87 (113) 96 03/03/17 07:27 18 03/03/17 07:20 96.9 69 18 173/86 96 03/03/17 07:05 96.6 72 18 166/83 96 03/03/17 05:20 16 03/03/17 04:00 96.6 83 18 149/73 (98) 94 03/03/17 00:00 96.7 99 18 145/71 (95) 95 03/02/17 21:17 18 03/02/17 20:17 93 Nasal Cannula 2.00 03/02/17 20:00 96.0 91 17 119/58 (78) 95 03/02/17 16:00 96.3 94 14 129/62 (84) 92 I/O 03/02/17 03/02/17 03/02/17 03/03/17 03/03/17 03/03/17 06:59 14:59 22:59 06:59 14:59 22:59 Intake Total 250 ml 945 ml 780 ml Balance 250 ml 945 ml 780 ml Intake Oral 595 ml 480 ml IV Total 250 ml 350 ml Blood Product IV Normal Saline Flush 300 ml # Voids 2 2 1 4 # Bowel Movements 0 1 4 Result Diagram: 03/02/17 0603 03/02/17 0603 Objective Remarks Not in distress, appears weak. PERRL Normal rate and regular rhythm, Decreased breath sounds symmetrically, occasional crackles both bases especially on the left. Normal bowel sounds, soft, non-tender, nondistended, no guarding. No edema. Alert awake and oriented 3 A/P Problem List: (1) Aspiration pneumonia ICD Code: J69.0 - Pneumonitis due to inhalation of food and vomit Status: Acute (2) Sepsis ICD Code: A41.9 - Sepsis, unspecified organism Status: Acute (3) Bone metastasis ICD Code: C79.51 - Secondary malignant neoplasm of bone Status: Acute Assessment and Plan 76 y/o female with a history of breast cancer with mets to the bone, anxiety, arthritis, copd on 2L cont at home, AAA, and emphysema presented to the ED with shortness of breath, cough and pain. Sepsis, immunocompromised due to chemotherapy, WBC 3.0, respiratory rate 26 on admission, suspected due to Aspiration pneumonia from drinking liquids. CT chest reviewed and shows atelectasis and/or infiltrate in right middle lobe. -currently on Vancomycin and Zosyn IV cover for hospital-acquired pneumonia. Azithromycin added per infectious disease. Continue Mucinex. Leukocytosis resolved. Start Acapella, continue incentive spirometry, check chest x-ray. COPD exacerbation, likely related to pneumonia with history of chronic respiratory failure on home oxygen at 2 L -Duonebs [id number] and as needed, Continue oxygen support, continue steroids, decreased to twice a day, continue to taper. Bone Metastasis -Cont home chemotherapy, hematology following. - Continue pain control, hematology assisting, currently on Dilaudid and Oramorph. Palliative care following. Thrombocytopenia [id number] workup, hematology following. No bleeding. Transfuse per hematology. Recheck CBC tomorrow Hypertension-restart Norvasc PT following. DVT prophylaxis: SCDs, hold chemical due to acute thrombocytopenia Discharge Planning Will likely need home health care and discharge. Problem Qualifiers (1) Aspiration pneumonia: Qualified Codes: J69.0 - Pneumonitis due to inhalation of food and vomit (2) Sepsis: Qualified Codes: A41.9 - Sepsis, unspecified organism Jaylene Muñoz MD Mar 03, 2017 15:48
[2017-03-03] MEDS: amLODIPine BESYLATE 5 MG TAB PO SCH (16:29)
--- NOTE | 2017-03-03 16:37 | RADRPT ---
EXAM DATE/TIME: 03/03/2017 16:23 [facility] COMPARISON: CHEST SINGLE AP, February 27, 2017, 15:26. INDICATIONS : Shortness of breath. MEDICAL HISTORY : Hypertension. Chronic obstructive pulmonary disease. Cardiovascular disease. Breast and lung canc er. SURGICAL HISTORY : Mastectomy, left. ENCOUNTER: Subsequent ACUITY: 1 day PAIN SCORE: 0/10 LOCATION: Bilateral chest FINDINGS: There is mild vague infiltrate left upper lobe and above the left costophrenic angle. There is a tiny left pleural effusion. Heart and mediastinum are unremarkable for technique. CONCLUSION: Vague left lung infiltrate and tiny left pleural effusion. Kathryn Arroyo MD on March 03, 2017 at 16:35 Board Certified Radiologist. This report was verified electronically.
[2017-03-03] MEDS: TAMOXIFEN CITRATE 10 MG TAB PO SCH (20:36)
--- NOTE | 2017-03-03 23:04 | PD.ONC.PN ---
Subjective Subjective Remarks pain better controlled no cough/fever breathing at baseline weak and deconditioned Objective Data Date Time Temp Pulse Resp B/P (MAP) Pulse Ox O2 Delivery O2 Flow Rate FiO2 03/03/17 20:20 97.4 93 16 142/87 94 03/03/17 20:00 97.7 81 17 141/72 (95) 92 03/03/17 19:56 97.4 75 16 131/73 99 03/03/17 19:46 92 Nasal Cannula 2.00 03/03/17 16:15 97.3 82 21 147/79 (101) 93 03/03/17 14:49 128/78 (95) 03/03/17 12:47 96 Nasal Cannula 2.00 03/03/17 12:39 97.8 79 20 172/98 (122) 91 03/03/17 08:00 98.1 71 19 167/87 (113) 96 03/03/17 07:27 18 03/03/17 07:20 96.9 69 18 173/86 96 03/03/17 07:05 96.6 72 18 166/83 96 03/03/17 05:20 16 03/03/17 04:00 96.6 83 18 149/73 (98) 94 03/03/17 00:00 96.7 99 18 145/71 (95) 95 Result Diagram: 03/02/17 0603 03/02/17 0603 Laboratory Results Laboratory Tests Test 03/03/17 04:02 Vancomycin Level Trough 5.2 MCG/ML Culture Results Microbiology Date/Time Source Procedure Growth Status 03/01/17 18:35 Sputum Expectorated Sputum Gram Stain - Final Resulted 03/01/17 18:35 Sputum Culture - Preliminary Gram Negative Jose Resulted Imaging Studies Last 24 hours Impressions Chest X-Ray 03/03/17 0000 Signed Impressions: Service Date/Time: February 16:23 - CONCLUSION: Vague left lung infiltrate and tiny left pleural effusion. Kathryn Arroyo MD Administered Medications Medications (Trade) Dose Ordered Sig/Jimmy Route PRN Reason Start Time Stop Time Status Last Admin Dose Admin Sodium Chloride (NS Flush) 2 ml UNSCH PRN IV FLUSH FLUSH AFTER USING IV ACCESS 02/27/17 19:30 03/02/17 14:03 Sodium Chloride (NS Flush) 2 ml BID IV FLUSH 02/27/17 21:00 03/03/17 20:36 Fluticasone/ Vilanterol (Breo Ellipta 100-25 Inh) 1 puff BID INH 02/28/17 09:00 03/03/17 20:39 Pantoprazole Sodium (Protonix) 40 mg DAILY PO 02/28/17 09:00 03/03/17 10:58 Oxycodone HCl (Roxicodone) 15 mg Q4H PRN PO PAIN SCALE 6 TO 10 02/27/17 21:30 03/03/17 13:50 Hydromorphone HCl (Dilaudid Pf Inj) 0.5 mg Q3H PRN IV BREAKTHROUGH PAIN 02/27/17 21:30 03/01/17 11:07 Senna/Docusate Sodium (Klarissa-Colace) 1 tab BID PO 02/28/17 09:00 03/02/17 09:08 Magnesium Hydroxide (Milk Of Magnvirgil Liq) 30 ml Q12H PRN PO MILD - MODERATE CONSTIPATION 02/27/17 21:30 03/02/17 09:17 Oxycodone HCl (Roxicodone) 10 mg Q4H PRN PO pain 3-5 02/27/17 22:15 03/01/17 10:00 Benzonatate (Tessalon) 200 mg Q8H PRN PO COUGH 02/27/17 22:15 03/03/17 05:51 Guaifenesin (Mucinex Er) 600 mg BID PO 02/27/17 22:15 03/03/17 20:36 Albuterol/ Ipratropium (Duoneb Neb) 1 ampule Q6HR NEB PRN NEB SOB/WHEEZING 02/28/17 09:00 03/01/17 23:54 Polyethylene Glycol (Miralax) 17 gm DAILY PO 02/28/17 15:00 03/02/17 09:09 Azithromycin 500 mg/Sodium Chloride 250 ml @ 250 mls/hr Q24H IV 02/28/17 22:45 03/02/17 22:39 Alprazolam (Xanax) 0.25 mg Q6H PRN PO ANXIETY 03/01/17 15:00 03/03/17 18:18 Aspirin (Aspirin) 325 mg DAILY PO 03/02/17 09:00 03/03/17 10:58 Tamoxifen Citrate (Nolvadex) 20 mg HS PO 03/02/17 21:00 03/03/17 20:36 Morphine Sulfate (Oramorph Sr) 30 mg Q12HR PO 03/03/17 09:00 03/03/17 20:37 Morphine Sulfate (Oramorph Sr) 15 mg Q12HR PO 03/03/17 09:00 03/03/17 20:37 Vancomycin HCl 750 mg/Sodium Chloride 257.5 ml @ 250 mls/hr Q12H IV 03/03/17 16:00 03/03/17 16:29 Amlodipine Besylate (Norvasc) 5 mg DAILY PO 03/03/17 13:00 03/03/17 16:29 Albuterol/ Ipratropium (Duoneb Neb) 1 ampule QID NEB INH 03/03/17 16:00 03/03/17 19:41 Piperacillin Sod/ Tazobactam Sod 100 ml @ 200 mls/hr Q6H IV 03/03/17 20:00 03/03/17 20:47 Objective Remarks GENERAL: weak/frail SKIN: Warm and dry. NECK: Supple, trachea midline. No JVD or lymphadenopathy. LYMPHATIC: No adenopathy. CARDIOVASCULAR: Regular rate and rhythm without murmurs. RESPIRATORY: Breath sounds equal bilaterally. No accessory muscle use. GASTROINTESTINAL: Abdomen soft, non-tender, nondistended. EXTREMITIES: No cyanosis, or edema. Assessment/Plan Problem List: (1) Anemia ICD Codes: D64.9 - Anemia, unspecified Status: Acute (2) Nausea ICD Codes: R11.0 - Nausea Status: Acute (3) Breast cancer ICD Codes: C50.919 - Malignant neoplasm of unspecified site of unspecified female breast Status: Acute (4) Pain of metastatic malignancy ICD Codes: G89.3 - Pain of metastatic malignancy Status: Acute (5) Aspiration pneumonia ICD Codes: J69.0 - Pneumonitis due to inhalation of food and vomit Status: Acute (6) Sepsis ICD Codes: A41.9 - Sepsis, unspecified organism Status: Acute (7) Bone metastasis ICD Codes: C79.51 - Secondary malignant neoplasm of bone Status: Acute (8) Debility ICD Codes: R53.81 - Other malaise Status: Acute (9) Physical deconditioning ICD Codes: R53.81 - Other malaise Status: Acute (10) COPD exacerbation ICD Codes: J44.1 - Chronic obstructive pulmonary disease with (acute) exacerbation Status: Acute (11) Shortness of breath ICD Codes: R06.02 - Shortness of breath Assessment 76-year-old female who has stage IV breast cancer with metastasis to the spine as well as to her ribs. She presents to the emergency room with progressive dyspnea. 1. Right lung pneumonia. - On abx - blood cultures negative 02/27 - sputum growing gram negative rods - d/c Vancomycin 2. COPD exacerbation. - nebs - steroids 3. Anemia with hemoglobin of 8.2. - symptomatic - s/p prbc transfusion - check cbc in am 4. Thrombocytopenia. - no evidence of hemolysis or overt DIC - likely due to acute illnes - Continue to monitor 5. Poor oral intake. encourage oral intake, supplement meals with Ensure or Boost. 6. Metastatic Pain - Increase MS contin to 30mg q8 hrs - Cont. prn dilaudid - continue breakthrough oxycodone 7. Stage IV breast cancer. Continue tamoxifen while in the hospital. Hold Ibrance. 8. Deconditioning/weakness - will need placement after discharge - consult d/w pt and family overnight events reviewed d.w rn Problem Qualifiers (1) Aspiration pneumonia: Qualified Codes: J69.0 - Pneumonitis due to inhalation of food and vomit (2) Sepsis: Qualified Codes: A41.9 - Sepsis, unspecified organism Eric Kirkpatrick MD Mar 03, 2017 23:03
[2017-03-03] MEDS: AZITHROMYCIN INJ 500 MG in SODIUM CHLOR 0.9% 250 ML INJ 250 ML IV SCH (23:12)
[2017-03-04] VITALS (8 sets, daily range): BP systolic 121–151; BP diastolic 65–82; PULSE 79–86; RESP 16–20; TEMP 96.7–98.7; O2SAT 92–95
[2017-03-04] MEDS: methylPREDNISolone SOD SUCC 40 MG/1 ML VIAL IV PUSH SCH ×2 (02:29→13:36)
[2017-03-04] MEDS: PIPERACIL-TAZO 4.5 GM PREMIX 100 ML IV SCH ×2 (02:29→08:19)
[2017-03-04] MEDS: VANCOMYCIN INJ 750 MG in SODIUM CHLOR 0.9% 250 ML INJ 250 ML IV SCH (05:10)
[2017-03-04] MEDS: ALPRAZolam 0.25 MG TAB PO PRN ×2 (05:22→17:27)
[2017-03-04] MEDS: RESP: ALBUTEROL 2.5 MG/IPRATROPIUM 0.5 MG NEB (PRN) NEB (05:26)
[2017-03-04] MEDS: RESP: ALBUTEROL 2.5 MG/IPRATROPIUM 0.5 MG NEB (SCH) INH ×4 (08:09→21:15)
[2017-03-04] MEDS: FLUTICASONE 100 MCG/VILANTEROL 25 MCG INHALER INH SCH ×2 (08:20→22:20)
[2017-03-04] MEDS: [UNRECOGNIZED DRUG - REMARK] OTHER SCH ×2 (08:20→21:00)
[2017-03-04] MEDS: SODIUM CHLORIDE 0.9% FLUSH 10 ML FLUSH IV FLUSH SCH ×2 (08:20→22:20)
[2017-03-04] MEDS: amLODIPine BESYLATE 5 MG TAB PO SCH (08:21)
[2017-03-04] MEDS: POLYETHYLENE GLYCOL 17 GM PKG PO SCH (08:21)
[2017-03-04] MEDS: guaiFENesin E.R. 600 MG TAB PO SCH ×2 (08:21→22:16)
[2017-03-04] MEDS: ASPIRIN 325 MG TAB PO SCH (08:21)
[2017-03-04] MEDS: MORPHINE SULFATE 30 MG CONTROLLED RELEASE TAB PO SCH ×2 (08:22→22:16)
[2017-03-04] MEDS: MORPHINE SULFATE 15 MG CONTROLLED RELEASE TAB PO SCH ×2 (08:22→22:16)
[2017-03-04] MEDS: DOCUSATE SODIUM 50 MG/SENNA 8.6 MG TAB PO SCH ×2 (08:22→22:16)
[2017-03-04] MEDS: PANTOPRAZOLE SOD 40 MG DELAYED RELEASE TAB PO SCH (08:23)
[2017-03-04 08:26] LABS: AUTOMATED NEUTROPHIL # 3.5 TH/MM3 (1.8-7.7); HEMATOCRIT 36.6 % (35.0-46.0); LYMPH % 5.3 % (9.0-44.0); LYMPHOCYTE # 0.2 TH/MM3 (1.0-4.8); MEAN CELL VOLUME 91.2 FL (80.0-100.0); MEAN CORPUSCULAR HGB CONC 32.9 % (32.0-36.0); MONO % 1.7 % (0.0-8.0); PLATELET COUNT 27 TH/MM3 (150-450); RED BLOOD COUNT 4.01 MIL/MM3 (4.00-5.30); WHITE BLOOD COUNT 3.7 TH/MM3 (4.0-11.0)
[2017-03-04 08:48] LABS: HEMO FLAGS AUTO DIFF
[2017-03-04 09:49] LABS: KERATOCYTES 1+ (NORMAL); OVALOCYTES 1+ (NORMAL); PLATELET ESTIMATE SMEAR LOW (NORMAL); PLATELET MORPHOLOGY NORMAL (NORMAL); SCAN/DIFF AUTO DIFF CONFIRMED
--- NOTE | 2017-03-04 10:18 | HHI.PR ---
Subjective Remarks Patient stated she feels tired, reported cough on some minimal nosebleed, her platelet today is 27, per the nurse she got platelet transfusion yesterday Objective Vitals Vital Signs Date Time Temp Pulse Resp B/P (MAP) Pulse Ox O2 Delivery O2 Flow Rate FiO2 03/04/17 08:10 95 Nasal Cannula 4.00 03/04/17 08:00 97.8 82 18 147/79 (101) 93 03/04/17 04:00 98.7 83 16 122/72 (89) 92 03/04/17 00:10 16 03/04/17 00:00 98.4 81 17 151/82 (105) 94 03/03/17 21:37 16 03/03/17 21:37 16 03/03/17 20:20 97.4 93 16 142/87 94 03/03/17 20:00 97.7 81 17 141/72 (95) 92 03/03/17 19:56 97.4 75 16 131/73 99 03/03/17 19:46 92 Nasal Cannula 2.00 03/03/17 16:15 97.3 82 21 147/79 (101) 93 03/03/17 14:49 128/78 (95) 03/03/17 12:47 96 Nasal Cannula 2.00 03/03/17 12:39 97.8 79 20 172/98 (122) 91 I/O 03/03/17 03/03/17 03/03/17 03/04/17 03/04/17 03/04/17 07:00 15:00 23:00 07:00 15:00 23:00 Intake Total 1080 ml 370 ml 540 ml Balance 1080 ml 370 ml 540 ml Intake Oral 480 ml 320 ml 240 ml Packed Cells 250 ml 250 ml Blood Product IV Normal Saline Flush 350 ml 50 ml 50 ml # Voids 1 4 2 2 1 # Bowel Movements 1 4 1 Result Diagram: 03/04/1757 03/04/17 0657 Objective Remarks GENERAL: This is a well-nourished, well-developed patient, in no apparent distress. SKIN: No rashes, warm and dry HEAD: Atraumatic. Normocephalic. EYES: Pupils equal round and reactive. Extraocular motions intact. No scleral icterus. ENT: Nose without bleeding, or drainage, Airway patent. NECK: Trachea midline. Supple CARDIOVASCULAR: Regular rate and rhythm without murmurs, gallops, or rubs. RESPIRATORY: Coarse crackles bilaterally GASTROINTESTINAL: Abdomen soft, non-tender, nondistended. Positive bowel sounds MUSCULOSKELETAL: Extremities without clubbing, cyanosis, or edema. Pedal pulses appreciated NEUROLOGICAL: Awake and alert. Moves all extremity. Normal speech.no focal neurological deficit A/P Problem List: (1) Aspiration pneumonia ICD Code: J69.0 - Pneumonitis due to inhalation of food and vomit Status: Acute (2) Sepsis ICD Code: A41.9 - Sepsis, unspecified organism Status: Acute (3) Bone metastasis ICD Code: C79.51 - Secondary malignant neoplasm of bone Status: Acute Assessment and Plan 03/04: Chest x-ray showing left tiny vague infiltrate with pleural effusion, sputum showed gram-negative rods, will follow ID recommendation for antibiotic, plate count continued to drop 27 today, monitor CBC A/P: 76 y/o female with a history of breast cancer with mets to the bone, anxiety, arthritis, copd on 2L cont at home, AAA, and emphysema presented to the ED with shortness of breath, cough and pain. Sepsis, immunocompromised due to chemotherapy, WBC 3.0, respiratory rate 26 on admission, suspected due to Aspiration pneumonia from drinking liquids. CT chest reviewed and shows atelectasis and/or infiltrate in right middle lobe. - on Vancomycin and Zosyn IV cover for hospital-acquired pneumonia. Azithromycin added per infectious disease. Continue Mucinex. Leukocytosis resolved. Start Acapella, continue incentive spirometry, COPD exacerbation, likely related to pneumonia with history of chronic respiratory failure on home oxygen at 2 L -Duonebs [id number] and as needed, Continue oxygen support, continue steroids, decreased to twice a day, continue to taper. Bone Metastasis -Cont home chemotherapy, hematology following. - Continue pain control, hematology assisting, currently on Dilaudid and Oramorph. Palliative care following. Thrombocytopenia dyrbpw-[id number]-ho workup, hematology following. No bleeding. Transfuse per hematology. Hypertension-restart Norvasc PT following. DVT prophylaxis: SCDs, hold chemical due to acute thrombocytopenia Problem Qualifiers (1) Aspiration pneumonia: Qualified Codes: J69.0 - Pneumonitis due to inhalation of food and vomit (2) Sepsis: Qualified Codes: A41.9 - Sepsis, unspecified organism Soy Cruz MD Mar 04, 2017 10:18
--- NOTE | 2017-03-04 13:30 | HHI.IDPN ---
Subjective Subjective Remarks co SOB + productive coughm, unchanged co weakness and chest pain no fever growing Steno malt [facility] Allergies: Coded Allergies: grapefruit (Verified Allergy, Unknown, 02/27/17) CONTRAINCDICATED WITH IBRANCE Objective . Vital Signs Date Time Temp Pulse Resp B/P (MAP) Pulse Ox O2 Delivery O2 Flow Rate FiO2 03/04/17 12:00 98.4 86 18 121/67 (85) 93 03/04/17 08:10 95 Nasal Cannula 4.00 03/04/17 08:00 97.8 82 18 147/79 (101) 93 03/04/17 04:00 98.7 83 16 122/72 (89) 92 03/04/17 00:10 16 03/04/17 00:00 98.4 81 17 151/82 (105) 94 03/03/17 21:37 16 03/03/17 21:37 16 03/03/17 20:20 97.4 93 16 142/87 94 03/03/17 20:00 97.7 81 17 141/72 (95) 92 03/03/17 19:56 97.4 75 16 131/73 99 03/03/17 19:46 92 Nasal Cannula 2.00 03/03/17 16:15 97.3 82 21 147/79 (101) 93 03/03/17 14:49 128/78 (95) 03/04/17 03/04/17 03/05/17 14:59 22:59 06:59 # Voids 1 . Laboratory Tests Test 03/04/17 06:57 White Blood Count 3.7 TH/MM3 Red Blood Count 4.01 MIL/MM3 Hemoglobin 12.0 GM/DL Hematocrit 36.6 % Mean Corpuscular Volume 91.2 FL Mean Corpuscular Hemoglobin 30.0 PG Mean Corpuscular Hemoglobin Concent 32.9 % Red Cell Distribution Width 19.0 % Platelet Count 27 TH/MM3 Mean Platelet Volume 8.4 FL Neutrophils (%) (Auto) 93.0 % Lymphocytes (%) (Auto) 5.3 % Monocytes (%) (Auto) 1.7 % Eosinophils (%) (Auto) 0.0 % Basophils (%) (Auto) 0.0 % Neutrophils # (Auto) 3.5 TH/MM3 Lymphocytes # (Auto) 0.2 TH/MM3 Monocytes # (Auto) 0.1 TH/MM3 Eosinophils # (Auto) 0.0 TH/MM3 Basophils # (Auto) 0.0 TH/MM3 CBC Comment AUTO DIFF Differential Comment AUTO DIFF CONFIRMED Platelet Estimate LOW Platelet Morphology Comment NORMAL Ovalocytes 1+ Keratocytes 1+ Laboratory Tests Test 03/04/17 06:57 Creatinine 0.63 MG/DL Estimat Glomerular Filtration Rate 92 ML/MIN Microbiology Date/Time Source Procedure Growth Status 03/01/17 18:35 Sputum Expectorated Sputum Gram Stain - Final Complete 03/01/17 18:35 Sputum Culture - Final Stenotrophomonas Maltophilia Complete Imaging Last Impressions Chest X-Ray 03/03/17 0000 Signed Impressions: Service Date/Time: February 16:23 - CONCLUSION: Vague left lung infiltrate and tiny left pleural effusion. Kathryn Arroyo MD CT Angiography 02/27/17 0000 Signed Impressions: Service Date/Time: Monday, February 27, 2017 17:45 - CONCLUSION: There is no evidence for PE for technique. Kathryn Arroyo MD Physical Exam CONSTITUTIONAL/GENERAL: This is a thin elderlly frail and weak patient, in no apparent distress. TUBES/LINES/DRAINS: SKIN: No jaundice, rashes, or lesions. Skin temperature appropriate. Not diaphoretic. BREASTS: s/p mastectomy scar - well healed, nt very tender to palpation, no masses CARDIOVASCULAR: Regular rate and rhythm without murmurs, gallops, or rubs. No JVD. Peripheral pulses symmetric. RESPIRATORY/CHEST: Symmetric, unlabored respirations. Scattered rhonchi but no wheezing to auscultation. Breath sounds equal bilaterally. GASTROINTESTINAL: Abdomen soft, non-tender, nondistended. No hepato-splenomegaly , or palpable masses. No guarding. Bowel sounds present. MUSCULOSKELETAL: Extremities without clubbing, cyanosis, or edema. No joint tenderness or effusion noted. No calf tenderness. No mottling or clubbing. NEUROLOGICAL: Awake and alert. Motor and sensory grossly within normal limits. Follows commands. Clear speech. Moves all extremities. PSYCHIATRIC: No obvious anxiety/depression. no apparent hallucinations or other psychotic thought process. Assessment & Plan Remarks RML/RLL PNA - Steno malt: culprit vs colonisation COPD Metastatic breast ca - dc zosyn, vanco - dc azithromycin - start oral levaquine 750 mg x 7-14 days Discussed Condition With pharmasist Sandra Aguilar MD Mar 04, 2017 13:30
[2017-03-04] MEDS: LEVOFLOXACIN 750 MG TAB PO SCH (13:36)
--- NOTE | 2017-03-04 15:55 | PD.ONC.PN ---
Subjective Subjective Remarks respiratory difficulty this am better with nebs supplemental Oxygen Objective Data Date Time Temp Pulse Resp B/P (MAP) Pulse Ox O2 Delivery O2 Flow Rate FiO2 03/04/17 12:00 98.4 86 18 121/67 (85) 93 03/04/17 08:10 95 Nasal Cannula 4.00 03/04/17 08:00 97.8 82 18 147/79 (101) 93 03/04/17 04:00 98.7 83 16 122/72 (89) 92 03/04/17 00:10 16 03/04/17 00:00 98.4 81 17 151/82 (105) 94 03/03/17 21:37 16 03/03/17 21:37 16 03/03/17 20:20 97.4 93 16 142/87 94 03/03/17 20:00 97.7 81 17 141/72 (95) 92 03/03/17 19:56 97.4 75 16 131/73 99 03/03/17 19:46 92 Nasal Cannula 2.00 03/03/17 16:15 97.3 82 21 147/79 (101) 93 03/04/17 03/04/17 03/04/17 06:59 14:59 22:59 Intake Total 540 ml 600 ml Balance 540 ml 600 ml Result Diagram: 03/04/1765603/04/17656 Laboratory Results Laboratory Tests Test 03/04/17 06:57 White Blood Count 3.7 TH/MM3 Red Blood Count 4.01 MIL/MM3 Hemoglobin 12.0 GM/DL Hematocrit 36.6 % Mean Corpuscular Volume 91.2 FL Mean Corpuscular Hemoglobin 30.0 PG Mean Corpuscular Hemoglobin Concent 32.9 % Red Cell Distribution Width 19.0 % Platelet Count 27 TH/MM3 Mean Platelet Volume 8.4 FL Neutrophils (%) (Auto) 93.0 % Lymphocytes (%) (Auto) 5.3 % Monocytes (%) (Auto) 1.7 % Eosinophils (%) (Auto) 0.0 % Basophils (%) (Auto) 0.0 % Neutrophils # (Auto) 3.5 TH/MM3 Lymphocytes # (Auto) 0.2 TH/MM3 Monocytes # (Auto) 0.1 TH/MM3 Eosinophils # (Auto) 0.0 TH/MM3 Basophils # (Auto) 0.0 TH/MM3 CBC Comment AUTO DIFF Differential Comment AUTO DIFF CONFIRMED Platelet Estimate LOW Platelet Morphology Comment NORMAL Ovalocytes 1+ Keratocytes 1+ Creatinine 0.63 MG/DL Estimat Glomerular Filtration Rate 92 ML/MIN Culture Results Microbiology Date/Time Source Procedure Growth Status 03/01/17 18:35 Sputum Expectorated Sputum Gram Stain - Final Complete 03/01/17 18:35 Sputum Culture - Final Stenotrophomonas Maltophilia Complete Administered Medications Medications (Trade) Dose Ordered Sig/Jimmy Route PRN Reason Start Time Stop Time Status Last Admin Dose Admin Sodium Chloride (NS Flush) 2 ml UNSCH PRN IV FLUSH FLUSH AFTER USING IV ACCESS 02/27/17 19:30 03/02/17 14:03 Sodium Chloride (NS Flush) 2 ml BID IV FLUSH 02/27/17 21:00 03/03/17 20:36 Fluticasone/ Vilanterol (Breo Ellipta 100-25 Inh) 1 puff BID INH 02/28/17 09:00 03/04/17 08:20 Pantoprazole Sodium (Protonix) 40 mg DAILY PO 02/28/17 09:00 03/04/17 08:23 Oxycodone HCl (Roxicodone) 15 mg Q4H PRN PO PAIN SCALE 6 TO 10 02/27/17 21:30 03/04/17 14:56 Hydromorphone HCl (Dilaudid Pf Inj) 0.5 mg Q3H PRN IV BREAKTHROUGH PAIN 02/27/17 21:30 03/01/17 11:07 Senna/Docusate Sodium (Klarissa-Colace) 1 tab BID PO 02/28/17 09:00 03/02/17 09:08 Magnesium Hydroxide (Milk Of Magnesia Liq) 30 ml Q12H PRN PO MILD - MODERATE CONSTIPATION 02/27/17 21:30 03/02/17 09:17 Oxycodone HCl (Roxicodone) 10 mg Q4H PRN PO pain 3-5 02/27/17 22:15 03/01/17 10:00 Benzonatate (Tessalon) 200 mg Q8H PRN PO COUGH 02/27/17 22:15 03/03/17 05:51 Guaifenesin (Mucinex Er) 600 mg BID PO 02/27/17 22:15 03/04/17 08:21 Albuterol/ Ipratropium (Duoneb Neb) 1 ampule Q6HR NEB PRN NEB SOB/WHEEZING 02/28/17 09:00 03/04/17 05:26 Polyethylene Glycol (Miralax) 17 gm DAILY PO 02/28/17 15:00 03/02/17 09:09 Alprazolam (Xanax) 0.25 mg Q6H PRN PO ANXIETY 03/01/17 15:00 03/04/17 05:22 Aspirin (Aspirin) 325 mg DAILY PO 03/02/17 09:00 03/04/17 08:21 Tamoxifen Citrate (Nolvadex) 20 mg HS PO 03/02/17 21:00 03/03/17 20:36 Morphine Sulfate (Oramorph Sr) 30 mg Q12HR PO 03/03/17 09:00 03/04/17 08:22 Morphine Sulfate (Oramorph Sr) 15 mg Q12HR PO 03/03/17 09:00 03/04/17 08:22 Amlodipine Besylate (Norvasc) 5 mg DAILY PO 03/03/17 13:00 03/04/17 08:21 Albuterol/ Ipratropium (Duoneb Neb) 1 ampule QID NEB INH 03/03/17 16:00 03/04/17 08:09 Methylprednisolone Sodium Succinate (SoluMEDROL INJ) 40 mg Q12H IV PUSH 03/04/17 02:00 03/04/17 13:36 Levofloxacin (Levaquin) 750 mg Q24H PO 03/04/17 12:00 03/04/17 13:36 Objective Remarks GENERAL: nad SKIN: Warm and dry LYMPHATIC: No adenopathy. CARDIOVASCULAR: Regular rate and rhythm without murmurs. RESPIRATORY: b/l scattered rhonchi/occ wheezes faint upper person GASTROINTESTINAL: Abdomen soft, non-tender, nondistended. EXTREMITIES: No cyanosis, or edema. Assessment/Plan Problem List: (1) Anemia ICD Codes: D64.9 - Anemia, unspecified Status: Acute (2) Nausea ICD Codes: R11.0 - Nausea Status: Acute (3) Breast cancer ICD Codes: C50.919 - Malignant neoplasm of unspecified site of unspecified female breast Status: Acute (4) Pain of metastatic malignancy ICD Codes: G89.3 - Pain of metastatic malignancy Status: Acute (5) Aspiration pneumonia ICD Codes: J69.0 - Pneumonitis due to inhalation of food and vomit Status: Acute (6) Sepsis ICD Codes: A41.9 - Sepsis, unspecified organism Status: Acute (7) Bone metastasis ICD Codes: C79.51 - Secondary malignant neoplasm of bone Status: Acute (8) Debility ICD Codes: R53.81 - Other malaise Status: Acute (9) Physical deconditioning ICD Codes: R53.81 - Other malaise Status: Acute (10) COPD exacerbation ICD Codes: J44.1 - Chronic obstructive pulmonary disease with (acute) exacerbation Status: Acute (11) Shortness of breath ICD Codes: R06.02 - Shortness of breath Assessment 76-year-old female who has stage IV breast cancer with metastasis to the spine as well as to her ribs. She presents to the emergency room with progressive dyspnea. 1. Right lung pneumonia. - On abx - blood cultures negative 02/27 - sputum growing gram negative rods - On PO Levaquin 2. COPD exacerbation. - nebs - steroids 3. Anemia with hemoglobin of 8.2. - symptomatic - s/p prbc transfusion - Hb 12 4. Acute Thrombocytopenia. - no evidence of hemolysis or overt DIC - likely due to acute illness - Check LDH/Haptoglobin/Direct denzel - Hold heparin products - swtich to arixtra 5. Poor oral intake. encourage oral intake, supplement meals with Ensure or Boost. 6. Metastatic Pain - MS contin to 30mg q8 hrs - Cont. prn dilaudid - continue breakthrough oxycodone - pain better controlled 7. Stage IV breast cancer. Continue tamoxifen while in the hospital. Hold Ibrance. - Will check tumor markers--CA 15-3 and CA 27-29 8. Deconditioning/weakness - will need placement after discharge - SW consult overnight events reviewed nasreen rn Problem Qualifiers (1) Aspiration pneumonia: Qualified Codes: J69.0 - Pneumonitis due to inhalation of food and vomit (2) Sepsis: Qualified Codes: A41.9 - Sepsis, unspecified organism Eric Kirkpatrick MD Mar 04, 2017 15:55
[2017-03-04] MEDS: TAMOXIFEN CITRATE 10 MG TAB PO SCH (22:16)
[2017-03-05] VITALS (10 sets, daily range): BP systolic 115–147; BP diastolic 69–79; PULSE 73–91; RESP 16–20; TEMP 96.9–98.2; O2SAT 92–96
[2017-03-05] MEDS: methylPREDNISolone SOD SUCC 40 MG/1 ML VIAL IV PUSH SCH (02:45)
[2017-03-05] MEDS ORDERED: PHARMACY ORDERED LAB ONE (03:45)
[2017-03-05] MEDS: ALPRAZolam 0.25 MG TAB PO PRN ×3 (06:40→22:39)
[2017-03-05 08:11] LABS: INTERNATIONAL NORMALIZED RATIO 1.1 RATIO; PROTHROMBIN TIME - PATIENT 12.5 SEC (9.8-11.6)
[2017-03-05] MEDS: RESP: ALBUTEROL 2.5 MG/IPRATROPIUM 0.5 MG NEB (SCH) INH ×4 (08:33→20:01)
[2017-03-05] MEDS: MORPHINE SULFATE 15 MG CONTROLLED RELEASE TAB PO SCH ×2 (10:07→21:50)
[2017-03-05] MEDS: PANTOPRAZOLE SOD 40 MG DELAYED RELEASE TAB PO SCH (10:09)
[2017-03-05] MEDS: amLODIPine BESYLATE 5 MG TAB PO SCH (10:09)
[2017-03-05] MEDS: DOCUSATE SODIUM 50 MG/SENNA 8.6 MG TAB PO SCH ×2 (10:10→21:00)
[2017-03-05] MEDS: [UNRECOGNIZED DRUG - REMARK] OTHER SCH ×2 (10:10→19:28)
[2017-03-05] MEDS: guaiFENesin E.R. 600 MG TAB PO SCH ×2 (10:10→21:00)
[2017-03-05] MEDS: MORPHINE SULFATE 30 MG CONTROLLED RELEASE TAB PO SCH ×2 (10:10→21:50)
[2017-03-05] MEDS: POLYETHYLENE GLYCOL 17 GM PKG PO SCH (10:11)
[2017-03-05] MEDS: SODIUM CHLORIDE 0.9% FLUSH 10 ML FLUSH IV FLUSH SCH ×2 (10:32→21:00)
[2017-03-05] MEDS: FLUTICASONE 100 MCG/VILANTEROL 25 MCG INHALER INH SCH ×2 (10:32→21:54)
[2017-03-05] MEDS ORDERED: SODIUM CHLOR 0.9% 250 ML INJ 250 ML IV ONE (12:45)
[2017-03-05] MEDS ORDERED: ACETAMINOPHEN 325 MG TAB PO PRN (12:45)
[2017-03-05] MEDS ORDERED: diphenhydrAMINE HCL 25 MG CAP PO PRN (12:45)
--- NOTE | 2017-03-05 13:20 | PD.ONC.PN ---
Subjective Subjective Remarks Pt resting in bed in no acute distress Reports that she has had a nosebleed that started last night Objective Data Date Time Temp Pulse Resp B/P (MAP) Pulse Ox O2 Delivery O2 Flow Rate FiO2 03/05/17 12:00 96.9 82 18 144/71 (95) 92 03/05/17 11:10 15 03/05/17 11:10 15 03/05/17 08:35 Nasal Cannula 2.00 03/05/17 08:00 97.4 75 18 147/79 (101) 93 03/05/17 04:00 97.8 73 20 135/73 (93) 92 03/05/17 03:00 20 03/05/17 00:00 97.6 83 20 135/71 (92) 92 03/04/17 21:16 92 Nasal Cannula 2.00 03/04/17 20:00 96.7 79 20 129/65 (86) 92 03/04/17 16:00 98.0 82 18 130/71 (90) 92 03/05/17 03/05/17 03/05/17 07:00 15:00 23:00 Intake Total 120 ml Balance 120 ml Result Diagram: 03/04/17 0657 03/04/17 0657 Laboratory Results Laboratory Tests Test 03/05/17 06:29 Haptoglobin 278 MG/DL Prothrombin Time 12.5 SEC Prothromb Time International Ratio 1.1 RATIO Fibrinogen 221 mg/dL Lactate Dehydrogenase 226 U/L Administered Medications Medications (Trade) Dose Ordered Sig/Jimmy Route PRN Reason Start Time Stop Time Status Last Admin Dose Admin Sodium Chloride (NS Flush) 2 ml UNSCH PRN IV FLUSH FLUSH AFTER USING IV ACCESS 02/27/17 19:30 03/02/17 14:03 Sodium Chloride (NS Flush) 2 ml BID IV FLUSH 02/27/17 21:00 03/05/17 10:32 Fluticasone/ Vilanterol (Breo Ellipta 100-25 Inh) 1 puff BID INH 02/28/17 09:00 03/05/17 10:32 Pantoprazole Sodium (Protonix) 40 mg DAILY PO 02/28/17 09:00 03/05/17 10:09 Acetaminophen (Tylenol) 650 mg Q6H PRN PO PAIN SCALE 1 TO 2 02/27/17 21:30 03/05/17 06:40 Oxycodone HCl (Roxicodone) 15 mg Q4H PRN PO PAIN SCALE 6 TO 10 02/27/17 21:30 03/04/17 19:49 Hydromorphone HCl (Dilaudid Pf Inj) 0.5 mg Q3H PRN IV BREAKTHROUGH PAIN 02/27/17 21:30 03/01/17 11:07 Senna/Docusate Sodium (Klarissa-Colace) 1 tab BID PO 02/28/17 09:00 03/04/17 22:16 Magnesium Hydroxide (Milk Of Magnvirgil Liq) 30 ml Q12H PRN PO MILD - MODERATE CONSTIPATION 02/27/17 21:30 03/02/17 09:17 Oxycodone HCl (Roxicodone) 10 mg Q4H PRN PO pain 3-5 02/27/17 22:15 03/05/17 12:07 Benzonatate (Tessalon) 200 mg Q8H PRN PO COUGH 02/27/17 22:15 03/03/17 05:51 Guaifenesin (Mucinex Er) 600 mg BID PO 02/27/17 22:15 03/04/17 22:16 Albuterol/ Ipratropium (Duoneb Neb) 1 ampule Q6HR NEB PRN NEB SOB/WHEEZING 02/28/17 09:00 03/04/17 05:26 Polyethylene Glycol (Miralax) 17 gm DAILY PO 02/28/17 15:00 03/02/17 09:09 Alprazolam (Xanax) 0.25 mg Q6H PRN PO ANXIETY 03/01/17 15:00 03/05/17 06:40 Tamoxifen Citrate (Nolvadex) 20 mg HS PO 03/02/17 21:00 03/04/17 22:16 Morphine Sulfate (Oramorph Sr) 30 mg Q12HR PO 03/03/17 09:00 03/05/17 10:10 Morphine Sulfate (Oramorph Sr) 15 mg Q12HR PO 03/03/17 09:00 03/05/17 10:07 Amlodipine Besylate (Norvasc) 5 mg DAILY PO 03/03/17 13:00 03/05/17 10:09 Albuterol/ Ipratropium (Duoneb Neb) 1 ampule QID NEB INH 03/03/17 16:00 03/05/17 11:31 Levofloxacin (Levaquin) 750 mg Q24H PO 03/04/17 12:00 03/04/17 13:36 Objective Remarks GENERAL: Frail appearing elderly female, resting in bed in no acute distress. SKIN: Warm and dry. HEAD: Normocephalic. NARES: Dried blood noted bilaterally. EYES: No injection or drainage. NECK: Supple, trachea midline. CARDIOVASCULAR: Regular rate and rhythm without murmurs. RESPIRATORY: Clear anteriorly, diminished. GASTROINTESTINAL: Abdomen protuberant, mildly tender to LUQ. EXTREMITIES: No cyanosis, or edema. MUSCULOSKELETAL: Generalized weakness. NEUROLOGICAL: No obvious focal deficit. Awake, alert, and oriented x3. Assessment/Plan Assessment 76-year-old female who has stage IV breast cancer with metastasis to the spine as well as to her ribs. She presents to the emergency room with progressive dyspnea. Plan 1. When looking at the patient's platelets, it is noted that she has consistently declined. She was 77k on admission and is now 27k. 2. The differential includes HIT or DIC from her pneumonia. 3. Will order assay for HIT. Will order 1 unit platelets today for level of 27k and reports of epistaxis. 4. Hold ASA. Check CBC in am. Attending Statement The exam, history, and the medical decision-making described in the above note were completed with the assistance of the mid-level provider. I reviewed and agree with the findings presented. I attest that I had a [id number] encounter with the patient on the same day, and personally performed and documented my assessment and findings in the medical record. patient had received ibrance which can lower platelets as well as antibiotics. I suspect this is the cause of the falling platelet count and will resolve with time. will check screen for DIC but doubt this is the problem. Melissa Ivey Mar 05, 2017 13:20 Rios Peterson MD Mar 05, 2017 16:29
--- NOTE | 2017-03-05 13:32 | HHI.PR ---
Subjective Remarks Family at the bedside, patient still complaining of nosebleed, platelet dropped to 27K on 03/04, no other source of bleeding No chest pain short of breath fever or chills Objective Vitals Vital Signs Date Time Temp Pulse Resp B/P (MAP) Pulse Ox O2 Delivery O2 Flow Rate FiO2 03/05/17 12:00 96.9 82 18 144/71 (95) 92 03/05/17 11:10 15 03/05/17 11:10 15 03/05/17 08:35 Nasal Cannula 2.00 03/05/17 08:00 97.4 75 18 147/79 (101) 93 03/05/17 04:00 97.8 73 20 135/73 (93) 92 03/05/17 03:00 20 03/05/17 00:00 97.6 83 20 135/71 (92) 92 03/04/17 21:16 92 Nasal Cannula 2.00 03/04/17 20:00 96.7 79 20 129/65 (86) 92 03/04/17 16:00 98.0 82 18 130/71 (90) 92 I/O 03/04/17 03/04/17 03/04/17 03/05/17 03/05/17 03/05/17 07:00 15:00 23:00 07:00 15:00 23:00 Intake Total 540 ml 600 ml 240 ml 120 ml Balance 540 ml 600 ml 240 ml 120 ml Intake Oral 240 ml 600 ml 240 ml 120 ml Packed Cells 250 ml Blood Product IV Normal Saline Flush 50 ml # Voids 2 3 2 2 # Bowel Movements 1 1 2 Result Diagram: 03/04/17 0657 03/04/17 0657 Objective Remarks GENERAL: This is a well-nourished, well-developed patient, in no apparent distress. SKIN: No rashes, warm and dry HEAD: Atraumatic. Normocephalic. EYES: Pupils equal round and reactive. Extraocular motions intact. No scleral icterus. ENT: Nose without bleeding, or drainage, Airway patent. NECK: Trachea midline. Supple CARDIOVASCULAR: Regular rate and rhythm without murmurs, gallops, or rubs. RESPIRATORY: Coarse crackles bilaterally GASTROINTESTINAL: Abdomen soft, non-tender, nondistended. Positive bowel sounds MUSCULOSKELETAL: Extremities without clubbing, cyanosis, or edema. Pedal pulses appreciated NEUROLOGICAL: Awake and alert. Moves all extremity. Normal speech.no focal neurological deficit A/P Problem List: (1) Aspiration pneumonia ICD Code: J69.0 - Pneumonitis due to inhalation of food and vomit Status: Acute (2) Sepsis ICD Code: A41.9 - Sepsis, unspecified organism Status: Acute (3) Bone metastasis ICD Code: C79.51 - Secondary malignant neoplasm of bone Status: Acute Assessment and Plan 03/04: Chest x-ray showing left tiny vague infiltrate with pleural effusion, sputum showed gram-negative rods, will follow ID recommendation for antibiotic, plate continued to drop 27 today, monitor CBC 03/05: Plan for platelet transfusion by hematology, will decrease Solu-Medrol, ID recommending DC iv antibiotic and starting Levaquin for 7-14 days A/P: 76 y/o female with a history of breast cancer with mets to the bone, anxiety, arthritis, copd on 2L cont at home, AAA, and emphysema presented to the ED with shortness of breath, cough and pain. Sepsis, immunocompromised due to chemotherapy, WBC 3.0, respiratory rate 26 on admission, suspected due to Aspiration pneumonia from drinking liquids. CT chest reviewed and shows atelectasis and/or infiltrate in right middle lobe. - on Vancomycin and Zosyn IV cover for hospital-acquired pneumonia. Azithromycin added per infectious disease. Continue Mucinex. Leukocytosis resolved. Start Acapella, continue incentive spirometry, COPD exacerbation, likely related to pneumonia with history of chronic respiratory failure on home oxygen at 2 L -Duonebs [id number] and as needed, Continue oxygen support, continue steroids, decreased to twice a day, continue to taper. Bone Metastasis -Cont home chemotherapy, hematology following. - Continue pain control, hematology assisting, currently on Dilaudid and Oramorph. Palliative care following. Thrombocytopenia [id number] workup, hematology following. No bleeding. Transfuse per hematology. Hypertension-restart Norvasc PT following. DVT prophylaxis: SCDs, hold chemical due to acute thrombocytopenia Problem Qualifiers (1) Aspiration pneumonia: Qualified Codes: J69.0 - Pneumonitis due to inhalation of food and vomit (2) Sepsis: Qualified Codes: A41.9 - Sepsis, unspecified organism Soy Cruz MD Mar 05, 2017 13:32
[2017-03-05] MEDS: LEVOFLOXACIN 750 MG TAB PO SCH (13:38)
[2017-03-05] MEDS: TAMOXIFEN CITRATE 10 MG TAB PO SCH (21:50)
[2017-03-05] MEDS: RESP: ALBUTEROL 2.5 MG/IPRATROPIUM 0.5 MG NEB (PRN) NEB (22:15)
[2017-03-05] MEDS: HYDROmorphone HCL PF 1 MG/ML VIAL IV PRN (22:40)
[2017-03-06] VITALS (9 sets, daily range): BP systolic 133–146; BP diastolic 69–78; PULSE 85–94; RESP 18–28; TEMP 95.9–98.2; O2SAT 91–95
[2017-03-06] MEDS: BENZONATATE 100 MG CAP PO PRN ×2 (03:57→20:42)
[2017-03-06 07:57] LABS: APTT (PATIENT) 25.6 SEC (24.3-30.1); INTERNATIONAL NORMALIZED RATIO 1.1 RATIO; PROTHROMBIN TIME - PATIENT 12.1 SEC (9.8-11.6)
[2017-03-06 08:02] LABS: AUTOMATED NEUTROPHIL # 1.6 TH/MM3 (1.8-7.7); BASOPHIL % 0.1 % (0.0-2.0); EOSINOPHIL % 0.3 % (0.0-4.0); HEMATOCRIT 36.6 % (35.0-46.0); LYMPH % 17.1 % (9.0-44.0); LYMPHOCYTE # 0.3 TH/MM3 (1.0-4.8); MEAN CELL VOLUME 91.2 FL (80.0-100.0); MEAN CORPUSCULAR HEMOGLOBIN 30.1 PG (27.0-34.0); NEUT % 79.5 % (16.0-70.0); PLATELET COUNT 51 TH/MM3 (150-450); RED BLOOD COUNT 4.02 MIL/MM3 (4.00-5.30); RED CELL DISTRIBUTION WIDTH 18.3 % (11.6-17.2)
[2017-03-06 08:05] LABS: HEMO FLAGS AUTO DIFF
[2017-03-06] MEDS: guaiFENesin E.R. 600 MG TAB PO SCH ×2 (08:11→20:41)
[2017-03-06] MEDS: PANTOPRAZOLE SOD 40 MG DELAYED RELEASE TAB PO SCH (08:13)
[2017-03-06] MEDS: amLODIPine BESYLATE 5 MG TAB PO SCH (08:13)
[2017-03-06] MEDS: methylPREDNISolone SOD SUCC 40 MG/1 ML VIAL IV PUSH SCH (08:13)
[2017-03-06] MEDS: MORPHINE SULFATE 15 MG CONTROLLED RELEASE TAB PO SCH ×2 (08:14→20:41)
[2017-03-06] MEDS: MORPHINE SULFATE 30 MG CONTROLLED RELEASE TAB PO SCH ×2 (08:15→20:40)
[2017-03-06] MEDS: FLUTICASONE 100 MCG/VILANTEROL 25 MCG INHALER INH SCH ×2 (08:19→20:42)
[2017-03-06] MEDS: SODIUM CHLORIDE 0.9% FLUSH 10 ML FLUSH IV FLUSH SCH ×2 (08:19→20:42)
[2017-03-06] MEDS: RESP: ALBUTEROL 2.5 MG/IPRATROPIUM 0.5 MG NEB (SCH) INH ×4 (08:26→19:40)
[2017-03-06] MEDS: [UNRECOGNIZED DRUG - REMARK] OTHER SCH ×2 (09:00→20:42)
[2017-03-06] MEDS: POLYETHYLENE GLYCOL 17 GM PKG PO SCH (09:14)
[2017-03-06] MEDS: DOCUSATE SODIUM 50 MG/SENNA 8.6 MG TAB PO SCH ×2 (09:14→20:45)
[2017-03-06 09:39] LABS: PLATELET ESTIMATE SMEAR LOW (NORMAL); PLATELET MORPHOLOGY NORMAL (NORMAL)
[2017-03-06 09:40] LABS: SCAN/DIFF AUTO DIFF CONFIRMED
[2017-03-06] MEDS: ALPRAZolam 0.25 MG TAB PO PRN ×2 (12:33→19:32)
[2017-03-06] MEDS: LEVOFLOXACIN 750 MG TAB PO SCH (12:34)
--- NOTE | 2017-03-06 16:05 | HHI.PR ---
Subjective Remarks WBC dropped to 2, however patient feels better no more nosebleeds, she had platelet transfusion, no other clear source of bleeding, she denied chest pain or short of breath Currently oncologist and lidar analyst working on ruling out DIC versus HIT Objective Vitals Vital Signs Date Time Temp Pulse Resp B/P (MAP) Pulse Ox O2 Delivery O2 Flow Rate FiO2 03/06/17 12:00 97.4 94 24 139/73 (95) 91 03/06/17 09:20 15 03/06/17 09:20 15 03/06/17 08:25 93 Nasal Cannula 3.00 03/06/17 08:00 98.2 85 28 133/77 (95) 94 03/06/17 04:00 98.0 87 19 142/69 (93) 92 03/06/17 00:00 96.8 88 21 134/74 (94) 93 03/05/17 22:10 96 Nasal Cannula 3.00 03/05/17 20:00 98.2 82 20 134/69 (90) 95 03/05/17 17:45 98.0 79 17 121/69 96 03/05/17 16:45 97.4 78 18 131/76 92 03/05/17 16:25 97.2 85 16 115/74 92 I/O 03/05/17 03/05/17 03/05/17 03/06/17 03/06/17 03/06/17 07:00 15:00 23:00 07:00 15:00 23:00 Intake Total 120 ml 480 ml 662 ml 360 ml Balance 120 ml 480 ml 662 ml 360 ml Intake Oral 120 ml 480 ml 240 ml 360 ml Platelets 192 ml Blood Product IV Normal Saline Flush 230 ml # Voids 2 1 2 2 # Bowel Movements 2 1 1 Result Diagram: 03/06/17 0634 03/04/17 0657 Objective Remarks GENERAL: This is a well-nourished, well-developed patient, in no apparent distress. SKIN: No rashes, warm and dry HEAD: Atraumatic. Normocephalic. EYES: Pupils equal round and reactive. Extraocular motions intact. No scleral icterus. ENT: Nose without bleeding, or drainage, Airway patent. NECK: Trachea midline. Supple CARDIOVASCULAR: Regular rate and rhythm without murmurs, gallops, or rubs. RESPIRATORY: Coarse crackles bilaterally GASTROINTESTINAL: Abdomen soft, non-tender, nondistended. Positive bowel sounds MUSCULOSKELETAL: Extremities without clubbing, cyanosis, or edema. Pedal pulses appreciated NEUROLOGICAL: Awake and alert. Moves all extremity. Normal speech.no focal neurological deficit A/P Problem List: (1) Aspiration pneumonia ICD Code: J69.0 - Pneumonitis due to inhalation of food and vomit Status: Acute (2) Sepsis ICD Code: A41.9 - Sepsis, unspecified organism Status: Acute (3) Bone metastasis ICD Code: C79.51 - Secondary malignant neoplasm of bone Status: Acute Assessment and Plan 03/04: Chest x-ray showing left tiny vague infiltrate with pleural effusion, sputum showed gram-negative rods, will follow ID recommendation for antibiotic, plate continued to drop 27 today, monitor CBC 03/05: Plan for platelet transfusion by hematology, will decrease Solu-Medrol, ID recommending DC iv antibiotic and starting Levaquin for 7-14 days 03/06: Status post platelet transfusion, nosebleed improved, however today with leukopenia WBC is 2, oncology hematology following, continue Levaquin for 7-14 days per ID recommendation, Daksha improved from 27-51K A/P: 76 y/o female with a history of breast cancer with mets to the bone, anxiety, arthritis, copd on 2L cont at home, AAA, and emphysema presented to the ED with shortness of breath, cough and pain. Sepsis, immunocompromised due to chemotherapy, WBC 3.0, respiratory rate 26 on admission, suspected due to Aspiration pneumonia from drinking liquids. CT chest reviewed and shows atelectasis and/or infiltrate in right middle lobe. - on Vancomycin and Zosyn IV cover for hospital-acquired pneumonia. Azithromycin added per infectious disease. Continue Mucinex. Leukocytosis resolved. Start Acapella, continue incentive spirometry, COPD exacerbation, likely related to pneumonia with history of chronic respiratory failure on home oxygen at 2 L -Duonebs [id number] and as needed, Continue oxygen support, continue steroids, decreased to twice a day, continue to taper. Bone Metastasis -Cont home chemotherapy, hematology following. - Continue pain control, hematology assisting, currently on Dilaudid and Oramorph. Palliative care following. Thrombocytopenia [id number] workup, hematology following. No bleeding. Transfuse per hematology. Hypertension-restart Norvasc PT following. DVT prophylaxis: SCDs, hold chemical due to acute thrombocytopenia Problem Qualifiers (1) Aspiration pneumonia: Qualified Codes: J69.0 - Pneumonitis due to inhalation of food and vomit (2) Sepsis: Qualified Codes: A41.9 - Sepsis, unspecified organism Soy Cruz MD Mar 06, 2017 16:05
[2017-03-06] MEDS: HYDROmorphone HCL PF 1 MG/ML VIAL IV PRN ×2 (20:40→23:35)
[2017-03-06] MEDS: TAMOXIFEN CITRATE 10 MG TAB PO SCH (20:42)
[2017-03-07] VITALS (7 sets, daily range): BP systolic 116–143; BP diastolic 67–74; PULSE 72–90; RESP 16–20; TEMP 97–97.9; O2SAT 93–95
[2017-03-07] MEDS: HYDROmorphone HCL PF 1 MG/ML VIAL IV PRN ×2 (02:09→19:34)
[2017-03-07] MEDS: ALPRAZolam 0.25 MG TAB PO PRN ×2 (02:09→15:49)
[2017-03-07] MEDS: BENZONATATE 100 MG CAP PO PRN (06:07)
[2017-03-07] MEDS: guaiFENesin E.R. 600 MG TAB PO SCH ×2 (08:30→23:39)
[2017-03-07] MEDS: amLODIPine BESYLATE 5 MG TAB PO SCH (08:30)
[2017-03-07] MEDS: methylPREDNISolone SOD SUCC 40 MG/1 ML VIAL IV PUSH SCH (08:30)
[2017-03-07] MEDS: MORPHINE SULFATE 15 MG CONTROLLED RELEASE TAB PO SCH ×2 (08:31→23:39)
[2017-03-07] MEDS: MORPHINE SULFATE 30 MG CONTROLLED RELEASE TAB PO SCH ×2 (08:31→23:40)
[2017-03-07] MEDS: PANTOPRAZOLE SOD 40 MG DELAYED RELEASE TAB PO SCH (08:31)
[2017-03-07] MEDS: DOCUSATE SODIUM 50 MG/SENNA 8.6 MG TAB PO SCH ×2 (08:32→21:00)
[2017-03-07] MEDS: POLYETHYLENE GLYCOL 17 GM PKG PO SCH (08:32)
[2017-03-07] MEDS: [UNRECOGNIZED DRUG - REMARK] OTHER SCH ×2 (08:32→21:00)
[2017-03-07] MEDS: SODIUM CHLORIDE 0.9% FLUSH 10 ML FLUSH IV FLUSH SCH ×2 (08:32→23:41)
[2017-03-07] MEDS: FLUTICASONE 100 MCG/VILANTEROL 25 MCG INHALER INH SCH ×2 (08:33→23:41)
[2017-03-07] MEDS: RESP: ALBUTEROL 2.5 MG/IPRATROPIUM 0.5 MG NEB (SCH) INH ×2 (09:11→13:07)
--- NOTE | 2017-03-07 11:31 | HHI.PR ---
Subjective Remarks Patient reported recurrent minimal nosebleed Still having some cough CBC pending today No fever or chills, status post one pack of platelet transfused Workup for thrombocytopenia H IT versus DIC ongoing Objective Vitals Vital Signs Date Time Temp Pulse Resp B/P (MAP) Pulse Ox O2 Delivery O2 Flow Rate FiO2 03/07/17 09:15 93 Nasal Cannula 3.00 03/07/17 08:00 97.9 77 20 116/72 (87) 94 03/07/17 04:00 97.2 75 18 120/69 (86) 94 03/07/17 00:00 97.9 83 18 143/74 (97) 94 03/06/17 20:00 95.9 86 18 137/78 (97) 94 03/06/17 20:00 Nasal Cannula 3.00 03/06/17 19:41 95 Nasal Cannula 3.00 03/06/17 16:16 93 Nasal Cannula 2.50 03/06/17 16:00 98.0 85 22 146/77 (100) 93 03/06/17 12:00 97.4 94 24 139/73 (95) 91 I/O 03/06/17 03/06/17 03/06/17 03/07/17 03/07/17 03/07/17 07:00 15:00 23:00 07:00 15:00 23:00 Intake Total 360 ml 720 ml Balance 360 ml 720 ml Intake Oral 360 ml 720 ml # Voids 2 11 Result Diagram: 03/06/17 0634 03/04/17 0657 Objective Remarks GENERAL: This is a well-nourished, well-developed patient, in no apparent distress. SKIN: No rashes, warm and dry HEAD: Atraumatic. Normocephalic. EYES: Pupils equal round and reactive. Extraocular motions intact. No scleral icterus. ENT: Nose without bleeding, or drainage, Airway patent. NECK: Trachea midline. Supple CARDIOVASCULAR: Regular rate and rhythm without murmurs, gallops, or rubs. RESPIRATORY: Coarse crackles bilaterally GASTROINTESTINAL: Abdomen soft, non-tender, nondistended. Positive bowel sounds MUSCULOSKELETAL: Extremities without clubbing, cyanosis, or edema. Pedal pulses appreciated NEUROLOGICAL: Awake and alert. Moves all extremity. Normal speech.no focal neurological deficit A/P Problem List: (1) Aspiration pneumonia ICD Code: J69.0 - Pneumonitis due to inhalation of food and vomit Status: Acute (2) Sepsis ICD Code: A41.9 - Sepsis, unspecified organism Status: Acute (3) Bone metastasis ICD Code: C79.51 - Secondary malignant neoplasm of bone Status: Acute Assessment and Plan 03/04: Chest x-ray showing left tiny vague infiltrate with pleural effusion, sputum showed gram-negative rods, will follow ID recommendation for antibiotic, plate continued to drop 27 today, monitor CBC 03/05: Plan for platelet transfusion by hematology, will decrease Solu-Medrol, ID recommending DC iv antibiotic and starting Levaquin for 7-14 days 03/06: Status post platelet transfusion, nosebleed improved, however today with leukopenia WBC is 2, oncology hematology following, continue Levaquin for 7-14 days per ID recommendation, Daksha improved from 27-51K 03/07: Status post 1 pack of platelets transfused, minimal nosebleed recurrent, CBC still pending, workup for thrombocytopenia ongoing rule out HIV versus DIC A/P: 76 y/o female with a history of breast cancer with mets to the bone, anxiety, arthritis, copd on 2L cont at home, AAA, and emphysema presented to the ED with shortness of breath, cough and pain. Sepsis, immunocompromised due to chemotherapy, WBC 3.0, respiratory rate 26 on admission, suspected due to Aspiration pneumonia from drinking liquids. CT chest reviewed and shows atelectasis and/or infiltrate in right middle lobe. - on Vancomycin and Zosyn IV cover for hospital-acquired pneumonia. Azithromycin added per infectious disease. Continue Mucinex. Leukocytosis resolved. Start Acapella, continue incentive spirometry, COPD exacerbation, likely related to pneumonia with history of chronic respiratory failure on home oxygen at 2 L -Duonebs [id number] and as needed, Continue oxygen support, continue steroids, decreased to twice a day, continue to taper. Bone Metastasis -Cont home chemotherapy, hematology following. - Continue pain control, hematology assisting, currently on Dilaudid and Oramorph. Palliative care following. Thrombocytopenia [id number] workup, hematology following. No bleeding. Transfuse per hematology. Hypertension-restart Norvasc PT following. DVT prophylaxis: SCDs, hold chemical due to acute thrombocytopenia Problem Qualifiers (1) Aspiration pneumonia: Qualified Codes: J69.0 - Pneumonitis due to inhalation of food and vomit (2) Sepsis: Qualified Codes: A41.9 - Sepsis, unspecified organism Soy Cruz MD Mar 07, 2017 11:31
[2017-03-07] MEDS: LEVOFLOXACIN 750 MG TAB PO SCH (12:32)
[2017-03-07 13:25] LABS: AUTOMATED NEUTROPHIL # 2.8 TH/MM3 (1.8-7.7); BASOPHIL % 0.1 % (0.0-2.0); HEMATOCRIT 35.8 % (35.0-46.0); LYMPH % 4.5 % (9.0-44.0); LYMPHOCYTE # 0.1 TH/MM3 (1.0-4.8); MEAN CELL VOLUME 92.1 FL (80.0-100.0); MEAN CORPUSCULAR HGB CONC 33.6 % (32.0-36.0); MONO % 2.2 % (0.0-8.0); NEUT % 93.2 % (16.0-70.0); PLATELET COUNT 33 TH/MM3 (150-450); RED BLOOD COUNT 3.89 MIL/MM3 (4.00-5.30); RED CELL DISTRIBUTION WIDTH 18.6 % (11.6-17.2)
[2017-03-07 13:35] LABS: HEMO FLAGS AUTO DIFF
[2017-03-07 14:19] LABS: HEPARIN AB OD 0.022 O.D. (0.000-0.300); HEPARIN INDUCED PLATELET AB NEGATIVE (NEGATIVE)
[2017-03-07 14:30] LABS: PLATELET ESTIMATE SMEAR LOW (NORMAL); PLATELET MORPHOLOGY NORMAL (NORMAL); SCAN/DIFF AUTO DIFF CONFIRMED
--- NOTE | 2017-03-07 14:35 | HHI.IDPN ---
Subjective Subjective Remarks co SOB no cough or phlegm SOB improving co weakness and chest pain no fever Antibiotics levaquine Allergies: Coded Allergies: grapefruit (Verified Allergy, Unknown, 02/27/17) CONTRAINCDICATED WITH IBRANCE Objective . Vital Signs Date Time Temp Pulse Resp B/P (MAP) Pulse Ox O2 Delivery O2 Flow Rate FiO2 03/07/17 12:34 Nasal Cannula 2.50 03/07/17 11:40 97.7 72 16 124/69 (87) 95 03/07/17 09:15 93 Nasal Cannula 3.00 03/07/17 08:00 97.9 77 20 116/72 (87) 94 03/07/17 04:00 97.2 75 18 120/69 (86) 94 03/07/17 00:00 97.9 83 18 143/74 (97) 94 03/06/17 20:00 95.9 86 18 137/78 (97) 94 03/06/17 20:00 Nasal Cannula 3.00 03/06/17 19:41 95 Nasal Cannula 3.00 03/06/17 16:16 93 Nasal Cannula 2.50 03/06/17 16:00 98.0 85 22 146/77 (100) 93 . Laboratory Tests Test 03/06/17 06:34 03/07/17 13:08 White Blood Count 2.0 TH/MM3 3.0 TH/MM3 Red Blood Count 4.02 MIL/MM3 3.89 MIL/MM3 Hemoglobin 12.1 GM/DL 12.0 GM/DL Hematocrit 36.6 % 35.8 % Mean Corpuscular Volume 91.2 FL 92.1 FL Mean Corpuscular Hemoglobin 30.1 PG 31.0 PG Mean Corpuscular Hemoglobin Concent 33.0 % 33.6 % Red Cell Distribution Width 18.3 % 18.6 % Platelet Count 51 TH/MM3 33 TH/MM3 Mean Platelet Volume 8.0 FL 8.5 FL Neutrophils (%) (Auto) 79.5 % 93.2 % Lymphocytes (%) (Auto) 17.1 % 4.5 % Monocytes (%) (Auto) 3.0 % 2.2 % Eosinophils (%) (Auto) 0.3 % 0.0 % Basophils (%) (Auto) 0.1 % 0.1 % Neutrophils # (Auto) 1.6 TH/MM3 2.8 TH/MM3 Lymphocytes # (Auto) 0.3 TH/MM3 0.1 TH/MM3 Monocytes # (Auto) 0.1 TH/MM3 0.1 TH/MM3 Eosinophils # (Auto) 0.0 TH/MM3 0.0 TH/MM3 Basophils # (Auto) 0.0 TH/MM3 0.0 TH/MM3 CBC Comment AUTO DIFF AUTO DIFF Differential Comment AUTO DIFF CONFIRMED Platelet Estimate LOW Platelet Morphology Comment NORMAL Imaging Las Last Impressions Chest X-Ray 03/03/17 0000 Signed Impressions: Service Date/Time: February 16:23 - CONCLUSION: Vague left lung infiltrate and tiny left pleural effusion. Kathryn Arroyo MD CT Angiography 02/27/17 0000 Signed Impressions: Service Date/Time: Monday, February 27, 2017 17:45 - CONCLUSION: There is no evidence for PE for technique. Kathryn Arroyo MD Physical Exam CONSTITUTIONAL/GENERAL: This is a thin elderlly frail and weak patient, in no apparent distress. TUBES/LINES/DRAINS: SKIN: No jaundice, rashes, or lesions. Skin temperature appropriate. Not diaphoretic. BREASTS: s/p mastectomy scar - well healed, nt very tender to palpation, no masses CARDIOVASCULAR: Regular rate and rhythm without murmurs, gallops, or rubs. No JVD. Peripheral pulses symmetric. RESPIRATORY/CHEST: Symmetric, unlabored respirations. Scattered rhonchi but no wheezing to auscultation. Breath sounds equal bilaterally. GASTROINTESTINAL: Abdomen soft, non-tender, nondistended. No hepato-splenomegaly , or palpable masses. No guarding. Bowel sounds present. MUSCULOSKELETAL: Extremities without clubbing, cyanosis, or edema. No joint tenderness or effusion noted. No calf tenderness. No mottling or clubbing. NEUROLOGICAL: Awake and alert. Motor and sensory grossly within normal limits. Follows commands. Clear speech. Moves all extremities. PSYCHIATRIC: No obvious anxiety/depression. no apparent hallucinations or other psychotic thought process. Assessment & Plan Remarks RML/RLL PNA - Steno malt: culprit vs colonisation - improving on levaquine COPD Metastatic breast ca - cont oral levaquine 750 mg x 7-14 days will sign off please recoonsult if any ID issues Sandra Aguilar MD Mar 07, 2017 14:35
--- NOTE | 2017-03-07 16:42 | HHI.HCPN ---
Reason for visit a. To assist with evaluation and management of symptoms including: Pain, shortness of breath, decreased appetite, debility. b. To assist medical decision maker(s) with: better understanding of current medical conditions; weighing benefits/burdens of medical treatment options; making medical treatment decisions. . Subjective/Interval History Mrs. Gunter is a 76-year-old female with a past medical history significant for invasive mammary carcinoma status post left simple mastectomy with sentinel lymph node sampling which was positive for micrometastasis. 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 Patient also with history of COPD and emphysema, O2 dependent. Patient following with Dr. Kirkpatrick outpatient. Last seen on 02/17/17. As per oncology notes, patient has been on tamoxifen for hormonal blockage therapy area and she was initiated on Ibrance and started on Xgeva. Palliative care consulted for further assistance with pain and symptom management. Patient seen in her room, she was resting in bed in no acute distress. Patient and oriented x self, place and situation. Endorsing thoracic, lumbar and sacral pain as well as pain to left ribs that is described as sharp, intermittent. Exacerbated by movement, physical exertion. Pain currently 9/10. Alleviated with rest and opioid medication. Last BM today. Patient endorsing shortness of breath with minimal exertion, nonproductive cough and intermittent nosebleeds. Patient reports that appetite and oral intake has improved. Laboratory today revealing WBC 3.0, Hgb 12.0, platelet count 33 down from 51 yesterday. Workup for thrombocytopenia HIT vs DIC ongoing, pending labs. Pain regimen consisting of ER 45mg twice a day -this was increased on 03/03/17. Oxycodone 10mg to 15mg q4h PRN for breakthrough pain. In the past 24 hours, patient has taken 1 doses of oxycodone 10 mg and 2 doses of 15 mg for a total of 40 mg. Patient remains afebrile, stable hemodynamically. Tolerating O2 via nasal cannula 2 L. No new imaging for review. Sputum culture 03/01/17 positive for stenotrophomonas maltophilia. Infectious disease following. No family at bedside. . Family/friend interactions No family at bedside. . Advance Directives Health Care Surrogate: Copy in medical record Advance Directive Specifics Date completed: 01/25/17. . Health Care Surrogate(s): HCS/daughter Cynthia Ty grandson/alt HCS: aRfael Ty . Documented care wishes: Living will completed with standard verbiage as it pertains to life support. . Significant change in goals: Goals of care remain unchanged. . Objective Vital Signs Date Time Temp Pulse Resp B/P (MAP) Pulse Ox O2 Delivery O2 Flow Rate FiO2 03/07/17 12:34 Nasal Cannula 2.50 03/07/17 11:40 97.7 72 16 124/69 (87) 95 03/07/17 09:15 93 Nasal Cannula 3.00 03/07/17 08:00 97.9 77 20 116/72 (87) 94 03/07/17 04:00 97.2 75 18 120/69 (86) 94 03/07/17 00:00 97.9 83 18 143/74 (97) 94 03/06/17 20:00 95.9 86 18 137/78 (97) 94 03/06/17 20:00 Nasal Cannula 3.00 03/06/17 19:41 95 Nasal Cannula 3.00 Intake & Output 03/07/17 03/07/17 06:59 18:59 # Voids 7 Physical Exam CONSTITUTIONAL/GENERAL: This is a thin elderly female resting in bed in no acute distress. TUBES/LINES/DRAINS: Nasal cannula, PIV. SKIN: No jaundice, rashes, or lesions. Ecchymoses on upper extremities and chest. No wounds seen anteriorly. Skin temperature appropriate. Not diaphoretic. Bilateral temporal wasting noted. HEAD: Atraumatic. Normocephalic. EYES: Pupils equal and round and reactive. Extraocular motions intact. No scleral icterus. No injection or drainage. Ptosis to left eye. ENT: Hearing grossly normal. Nose without bleeding or purulent drainage. Moist oral mucosa. NECK: Trachea midline. Supple, nontender. CARDIOVASCULAR: Regular rate and rhythm without murmurs, gallops, or rubs. No JVD. Peripheral pulses symmetric. RESPIRATORY/CHEST: Symmetric, unlabored respirations. Diminished to auscultation. O2 via nasal cannula at 2 L. GASTROINTESTINAL: Abdomen soft, round, non-tender. No guarding. Bowel sounds present. GENITOURINARY: Without palpable bladder distension. MUSCULOSKELETAL: Extremities without clubbing, cyanosis, or edema. Tender thoracic and lumbar spine to palpation. NEUROLOGICAL: Awake and alert x self, place and situation. Motor and sensory grossly within normal limits. Follows commands. Cognitively sharp. Moves all extremities. PSYCHIATRIC: No obvious anxiety/depression. no apparent hallucinations or other psychotic thought process. Pleasant and cooperative. . Diagnostic Tests Laboratory Laboratory Tests Test 03/05/17 06:29 03/06/17 06:34 03/06/17 16:18 03/07/17 13:08 Haptoglobin 278 MG/DL (30-200) Prothrombin Time 12.5 SEC (9.8-11.6) 12.1 SEC (9.8-11.6) Prothromb Time International Ratio 1.1 RATIO 1.1 RATIO Fibrinogen 221 mg/dL (227-377) 243 mg/dL (227-377) Lactate Dehydrogenase 226 U/L (84-246) White Blood Count 2.0 TH/MM3 (4.0-11.0) 3.0 TH/MM3 (4.0-11.0) Red Blood Count 4.02 MIL/MM3 (4.00-5.30) 3.89 MIL/MM3 (4.00-5.30) Hemoglobin 12.1 GM/DL (11.6-15.3) 12.0 GM/DL (11.6-15.3) Hematocrit 36.6 % (35.0-46.0) 35.8 % (35.0-46.0) Mean Corpuscular Volume 91.2 FL (80.0-100.0) 92.1 FL (80.0-100.0) Mean Corpuscular Hemoglobin 30.1 PG (27.0-34.0) 31.0 PG (27.0-34.0) Mean Corpuscular Hemoglobin Concent 33.0 % (32.0-36.0) 33.6 % (32.0-36.0) Red Cell Distribution Width 18.3 % (11.6-17.2) 18.6 % (11.6-17.2) Platelet Count 51 TH/MM3 (150-450) 33 TH/MM3 (150-450) Mean Platelet Volume 8.0 FL (7.0-11.0) 8.5 FL (7.0-11.0) Neutrophils (%) (Auto) 79.5 % (16.0-70.0) 93.2 % (16.0-70.0) Lymphocytes (%) (Auto) 17.1 % (9.0-44.0) 4.5 % (9.0-44.0) Monocytes (%) (Auto) 3.0 % (0.0-8.0) 2.2 % (0.0-8.0) Eosinophils (%) (Auto) 0.3 % (0.0-4.0) 0.0 % (0.0-4.0) Basophils (%) (Auto) 0.1 % (0.0-2.0) 0.1 % (0.0-2.0) Neutrophils # (Auto) 1.6 TH/MM3 (1.8-7.7) 2.8 TH/MM3 (1.8-7.7) Lymphocytes # (Auto) 0.3 TH/MM3 (1.0-4.8) 0.1 TH/MM3 (1.0-4.8) Monocytes # (Auto) 0.1 TH/MM3 (0-0.9) 0.1 TH/MM3 (0-0.9) Eosinophils # (Auto) 0.0 TH/MM3 (0-0.4) 0.0 TH/MM3 (0-0.4) Basophils # (Auto) 0.0 TH/MM3 (0-0.2) 0.0 TH/MM3 (0-0.2) CBC Comment AUTO DIFF AUTO DIFF Differential Comment AUTO DIFF CONFIRMED AUTO DIFF CONFIRMED Platelet Estimate LOW (NORMAL) LOW (NORMAL) Platelet Morphology Comment NORMAL (NORMAL) NORMAL (NORMAL) Activated Partial Thromboplast Time 25.6 SEC (24.3-30.1) Heparin-Induced Platelet Ab (Crystal) NEGATIVE (NEGATIVE) HIPA Patient Optical Density 0.022 O.D. (0.000-0.300) Result Diagram: 03/07/17 1308 03/04/17 0657 Microbiology Microbiology Date/Time Source Procedure Growth Status 02/27/17 15:10 Blood Peripheral Aerobic Blood Culture - Final NO GROWTH IN 5 DAYS Complete 02/27/17 15:10 Blood Peripheral Anaerobic Blood Culture - Final NO GROWTH IN 5 DAYS Complete 03/01/17 18:35 Sputum Expectorated Sputum Gram Stain - Final Complete 03/01/17 18:35 Sputum Culture - Final Stenotrophomonas Maltophilia Complete Assessment and Plan Disease Oriented Problem List: (1) COPD exacerbation (2) Aspiration pneumonia (3) Pain of metastatic malignancy (4) Bone metastasis (5) Physical deconditioning Symptom Scale: (1) Pain 0-10 Scale: 9 Comment: To thoracic and lumbar spine secondary to bony metastasis. (2) Shortness of breath 0-10 Scale: Unable to quantify Comment: COPD, pneumonia. (3) Debility 0-10 Scale: Unable to quantify Comment: Progressive. Pertinent Non-Medical Issues Psychosocial: Originally from [place]. , has 3 children. 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 Spiritual: No buddhism affiliation. Legal: Advance directives completed. Ethical issues impacting care: No ethical issues identified. Patient participating in medical decision-making. . Important Contacts HCS/daughter Cynthia Ty grandson/alt HCS: Rafael Ty . Prognosis Mrs. Gunter is a 76-year-old female with a past medical history significant for invasive mammary carcinoma status post left simple mastectomy with sentinel lymph node sampling which was positive for micrometastasis. Patient also with history of COPD and emphysema, O2 dependent. Patient with newly diagnosed bony metastasis to entire spine and ribs, currently receiving palliative chemotherapy. Patient at high risk for further complications, continue decline and given multiple chronic ongoing comorbidities, progressive physical decline, advanced age and overall debilitated state. . Code Status: No Code Plan * CODE STATUS: No code. DNR/DNI. [facility] DNR completed on 01/25/17. * MEDICAL DECISION-MAKING: Patient participating in medical decision-making. Patient demonstrates a good understanding of her medical condition and the ability to weight the benefits and burdens of treatment options. Patient designated her daughter Cynthia as HCS, alternate surrogate grandson Rafael Ty. * GOALS OF CARE: Goals of therapy remain unchanged. Patient electing to continue with current disease specific management of metastatic breast cancer while maintaining the best quality of life. Goal of therapy is to achieve the best pain and symptom control. Patient currently under the treatment of Dr. Kirkpatrick , she plans to continue f/u upon discharge. Hospice philosophy and benefits has been previously introduced, patient and daughter receptive to hospice should her clinical condition worsened, increased symptom burden or additional physical decline. * SYMPTOMS: * =Pain to chest and thoracic and lumbar spine, secondary to bony metastasis/ burden of disease. Pain regimen consisting of ER 45mg twice a day -this was increased from 30mg BID on 03/03/17. Oxycodone 10mg to 15mg q4h PRN for breakthrough pain. In the past 24 hours, patient has taken 1 doses of oxycodone 10 mg and 2 doses of 15 mg for a total of 40 mg. hydromorphone 0.5 mg IV Q3h PRN pain, has received 3 doses in the past 24 hours. Given opioid PRN use within the past 24 hours, palliative care recommends discontinuing oxycodone 10 mg, keeping oxycodone 15 mg q4h PRN for moderate pain and adding oxycodone 20 mg q4h PRN for severe pain. No adjustments on extended release morphine recommended at this time. * =Anxiety, exacerbated by pain and shortness of breath. Xanax 0.25 mg PRN q6h hours available. Received 2 doses yesterday and 2 doses today with good effect. * =Constipation, exacerbated by opioid and bedrest. Last BM today. Patient currently on Klarissa-Colace 1 tab twice a day. MOM, Dulcolax sup and Senokot available as needed. * =Shortness of breath, COPD O2 dependent at home. Exacerbated by pneumonia. Currently tolerating O2 via nasal cannula 2 L. patient reports that Xanax is effective for shortness of breath. * =Debility, progressive. Patient not tolerating home PT secondary to worsening pain. Currently participating with PT. likely to discharge home with home health/PT as tolerated. * Case discussed with bedside ALESSANDRA Carver. * Patient was extensively educated and current pain regimen. * Palliative care contact information has been provided to patient and daughter. * Palliative care will continue to follow-up for assistance in symptom management as patient's clinical condition continues to evolve. . Time Spent Total Floor Time (mins): 33 (Total time to include review of medical records, physical exam, case discussion with bedside ALESSANDRA Carver.) >50% Counseling/Coord of Care: Yes Attestation To help prompt me to consider important information that might be impacting today's encounter and assessment, information from prior notes written by myself or my colleagues may have been "brought forward" into today's note. My signature on this note, however, is an attestation that I personally performed the exam, history, and/or decision-making noted today, and, unless otherwise indicated, the interactions with patient, family, and staff as well as the review of records all occurred today. I also attest that the listed assessment and stated plan reflect my best clinical judgment today based on the combination of historical information, prior notes, and today's exam/ interactions. When time spent is documented, it refers only to time spent today by the signer, or if indicated, combined time spent today by collaborating physician/nurse practitioner. Ysabel Garnica Mar 07, 2017 16:42
--- NOTE | 2017-03-07 21:53 | PD.ONC.PN ---
Subjective Subjective Remarks some cough no overt bleeding very weak DECKER Objective Data Date Time Temp Pulse Resp B/P (MAP) Pulse Ox O2 Delivery O2 Flow Rate FiO2 03/07/17 20:00 97.6 79 18 129/67 (87) 94 03/07/17 16:52 97.0 90 16 119/68 (85) 93 03/07/17 12:34 Nasal Cannula 2.50 03/07/17 11:40 97.7 72 16 124/69 (87) 95 03/07/17 09:15 93 Nasal Cannula 3.00 03/07/17 08:00 97.9 77 20 116/72 (87) 94 03/07/17 04:00 97.2 75 18 120/69 (86) 94 03/07/17 00:00 97.9 83 18 143/74 (97) 94 Result Diagram: 03/07/17 1308 03/04/17 0657 Laboratory Results Laboratory Tests Test 03/07/17 13:08 White Blood Count 3.0 TH/MM3 Red Blood Count 3.89 MIL/MM3 Hemoglobin 12.0 GM/DL Hematocrit 35.8 % Mean Corpuscular Volume 92.1 FL Mean Corpuscular Hemoglobin 31.0 PG Mean Corpuscular Hemoglobin Concent 33.6 % Red Cell Distribution Width 18.6 % Platelet Count 33 TH/MM3 Mean Platelet Volume 8.5 FL Neutrophils (%) (Auto) 93.2 % Lymphocytes (%) (Auto) 4.5 % Monocytes (%) (Auto) 2.2 % Eosinophils (%) (Auto) 0.0 % Basophils (%) (Auto) 0.1 % Neutrophils # (Auto) 2.8 TH/MM3 Lymphocytes # (Auto) 0.1 TH/MM3 Monocytes # (Auto) 0.1 TH/MM3 Eosinophils # (Auto) 0.0 TH/MM3 Basophils # (Auto) 0.0 TH/MM3 CBC Comment AUTO DIFF Differential Comment AUTO DIFF CONFIRMED Platelet Estimate LOW Platelet Morphology Comment NORMAL Administered Medications Medications (Trade) Dose Ordered Sig/Jimmy Route PRN Reason Start Time Stop Time Status Last Admin Dose Admin Sodium Chloride (NS Flush) 2 ml UNSCH PRN IV FLUSH FLUSH AFTER USING IV ACCESS 02/27/17 19:30 03/02/17 14:03 Sodium Chloride (NS Flush) 2 ml BID IV FLUSH 02/27/17 21:00 03/07/17 08:32 Fluticasone/ Vilanterol (Breo Ellipta 100-25 Inh) 1 puff BID INH 02/28/17 09:00 03/07/17 08:33 Pantoprazole Sodium (Protonix) 40 mg DAILY PO 02/28/17 09:00 03/07/17 08:31 Acetaminophen (Tylenol) 650 mg Q6H PRN PO PAIN SCALE 1 TO 2 02/27/17 21:30 03/05/17 06:40 Oxycodone HCl (Roxicodone) 15 mg Q4H PRN PO PAIN SCALE 6 TO 10 02/27/17 21:30 03/07/17 17:27 Hydromorphone HCl (Dilaudid Pf Inj) 0.5 mg Q3H PRN IV BREAKTHROUGH PAIN 02/27/17 21:30 03/07/17 19:34 Senna/Docusate Sodium (Klarissa-Colace) 1 tab BID PO 02/28/17 09:00 03/04/17 22:16 Magnesium Hydroxide (Milk Of Alcides Dave) 30 ml Q12H PRN PO MILD - MODERATE CONSTIPATION 02/27/17 21:30 03/02/17 09:17 Oxycodone HCl (Roxicodone) 10 mg Q4H PRN PO pain 3-5 02/27/17 22:15 03/06/17 18:43 Benzonatate (Tessalon) 200 mg Q8H PRN PO COUGH 02/27/17 22:15 03/07/17 06:07 Guaifenesin (Mucinex Er) 600 mg BID PO 02/27/17 22:15 03/07/17 08:30 Albuterol/ Ipratropium (Duoneb Neb) 1 ampule Q6HR NEB PRN NEB SOB/WHEEZING 02/28/17 09:00 03/05/17 22:15 Polyethylene Glycol (Miralax) 17 gm DAILY PO 02/28/17 15:00 03/02/17 09:09 Alprazolam (Xanax) 0.25 mg Q6H PRN PO ANXIETY 03/01/17 15:00 03/07/17 15:49 Tamoxifen Citrate (Nolvadex) 20 mg HS PO 03/02/17 21:00 03/06/17 20:42 Morphine Sulfate (Oramorph Sr) 30 mg Q12HR PO 03/03/17 09:00 03/07/17 08:31 Morphine Sulfate (Oramorph Sr) 15 mg Q12HR PO 03/03/17 09:00 03/07/17 08:31 Amlodipine Besylate (Norvasc) 5 mg DAILY PO 03/03/17 13:00 03/07/17 08:30 Levofloxacin (Levaquin) 750 mg Q24H PO 03/04/17 12:00 03/14/17 11:59 03/07/17 12:32 Objective Remarks GENERAL: weak SKIN: Warm and dry CARDIOVASCULAR: Regular rate and rhythm without murmurs. RESPIRATORY: Breath sounds equal bilaterally. No accessory muscle use. GASTROINTESTINAL: Abdomen soft, non-tender, nondistended. EXTREMITIES: No cyanosis, or edema. Assessment/Plan Problem List: (1) Anemia ICD Codes: D64.9 - Anemia, unspecified Status: Acute (2) Nausea ICD Codes: R11.0 - Nausea Status: Acute (3) Breast cancer ICD Codes: C50.919 - Malignant neoplasm of unspecified site of unspecified female breast Status: Acute (4) Pain of metastatic malignancy ICD Codes: G89.3 - Pain of metastatic malignancy Status: Acute (5) Aspiration pneumonia ICD Codes: J69.0 - Pneumonitis due to inhalation of food and vomit Status: Acute (6) Sepsis ICD Codes: A41.9 - Sepsis, unspecified organism Status: Acute (7) Bone metastasis ICD Codes: C79.51 - Secondary malignant neoplasm of bone Status: Acute (8) Debility ICD Codes: R53.81 - Other malaise Status: Acute (9) Physical deconditioning ICD Codes: R53.81 - Other malaise Status: Acute (10) COPD exacerbation ICD Codes: J44.1 - Chronic obstructive pulmonary disease with (acute) exacerbation Status: Acute (11) Shortness of breath ICD Codes: R06.02 - Shortness of breath Assessment 76-year-old female who has stage IV breast cancer with metastasis to the spine as well as to her ribs. She presents to the emergency room with progressive dyspnea. 1. Right lung pneumonia. - On abx - blood cultures negative 02/27 - sputum growing gram negative rods - On PO Levaquin 2. COPD exacerbation. - nebs - steroids 3. Anemia with hemoglobin of 8.2. - symptomatic - s/p prbc transfusion - Hb 12 4. Acute Thrombocytopenia due to illness/medications - no evidence of hemolysis or overt DIC - likely due to acute illness - Check LDH/Haptoglobin/Fibrinogen in AM - HIT panel negative 5. Poor oral intake. encourage oral intake, supplement meals with Ensure or Boost. 6. Metastatic Pain - MS contin to 30mg q8 hrs - Cont. prn dilaudid - continue breakthrough oxycodone - pain better controlled 7. Stage IV breast cancer. Continue tamoxifen while in the hospital. Hold Ibrance. - Will check tumor markers--CA 15-3 and CA 27-29 8. Deconditioning/weakness - will need placement after discharge overnight events reviewed nasreen rn Plan Problem Qualifiers (1) Aspiration pneumonia: Qualified Codes: J69.0 - Pneumonitis due to inhalation of food and vomit (2) Sepsis: Qualified Codes: A41.9 - Sepsis, unspecified organism Eric Kirkpatrick MD Mar 07, 2017 21:53
[2017-03-07] MEDS: TAMOXIFEN CITRATE 10 MG TAB PO SCH (23:39)
[2017-03-08] VITALS: BP 157/83; PULSE 78; RESP 20; TEMP 97.1; O2SAT 92
[2017-03-08] MEDS: HYDROmorphone HCL PF 1 MG/ML VIAL IV PRN ×3 (01:41→20:15)
[2017-03-08] MEDS: ALPRAZolam 0.25 MG TAB PO PRN ×3 (03:26→18:32)
[2017-03-08 04:00] VITALS: BP 134/71; PULSE 91; RESP 17; TEMP 97.7; O2SAT 93
[2017-03-08 08:00] VITALS: BP 138/73; PULSE 85; RESP 18; TEMP 98.4; O2SAT 95
[2017-03-08] MEDS: [UNRECOGNIZED DRUG - REMARK] OTHER SCH ×2 (08:45→21:00)
[2017-03-08 08:55] LABS: INTERNATIONAL NORMALIZED RATIO 1.1 RATIO; PROTHROMBIN TIME - PATIENT 12.3 SEC (9.8-11.6)
[2017-03-08] MEDS: FLUTICASONE 100 MCG/VILANTEROL 25 MCG INHALER INH SCH ×2 (09:12→20:17)
[2017-03-08] MEDS: SODIUM CHLORIDE 0.9% FLUSH 10 ML FLUSH IV FLUSH SCH ×2 (09:12→20:18)
[2017-03-08] MEDS: guaiFENesin E.R. 600 MG TAB PO SCH ×2 (09:12→20:16)
[2017-03-08] MEDS: PANTOPRAZOLE SOD 40 MG DELAYED RELEASE TAB PO SCH (09:13)
[2017-03-08] MEDS: amLODIPine BESYLATE 5 MG TAB PO SCH (09:13)
[2017-03-08] MEDS: MORPHINE SULFATE 30 MG CONTROLLED RELEASE TAB PO SCH ×2 (09:13→20:16)
[2017-03-08] MEDS: DOCUSATE SODIUM 50 MG/SENNA 8.6 MG TAB PO SCH ×2 (09:14→20:17)
[2017-03-08] MEDS: predniSONE 20 MG TAB PO SCH (09:14)
[2017-03-08] MEDS: POLYETHYLENE GLYCOL 17 GM PKG PO SCH (09:14)
[2017-03-08] MEDS: MORPHINE SULFATE 15 MG CONTROLLED RELEASE TAB PO SCH ×2 (09:14→20:16)
--- NOTE | 2017-03-08 11:32 | HHI.PR ---
Subjective Remarks Patient looks very debilitated and tired feeling in bed I discussed with her her goal of treatment she still wants to continue with the palliative chemotherapy and see how he goes Platelet count dropped back down again, haptoglobin increase with normal LDH, Objective Vitals Vital Signs Date Time Temp Pulse Resp B/P (MAP) Pulse Ox O2 Delivery O2 Flow Rate FiO2 03/08/17 09:22 Nasal Cannula 2.50 03/08/17 08:00 98.4 85 18 138/73 (94) 95 03/08/17 05:05 18 03/08/17 04:00 97.7 91 17 134/71 (92) 93 03/08/17 02:12 18 03/08/17 01:41 18 03/08/17 01:40 18 03/08/17 00:00 97.1 78 20 157/83 (107) 92 03/07/17 23:04 Nasal Cannula 2.50 03/07/17 20:00 97.6 79 18 129/67 (87) 94 03/07/17 16:52 97.0 90 16 119/68 (85) 93 03/07/17 12:34 Nasal Cannula 2.50 03/07/17 11:40 97.7 72 16 124/69 (87) 95 I/O 03/07/17 03/07/17 03/07/17 03/08/17 03/08/17 03/08/17 07:00 15:00 23:00 07:00 15:00 23:00 # Voids 3 Result Diagram: 03/07/17 1308 03/04/17 0657 Objective Remarks GENERAL: This is a well-nourished, well-developed patient, in no apparent distress. SKIN: No rashes, warm and dry HEAD: Atraumatic. Normocephalic. EYES: Pupils equal round and reactive. Extraocular motions intact. No scleral icterus. ENT: Nose without bleeding, or drainage, Airway patent. NECK: Trachea midline. Supple CARDIOVASCULAR: Regular rate and rhythm without murmurs, gallops, or rubs. RESPIRATORY: Coarse crackles bilaterally GASTROINTESTINAL: Abdomen soft, non-tender, nondistended. Positive bowel sounds MUSCULOSKELETAL: Extremities without clubbing, cyanosis, or edema. Pedal pulses appreciated NEUROLOGICAL: Awake and alert. Moves all extremity. Normal speech.no focal neurological deficit A/P Problem List: (1) Aspiration pneumonia ICD Code: J69.0 - Pneumonitis due to inhalation of food and vomit Status: Acute (2) Sepsis ICD Code: A41.9 - Sepsis, unspecified organism Status: Acute (3) Bone metastasis ICD Code: C79.51 - Secondary malignant neoplasm of bone Status: Acute Assessment and Plan 03/04: Chest x-ray showing left tiny vague infiltrate with pleural effusion, sputum showed gram-negative rods, will follow ID recommendation for antibiotic, plate continued to drop 27 today, monitor CBC 03/05: Plan for platelet transfusion by hematology, will decrease Solu-Medrol, ID recommending DC iv antibiotic and starting Levaquin for 7-14 days 03/06: Status post platelet transfusion, nosebleed improved, however today with leukopenia WBC is 2, oncology hematology following, continue Levaquin for 7-14 days per ID recommendation, Daksha improved from 27-51K 03/07: Status post 1 pack of platelets transfused, minimal nosebleed recurrent, CBC still pending, workup for thrombocytopenia ongoing rule out HIV versus DIC 03/08: Platelet count dropped back down again, increase haptoglobin with normal LDH but consistent with hemolysis, most likely due to critical illness, oncology following, discussed with palliative care the informed me that the patient still want to continue with the treatment but she is considering hospice with any worsening situation A/P: 76 y/o female with a history of breast cancer with mets to the bone, anxiety, arthritis, copd on 2L cont at home, AAA, and emphysema presented to the ED with shortness of breath, cough and pain. Sepsis, immunocompromised due to chemotherapy, WBC 3.0, respiratory rate 26 on admission, suspected due to Aspiration pneumonia from drinking liquids. CT chest reviewed and shows atelectasis and/or infiltrate in right middle lobe. - on Vancomycin and Zosyn IV cover for hospital-acquired pneumonia. Azithromycin added per infectious disease. Continue Mucinex. Leukocytosis resolved. Start Acapella, continue incentive spirometry, COPD exacerbation, likely related to pneumonia with history of chronic respiratory failure on home oxygen at 2 L -Duonebs [id number] and as needed, Continue oxygen support, continue steroids, decreased to twice a day, continue to taper. Bone Metastasis -Cont home chemotherapy, hematology following. - Continue pain control, hematology assisting, currently on Dilaudid and Oramorph. Palliative care following. Thrombocytopenia [id number] workup, hematology following. No bleeding. Transfuse per hematology. Hypertension-restart Norvasc PT following. DVT prophylaxis: SCDs, hold chemical due to acute thrombocytopenia Discharge Planning When cleared by oncology Problem Qualifiers (1) Aspiration pneumonia: Qualified Codes: J69.0 - Pneumonitis due to inhalation of food and vomit (2) Sepsis: Qualified Codes: A41.9 - Sepsis, unspecified organism Soy Cruz MD Mar 08, 2017 11:32
[2017-03-08 12:00] VITALS: BP 140/63; PULSE 83; RESP 18; TEMP 97.8; O2SAT 93
[2017-03-08] MEDS: LEVOFLOXACIN 750 MG TAB PO SCH (12:55)
[2017-03-08 16:00] VITALS: BP 133/62; PULSE 82; RESP 20; TEMP 98; O2SAT 95
[2017-03-08 17:16] LABS: AUTOMATED NEUTROPHIL # 3.3 TH/MM3 (1.8-7.7); BASOPHIL % 0.8 % (0.0-2.0); HEMATOCRIT 35.9 % (35.0-46.0); LYMPH % 6.3 % (9.0-44.0); LYMPHOCYTE # 0.2 TH/MM3 (1.0-4.8); MEAN CELL VOLUME 92.8 FL (80.0-100.0); MEAN CORPUSCULAR HEMOGLOBIN 30.8 PG (27.0-34.0); MEAN CORPUSCULAR HGB CONC 33.2 % (32.0-36.0); MONO % 1.3 % (0.0-8.0); NEUT % 91.6 % (16.0-70.0); PLATELET COUNT 31 TH/MM3 (150-450); RED BLOOD COUNT 3.87 MIL/MM3 (4.00-5.30); RED CELL DISTRIBUTION WIDTH 18.1 % (11.6-17.2); WHITE BLOOD COUNT 3.6 TH/MM3 (4.0-11.0)
[2017-03-08 17:34] LABS: HEMO FLAGS AUTO DIFF
[2017-03-08 18:14] LABS: BANDS 7 % (0-6); NEUTROPHIL # MANUAL DIFF 3.3 TH/MM3 (1.8-7.7); POLYS (SEG NEUTROPHILS) 85 % (16-70); WBC DIFF SAMPLE 100
[2017-03-08 18:15] LABS: PLATELET ESTIMATE SMEAR LOW (NORMAL); PLATELET MORPHOLOGY NORMAL (NORMAL); SCAN/DIFF FINAL DIFF MANUAL
--- NOTE | 2017-03-08 19:38 | PD.ONC.PN ---
Subjective Subjective Remarks weak and deconditioned appetite poor no bleeding no fevers d.w rn Objective Data Date Time Temp Pulse Resp B/P (MAP) Pulse Ox O2 Delivery O2 Flow Rate FiO2 03/08/17 18:49 95 Nasal Cannula 3.00 03/08/17 16:00 98.0 82 20 133/62 (85) 95 03/08/17 12:00 97.8 83 18 140/63 (88) 93 03/08/17 09:22 Nasal Cannula 2.50 03/08/17 08:00 98.4 85 18 138/73 (94) 95 03/08/17 05:05 18 03/08/17 04:00 97.7 91 17 134/71 (92) 93 03/08/17 02:12 18 03/08/17 01:41 18 03/08/17 01:40 18 03/08/17 00:00 97.1 78 20 157/83 (107) 92 03/07/17 23:04 Nasal Cannula 2.50 03/07/17 20:00 97.6 79 18 129/67 (87) 94 03/08/17 03/08/17 03/08/17 07:00 15:00 23:00 Output Total 1 ml Balance -1 ml Result Diagram: 03/08/17 1607 03/04/17 0657 Laboratory Results Laboratory Tests Test 03/08/17 07:33 03/08/17 16:07 Haptoglobin 282 MG/DL Prothrombin Time 12.3 SEC Prothromb Time International Ratio 1.1 RATIO Fibrinogen 215 mg/dL Lactate Dehydrogenase 209 U/L CA 15-3 Antigen 30.7 U/ML White Blood Count 3.6 TH/MM3 Red Blood Count 3.87 MIL/MM3 Hemoglobin 11.9 GM/DL Hematocrit 35.9 % Mean Corpuscular Volume 92.8 FL Mean Corpuscular Hemoglobin 30.8 PG Mean Corpuscular Hemoglobin Concent 33.2 % Red Cell Distribution Width 18.1 % Platelet Count 31 TH/MM3 Mean Platelet Volume 9.1 FL Neutrophils (%) (Auto) 91.6 % Lymphocytes (%) (Auto) 6.3 % Monocytes (%) (Auto) 1.3 % Eosinophils (%) (Auto) 0.0 % Basophils (%) (Auto) 0.8 % Neutrophils # (Auto) 3.3 TH/MM3 Lymphocytes # (Auto) 0.2 TH/MM3 Monocytes # (Auto) 0.0 TH/MM3 Eosinophils # (Auto) 0.0 TH/MM3 Basophils # (Auto) 0.0 TH/MM3 CBC Comment AUTO DIFF Differential Total Cells Counted 100 Neutrophils % (Manual) 85 % Band Neutrophils % 7 % Lymphocytes % 4 % Monocytes % 4 % Neutrophils # (Manual) 3.3 TH/MM3 Differential Comment FINAL DIFF MANUAL Platelet Estimate LOW Platelet Morphology Comment NORMAL Red Cell Morphology Comment NORMAL Administered Medications Medications (Trade) Dose Ordered Sig/Jimmy Route PRN Reason Start Time Stop Time Status Last Admin Dose Admin Sodium Chloride (NS Flush) 2 ml UNSCH PRN IV FLUSH FLUSH AFTER USING IV ACCESS 02/27/17 19:30 03/02/17 14:03 Sodium Chloride (NS Flush) 2 ml BID IV FLUSH 02/27/17 21:00 03/08/17 09:12 Fluticasone/ Vilanterol (Breo Ellipta 100-25 Inh) 1 puff BID INH 02/28/17 09:00 03/08/17 09:12 Pantoprazole Sodium (Protonix) 40 mg DAILY PO 02/28/17 09:00 03/08/17 09:13 Acetaminophen (Tylenol) 650 mg Q6H PRN PO PAIN SCALE 1 TO 2 02/27/17 21:30 03/05/17 06:40 Oxycodone HCl (Roxicodone) 15 mg Q4H PRN PO PAIN SCALE 6 TO 10 02/27/17 21:30 03/07/17 17:27 Hydromorphone HCl (Dilaudid Pf Inj) 0.5 mg Q3H PRN IV BREAKTHROUGH PAIN 02/27/17 21:30 03/08/17 14:48 Senna/Docusate Sodium (Klarissa-Colace) 1 tab BID PO 02/28/17 09:00 03/04/17 22:16 Magnesium Hydroxide (Milk Of Magnesia Liq) 30 ml Q12H PRN PO MILD - MODERATE CONSTIPATION 02/27/17 21:30 03/02/17 09:17 Oxycodone HCl (Roxicodone) 10 mg Q4H PRN PO pain 3-5 02/27/17 22:15 03/08/17 03:26 Benzonatate (Tessalon) 200 mg Q8H PRN PO COUGH 02/27/17 22:15 03/07/17 06:07 Guaifenesin (Mucinex Er) 600 mg BID PO 02/27/17 22:15 03/08/17 09:12 Albuterol/ Ipratropium (Duoneb Neb) 1 ampule Q6HR NEB PRN NEB SOB/WHEEZING 02/28/17 09:00 03/05/17 22:15 Polyethylene Glycol (Miralax) 17 gm DAILY PO 02/28/17 15:00 03/02/17 09:09 Alprazolam (Xanax) 0.25 mg Q6H PRN PO ANXIETY 03/01/17 15:00 03/08/17 18:32 Tamoxifen Citrate (Nolvadex) 20 mg HS PO 03/02/17 21:00 03/07/17 23:39 Morphine Sulfate (Oramorph Sr) 30 mg Q12HR PO 03/03/17 09:00 03/08/17 09:13 Morphine Sulfate (Oramorph Sr) 15 mg Q12HR PO 03/03/17 09:00 03/08/17 09:14 Amlodipine Besylate (Norvasc) 5 mg DAILY PO 03/03/17 13:00 03/08/17 09:13 Levofloxacin (Levaquin) 750 mg Q24H PO 03/04/17 12:00 03/14/17 11:59 03/08/17 12:55 Prednisone (Deltasone) 40 mg DAILY PO 03/08/17 09:00 03/08/17 09:14 Objective Remarks GENERAL: nad SKIN: Warm and dry LYMPHATIC: No adenopathy. CARDIOVASCULAR: Regular rate and rhythm without murmurs. RESPIRATORY: Breath sounds equal bilaterally. No accessory muscle use. GASTROINTESTINAL: Abdomen soft, non-tender, nondistended. EXTREMITIES: No cyanosis, or edema. Assessment/Plan Problem List: (1) Anemia ICD Codes: D64.9 - Anemia, unspecified Status: Acute (2) Nausea ICD Codes: R11.0 - Nausea Status: Acute (3) Breast cancer ICD Codes: C50.919 - Malignant neoplasm of unspecified site of unspecified female breast Status: Acute (4) Pain of metastatic malignancy ICD Codes: G89.3 - Pain of metastatic malignancy Status: Acute (5) Aspiration pneumonia ICD Codes: J69.0 - Pneumonitis due to inhalation of food and vomit Status: Acute (6) Sepsis ICD Codes: A41.9 - Sepsis, unspecified organism Status: Acute (7) Bone metastasis ICD Codes: C79.51 - Secondary malignant neoplasm of bone Status: Acute (8) Debility ICD Codes: R53.81 - Other malaise Status: Acute (9) Physical deconditioning ICD Codes: R53.81 - Other malaise Status: Acute (10) COPD exacerbation ICD Codes: J44.1 - Chronic obstructive pulmonary disease with (acute) exacerbation Status: Acute (11) Shortness of breath ICD Codes: R06.02 - Shortness of breath Assessment 76-year-old female who has stage IV breast cancer with metastasis to the spine as well as to her ribs. She presents to the emergency room with progressive dyspnea. 1. Right lung pneumonia. - blood cultures negative 02/27 - sputum growing gram negative rods - On PO Levaquin 2. COPD exacerbation. - nebs - steroids 3. Anemia with hemoglobin >11. 4. Acute Thrombocytopenia due to illness/medications - no evidence of hemolysis or overt DIC. LDH high, Haptoglobin normal. Fibrinogen normal - likely due to acute illness - HIT panel negative - HOLD IBRANCE 5. Poor oral intake. encourage oral intake, supplement meals with Ensure or Boost. 6. Metastatic Pain - MS contin to 30mg q8 hrs - Cont. prn dilaudid - continue breakthrough oxycodone - pain better controlled 7. Stage IV breast cancer. Continue tamoxifen while in the hospital. Hold Ibrance. 8. Deconditioning/weakness - will need placement after discharge 9. Poor appetite - Start Remeron - encourage oral intake overnight events reviewed Plan Problem Qualifiers (1) Aspiration pneumonia: Qualified Codes: J69.0 - Pneumonitis due to inhalation of food and vomit (2) Sepsis: Qualified Codes: A41.9 - Sepsis, unspecified organism Eric Kirkpatrick MD Mar 08, 2017 19:38
[2017-03-08 20:00] VITALS: BP 126/71; PULSE 84; RESP 18; TEMP 97.6; O2SAT 95
[2017-03-08] MEDS: TAMOXIFEN CITRATE 10 MG TAB PO SCH (20:16)
[2017-03-09] VITALS: BP 132/66; PULSE 78; RESP 17; TEMP 98; O2SAT 94
[2017-03-09 04:00] VITALS: BP 145/67; PULSE 76; RESP 17; TEMP 97.5; O2SAT 94
[2017-03-09 07:50] VITALS: BP 142/74; PULSE 79; RESP 20; TEMP 98.2; O2SAT 92
--- NOTE | 2017-03-09 08:53 | HHI.PR ---
Subjective Remarks Patient resting in bed, no fever or chills no bleeding, platelet count 31 yesterday, she is on tamoxifen,ibran was on hold per oncology Palliative care following Objective Vitals Vital Signs Date Time Temp Pulse Resp B/P (MAP) Pulse Ox O2 Delivery O2 Flow Rate FiO2 03/09/17 04:00 97.5 76 17 145/67 (93) 94 03/09/17 00:00 98.0 78 17 132/66 (88) 94 03/08/17 21:15 16 03/08/17 21:15 16 03/08/17 20:45 18 03/08/17 20:15 Nasal Cannula 2.00 03/08/17 20:00 97.6 84 18 126/71 (89) 95 03/08/17 18:49 95 Nasal Cannula 3.00 03/08/17 16:00 98.0 82 20 133/62 (85) 95 03/08/17 12:00 97.8 83 18 140/63 (88) 93 03/08/17 09:22 Nasal Cannula 2.50 I/O 03/08/17 03/08/17 03/08/17 03/09/17 03/09/17 03/09/17 07:00 15:00 23:00 07:00 15:00 23:00 Intake Total 720 ml Output Total 1 ml Balance 719 ml Intake Oral 720 ml Output Stool Total 1 ml # Voids 3 3 1 # Bowel Movements 1 Result Diagram: 03/08/17 1606 Objective Remarks GENERAL: This is a well-nourished, well-developed patient, in no apparent distress. SKIN: No rashes, warm and dry HEAD: Atraumatic. Normocephalic. EYES: Pupils equal round and reactive. Extraocular motions intact. No scleral icterus. ENT: Nose without bleeding, or drainage, Airway patent. NECK: Trachea midline. Supple CARDIOVASCULAR: Regular rate and rhythm without murmurs, gallops, or rubs. RESPIRATORY: Coarse crackles bilaterally GASTROINTESTINAL: Abdomen soft, non-tender, nondistended. Positive bowel sounds MUSCULOSKELETAL: Extremities without clubbing, cyanosis, or edema. Pedal pulses appreciated NEUROLOGICAL: Awake and alert. Moves all extremity. Normal speech.no focal neurological deficit A/P Problem List: (1) Aspiration pneumonia ICD Code: J69.0 - Pneumonitis due to inhalation of food and vomit Status: Acute (2) Sepsis ICD Code: A41.9 - Sepsis, unspecified organism Status: Acute (3) Bone metastasis ICD Code: C79.51 - Secondary malignant neoplasm of bone Status: Acute Assessment and Plan 03/04: Chest x-ray showing left tiny vague infiltrate with pleural effusion, sputum showed gram-negative rods, will follow ID recommendation for antibiotic, plate continued to drop 27 today, monitor CBC 03/05: Plan for platelet transfusion by hematology, will decrease Solu-Medrol, ID recommending DC iv antibiotic and starting Levaquin for 7-14 days 03/06: Status post platelet transfusion, nosebleed improved, however today with leukopenia WBC is 2, oncology hematology following, continue Levaquin for 7-14 days per ID recommendation, Daksha improved from 27-51K 03/07: Status post 1 pack of platelets transfused, minimal nosebleed recurrent, CBC still pending, workup for thrombocytopenia ongoing rule out HIV versus DIC 03/08: Platelet count dropped back down again, increase haptoglobin with normal LDH but consistent with hemolysis, most likely due to critical illness, oncology following, discussed with palliative care the informed me that the patient still want to continue with the treatment but she is considering hospice with any worsening situation 03/09: CBC still pending, platelet 31 yesterday, continue following with oncology the patient on tamoxifen, ibran on hold, no bleeding today A/P: 76 y/o female with a history of breast cancer with mets to the bone, anxiety, arthritis, copd on 2L cont at home, AAA, and emphysema presented to the ED with shortness of breath, cough and pain. Sepsis, immunocompromised due to chemotherapy, WBC 3.0, respiratory rate 26 on admission, suspected due to Aspiration pneumonia from drinking liquids. CT chest reviewed and shows atelectasis and/or infiltrate in right middle lobe. - on Vancomycin and Zosyn IV cover for hospital-acquired pneumonia. Azithromycin added per infectious disease. Continue Mucinex. Leukocytosis resolved. Start Acapella, continue incentive spirometry, COPD exacerbation, likely related to pneumonia with history of chronic respiratory failure on home oxygen at 2 L -Duonebs [id number] and as needed, Continue oxygen support, continue steroids, decreased to twice a day, continue to taper. Bone Metastasis -Cont home chemotherapy, hematology following. - Continue pain control, hematology assisting, currently on Dilaudid and Oramorph. Palliative care following. Thrombocytopenia [id number] workup, hematology following. No bleeding. Transfuse per hematology. Hypertension-restart Norvasc PT following. DVT prophylaxis: SCDs, hold chemical due to acute thrombocytopenia Discharge Planning When cleared by oncology Problem Qualifiers (1) Aspiration pneumonia: Qualified Codes: J69.0 - Pneumonitis due to inhalation of food and vomit (2) Sepsis: Qualified Codes: A41.9 - Sepsis, unspecified organism Soy Cruz MD Mar 09, 2017 08:53
[2017-03-09] MEDS: [UNRECOGNIZED DRUG - REMARK] OTHER SCH ×2 (09:00→21:00)
[2017-03-09] MEDS ORDERED: MIRTAZAPINE 15 MG TAB PO ONE (09:00)
[2017-03-09] MEDS: guaiFENesin E.R. 600 MG TAB PO SCH ×2 (09:47→21:22)
[2017-03-09] MEDS: ALPRAZolam 0.25 MG TAB PO PRN ×2 (09:47→21:27)
[2017-03-09] MEDS: predniSONE 20 MG TAB PO SCH (09:47)
[2017-03-09] MEDS: PANTOPRAZOLE SOD 40 MG DELAYED RELEASE TAB PO SCH (09:48)
[2017-03-09] MEDS: DOCUSATE SODIUM 50 MG/SENNA 8.6 MG TAB PO SCH ×2 (09:48→21:23)
[2017-03-09] MEDS: MORPHINE SULFATE 30 MG CONTROLLED RELEASE TAB PO SCH ×2 (09:48→21:24)
[2017-03-09] MEDS: amLODIPine BESYLATE 5 MG TAB PO SCH (09:48)
[2017-03-09] MEDS: MORPHINE SULFATE 15 MG CONTROLLED RELEASE TAB PO SCH ×2 (09:48→21:00)
[2017-03-09] MEDS: POLYETHYLENE GLYCOL 17 GM PKG PO SCH (09:51)
[2017-03-09 09:52] VITALS: O2SAT 94
[2017-03-09] MEDS: FLUTICASONE 100 MCG/VILANTEROL 25 MCG INHALER INH SCH ×2 (09:52→21:00)
[2017-03-09] MEDS: SODIUM CHLORIDE 0.9% FLUSH 10 ML FLUSH IV FLUSH SCH ×2 (09:52→21:00)
[2017-03-09 10:53] LABS: AUTOMATED NEUTROPHIL # 3.5 TH/MM3 (1.8-7.7); BASOPHIL % 0.2 % (0.0-2.0); EOSINOPHIL % 0.4 % (0.0-4.0); HEMATOCRIT 37.6 % (35.0-46.0); LYMPH % 12.4 % (9.0-44.0); LYMPHOCYTE # 0.5 TH/MM3 (1.0-4.8); MEAN CELL VOLUME 93.6 FL (80.0-100.0); MEAN CORPUSCULAR HEMOGLOBIN 30.5 PG (27.0-34.0); MEAN CORPUSCULAR HGB CONC 32.5 % (32.0-36.0); PLATELET COUNT 30 TH/MM3 (150-450); RED BLOOD COUNT 4.01 MIL/MM3 (4.00-5.30); RED CELL DISTRIBUTION WIDTH 18.7 % (11.6-17.2); WHITE BLOOD COUNT 4.3 TH/MM3 (4.0-11.0)
[2017-03-09 11:12] LABS: HEMO FLAGS AUTO DIFF
[2017-03-09] MEDS: LEVOFLOXACIN 750 MG TAB PO SCH (11:28)
[2017-03-09 11:50] VITALS: BP 143/69; PULSE 78; RESP 20; TEMP 97.8; O2SAT 93
[2017-03-09 12:35] LABS: PLATELET ESTIMATE SMEAR LOW (NORMAL); PLATELET MORPHOLOGY NORMAL (NORMAL); SCAN/DIFF AUTO DIFF CONFIRMED
[2017-03-09 15:50] VITALS: BP 143/70; PULSE 83; RESP 20; TEMP 97.9; O2SAT 96
--- NOTE | 2017-03-09 17:08 | HHI.HCPN ---
Reason for visit a. To assist with evaluation and management of symptoms including: Pain, shortness of breath, decreased appetite, debility. b. To assist medical decision maker(s) with: better understanding of current medical conditions; weighing benefits/burdens of medical treatment options; making medical treatment decisions. . Subjective/Interval History Mrs. Gunter is a 76-year-old female with a past medical history significant for invasive mammary carcinoma status post left simple mastectomy with sentinel lymph node sampling which was positive for micrometastasis. 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 Patient also with history of COPD and emphysema, O2 dependent. Patient following with Dr. Kirkpatrick outpatient. Last seen on 02/17/17. As per oncology notes, patient has been on tamoxifen for hormonal blockage therapy area and she was initiated on Ibrance and started on Xgeva. Palliative care consulted for further assistance with pain and symptom management. Patient seen in her room, she was resting in bed in no acute distress. Patient and oriented x self, place and situation. left ribs that is described as sharp , intermittent. Exacerbated by movement, physical exertion. Pain currently / 10. Alleviated with rest and opioid medication. Reports that her thoracic and lumbar pain is much improved with increase in long-acting morphine. Last BM today. Patient reports that appetite and oral intake has improved in the last 2 days. Laboratory workup today revealing WBC 4.3, Hgb 12.2, platelet count 30 from 31 yesterday. Hit panel negative, thrombocytopenia likely secondary to acute illness. Telephone conversation with patient's daughter Aliza. Medical update provided. Shared concerns of patient's profound physical deconditioning, continued weight loss and increased symptom burden as evidenced by intractable pain and shortness of breath. Discussed recommendations by PT to include SNF for rehabilitation. Patient and daughter declining rehabilitation at SNF, wishing to discharge patient home with home health/PT once medically stable. Shared concerns of patient's ability to continue systemic treatment/chemotherapy given progressive decline in performance status. Daughter reports that when no additional therapy is offered by oncology, patient and family receptive to hospice services at that time. Questions were answered in great detail. Daughter appreciative of my call today. . Family/friend interactions See interval note. . Advance Directives Health Care Surrogate: Copy in medical record Advance Directive Specifics Date completed: 01/25/17. . Health Care Surrogate(s): HCS/daughter Cynthia Ty grandson/alt HCS: Rafael Ty . Documented care wishes: Living will completed with standard verbiage as it pertains to life support. . Significant change in goals: Goals of care remain unchanged. . Objective Vital Signs Date Time Temp Pulse Resp B/P (MAP) Pulse Ox O2 Delivery O2 Flow Rate FiO2 03/09/17 15:50 97.9 83 20 143/70 (94) 96 03/09/17 11:50 97.8 78 20 143/69 (93) 93 03/09/17 09:52 94 Nasal Cannula 3.00 03/09/17 07:50 98.2 79 20 142/74 (96) 92 03/09/17 04:00 97.5 76 17 145/67 (93) 94 03/09/17 00:00 98.0 78 17 132/66 (88) 94 03/08/17 21:15 16 03/08/17 21:15 16 03/08/17 20:45 18 03/08/17 20:15 Nasal Cannula 2.00 03/08/17 20:00 97.6 84 18 126/71 (89) 95 03/08/17 18:49 95 Nasal Cannula 3.00 Intake & Output 03/09/17 03/09/17 07:00 19:00 # Voids 1 Physical Exam CONSTITUTIONAL/GENERAL: This is a thin, frail elderly female resting in bed in no acute distress. TUBES/LINES/DRAINS: Nasal cannula, PIV. SKIN: No jaundice, rashes, or lesions. large areas of ecchymoses on upper extremities and chest. No wounds seen anteriorly. Skin temperature appropriate. Not diaphoretic. Bilateral temporal wasting noted. HEAD: Atraumatic. Normocephalic. EYES: Pupils equal and round and reactive. Extraocular motions intact. No scleral icterus. No injection or drainage. Ptosis to left eye. ENT: Hearing grossly normal. Nose without bleeding or purulent drainage. Moist oral mucosa. NECK: Trachea midline. Supple, nontender. CARDIOVASCULAR: Regular rate and rhythm without murmurs, gallops, or rubs. No JVD. Peripheral pulses symmetric. RESPIRATORY/CHEST: Symmetric, unlabored respirations. Diminished to auscultation. O2 via nasal cannula at 2 L. GASTROINTESTINAL: Abdomen soft, round, non-tender. No guarding. Bowel sounds present. GENITOURINARY: Without palpable bladder distension. MUSCULOSKELETAL: Extremities without clubbing, cyanosis, or edema. Tender thoracic and lumbar spine to palpation. NEUROLOGICAL: Awake and alert x self, place and situation. Motor and sensory grossly within normal limits. Follows commands. Cognitively sharp. Moves all extremities. PSYCHIATRIC: No obvious anxiety/depression. no apparent hallucinations or other psychotic thought process. Pleasant and cooperative. . Diagnostic Tests Laboratory Laboratory Tests Test 03/07/17 13:08 03/08/17 07:33 03/08/17 16:07 03/09/17 08:45 White Blood Count 3.0 TH/MM3 (4.0-11.0) 3.6 TH/MM3 (4.0-11.0) 4.3 TH/MM3 (4.0-11.0) Red Blood Count 3.89 MIL/MM3 (4.00-5.30) 3.87 MIL/MM3 (4.00-5.30) 4.01 MIL/MM3 (4.00-5.30) Hemoglobin 12.0 GM/DL (11.6-15.3) 11.9 GM/DL (11.6-15.3) 12.2 GM/DL (11.6-15.3) Hematocrit 35.8 % (35.0-46.0) 35.9 % (35.0-46.0) 37.6 % (35.0-46.0) Mean Corpuscular Volume 92.1 FL (80.0-100.0) 92.8 FL (80.0-100.0) 93.6 FL (80.0-100.0) Mean Corpuscular Hemoglobin 31.0 PG (27.0-34.0) 30.8 PG (27.0-34.0) 30.5 PG (27.0-34.0) Mean Corpuscular Hemoglobin Concent 33.6 % (32.0-36.0) 33.2 % (32.0-36.0) 32.5 % (32.0-36.0) Red Cell Distribution Width 18.6 % (11.6-17.2) 18.1 % (11.6-17.2) 18.7 % (11.6-17.2) Platelet Count 33 TH/MM3 (150-450) 31 TH/MM3 (150-450) 30 TH/MM3 (150-450) Mean Platelet Volume 8.5 FL (7.0-11.0) 9.1 FL (7.0-11.0) 8.9 FL (7.0-11.0) Neutrophils (%) (Auto) 93.2 % (16.0-70.0) 91.6 % (16.0-70.0) 80.0 % (16.0-70.0) Lymphocytes (%) (Auto) 4.5 % (9.0-44.0) 6.3 % (9.0-44.0) 12.4 % (9.0-44.0) Monocytes (%) (Auto) 2.2 % (0.0-8.0) 1.3 % (0.0-8.0) 7.0 % (0.0-8.0) Eosinophils (%) (Auto) 0.0 % (0.0-4.0) 0.0 % (0.0-4.0) 0.4 % (0.0-4.0) Basophils (%) (Auto) 0.1 % (0.0-2.0) 0.8 % (0.0-2.0) 0.2 % (0.0-2.0) Neutrophils # (Auto) 2.8 TH/MM3 (1.8-7.7) 3.3 TH/MM3 (1.8-7.7) 3.5 TH/MM3 (1.8-7.7) Lymphocytes # (Auto) 0.1 TH/MM3 (1.0-4.8) 0.2 TH/MM3 (1.0-4.8) 0.5 TH/MM3 (1.0-4.8) Monocytes # (Auto) 0.1 TH/MM3 (0-0.9) 0.0 TH/MM3 (0-0.9) 0.3 TH/MM3 (0-0.9) Eosinophils # (Auto) 0.0 TH/MM3 (0-0.4) 0.0 TH/MM3 (0-0.4) 0.0 TH/MM3 (0-0.4) Basophils # (Auto) 0.0 TH/MM3 (0-0.2) 0.0 TH/MM3 (0-0.2) 0.0 TH/MM3 (0-0.2) CBC Comment AUTO DIFF AUTO DIFF AUTO DIFF Differential Comment AUTO DIFF CONFIRMED FINAL DIFF MANUAL AUTO DIFF CONFIRMED Platelet Estimate LOW (NORMAL) LOW (NORMAL) LOW (NORMAL) Platelet Morphology Comment NORMAL (NORMAL) NORMAL (NORMAL) NORMAL (NORMAL) Haptoglobin 282 MG/DL (30-200) Prothrombin Time 12.3 SEC (9.8-11.6) Prothromb Time International Ratio 1.1 RATIO Fibrinogen 215 mg/dL (227-377) Lactate Dehydrogenase 209 U/L (84-246) CA 15-3 Antigen 30.7 U/ML (0.0-32.4) Differential Total Cells Counted 100 Neutrophils % (Manual) 85 % (16-70) Band Neutrophils % 7 % (0-6) Lymphocytes % 4 % (9-44) Monocytes % 4 % (0-8) Neutrophils # (Manual) 3.3 TH/MM3 (1.8-7.7) Red Cell Morphology Comment NORMAL (NORMAL) NORMAL (NORMAL) Result Diagram: 03/09/17 0845 Assessment and Plan Disease Oriented Problem List: (1) COPD exacerbation (2) Aspiration pneumonia (3) Pain of metastatic malignancy (4) Bone metastasis (5) Physical deconditioning Symptom Scale: (1) Pain 0-10 Scale: 9 Comment: To thoracic and lumbar spine secondary to bony metastasis. (2) Shortness of breath 0-10 Scale: Unable to quantify Comment: COPD, pneumonia. (3) Debility 0-10 Scale: Unable to quantify Comment: Progressive. Pertinent Non-Medical Issues Psychosocial: Originally from [place]. , has 3 children. 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 Spiritual: No rastafarian affiliation. Legal: Advance directives completed. Ethical issues impacting care: No ethical issues identified. Patient participating in medical decision-making. . Important Contacts HCS/daughter Cynthia Ty grandson/alt [facility]: Rafael Ty . Prognosis Mrs. Gunter is a 76-year-old female with a past medical history significant for invasive mammary carcinoma status post left simple mastectomy with sentinel lymph node sampling which was positive for micrometastasis. Patient also with history of COPD and emphysema, O2 dependent. Patient with newly diagnosed bony metastasis to entire spine and ribs, currently receiving palliative chemotherapy. Patient at high risk for further complications, continue decline and given multiple chronic ongoing comorbidities, progressive physical decline, advanced age and overall debilitated state. . Code Status: No Code Plan * CODE STATUS: No code. DNR/DNI. Community DNR completed on 01/25/17. * MEDICAL DECISION-MAKING: Patient participating in medical decision-making. Patient demonstrates a good understanding of her medical condition and the ability to weight the benefits and burdens of treatment options. Patient designated her daughter Cynthia as HCS, alternate surrogate grandson Rafael Ty. * GOALS OF CARE: 03/09/17 -Patient and family electing to continue with current disease specific management/palliative chemo while maintaining the best quality of life. Patient currently under the treatment of Dr. Kirkpatrick, she plans to continue f/u upon discharge. Hospice philosophy and benefits has been previously introduced, patient and daughter receptive to hospice should her clinical condition worsened, inability to continue systemic treatment, increased symptom burden or additional physical decline. * Telephone conversation with patient's daughter Cynthia. Medical update provided. Shared concerns of patient's profound physical deconditioning, continued weight loss and increased symptom burden as evidenced by intractable pain and shortness of breath. Discussed recommendations by PT to include SNF for rehabilitation. Patient and daughter declining rehabilitation at SNF, wishing to discharge patient home with home health/PT once medically stable. Shared concerns of patient's ability to continue systemic treatment/ chemotherapy given progressive decline in performance status. Daughter reports that when no additional therapy is offered by oncology, patient and family receptive to hospice services at that time. Hospice philosophy and benefits previously introduced. . * SYMPTOMS: * =Pain to chest and thoracic and lumbar spine, secondary to bony metastasis/ burden of disease. Pain regimen consisting of ER 45mg twice a day -this was increased from 30mg BID on 03/03/17. Oxycodone 10mg to 15mg q4h PRN for breakthrough pain. In the past 24 hours, patient has taken 1 doses of oxycodone 10 mg and 1 doses of 15 mg for a total of 40 mg. hydromorphone 0.5 mg IV Q3h PRN pain, has received 3 doses in the past 24 hours. Given opioid PRN use within the past 24 hours, palliative care recommends discontinuing oxycodone 10 mg, keeping oxycodone 15 mg q4h PRN for moderate pain and adding oxycodone 20 mg q4h PRN for severe pain. No adjustments on extended release morphine recommended at this time. * =Anxiety, exacerbated by pain and shortness of breath. Xanax 0.25 mg PRN q6h hours available. Received 2 doses yesterday and 2 doses today with good effect. * =Constipation, exacerbated by opioid and bedrest. Last BM today. Patient currently on Klarissa-Colace 1 tab twice a day. MOM, Dulcolax sup and Senokot available as needed. * =Shortness of breath, COPD O2 dependent at home. Exacerbated by pneumonia. Currently tolerating O2 at 3L via nasal cannula 2 L. patient reports that Xanax is effective for shortness of breath. * =Debility, progressive. Patient and family declining SNF placement for rehab. Wishing to discharge home with home health/PT as tolerated. * Case discussed with casework supervisor Rachel. Patient and family declining significantly placement for rehabilitation. * Palliative care contact information has been provided to patient and daughter. * Palliative care will continue to follow-up for assistance in symptom management as patient's clinical condition continues to evolve. . Time Spent Total Floor Time (mins): 38 (Total time to include review of medical records, physical exam, goals of care conversation with patient, telephone conversation with patient's daughter, discussion with casework supervisor.) >50% Counseling/Coord of Care: Yes Attestation To help prompt me to consider important information that might be impacting today's encounter and assessment, information from prior notes written by myself or my colleagues may have been "brought forward" into today's note. My signature on this note, however, is an attestation that I personally performed the exam, history, and/or decision-making noted today, and, unless otherwise indicated, the interactions with patient, family, and staff as well as the review of records all occurred today. I also attest that the listed assessment and stated plan reflect my best clinical judgment today based on the combination of historical information, prior notes, and today's exam/ interactions. When time spent is documented, it refers only to time spent today by the signer, or if indicated, combined time spent today by collaborating physician/nurse practitioner. Ysabel Garnica Mar 09, 2017 17:08
[2017-03-09] MEDS: TAMOXIFEN CITRATE 10 MG TAB PO SCH (21:23)
--- NOTE | 2017-03-09 21:48 | PD.ONC.PN ---
Subjective Subjective Remarks no bleeding remains weak will need rehab placement oral intake--says trying to eat Objective Data Date Time Temp Pulse Resp B/P (MAP) Pulse Ox O2 Delivery O2 Flow Rate FiO2 03/09/17 15:50 97.9 83 20 143/70 (94) 96 03/09/17 11:50 97.8 78 20 143/69 (93) 93 03/09/17 09:52 94 Nasal Cannula 3.00 03/09/17 07:50 98.2 79 20 142/74 (96) 92 03/09/17 04:00 97.5 76 17 145/67 (93) 94 03/09/17 00:00 98.0 78 17 132/66 (88) 94 03/09/17 03/09/17 03/09/17 07:00 15:00 23:00 Intake Total 250 ml Balance 250 ml Result Diagram: 03/09/17 0845 Laboratory Results Laboratory Tests Test 03/09/17 08:45 White Blood Count 4.3 TH/MM3 Red Blood Count 4.01 MIL/MM3 Hemoglobin 12.2 GM/DL Hematocrit 37.6 % Mean Corpuscular Volume 93.6 FL Mean Corpuscular Hemoglobin 30.5 PG Mean Corpuscular Hemoglobin Concent 32.5 % Red Cell Distribution Width 18.7 % Platelet Count 30 TH/MM3 Mean Platelet Volume 8.9 FL Neutrophils (%) (Auto) 80.0 % Lymphocytes (%) (Auto) 12.4 % Monocytes (%) (Auto) 7.0 % Eosinophils (%) (Auto) 0.4 % Basophils (%) (Auto) 0.2 % Neutrophils # (Auto) 3.5 TH/MM3 Lymphocytes # (Auto) 0.5 TH/MM3 Monocytes # (Auto) 0.3 TH/MM3 Eosinophils # (Auto) 0.0 TH/MM3 Basophils # (Auto) 0.0 TH/MM3 CBC Comment AUTO DIFF Differential Comment AUTO DIFF CONFIRMED Platelet Estimate LOW Platelet Morphology Comment NORMAL Red Cell Morphology Comment NORMAL Administered Medications Medications (Trade) Dose Ordered Sig/Jimmy Route PRN Reason Start Time Stop Time Status Last Admin Dose Admin Sodium Chloride (NS Flush) 2 ml UNSCH PRN IV FLUSH FLUSH AFTER USING IV ACCESS 02/27/17 19:30 03/02/17 14:03 Sodium Chloride (NS Flush) 2 ml BID IV FLUSH 02/27/17 21:00 8/30/17 09:52 Fluticasone/ Vilanterol (Breo Ellipta 100-25 Inh) 1 puff BID INH 02/28/17 09:00 03/09/17 09:52 Pantoprazole Sodium (Protonix) 40 mg DAILY PO 02/28/17 09:00 03/09/17 09:48 Acetaminophen (Tylenol) 650 mg Q6H PRN PO PAIN SCALE 1 TO 2 02/27/17 21:30 03/05/17 06:40 Oxycodone HCl (Roxicodone) 15 mg Q4H PRN PO PAIN SCALE 6 TO 10 02/27/17 21:30 03/09/17 17:58 Hydromorphone HCl (Dilaudid Pf Inj) 0.5 mg Q3H PRN IV BREAKTHROUGH PAIN 02/27/17 21:30 03/08/17 20:15 Senna/Docusate Sodium (Klarissa-Colace) 1 tab BID PO 02/28/17 09:00 03/09/17 21:23 Magnesium Hydroxide (Milk Of Magnvirgil Liq) 30 ml Q12H PRN PO MILD - MODERATE CONSTIPATION 02/27/17 21:30 03/02/17 09:17 Oxycodone HCl (Roxicodone) 10 mg Q4H PRN PO pain 3-5 02/27/17 22:15 03/08/17 03:26 Benzonatate (Tessalon) 200 mg Q8H PRN PO COUGH 02/27/17 22:15 03/07/17 06:07 Guaifenesin (Mucinex Er) 600 mg BID PO 02/27/17 22:15 03/09/17 21:22 Albuterol/ Ipratropium (Duoneb Neb) 1 ampule Q6HR NEB PRN NEB SOB/WHEEZING 02/28/17 09:00 03/05/17 22:15 Polyethylene Glycol (Miralax) 17 gm DAILY PO 02/28/17 15:00 03/09/17 09:51 Alprazolam (Xanax) 0.25 mg Q6H PRN PO ANXIETY 03/01/17 15:00 03/09/17 21:27 Tamoxifen Citrate (Nolvadex) 20 mg HS PO 03/02/17 21:00 03/09/17 21:23 Morphine Sulfate (Oramorph Sr) 30 mg Q12HR PO 03/03/17 09:00 03/09/17 21:24 Morphine Sulfate (Oramorph Sr) 15 mg Q12HR PO 03/03/17 09:00 03/09/17 21:00 Amlodipine Besylate (Norvasc) 5 mg DAILY PO 03/03/17 13:00 03/09/17 09:48 Levofloxacin (Levaquin) 750 mg Q24H PO 03/04/17 12:00 03/14/17 11:59 03/09/17 11:28 Prednisone (Deltasone) 40 mg DAILY PO 03/08/17 09:00 03/09/17 09:47 Objective Remarks GENERAL: nad SKIN: Warm and dry. LYMPHATIC: No adenopathy. CARDIOVASCULAR: Regular rate and rhythm without murmurs. RESPIRATORY: Breath sounds equal bilaterally. No accessory muscle use. GASTROINTESTINAL: Abdomen soft, non-tender, nondistended. EXTREMITIES: No cyanosis, or edema. Assessment/Plan Problem List: (1) Anemia ICD Codes: D64.9 - Anemia, unspecified Status: Acute (2) Nausea ICD Codes: R11.0 - Nausea Status: Acute (3) Breast cancer ICD Codes: C50.919 - Malignant neoplasm of unspecified site of unspecified female breast Status: Acute (4) Pain of metastatic malignancy ICD Codes: G89.3 - Pain of metastatic malignancy Status: Acute (5) Aspiration pneumonia ICD Codes: J69.0 - Pneumonitis due to inhalation of food and vomit Status: Acute (6) Sepsis ICD Codes: A41.9 - Sepsis, unspecified organism Status: Acute (7) Bone metastasis ICD Codes: C79.51 - Secondary malignant neoplasm of bone Status: Acute (8) Debility ICD Codes: R53.81 - Other malaise Status: Acute (9) Physical deconditioning ICD Codes: R53.81 - Other malaise Status: Acute (10) COPD exacerbation ICD Codes: J44.1 - Chronic obstructive pulmonary disease with (acute) exacerbation Status: Acute (11) Shortness of breath ICD Codes: R06.02 - Shortness of breath Assessment 76-year-old female who has stage IV breast cancer with metastasis to the spine as well as to her ribs. She presents to the emergency room with progressive dyspnea. 1. Right lung pneumonia. - blood cultures negative 8/20 - sputum growing gram negative rods - On PO Levaquin 2. COPD exacerbation. - nebs - steroids 3. Anemia with hemoglobin >11. 4. Acute Thrombocytopenia due to illness/medications - no evidence of hemolysis or overt DIC. LDH high, Haptoglobin normal. Fibrinogen normal - likely due to acute illness - HIT panel negative - HOLD IBRANCE 5. Poor oral intake. encourage oral intake, supplement meals with Ensure or Boost. - check pre-albumin 6. Metastatic Pain - MS contin to 30mg q8 hrs - Cont. prn dilaudid - continue breakthrough oxycodone - pain better controlled 7. Stage IV breast cancer. Continue tamoxifen while in the hospital. Hold Ibrance. 8. Deconditioning/weakness - will need placement after discharge 9. Poor appetite - Start Remeron - encourage oral intake overnight events reviewed PLANS FOR D/C TO REHAB OK TO D/C IF PLT COUNT REMAINS STABLE OVER THE NEXT 24 HOURS IF PLT COUNT DROPS FURTHER- WILL NEED TO CONSIDER BM BX Plan Problem Qualifiers (1) Aspiration pneumonia: Qualified Codes: J69.0 - Pneumonitis due to inhalation of food and vomit (2) Sepsis: Qualified Codes: A41.9 - Sepsis, unspecified organism Eric Kirkpatrick MD Mar 09, 2017 21:48
[2017-03-10] VITALS: BP 120/61; PULSE 65; RESP 18; TEMP 97.4; O2SAT 97
[2017-03-10 04:00] VITALS: BP 115/67; PULSE 73; RESP 18; TEMP 97.6; O2SAT 96
[2017-03-10 07:29] VITALS: BP 120/61; PULSE 69; RESP 16; TEMP 98.1; O2SAT 99
[2017-03-10 08:01] LABS: ALT (GPT) 24 U/L (10-53); ANION GAP 8 MEQ/L (5-15); AST (GOT) 30 U/L (15-37); BICARBONATE 28.4 MEQ/L (21.0-32.0); BLOOD UREA NITROGEN 21 MG/DL (7-18); CHLORIDE 105 MEQ/L (98-107); GLOMERULAR FILTRATION RATE 105 ML/MIN (>89); POTASSIUM 4.1 MEQ/L (3.5-5.1); SODIUM (NA) 141 MEQ/L (136-145)
[2017-03-10 08:03] LABS: ALKALINE PHOSPHATASE 109 U/L (45-117); TOTAL BILIRUBIN ADULT 0.4 MG/DL (0.2-1.0)
[2017-03-10 09:00] VITALS: O2SAT 95
[2017-03-10] MEDS: SODIUM CHLORIDE 0.9% FLUSH 10 ML FLUSH IV FLUSH SCH (09:00)
[2017-03-10] MEDS ORDERED: MIRTAZAPINE 15 MG TAB PO SCH (09:00)
[2017-03-10] MEDS: POLYETHYLENE GLYCOL 17 GM PKG PO SCH (09:00)
[2017-03-10] MEDS: [UNRECOGNIZED DRUG - REMARK] OTHER SCH (09:00)
[2017-03-10] MEDS: DOCUSATE SODIUM 50 MG/SENNA 8.6 MG TAB PO SCH (09:00)
[2017-03-10] MEDS: guaiFENesin E.R. 600 MG TAB PO SCH (09:45)
[2017-03-10] MEDS: MORPHINE SULFATE 30 MG CONTROLLED RELEASE TAB PO SCH (09:46)
[2017-03-10] MEDS: PANTOPRAZOLE SOD 40 MG DELAYED RELEASE TAB PO SCH (09:47)
[2017-03-10] MEDS: MORPHINE SULFATE 15 MG CONTROLLED RELEASE TAB PO SCH (09:47)
[2017-03-10] MEDS: amLODIPine BESYLATE 5 MG TAB PO SCH (09:47)
[2017-03-10] MEDS: predniSONE 20 MG TAB PO SCH (09:47)
[2017-03-10] MEDS: FLUTICASONE 100 MCG/VILANTEROL 25 MCG INHALER INH SCH (09:50)
--- NOTE | 2017-03-10 10:15 | HHI.FF ---
Face to Face Verification Diagnosis: (1) Debility (2) Breast cancer (3) Anemia (4) Shortness of breath (5) Physical deconditioning (6) Pain (7) Bone metastasis Physical Therapy Order: Evaluate and Treat Occupational Therapy Order: Evaluate and Treat Home Health Nursing Order: Medical education Nursing assessment with vital signs I have seen patient Henrietta Gunter on 03/10/17. My clinical findings support the need for the requested home health care services because: Ltd mobility - disease progression Deconditioned w/ increased weakness I certify that my clinical findings support that this patient is homebound because: Unsteady gait/balance Unsafe to leave home unassisted Soy Cruz MD Mar 10, 2017 10:15
[2017-03-10] MEDS ORDERED: AMLO5 PO (10:28)
[2017-03-10] MEDS ORDERED: MIRTA15 PO (10:28)
[2017-03-10] MEDS ORDERED: PRED10PA PO (10:29)
--- NOTE | 2017-03-10 10:33 | HHI.PR ---
Subjective Remarks Patient resting in bed denied any further bleeding, breathing is better Plan by oncology to discharge today if platelet still stable around 30 otherwise he recommended bone marrow biopsy Discussed with the patient she refused going to have completely we'll do [facility] Objective Vitals Vital Signs Date Time Temp Pulse Resp B/P (MAP) Pulse Ox O2 Delivery O2 Flow Rate FiO2 03/10/17 07:29 98.1 69 16 120/61 (80) 99 03/10/17 04:00 97.6 73 18 115/67 (83) 96 03/10/17 00:00 97.4 65 18 120/61 (80) 97 03/09/17 20:10 Nasal Cannula 2.50 03/09/17 15:50 97.9 83 20 143/70 (94) 96 03/09/17 11:50 97.8 78 20 143/69 (93) 93 I/O 03/09/17 03/09/17 03/09/17 03/10/17 03/10/17 03/10/17 06:59 14:59 22:59 06:59 14:59 22:59 Intake Total 250 ml Balance 250 ml Intake Oral 250 ml # Voids 1 4 1 # Bowel Movements 1 Result Diagram: 03/09/17 0845 03/10/17 0600 Objective Remarks GENERAL: This is a well-nourished, well-developed patient, in no apparent distress. SKIN: No rashes, warm and dry HEAD: Atraumatic. Normocephalic. EYES: Pupils equal round and reactive. Extraocular motions intact. No scleral icterus. ENT: Nose without bleeding, or drainage, Airway patent. NECK: Trachea midline. Supple CARDIOVASCULAR: Regular rate and rhythm without murmurs, gallops, or rubs. RESPIRATORY: Coarse crackles bilaterally GASTROINTESTINAL: Abdomen soft, non-tender, nondistended. Positive bowel sounds MUSCULOSKELETAL: Extremities without clubbing, cyanosis, or edema. Pedal pulses appreciated NEUROLOGICAL: Awake and alert. Moves all extremity. Normal speech.no focal neurological deficit A/P Problem List: (1) Aspiration pneumonia ICD Code: J69.0 - Pneumonitis due to inhalation of food and vomit Status: Acute (2) Sepsis ICD Code: A41.9 - Sepsis, unspecified organism Status: Acute (3) Bone metastasis ICD Code: C79.51 - Secondary malignant neoplasm of bone Status: Acute Assessment and Plan 03/04: Chest x-ray showing left tiny vague infiltrate with pleural effusion, sputum showed gram-negative rods, will follow ID recommendation for antibiotic, plate continued to drop 27 today, monitor CBC 03/05: Plan for platelet transfusion by hematology, will decrease Solu-Medrol, ID recommending DC iv antibiotic and starting Levaquin for 7-14 days 03/06: Status post platelet transfusion, nosebleed improved, however today with leukopenia WBC is 2, oncology hematology following, continue Levaquin for 7-14 days per ID recommendation, Daksha improved from 27-51K 03/07: Status post 1 pack of platelets transfused, minimal nosebleed recurrent, CBC still pending, workup for thrombocytopenia ongoing rule out HIV versus DIC 03/08: Platelet count dropped back down again, increase haptoglobin with normal LDH but consistent with hemolysis, most likely due to critical illness, oncology following, discussed with palliative care the informed me that the patient still want to continue with the treatment but she is considering hospice with any worsening situation 03/09: CBC still pending, platelet 31 yesterday, continue following with oncology the patient on tamoxifen, ibran on hold, no bleeding today 03/10: CBC pending today if lately it not drop more, patient can be discharged she requested home health and decline rehabilitation A/P: 76 y/o female with a history of breast cancer with mets to the bone, anxiety, arthritis, copd on 2L cont at home, AAA, and emphysema presented to the ED with shortness of breath, cough and pain. Sepsis, immunocompromised due to chemotherapy, WBC 3.0, respiratory rate 26 on admission, suspected due to Aspiration pneumonia from drinking liquids. CT chest reviewed and shows atelectasis and/or infiltrate in right middle lobe. - on Vancomycin and Zosyn IV cover for hospital-acquired pneumonia. Azithromycin added per infectious disease. Continue Mucinex. Leukocytosis resolved. Start Acapella, continue incentive spirometry, COPD exacerbation, likely related to pneumonia with history of chronic respiratory failure on home oxygen at 2 L -Duonebs [id number] and as needed, Continue oxygen support, continue steroids, decreased to twice a day, continue to taper. Bone Metastasis -Cont home chemotherapy, hematology following. - Continue pain control, hematology assisting, currently on Dilaudid and Oramorph. Palliative care following. Thrombocytopenia [id number] workup, hematology following. No bleeding. Transfuse per hematology. Hypertension-restart Norvasc PT following. DVT prophylaxis: SCDs, hold chemical due to acute thrombocytopenia Discharge Planning When cleared by oncology Problem Qualifiers (1) Aspiration pneumonia: Qualified Codes: J69.0 - Pneumonitis due to inhalation of food and vomit (2) Sepsis: Qualified Codes: A41.9 - Sepsis, unspecified organism Soy Cruz MD Mar 10, 2017 10:33
--- NOTE | 2017-03-10 10:39 | HHI.DS ---
Discharge Summary Admission Date Feb 27, 2017 at 21:19 Discharge Date: Mar 10, 2017 Admitting Diagnosis COPD exacerbation, metastatic cancer (1) Aspiration pneumonia ICD Code: J69.0 - Pneumonitis due to inhalation of food and vomit Status: Acute (2) Sepsis ICD Code: A41.9 - Sepsis, unspecified organism Status: Acute (3) Bone metastasis ICD Code: C79.51 - Secondary malignant neoplasm of bone Status: Acute Procedures See below Brief History - From Admission Written by DAX Schilling acting as scribe for Dr. Montes] on 02/27/17 at 22 :07. 76 y/o female with a history of breast cancer with mets to the bone, anxiety, arthritis, copd on 2L cont at home, AAA, and emphysema presented to the ED with shortness of breath. Patient states she was at home and was having increasing shortness of breath despite breathing treatments. She states she has a non productive cough, and it is exacerbated by drinking liquids. She denies any associated fever, chills. She has worsening upper back pain radiating around her chest wall not relieved with Percocet. She was prescribed doxycycline 2 days ago for aspiration pneumonia, but per the daughter her cough seems to be worse. She is currently on oral chemotherapy and follows outpatient with Dr. Bailey. CBC/BMP: 03/09/17 0845 03/10/17 0600 Significant Findings Laboratory Tests Test 03/07/17 13:08 03/08/17 07:33 03/08/17 16:07 03/09/17 08:45 White Blood Count 3.0 TH/MM3 (4.0-11.0) 3.6 TH/MM3 (4.0-11.0) Red Blood Count 3.89 MIL/MM3 (4.00-5.30) 3.87 MIL/MM3 (4.00-5.30) Red Cell Distribution Width 18.6 % (11.6-17.2) 18.1 % (11.6-17.2) 18.7 % (11.6-17.2) Platelet Count 33 TH/MM3 (150-450) 31 TH/MM3 (150-450) 30 TH/MM3 (150-450) Neutrophils (%) (Auto) 93.2 % (16.0-70.0) 91.6 % (16.0-70.0) 80.0 % (16.0-70.0) Lymphocytes (%) (Auto) 4.5 % (9.0-44.0) 6.3 % (9.0-44.0) Lymphocytes # (Auto) 0.1 TH/MM3 (1.0-4.8) 0.2 TH/MM3 (1.0-4.8) 0.5 TH/MM3 (1.0-4.8) Platelet Estimate LOW (NORMAL) LOW (NORMAL) LOW (NORMAL) Haptoglobin 282 MG/DL (30-200) Prothrombin Time 12.3 SEC (9.8-11.6) Fibrinogen 215 mg/dL (227-377) Neutrophils % (Manual) 85 % (16-70) Band Neutrophils % 7 % (0-6) Lymphocytes % 4 % (9-44) Test 03/10/17 06:00 Blood Urea Nitrogen 21 MG/DL (7-18) Total Protein 5.2 GM/DL (6.4-8.2) Albumin 2.5 GM/DL (3.4-5.0) PE at Discharge GENERAL: This is a well-nourished, well-developed patient, in no apparent distress. SKIN: No rashes, warm and dry HEAD: Atraumatic. Normocephalic. EYES: Pupils equal round and reactive. Extraocular motions intact. No scleral icterus. ENT: Nose without bleeding, or drainage, Airway patent. NECK: Trachea midline. Supple CARDIOVASCULAR: Regular rate and rhythm without murmurs, gallops, or rubs. RESPIRATORY: Coarse crackles bilaterally GASTROINTESTINAL: Abdomen soft, non-tender, nondistended. Positive bowel sounds MUSCULOSKELETAL: Extremities without clubbing, cyanosis, or edema. Pedal pulses appreciated NEUROLOGICAL: Awake and alert. Moves all extremity. Normal speech.no focal neurological deficit Hospital Course 76 y/o female with a history of breast cancer with mets to the bone, anxiety, arthritis, copd on 2L cont at home, AAA, and emphysema presented to the ED with shortness of breath, cough and pain. Sepsis/right lung pneumonia, immunocompromised due to chemotherapy, WBC 3.0, respiratory rate 26 on admission, suspected due to Aspiration pneumonia from drinking liquids. CT chest reviewed and shows atelectasis and/or infiltrate in right middle lobe. Patient started on Vancomycin and Zosyn IV cover for hospital-acquired pneumonia. Azithromycin per infectious disease who was consulted. Mucinex. Leukocytosis resolved. Acapella, continue incentive spirometry, COPD exacerbation, likely related to pneumonia with history of chronic respiratory failure on home oxygen at 2 L Duonebs [id number] and as needed, Continue oxygen support, continue steroids, decreased to twice a day, continue to taper. Bone Metastasis from breast cancer stage IV, hematology consulted, guided chemotherapy pain control, palliative care consult as well Thrombocytopenia with anemia-f workup has been done by hematology unlikely [facility] orDIC. Eventually oncology cleared patient for discharge and follow up as an outpatient. Nclh-[id number] encounter performed with the patient on discharge day, as well as physical exam, summary of hospitalization course and postdischarge plan has been D/W the patient. Extensive discussion about need for rehabilitation facility has been done, patient totally decline but she accepted home healthcare D/W nurse Discharge medications reviewed and printed and signed, Brief hospital course and discharge summary has been placed. Pt Condition on Discharge: Stable Discharge Disposition: Disch w/ Home Health Serv Discharge Time: > 30 minutes Discharge Instructions DIET: Follow Instructions for: Heart Healthy Diet Other Activity Instructions: Per PT Follow up Referrals: Oncology - 1 Week with Eric Kirkpatrick MD New Medications: Prednisone (21) 10 mg tab Dose Pack (Prednisone (21) 10 mg tab Dose Pack) 10 Mg Pack 10 MG PO DIRECTED for Inflammation, #1 DSPK 0 Refills Walker Rolling/GetGo (Walker Rolling/GetGo) 1 Mis Mis EA .ROUTE DIRECTED, #1 Amlodipine (Norvasc) 5 Mg Tab 5 MG PO DAILY for htn, #30 TAB Mirtazapine (Mirtazapine) 15 Mg Tab 15 MG PO DAILY for poor appetite, #30 TAB Continued Medications: Albuterol 18 GM Inh (Ventolin Hfa 18 GM Inh) 90 Mcg/Act Aer 1 PUFF INH Q4H PRN for SHORTNESS OF BREATH, #1 INHALER 0 Refills Alprazolam (Alprazolam) 0.25 Mg Tab 0.25 MG PO Q8H PRN for ANXIETY, TAB 0 Refills Aspirin (Aspirin) 325 Mg Tab 325 MG PO DAILY, #30 TAB 0 Refills Fluticasone-Vilanterol Inh (Breo Ellipta Inh) 100-25 Mcg/Act Inh 1 PUFF INH BID, #1 INHALER 0 Refills Use daily at the same time. Morphine ER (Morphine ER) 30 Mg Tab 30 MG PO Q12HR for Pain Management, TAB 0 Refills Omeprazole (Omeprazole) 40 Mg Cap 40 MG PO DAILY, #30 CAP 0 Refills Ondansetron (Zofran) 4 Mg Tab 4 MG PO Q6HR PRN for NAUSEA OR VOMITING, TAB 0 Refills Oxycodone-Acetaminophen (Percocet) 5-325 mg Tab 1-2 TAB PO Q6H PRN for PAIN, #60 TAB 0 Refills Polyethylene Glycol 3350 Powder (Miralax Powder) 17 Gm Powd 17 GM PO DAILY PRN for CONSTIPATION, #1 CAN 0 Refills Mix and dissolve one measuring cap-ful (17 grams) in water or juice. Sennosides-Docusate Sodium (Senna Plus 8.6-50 mg) 1 Tab Tab 1 TAB PO BID, #60 TAB Soy Cruz MD Mar 10, 2017 10:39
[2017-03-10 11:25] VITALS: BP 131/65; PULSE 82; RESP 16; TEMP 98.4; O2SAT 93
[2017-03-10] MEDS: LEVOFLOXACIN 750 MG TAB PO SCH (11:44)
[2017-03-10] MEDS: ALPRAZolam 0.25 MG TAB PO PRN (11:44)
[2017-03-10 13:34] LABS: AUTOMATED NEUTROPHIL # 4.1 TH/MM3 (1.8-7.7); BASOPHIL % 0.1 % (0.0-2.0); EOSINOPHIL % 0.3 % (0.0-4.0); HEMATOCRIT 40.7 % (35.0-46.0); LYMPH % 11.1 % (9.0-44.0); LYMPHOCYTE # 0.5 TH/MM3 (1.0-4.8); MEAN CELL VOLUME 93.9 FL (80.0-100.0); MEAN CORPUSCULAR HEMOGLOBIN 30.2 PG (27.0-34.0); MEAN CORPUSCULAR HGB CONC 32.2 % (32.0-36.0); MONO % 5.8 % (0.0-8.0); NEUT % 82.7 % (16.0-70.0); PLATELET COUNT 40 TH/MM3 (150-450); RED BLOOD COUNT 4.34 MIL/MM3 (4.00-5.30); RED CELL DISTRIBUTION WIDTH 18.9 % (11.6-17.2); WHITE BLOOD COUNT 4.9 TH/MM3 (4.0-11.0)
[2017-03-10 13:42] LABS: HEMO FLAGS AUTO DIFF
[2017-03-10 14:13] LABS: PLATELET ESTIMATE SMEAR LOW (NORMAL); PLATELET MORPHOLOGY NORMAL (NORMAL); SCAN/DIFF AUTO DIFF CONFIRMED
[2017-03-10 15:25] VITALS: BP 122/69; PULSE 88; RESP 17; TEMP 99.4; O2SAT 94
--- NOTE | 2017-03-10 23:55 | PD.ONC.PN ---
Subjective Subjective Remarks Patient seen earlier today Wants to go home Platelet count is stable will need out patient f/u hold ibrance for now continue tamoxifen d.w patient ok to d/c for oncology standpoint will need repeat cbc next Tuesday in [facility] Objective Data Date Time Temp Pulse Resp B/P (MAP) Pulse Ox O2 Delivery O2 Flow Rate FiO2 03/10/17 15:25 99.4 88 17 122/69 (86) 94 03/10/17 11:25 98.4 82 16 131/65 (87) 93 03/10/17 10:55 Nasal Cannula 2.50 03/10/17 09:00 95 Nasal Cannula 3.00 03/10/17 07:29 98.1 69 16 120/61 (80) 99 03/10/17 04:00 97.6 73 18 115/67 (83) 96 03/10/17 00:00 97.4 65 18 120/61 (80) 97 Result Diagram: 03/10/17 1255 03/10/17 0600 Laboratory Results Laboratory Tests Test 03/10/17 06:00 03/10/17 12:55 Blood Urea Nitrogen 21 MG/DL Creatinine 0.56 MG/DL Random Glucose 85 MG/DL Total Protein 5.2 GM/DL Albumin 2.5 GM/DL Calcium Level 9.0 MG/DL Alkaline Phosphatase 109 U/L Aspartate Amino Transf (AST/SGOT) 30 U/L Alanine Aminotransferase (ALT/SGPT) 24 U/L Total Bilirubin 0.4 MG/DL Sodium Level 141 MEQ/L Potassium Level 4.1 MEQ/L Chloride Level 105 MEQ/L Carbon Dioxide Level 28.4 MEQ/L Anion Gap 8 MEQ/L Estimat Glomerular Filtration Rate 105 ML/MIN Prealbumin 21 MG/DL White Blood Count 4.9 TH/MM3 Red Blood Count 4.34 MIL/MM3 Hemoglobin 13.1 GM/DL Hematocrit 40.7 % Mean Corpuscular Volume 93.9 FL Mean Corpuscular Hemoglobin 30.2 PG Mean Corpuscular Hemoglobin Concent 32.2 % Red Cell Distribution Width 18.9 % Platelet Count 40 TH/MM3 Mean Platelet Volume 8.2 FL Neutrophils (%) (Auto) 82.7 % Lymphocytes (%) (Auto) 11.1 % Monocytes (%) (Auto) 5.8 % Eosinophils (%) (Auto) 0.3 % Basophils (%) (Auto) 0.1 % Neutrophils # (Auto) 4.1 TH/MM3 Lymphocytes # (Auto) 0.5 TH/MM3 Monocytes # (Auto) 0.3 TH/MM3 Eosinophils # (Auto) 0.0 TH/MM3 Basophils # (Auto) 0.0 TH/MM3 CBC Comment AUTO DIFF Differential Comment AUTO DIFF CONFIRMED Platelet Estimate LOW Platelet Morphology Comment NORMAL Objective Remarks GENERAL: nad SKIN: Warm and dry. LYMPHATIC: No adenopathy. CARDIOVASCULAR: Regular rate and rhythm without murmurs. RESPIRATORY: Breath sounds equal bilaterally. No accessory muscle use. GASTROINTESTINAL: Abdomen soft, non-tender, nondistended. EXTREMITIES: No cyanosis, or edema. Assessment/Plan Problem List: (1) Anemia ICD Codes: D64.9 - Anemia, unspecified Status: Acute (2) Nausea ICD Codes: R11.0 - Nausea Status: Acute (3) Breast cancer ICD Codes: C50.919 - Malignant neoplasm of unspecified site of unspecified female breast Status: Acute (4) Pain of metastatic malignancy ICD Codes: G89.3 - Pain of metastatic malignancy Status: Acute (5) Aspiration pneumonia ICD Codes: J69.0 - Pneumonitis due to inhalation of food and vomit Status: Acute (6) Sepsis ICD Codes: A41.9 - Sepsis, unspecified organism Status: Acute (7) Bone metastasis ICD Codes: C79.51 - Secondary malignant neoplasm of bone Status: Acute (8) Debility ICD Codes: R53.81 - Other malaise Status: Acute (9) Physical deconditioning ICD Codes: R53.81 - Other malaise Status: Acute (10) COPD exacerbation ICD Codes: J44.1 - Chronic obstructive pulmonary disease with (acute) exacerbation Status: Acute (11) Shortness of breath ICD Codes: R06.02 - Shortness of breath Assessment 76-year-old female who has stage IV breast cancer with metastasis to the spine as well as to her ribs. She presents to the emergency room with progressive dyspnea. 1. Right lung pneumonia. - blood cultures negative 02/27 - sputum growing gram negative rods - On PO Levaquin 2. COPD exacerbation. - nebs - steroids 3. Anemia with hemoglobin >11. 4. Acute Thrombocytopenia due to illness/medications - no evidence of hemolysis or overt DIC. LDH high, Haptoglobin normal. Fibrinogen normal - likely due to acute illness - HIT panel negative - HOLD IBRANCE 5. Poor oral intake. encourage oral intake, supplement meals with Ensure or Boost. 6. Metastatic Pain - MS contin to 30mg q8 hrs - continue breakthrough oxycodone - pain better controlled 7. Stage IV breast cancer. Continue tamoxifen while in the hospital. Hold Ibrance. 8. Deconditioning/weakness - will need placement after discharge 9. Poor appetite - Start Remeron - encourage oral intake overnight events reviewed Plan Problem Qualifiers (1) Aspiration pneumonia: Qualified Codes: J69.0 - Pneumonitis due to inhalation of food and vomit (2) Sepsis: Qualified Codes: A41.9 - Sepsis, unspecified organism Eric Kirkpatrick MD Mar 10, 2017 23:55
[2017-03-11] MEDS ORDERED: predniSONE 10 MG TAB PO SCH (09:00)
== END 2017-03-10 19:50 | disposition home health service (06) | DRG 871 ==
LOC: NEPE 14:35 → NEDA 19:35 → NEPFCDU 20:57 → OBSVTOIN 21:19 → HOCA 02-28 00:55
PROVIDERS: ADMIT Hospitalist; ATTEND Hospitalist
PROC: 30233N1 Transfusion of Nonautologous Red Blood Cells into Peripheral Vein, Percutaneous Approach (ICD-10-PCS; principal; 2017-03-03)
PROC: 30233R1 Transfusion of Nonautologous Platelets into Peripheral Vein, Percutaneous Approach (ICD-10-PCS; 2017-03-05)
DX: A41.9 Sepsis, unspecified organism (principal); J69.0 Pneumonitis due to inhalation of food and vomit; R64 Cachexia; J18.9 Pneumonia, unspecified organism; C79.51 Secondary malignant neoplasm of bone; J96.10 Chronic respiratory failure, unspecified whether with hypoxia or hypercapnia; I67.1 Cerebral aneurysm, nonruptured; J44.0 Chronic obstructive pulmonary disease with (acute) lower respiratory infection; J44.1 Chronic obstructive pulmonary disease with (acute) exacerbation; Z68.1 Body mass index [BMI] 19.9 or less, adult; Z99.81 Dependence on supplemental oxygen; I10 Essential (primary) hypertension; F32.9 Major depressive disorder, single episode, unspecified; G89.3 Neoplasm related pain (acute) (chronic); Z66 Do not resuscitate; I71.4 Abdominal aortic aneurysm, without rupture; K21.9 Gastro-esophageal reflux disease without esophagitis; F17.210 Nicotine dependence, cigarettes, uncomplicated; Z85.3 Personal history of malignant neoplasm of breast; M81.0 Age-related osteoporosis without current pathological fracture; Y95 Nosocomial condition; D64.9 Anemia, unspecified; D75.9 Disease of blood and blood-forming organs, unspecified; R04.0 Epistaxis; D69.59 Other secondary thrombocytopenia; F41.0 Panic disorder [episodic paroxysmal anxiety]; K59.00 Constipation, unspecified; Z79.810 Long term (current) use of selective estrogen receptor modulators (SERMs); Z90.12 Acquired absence of left breast and nipple; M19.90 Unspecified osteoarthritis, unspecified site
CPT/HCPCS: 36430; 36600; 71010; 71275; 76937; 80048; 80053; 80202; 82565; 82805; 83010; 83605; 83615; 83735; 84134; 85007; 85025; 85027; 85060; 85384; 85610; 85730; 86022; 86300; 86850; 86880; 86900; 86901; 86920; 87040; 87070; 87077; 87186; 87205; 93005; 94150; 94640; 94664; 94667; 94668; 96365; 96375; J0456; J1170; J1940; J2405; J2543; J2920; J2930; J3370; J7050; J7512; P9016; P9035; P9037; Q9967

== ENCOUNTER 2017-05-06 15:23 | Inpatient (IN) | payer OTHER, MEDICARE ==
[~2017-05-06] VITALS: Ht 149.9 cm; Wt 36.2 kg
[~2017-05-06 15:23] MED LIST changes: -ALEN1TAB48 PO; +AMLO5 PO; -BEDSIDE COMMODE1 MI1; -CARB100C PO; -DULE100A INH; +FLUT1INH INH; +GETGO ROLLING W1 MI1; +MIRA3350 PO; +MIRTA15 PO; -MORP1TAB24 PO; +MORP1TAB25 PO; +PALB125C; +PALB125C PO; -PRED10 PO; +PRED10PA PO; -TAMO20TA6 PO; -WALKER WHEELS/F1 MIS; -WHEEMIS3; +ZOFR4TAB PO
[2017-05-06 15:24] VITALS: BP 109/55; PULSE 92; RESP 18; TEMP 98.7; O2SAT 98
[2017-05-06] MEDS ORDERED: RESP: ALBUTEROL 2.5 MG/IPRATROPIUM 0.5 MG NEB (SCH) NEB ONE (15:45)
[2017-05-06 15:47] VITALS: O2SAT 97
--- NOTE | 2017-05-06 15:51 | PD ---
HPI Chief Complaint: epistaxis Time Seen by Provider: 15:32 Travel History International Travel<30 days: No Contact w/Intl Traveler<30days: No Traveled to known affect area: No History of Present Illness HPI The patient is a 76-year-old female who presents to the emergency department with her daughter for epistaxis. The patient has a history of stage IV metastatic breast cancer and is currently under the treatment of Dr. Kirkpatrick. The patient just finished a treatment of Ibrance and developed some epistaxis earlier today. The patient does have a history of bleeding problems in the past secondary to this medication which resulted in thrombocytopenia and low hemoglobin. The patient states the bleeding was out of the left naris. The patient is oxygen dependent on oxygen, via nasal cannula, with a humidifier, but denies any previous history of epistaxis secondary to oxygen therapy. She also notes a dry nonproductive cough for the last 24 hours. They contacted the patient's senior sql database developer who referred them to the emergency department for further evaluation. The patient denies any dark colored stools or rectal bleeding. The daughter provides a lot of the information in regards to the patient's history and current symptoms. PFSH Past Medical History Arthritis: No Asthma: No Anxiety: Yes Depression: No Heart Rhythm Problems: No Cancer: Yes (SPINAL, LUNG, BREAST) Cardiovascular Problems: Yes (AAA) High Cholesterol: No Chemotherapy: Yes (ORAL CHEMO ) Chest Pain: Yes (R/T BONES) Congestive Heart Failure: No COPD: Yes (2L NC AT HOME) Cerebrovascular Accident: No Coronary Artery Disease: No Diabetes: No Diminished Hearing: No Endocrine: No Gastrointestinal Disorders: Yes GERD: Yes Genitourinary: Yes Headaches: Yes Hiatal Hernia: No Hypertension: Yes Immune Disorder: No Implanted Vascular Access Dvce: Yes Kidney Stones: Yes Musculoskeletal: Yes Neurologic: Yes Psychiatric: Yes Reproductive: No Respiratory: Yes Migraines: Yes Radiation Therapy: Yes (2016) Renal Failure: No Seizures: No Sleep Apnea: No Ulcer: No Past Surgical History Abdominal Surgery: Yes (HERNIA REPAIR, APPENDECTOMY ) Appendectomy: Yes Body Medical Devices: PIPELINE DEVICE Cardiac Surgery: Yes Ear Surgery: No Endocrine Surgery: No Eye Surgery: No Genitourinary Surgery: No Gynecologic Surgery: Yes (LEFT MASTECTOMY ) Hysterectomy: Yes Neurologic Surgery: Yes (BRAIN ANEURYSM) Oral Surgery: No Thoracic Surgery: No Other Surgery: Yes (L MASTECTOMY, DOUBLE HERNIA REPAIR, BRAIN ANEURYSM , HYSTERECTOMY, APPENDEC) Social History Alcohol Use: No Tobacco Use: Yes Substance Use: No Allergies-Medications (Allergen,Severity, Reaction): Coded Allergies: grapefruit (Verified Allergy, Unknown, 02/27/17) CONTRAINCDICATED WITH IBRANCE Reported Meds & Prescriptions Reported Meds & Active Scripts Active Prednisone (21) 10 mg tab Dose Pack (Prednisone) 10 Mg Pack 10 Mg PO DIRECTED Mirtazapine 15 Mg Tab 15 Mg PO DAILY Norvasc (Amlodipine Besylate) 5 Mg Tab 5 Mg PO DAILY Walker Rolling/GetGo (Device) 1 Mis Mis Ea .ROUTE DIRECTED Senna Plus 8.6-50 mg (Sennosides-Docusate Sodium) 1 Tab Tab 1 Tab PO BID Percocet (Oxycodone-Acetaminophen) 5-325 mg Tab 1-2 Tab PO Q6H PRN Reported Ibrance (Palbociclib) 125 Mg Capsule Ibrance (Palbociclib) 125 Mg Capsule 125 Mg PO HS 21 DAYS ON, 7 DAYS OFF Morphine ER (Morphine Sulfate) 30 Mg Tab 30 Mg PO Q12HR Miralax Powder (Polyethylene Glycol 3350 Powder) 17 Gm Powd 17 Gm PO DAILY PRN Mix and dissolve one measuring cap-ful (17 grams) in water or juice. Zofran (Ondansetron HCl) 4 Mg Tab 4 Mg PO Q6HR PRN Breo Ellipta Inh (Fluticasone/Vilanterol) 100-25 Mcg/Act Inh 1 Puff INH BID Use daily at the same time. Omeprazole 40 Mg Cap 40 Mg PO DAILY Duoneb (Ipratropium-Albuterol Neb) 0.5-2.5 Mg/3 Ml Neb 1 Nebule INH Q6HR NEB Ventolin Hfa 18 GM Inh (Albuterol Sulfate) 90 Mcg/Act Aer 1 Puff INH Q4H PRN Aspirin 325 Mg Tab 325 Mg PO DAILY Alprazolam 0.25 Mg Tab 0.25 Mg PO Q8H PRN Review of Systems Except as stated in HPI: all other systems reviewed are Neg General / Constitutional: No: Fever HENT: Positive: Nosebleed Cardiovascular: No: Chest Pain or Discomfort Respiratory: Positive: Cough, No: Shortness of Breath Gastrointestinal: No: Nausea, Vomiting, Abdominal Pain Musculoskeletal: Positive: Weakness (continuing generalized weakness), Edema ( complain of mild edema to the feet yesterday) Physical Exam Narrative GENERAL: Awake, alert, nontoxic-appearing 76-year-old female who appears her stated age and is in no acute respiratory distress. SKIN: Focused skin assessment warm/dry. HEAD: Atraumatic. Normocephalic. EYES: The left eye appears to have a droop with mild loss of periorbital fat pad. The right pupil is 3 mm and reactive. Left pupil is 4 mm and significantly sluggish. EOMs are intact. ENT: Nasal cannula in the nares. Patient does have a small amount of blood in the left naris, no active extravasation noted. No visible blood in the posterior oropharynx. NECK: Trachea midline. No JVD. CARDIOVASCULAR: Regular rate and rhythm. No murmur appreciated. RESPIRATORY: No accessory muscle use. Few scattered rhonchi and wheezes. GASTROINTESTINAL: Abdomen soft, non-tender, nondistended. Well-healed midline scar. No rebound tenderness. MUSCULOSKELETAL: No obvious deformities. No clubbing. No cyanosis. No obvious edema of the ankles or feet. NEUROLOGICAL: Awake and alert. No obvious cranial nerve deficits. Motor grossly within normal limits. Normal speech. PSYCHIATRIC: Appropriate mood and affect; insight and judgment normal. Data Data Last Documented VS Vital Signs Date Time Temp Pulse Resp B/P (MAP) Pulse Ox O2 Delivery O2 Flow Rate FiO2 05/06/17 16:02 Room Air 05/06/17 15:47 97 2.50 05/06/17 15:24 98.7 92 18 109/55 (73) Orders Orders Complete Blood Count With Diff (05/06/17 15:40) Comprehensive Metabolic Panel (05/06/17 15:40) Chest, Single Ap (05/06/17 ) Albuterol-Ipratropium Neb (Duoneb Neb) (05/06/17 15:45) Admit Order (Ed Use Only) (05/06/17 19:12) Labs Laboratory Tests Test 05/06/17 17:10 05/06/17 17:40 White Blood Count 3.0 TH/MM3 Red Blood Count 2.43 MIL/MM3 Hemoglobin 8.1 GM/DL Hematocrit 23.8 % Mean Corpuscular Volume 97.9 FL Mean Corpuscular Hemoglobin 33.4 PG Mean Corpuscular Hemoglobin Concent 34.1 % Red Cell Distribution Width 23.4 % Platelet Count 42 TH/MM3 Mean Platelet Volume 8.6 FL Neutrophils (%) (Auto) 75.0 % Lymphocytes (%) (Auto) 22.1 % Monocytes (%) (Auto) 2.3 % Eosinophils (%) (Auto) 0.1 % Basophils (%) (Auto) 0.5 % Neutrophils # (Auto) 2.2 TH/MM3 Lymphocytes # (Auto) 0.7 TH/MM3 Monocytes # (Auto) 0.1 TH/MM3 Eosinophils # (Auto) 0.0 TH/MM3 Basophils # (Auto) 0.0 TH/MM3 CBC Comment AUTO DIFF Differential Comment AUTO DIFF CONFIRMED Platelet Estimate LOW Platelet Morphology Comment NORMAL Blood Urea Nitrogen 10 MG/DL Creatinine 0.53 MG/DL Random Glucose 109 MG/DL Total Protein 5.6 GM/DL Albumin 2.9 GM/DL Calcium Level 8.6 MG/DL Alkaline Phosphatase 108 U/L Aspartate Amino Transf (AST/SGOT) 29 U/L Alanine Aminotransferase (ALT/SGPT) 14 U/L Total Bilirubin 0.3 MG/DL Sodium Level 141 MEQ/L Potassium Level 3.9 MEQ/L Chloride Level 111 MEQ/L Carbon Dioxide Level 25.0 MEQ/L Anion Gap 5 MEQ/L Estimat Glomerular Filtration Rate 112 ML/MIN MDM Medical Decision Making Medical Screen Exam Complete: Yes Emergency Medical Condition: Yes Medical Record Reviewed: Yes Interpretation(s) Chest x-ray reveals the lungs are clear Vital Signs Date Time Temp Pulse Resp B/P (MAP) Pulse Ox O2 Delivery O2 Flow Rate FiO2 05/06/17 16:02 Room Air 05/06/17 15:47 97 Nasal Cannula 2.50 05/06/17 15:24 98.7 92 18 109/55 (73) 98 Room Air Laboratory Tests Test 05/06/17 17:10 05/06/17 17:40 White Blood Count 3.0 TH/MM3 Red Blood Count 2.43 MIL/MM3 Hemoglobin 8.1 GM/DL Hematocrit 23.8 % Mean Corpuscular Volume 97.9 FL Mean Corpuscular Hemoglobin 33.4 PG Mean Corpuscular Hemoglobin Concent 34.1 % Red Cell Distribution Width 23.4 % Platelet Count 42 TH/MM3 Mean Platelet Volume 8.6 FL Neutrophils (%) (Auto) 75.0 % Lymphocytes (%) (Auto) 22.1 % Monocytes (%) (Auto) 2.3 % Eosinophils (%) (Auto) 0.1 % Basophils (%) (Auto) 0.5 % Neutrophils # (Auto) 2.2 TH/MM3 Lymphocytes # (Auto) 0.7 TH/MM3 Monocytes # (Auto) 0.1 TH/MM3 Eosinophils # (Auto) 0.0 TH/MM3 Basophils # (Auto) 0.0 TH/MM3 CBC Comment AUTO DIFF Blood Urea Nitrogen 10 MG/DL Creatinine 0.53 MG/DL Random Glucose 109 MG/DL Total Protein 5.6 GM/DL Albumin 2.9 GM/DL Calcium Level 8.6 MG/DL Alkaline Phosphatase 108 U/L Aspartate Amino Transf (AST/SGOT) 29 U/L Alanine Aminotransferase (ALT/SGPT) 14 U/L Total Bilirubin 0.3 MG/DL Sodium Level 141 MEQ/L Potassium Level 3.9 MEQ/L Chloride Level 111 MEQ/L Carbon Dioxide Level 25.0 MEQ/L Anion Gap 5 MEQ/L Estimat Glomerular Filtration Rate 112 ML/MIN Differential Diagnosis Differential diagnosis includes medication side effect, thrombocytopenia, symptomatic anemia, pneumonia, bronchitis, end-of-life care, stage IV metastatic breast cancer. Narrative Course IV was established, labs are drawn and sent, and the patient was placed on cardiac telemetry monitoring and continuous pulse oximetry monitoring. CBC and platelets were sent to lab. Chest x-ray was obtained. Chest x-rays unremarkable. The patient's hemoglobin is down a 8.1, platelets are 42, white count is at 3.0. Therefore, the patient's senior sql database developer/oncologist, Dr. Kirkpatrick, was paged at 6:43 PM. I discussed the patient with Dr. Pride, and after discussion was agreed the patient be 23 hour observation for repeat CBC in the morning. Physician Communication [facility]. Diagnosis Primary Impression: Epistaxis Additional Impressions: Thrombocytopenia Anemia Qualified Codes: D64.9 - Anemia, unspecified Condition: Stable Simón Xiao MD May 06, 2017 15:51
--- NOTE | 2017-05-06 16:31 | RADRPT ---
EXAM DATE/TIME: 05/06/2017 16:09 [place] COMPARISON: CHEST SINGLE AP, March 03, 2017, 16:23. INDICATIONS : Cough MEDICAL HISTORY : Hypertension. Chronic obstructive pulmonary disease. Cardiovascular disease. Breast and lung cancer. SURGICAL HISTORY : Mastectomy, left. ENCOUNTER: Subsequent ACUITY: 2 days PAIN SCORE: 5/10 LOCATION: chest FINDINGS: A single view of the chest demonstrates the lungs to be symmetrically aerated without evidence of mas s, infiltrate or effusion. The cardiomediastinal contours are unremarkable. Osseous structures are intact. CONCLUSION: The lungs are clear Manfred Powell MD on May 06, 2017 at 16:29 Board Certified Radiologist. This report was verified electronically.
[2017-05-06 18:34] LABS: AUTOMATED NEUTROPHIL # 2.2 TH/MM3 (1.8-7.7); BASOPHIL % 0.5 % (0.0-2.0); EOSINOPHIL % 0.1 % (0.0-4.0); HEMATOCRIT 23.8 % (35.0-46.0); HEMOGLOBIN 8.1 GM/DL (11.6-15.3); LYMPH % 22.1 % (9.0-44.0); LYMPHOCYTE # 0.7 TH/MM3 (1.0-4.8); MEAN CELL VOLUME 97.9 FL (80.0-100.0); MEAN CORPUSCULAR HEMOGLOBIN 33.4 PG (27.0-34.0); MEAN CORPUSCULAR HGB CONC 34.1 % (32.0-36.0); MEAN PLATELET VOLUME 8.6 FL (7.0-11.0); MONO % 2.3 % (0.0-8.0); MONOCYTE # 0.1 TH/MM3 (0-0.9); PLATELET COUNT 42 TH/MM3 (150-450); RED BLOOD COUNT 2.43 MIL/MM3 (4.00-5.30); RED CELL DISTRIBUTION WIDTH 23.4 % (11.6-17.2)
[2017-05-06 18:42] LABS: ALBUMIN 2.9 GM/DL (3.4-5.0); ALT (GPT) 14 U/L (10-53); AST (GOT) 29 U/L (15-37); BLOOD UREA NITROGEN 10 MG/DL (7-18); CALCIUM 8.6 MG/DL (8.5-10.1); CHLORIDE 111 MEQ/L (98-107); CREATININE 0.53 MG/DL (0.50-1.00); GLOMERULAR FILTRATION RATE 112 ML/MIN (>89); GLUCOSE,RANDOM 109 MG/DL (74-106); SODIUM (NA) 141 MEQ/L (136-145)
[2017-05-06 18:44] LABS: ALKALINE PHOSPHATASE 108 U/L (45-117); TOTAL BILIRUBIN ADULT 0.3 MG/DL (0.2-1.0); TOTAL PROTEIN 5.6 GM/DL (6.4-8.2)
[2017-05-06] MEDS ORDERED: BISACODYL 10 MG SUPP RECTAL PRN (19:15)
[2017-05-06] MEDS ORDERED: SODIUM CHLORIDE 0.9% FLUSH 10 ML FLUSH IV FLUSH PRN (19:15)
[2017-05-06] MEDS ORDERED: ONDANSETRON HCL 4 MG/2 ML VIAL IVP PRN (19:15)
[2017-05-06] MEDS ORDERED: LACTULOSE SYRUP 20 GM/30 ML CUP PO PRN (19:15)
[2017-05-06] MEDS ORDERED: NALOXONE HCL 0.4 MG/ML AMP IV PUSH PRN (19:15)
[2017-05-06] MEDS ORDERED: SENNOSIDES 8.6 MG TAB PO PRN (19:15)
[2017-05-06] MEDS ORDERED: MAGNESIUM HYDROXIDE SUSP 30 ML CUP PO PRN (19:15)
--- NOTE | 2017-05-06 19:26 | HHI.HP ---
HPI Service [facility] Primary Care Physician Eric Kirkpatrick MD Admission Diagnosis bleeding, anemia Diagnoses: Chief Complaint: nose bleed Travel History International Travel<30 Days: No Contact w/Intl Traveler <30 Da: No Traveled to Known Affected Are: No History of Present Illness Written by DAX Schilling acting as scribe for Dr. Alonzo] on 05/06/17 at 19:23. 76 y/o female with a history of breast cancer with mets to bone, anxiety, arthritis, asthma, and COPD presented to the ED with complaints of a nose bleed. Patient states yesterday she was blowing her nose and there was a little blood, and today at 9:00am it was much worse. She complains of associated shortness of breath and chest pressure. She states the chest pressure is intermittent and radiates to her left side. She does not know when the sob and chest pressure began, she just states she has had it for awhile because she has COPD and cancer. She does complain of a cough with no sputum production that has also been going on for a while. She denies any nausea, vomiting, fever or chills. She recently started back chemo 2 days ago and takes a pill for 7 days every 21 days. Review of Systems Except as stated in HPI: all other systems reviewed are Neg Past Family Social History Past Medical History Breast Cancer with mets to bone Anxiety Arthritis Asthma COPD Emphysema Migraines Osteoporosis AAA 4.3 Past Surgical History Appendectomy Breast Biopsy Hernia Repair Hysterectomy Left Mastectomy in 2016 Reported Medications Reported Meds & Active Scripts Active Prednisone (21) 10 mg tab Dose Pack (Prednisone) 10 Mg Pack 10 Mg PO DIRECTED Mirtazapine 15 Mg Tab 15 Mg PO DAILY Norvasc (Amlodipine Besylate) 5 Mg Tab 5 Mg PO DAILY Walker Rolling/GetGo (Device) 1 Mis Mis Ea .ROUTE DIRECTED Senna Plus 8.6-50 mg (Sennosides-Docusate Sodium) 1 Tab Tab 1 Tab PO BID Percocet (Oxycodone-Acetaminophen) 5-325 mg Tab 1-2 Tab PO Q6H PRN Reported Ibrance (Palbociclib) 125 Mg Capsule Ibrance (Palbociclib) 125 Mg Capsule 125 Mg PO HS 21 DAYS ON, 7 DAYS OFF Morphine ER (Morphine Sulfate) 30 Mg Tab 30 Mg PO Q12HR Miralax Powder (Polyethylene Glycol 3350 Powder) 17 Gm Powd 17 Gm PO DAILY PRN Mix and dissolve one measuring cap-ful (17 grams) in water or juice. Zofran (Ondansetron HCl) 4 Mg Tab 4 Mg PO Q6HR PRN Breo Ellipta Inh (Fluticasone/Vilanterol) 100-25 Mcg/Act Inh 1 Puff INH BID Use daily at the same time. Omeprazole 40 Mg Cap 40 Mg PO DAILY Duoneb (Ipratropium-Albuterol Neb) 0.5-2.5 Mg/3 Ml Neb 1 Nebule INH Q6HR NEB Ventolin Hfa 18 GM Inh (Albuterol Sulfate) 90 Mcg/Act Aer 1 Puff INH Q4H PRN Aspirin 325 Mg Tab 325 Mg PO DAILY Alprazolam 0.25 Mg Tab 0.25 Mg PO Q8H PRN Allergies: Coded Allergies: grapefruit (Verified Allergy, Unknown, 02/27/17) CONTRAINCDICATED WITH IBRANCE Active Ordered Medications Current Medications Medications (Trade) Dose Ordered Sig/Jimmy Route Start Time Stop Time Status Last Admin (NS Flush) 2 ml UNSCH PRN IV FLUSH 05/06/17 19:15 UNV (NS Flush) 2 ml BID IV FLUSH 05/06/17 21:00 UNV (Zofran Inj) 4 mg Q6H PRN IVP 05/06/17 19:15 UNV (Narcan Inj) 0.4 mg UNSCH PRN IV PUSH 05/06/17 19:15 UNV (Milk Of Magnesia Liq) 30 ml Q12H PRN PO 05/06/17 19:15 UNV (Senokot) 17.2 mg Q12H PRN PO 05/06/17 19:15 UNV (Dulcolax Supp) 10 mg DAILY PRN RECTAL 05/06/17 19:15 UNV (Lactulose Liq) 30 ml DAILY PRN PO 05/06/17 19:15 UNV (Xanax) 0.25 mg Q8H PRN PO 05/06/17 19:30 UNV (Breo Ellipta 100-25 Inh) 1 puff BID INH 05/06/17 21:00 UNV (Duoneb Neb) 1 ampule Q6HR NEB INH 05/06/17 22:00 UNV (Remeron) 15 mg DAILY PO 05/07/17 09:00 UNV (Oramorph Sr) 30 mg Q12HR PO 05/06/17 21:00 UNV (Percocet 5-325 Mg) 1 tab Q6H PRN PO 05/06/17 19:30 UNV (Klarissa-Colace) 1 tab BID PO 05/06/17 21:00 UNV Non-Formulary Medication 40 mg DAILY PO 05/07/17 09:00 UNV Family History Patient denies any family history, no heart disease or cancer Social History Tobacco use: Quit 8 years ago Alcohol use: Denies Illicit drug use: Denies Physical Exam Vital Signs Vital Signs Date Time Temp Pulse Resp B/P (MAP) Pulse Ox O2 Delivery O2 Flow Rate FiO2 05/06/17 16:02 Room Air 05/06/17 15:47 97 Nasal Cannula 2.50 05/06/17 15:24 98.7 92 18 109/55 (73) 98 Room Air Physical Exam GENERAL: This is a thin, frail looking patient in no apparent distress. SKIN: No rashes, ecchymoses or lesions. Cool and dry. HEAD: Atraumatic. Normocephalic. EYES: Pupils equal round and reactive. ENT: Nose without bleeding, purulent drainage or septal hematoma. Airway patent. NECK: Trachea midline. No JVD or lymphadenopathy. Supple, nontender, no meningeal signs. CARDIOVASCULAR: Regular rate and rhythm without murmurs, gallops, or rubs. RESPIRATORY: Clear to auscultation. Breath sounds equal bilaterally. No wheezes , rales, or rhonchi. GASTROINTESTINAL: Abdomen soft, non-tender, nondistended. MUSCULOSKELETAL: Extremities without clubbing, cyanosis, or edema. No calf tenderness. NEUROLOGICAL: Awake and alert. Nervous tremors in upper extremities. Motor and sensory grossly within normal limits. Normal speech. Laboratory Laboratory Tests Test 05/06/17 17:10 05/06/17 17:40 White Blood Count 3.0 Red Blood Count 2.43 Hemoglobin 8.1 Hematocrit 23.8 Mean Corpuscular Volume 97.9 Mean Corpuscular Hemoglobin 33.4 Mean Corpuscular Hemoglobin Concent 34.1 Red Cell Distribution Width 23.4 Platelet Count 42 Mean Platelet Volume 8.6 Neutrophils (%) (Auto) 75.0 Lymphocytes (%) (Auto) 22.1 Monocytes (%) (Auto) 2.3 Eosinophils (%) (Auto) 0.1 Basophils (%) (Auto) 0.5 Neutrophils # (Auto) 2.2 Lymphocytes # (Auto) 0.7 Monocytes # (Auto) 0.1 Eosinophils # (Auto) 0.0 Basophils # (Auto) 0.0 CBC Comment AUTO DIFF Blood Urea Nitrogen 10 Creatinine 0.53 Random Glucose 109 Total Protein 5.6 Albumin 2.9 Calcium Level 8.6 Alkaline Phosphatase 108 Aspartate Amino Transf (AST/SGOT) 29 Alanine Aminotransferase (ALT/SGPT) 14 Total Bilirubin 0.3 Sodium Level 141 Potassium Level 3.9 Chloride Level 111 Carbon Dioxide Level 25.0 Anion Gap 5 Estimat Glomerular Filtration Rate 112 Result Diagram: 05/06/17 1710 05/06/17 1740 Imaging Last Impressions Chest X-Ray 05/06/17 0000 Signed Impressions: Service Date/Time: Saturday, May 06, 2017 16:09 - CONCLUSION: The lungs are clear MD Debbie Robles VTE Risk Assessment Caprini VTE Risk Assessment: Mod/High Risk (score >= 2) VTE Pharm Contraindication: High risk for bleeding Caprini Risk Assessment Model Point Value = 1 Point Value = 2 Point Value = 3 Point Value = 5 Age 41-60 Minor surgery BMI > 25 kg/m2 Swollen legs Varicose veins or History of unexplained or recurrent spontaneous Oral contraceptives or hormone replacement Sepsis (< 1 month) Serious lung disease, including pneumonia (< 1 month) Abnormal pulmonary function Acute myocardial infarction Congestive heart failure (< 1 month) History of inflammatory bowel disease Medical patient at bed rest Age 61-74 Arthroscopic surgery Major open surgery (> 45 min) Laparoscopic surgery (> 45 min) Malignancy Confined to bed (> 72 hours) Immobilizing plaster cast Central venous access Age >= 75 History of VTE Family history of VTE Factor V Leiden Prothrombin [id number] Lupus anticoagulant Anticardiolipin antibodies Elevated serum homocysteine Heparin-induced thrombocytopenia Other congenital or acquired thrombophilia Stroke (< 1 month) Elective arthroplasty Hip, pelvis, or leg fracture Acute spinal cord injury (< 1 month) Prophylaxis Regimen Total Risk Factor Score Risk Level Prophylaxis Regimen 0-1 Low Early ambulation 2 Moderate Order ONE of the following: *Sequential Compression Device (SCD) *Heparin 5000 units SQ BID 3-4 Higher Order ONE of the following medications: *Heparin 5000 units SQ TID *Enoxaparin/Lovenox 40 mg SQ daily (WT < 150 kg, CrCl > 30 mL/min) *Enoxaparin/Lovenox 30 mg SQ daily (WT < 150 kg, CrCl > 10-29 mL/min) *Enoxaparin/Lovenox 30 mg SQ BID (WT < 150 kg, CrCl > 30 mL/min) AND/OR *Sequential Compression Device (SCD) 5 or more Highest Order ONE of the following medications: *Heparin 5000 units SQ TID (Preferred with Epidurals) *Enoxaparin/Lovenox 40 mg SQ daily (WT < 150 kg, CrCl > 30 mL/min) *Enoxaparin/Lovenox 30 mg SQ daily (WT < 150 kg, CrCl > 10-29 mL/min) *Enoxaparin/Lovenox 30 mg SQ BID (WT < 150 kg, CrCl > 30 mL/min) AND *Sequential Compression Device (SCD) Assessment and Plan Problem List: (1) Anemia ICD Code: D64.9 - Anemia, unspecified Status: Acute (2) Epistaxis ICD Code: R04.0 - Epistaxis Status: Acute (3) Bone metastasis ICD Code: C79.51 - Secondary malignant neoplasm of bone Status: Chronic (4) Breast cancer ICD Code: C50.919 - Malignant neoplasm of unspecified site of unspecified female breast Status: Chronic (5) COPD (chronic obstructive pulmonary disease) with emphysema ICD Code: J43.9 - Emphysema, unspecified Status: Chronic (6) Hypotension ICD Code: I95.9 - Hypotension, unspecified (7) Thrombocytopenia ICD Code: D69.6 - Thrombocytopenia, unspecified Status: Acute Assessment and Plan 76 y/o female with a history of breast cancer with mets to bone, anxiety, arthritis, asthma, and COPD presented to the ED with complaints of a nose bleed. Epistaxis with anemia, hgb 8.1, baseline 11.0, bleeding has currently stopped -Monitor H & H, transfuse if needed -Hold home aspirin Thrombocytopenia, related to Breast Cancer with bone metastasis, platelets 42, 000 -Consult oncology, Dr Bailey is patients oncologist -CBC in AM -Cont home pain regimen Mild hypotension on admission -Home home amlodipine, monitor vitals COPD, chronic not in exacerbation -O2 as needed -DuoNeb schedules DVT prophylaxis: SCDs, hold chemical for now due to bleeding and low platelets Discussed Condition With Patient and ED physician Attending Statement This note was transcribed by meera Archer. I, Dr. Aris Awad personally performed the history, physical exam, and medical decision making; and confirmed the accuracy of the information in the transcribed note. Authenticated by Dr. Aris Awad on 05/06/17 at 20:18. Problem Qualifiers (1) Anemia: Qualified Codes: D64.9 - Anemia, unspecified Christina Archer May 06, 2017 19:26 Aris Awad MD May 06, 2017 20:19
[2017-05-06] MEDS ORDERED: oxyCODONE/ACETAMINOPHEN 5 MG/325 MG TAB PO PRN (19:30)
[2017-05-06 20:46] VITALS: BP 98/54
[2017-05-06] MEDS: MORPHINE SULFATE 30 MG CONTROLLED RELEASE TAB PO SCH (21:26)
[2017-05-06] MEDS: DOCUSATE SODIUM 50 MG/SENNA 8.6 MG TAB PO SCH (21:27)
[2017-05-06 21:58] VITALS: BP 118/55; PULSE 87; RESP 18; TEMP 97.9; O2SAT 97
[2017-05-06] MEDS: SODIUM CHLORIDE 0.9% FLUSH 10 ML FLUSH IV FLUSH SCH (22:36)
[2017-05-06] MEDS: FLUTICASONE 100 MCG/VILANTEROL 25 MCG INHALER INH SCH (22:36)
[2017-05-06] MEDS: ALPRAZolam 0.25 MG TAB PO PRN (22:36)
[2017-05-06 22:43] VITALS: O2SAT 96
[2017-05-06] MEDS: RESP: ALBUTEROL 2.5 MG/IPRATROPIUM 0.5 MG NEB (SCH) INH (22:43)
[2017-05-07] VITALS (10 sets, daily range): BP systolic 100–131; BP diastolic 51–70; PULSE 76–91; RESP 16–20; TEMP 97.7–98.5; O2SAT 95–99
[2017-05-07] MEDS ORDERED: OXYC-395 PO (00:24)
[2017-05-07] MEDS ORDERED: TAMO20TA6 PO ×2 (00:25→10:01)
[2017-05-07] MEDS: RESP: ALBUTEROL 2.5 MG/IPRATROPIUM 0.5 MG NEB (SCH) INH ×4 (03:59→21:10)
--- NOTE | 2017-05-07 08:16 | HHI.PR ---
Subjective Remarks In bed appears in nad. Patient says she had no more nose bleeds. No hematuria, normal colored stool, no bleeding from gums, no vaginal bleeding. No bleeding in joints. has scattered ecchymosis on the arms. Feels tired, No cp, son, n/v/d/c. Says she did not get dinner last night and also she is still waiting for breakfast. Appetite is good and wants to eat. Objective Vitals Vital Signs Date Time Temp Pulse Resp B/P (MAP) Pulse Ox O2 Delivery O2 Flow Rate FiO2 05/07/17 07:27 98.3 81 16 113/58 (76) 96 05/07/17 03:57 98.1 76 18 103/53 (70) 98 05/07/17 01:02 98.1 84 18 119/60 (79) 95 05/06/17 22:43 96 Nasal Cannula 3.00 05/06/17 21:58 97.9 87 18 118/55 (76) 97 05/06/17 20:46 88 22 98/54 (69) 98 2.00 05/06/17 16:02 Room Air 05/06/17 15:47 97 Nasal Cannula 2.50 05/06/17 15:24 98.7 92 18 109/55 (73) 98 Room Air I/O 05/06/17 05/06/17 05/06/17 05/07/17 05/07/17 05/07/17 07:00 15:00 23:00 07:00 15:00 23:00 Intake Total 100 ml Balance 100 ml Intake Oral 100 ml Result Diagram: 05/06/17 1710 05/06/17 1740 Imaging Last Impressions Chest X-Ray 05/06/17 0000 Signed Impressions: Service Date/Time: Saturday, May 06, 2017 16:09 - CONCLUSION: The lungs are clear Manfred Powell MD Objective Remarks GENERAL: This is a thin, frail looking patient in no apparent distress. CARDIOVASCULAR: Regular rate and rhythm without murmurs, gallops, or rubs. RESPIRATORY: Clear to auscultation. Breath sounds equal bilaterally. No wheezes , rales, or rhonchi. GASTROINTESTINAL: Abdomen soft, non-tender, nondistended. MUSCULOSKELETAL: Extremities without clubbing, cyanosis, or edema. No calf tenderness. NEUROLOGICAL: Awake and alert. Nervous tremors in upper extremities. Motor and sensory grossly within normal limits. Normal speech. A/P Problem List: (1) Anemia ICD Code: D64.9 - Anemia, unspecified Status: Acute (2) Epistaxis ICD Code: R04.0 - Epistaxis Status: Acute (3) Bone metastasis ICD Code: C79.51 - Secondary malignant neoplasm of bone Status: Chronic (4) Breast cancer ICD Code: C50.919 - Malignant neoplasm of unspecified site of unspecified female breast Status: Chronic (5) COPD (chronic obstructive pulmonary disease) with emphysema ICD Code: J43.9 - Emphysema, unspecified Status: Chronic (6) Hypotension ICD Code: I95.9 - Hypotension, unspecified (7) Thrombocytopenia ICD Code: D69.6 - Thrombocytopenia, unspecified Status: Acute Assessment and Plan 76 y/o female with a history of breast cancer with mets to bone, anxiety, arthritis, asthma, and COPD presented to the ED with complaints of a nose bleed. Epistaxis with anemia, hgb 8.1, baseline 11.0, bleeding has currently stopped -Monitor H & H, transfuse if HGB < 7 or if symptomatic -Hold home aspirin Thrombocytopenia, related to Breast Cancer with bone metastasis, platelets 42, 000 -Consult oncology, Dr Bailey is patients oncologist -Monitor CBC, Plt stable -Cont home pain regimen Mild hypotension on admission -Home home amlodipine, monitor vitals COPD, chronic not in exacerbation -O2 as needed -DuoNeb schedules DVT prophylaxis: SCDs, hold chemical for now due to bleeding and low platelets Discussed Condition With Patient and nurse Problem Qualifiers (1) Anemia: Qualified Codes: D64.9 - Anemia, unspecified Loly Barbosa MD May 07, 2017 08:16
[2017-05-07] MEDS ORDERED: NON-FORMULARY DRUG (Omeprazole 40 MG) PO SCH (09:00)
[2017-05-07] MEDS: FLUTICASONE 100 MCG/VILANTEROL 25 MCG INHALER INH SCH ×2 (09:25→21:26)
[2017-05-07] MEDS: PANTOPRAZOLE SOD 40 MG DELAYED RELEASE TAB PO SCH (09:26)
[2017-05-07] MEDS: MIRTAZAPINE 15 MG TAB PO SCH (09:26)
[2017-05-07] MEDS: MORPHINE SULFATE 30 MG CONTROLLED RELEASE TAB PO SCH ×2 (09:26→21:27)
[2017-05-07] MEDS: DOCUSATE SODIUM 50 MG/SENNA 8.6 MG TAB PO SCH ×2 (09:27→21:26)
[2017-05-07] MEDS: SODIUM CHLORIDE 0.9% FLUSH 10 ML FLUSH IV FLUSH SCH ×2 (09:27→21:27)
[2017-05-07] MEDS ORDERED: TAMOXIFEN CITRATE 10 MG TAB PO SCH (11:15)
[2017-05-07 13:47] LABS: AUTOMATED NEUTROPHIL # 1.8 TH/MM3 (1.8-7.7); BASOPHIL % 0.4 % (0.0-2.0); EOSINOPHIL % 0.1 % (0.0-4.0); HEMATOCRIT 25.3 % (35.0-46.0); HEMOGLOBIN 8.4 GM/DL (11.6-15.3); LYMPH % 21.6 % (9.0-44.0); LYMPHOCYTE # 0.5 TH/MM3 (1.0-4.8); MEAN CELL VOLUME 98.3 FL (80.0-100.0); MEAN CORPUSCULAR HEMOGLOBIN 32.5 PG (27.0-34.0); MEAN CORPUSCULAR HGB CONC 33.1 % (32.0-36.0); MEAN PLATELET VOLUME 8.8 FL (7.0-11.0); MONO % 2.2 % (0.0-8.0); MONOCYTE # 0.1 TH/MM3 (0-0.9); NEUT % 75.7 % (16.0-70.0); PLATELET COUNT 41 TH/MM3 (150-450); RED BLOOD COUNT 2.58 MIL/MM3 (4.00-5.30); WHITE BLOOD COUNT 2.4 TH/MM3 (4.0-11.0)
--- NOTE | 2017-05-07 13:55 | MB ---
cc: BETTY JO M.D., MIRELA MD DATE OF CONSULTATION: 05/07/[address] Barbosa REASON FOR CONSULTATION Oncology consult render opinion regarding patient with metastatic breast cancer presented with pancytopenia and epistaxis. HISTORY OF PRESENT ILLNESS The patient is a 76-year-old female with history of metastatic breast cancer currently on a [place] tamoxifen present hospital with worsening epistaxis. She. He developed pancytopenia with previous cycle I brands and in the medication was put on for about a month. She recently started another cycle which she completed May 04. Over the last 10 days she started having mild epistaxis yesterday, she stated she soaked a whole tissue paper. Her daughter was concerned and brought into the emergency room. Platelet count has trended down to 42,000. Her platelet count was 220,000 on April 25 According to daughter. She also has significant anemia and white blood cell count have trended lower. She denies any fever, chills, night sweats, weight stable, it has stabilized. She denies any nausea, vomiting, diarrhea, abdominal pain. She denies any dysuria or hematuria. She denies any rash since started on the Ibrance. She started that she is feeling better and stronger. Her performance status has improved. PAST MEDICAL HISTORY: 1. Past medical history of breast cancer metastasis to the spine. 2. Anxiety. 3. Osteoarthritis. 4. Chronic obstructive pulmonary disease on oxygen 5. Migraine headache 6. Osteoporosis. 7. Recent pneumonia. 8. Abdominal aortic aneurysm. PAST SURGICAL HISTORY 1. Appendectomy 2. Breast biopsy 3. Left mastectomy 4. Hysterectomy. 5. Hernia repair. FAMILY HISTORY Noncontributory. SOCIAL HISTORY Quit tobacco about a eight years ago. He has alcohol use. ALLERGIES GRAPEFRUIT MEDICATIONS 1. Remeron. 2. Protonix. 3. DuoNeb's 4. BREO 5. Oramorph 6. Klarissa-Colace. 7. Ibrance 8. Tamoxifen. REVIEW OF SYSTEMS CONSTITUTIONAL: As above. EYES: Negative. ENT: As above. CARDIOVASCULAR SYSTEM: As above. RESPIRATORY: As above. GASTROINTESTINAL: Negative. GENITOURINARY: Negative. MUSCULOSKELETAL: Negative. HEMATOLOGIC: Hematology as above. ENDOCRINE: Negative DERMATOLOGIC: Negative. PSYCHIATRIC: Negative. NEUROLOGIC: Negative. PHYSICAL EXAMINATION VITAL SIGNS: Temperature 9.3, blood pressure 13 over 58, O2 saturation 96% 3 liters nasal cannula. IN GENERAL: She is alert and Oriented times 3, she is a little cachectic. HEAD, EYES, EARS, NOSE, AND THROAT: Atraumatic, normocephalic. Pupils equal round reactive to light. Oropharynx dry mucosa. There is a dried blood in his nostril NECK: No thyromegaly. LYMPHATICS: Lymphatic no palpable cervical, clavicular, axillary lymph node. CARDIOVASCULAR SYSTEM: Regular S1-S2. LUNGS: Slight decreased breath sound right lung base. No significant wheezing. ABDOMEN: Soft, nontender, could palpate liver or spleen. EXTREMITIES: No cyanosis, clubbing or edema. No calf tenderness. BACK: No paravertebral tenderness. SKIN: No rash or petechiae. NEUROLOGIC: Exam nonfocal. LABORATORY DATA: Reviewed. ASSESSMENT 1. Pancytopenia due to Ibrance. She had developed pancytopenia in the past with Ibrance. She was recently started back on Ibrance with tamoxifen. She completed the Ibrance on May 04. The CBC was relatively normal at end of March, but now she has developed worsening pancytopenia. She presented with worsening epistaxis. Platelet count down to 42,000 and was 220,000 on April 25. Hemoglobin down to 8.1 from 11 at end march. White blood cell count trended down to three but she is not neutropenic. Anticipate her blood count to recover now that she has completed the Ibrance. I would give her platelet transfusion if her platelet trended lower or if her epistaxis does not improve. 2. Metastatic breast cancer. She first presented with stage II breast cancer. She had left mastectomy, the tumor was hormone receptor positive. She was on endocrine therapy and developed metastatic disease in her spine. She was then started on Ibrance and tamoxifen. The patient stated that she is feeling better since started on Ibrance. Her performance status has improved, hopefully she is responding to treatment. With significant pancytopenia she likely will need a dose reduction of the Ibrance. She will continue to follow with Dr. Kirkpatrick after discharge from hospital. 3. Chronic obstructive pulmonary disease, she is oxygen dependent. 4. Recent history of pneumonia. She has no evidence of pneumonia at this time. 5. Osteoporosis. 6. History of migraine headaches. 7. Anxiety. 8. Osteoarthritis. RECOMMENDATIONS 1. Monitor CBC. 2. Transfuse platelets and keep it above 50,000 if she continued to have epistaxis. If not with could try to keep it above 30,000. 3. Discussed with the patient and daughter. 4. Continue tamoxifen. Thank you Dr. Barbosa for asking us see this patient. MD ROBERTO Fountain/sherly /10:55 AM /1:31 PM NANCY
[2017-05-07 14:28] LABS: BANDS 14 % (0-6); LYMPHOCYTES 18 % (9-44); MONOCYTES 1 % (0-8); NEUTROPHIL # MANUAL DIFF 1.9 TH/MM3 (1.8-7.7); POLYS (SEG NEUTROPHILS) 67 % (16-70)
[2017-05-07] MEDS: ALPRAZolam 0.25 MG TAB PO PRN (18:19)
[2017-05-07] MEDS: TAMOXIFEN CITRATE 10 MG TAB PO SCH (21:44)
[2017-05-08] VITALS (12 sets, daily range): BP systolic 103–141; BP diastolic 60–88; PULSE 81–104; RESP 16–20; TEMP 98.4–99.3; O2SAT 90–93
[2017-05-08] MEDS: ALPRAZolam 0.25 MG TAB PO PRN ×2 (04:37→16:45)
[2017-05-08] MEDS: RESP: ALBUTEROL 2.5 MG/IPRATROPIUM 0.5 MG NEB (SCH) INH ×4 (04:39→23:09)
[2017-05-08 06:34] LABS: AUTOMATED NEUTROPHIL # 1.8 TH/MM3 (1.8-7.7); BASOPHIL % 0.6 % (0.0-2.0); EOSINOPHIL % 0.5 % (0.0-4.0); HEMATOCRIT 24.2 % (35.0-46.0); HEMOGLOBIN 8.1 GM/DL (11.6-15.3); LYMPH % 28.2 % (9.0-44.0); LYMPHOCYTE # 0.8 TH/MM3 (1.0-4.8); MEAN CORPUSCULAR HEMOGLOBIN 32.6 PG (27.0-34.0); MEAN CORPUSCULAR HGB CONC 33.3 % (32.0-36.0); MEAN PLATELET VOLUME 8.7 FL (7.0-11.0); MONO % 1.8 % (0.0-8.0); NEUT % 68.9 % (16.0-70.0); PLATELET COUNT 37 TH/MM3 (150-450); RED BLOOD COUNT 2.47 MIL/MM3 (4.00-5.30); RED CELL DISTRIBUTION WIDTH 24.2 % (11.6-17.2); WHITE BLOOD COUNT 2.7 TH/MM3 (4.0-11.0)
[2017-05-08 07:06] LABS: BICARBONATE 24.1 MEQ/L (21.0-32.0); CALCIUM 9.2 MG/DL (8.5-10.1); CREATININE 0.6 MG/DL (0.50-1.00)
[2017-05-08] MEDS: DOCUSATE SODIUM 50 MG/SENNA 8.6 MG TAB PO SCH ×2 (09:00→20:19)
[2017-05-08 09:15] LABS: BANDS 14 % (0-6); BASOPHILS 2 % (0-2); LYMPHOCYTES 22 % (9-44); POLYS (SEG NEUTROPHILS) 61 % (16-70)
[2017-05-08] MEDS: SODIUM CHLORIDE 0.9% FLUSH 10 ML FLUSH IV FLUSH SCH ×2 (09:29→20:18)
[2017-05-08] MEDS: MORPHINE SULFATE 30 MG CONTROLLED RELEASE TAB PO SCH ×2 (09:30→20:19)
[2017-05-08] MEDS: PANTOPRAZOLE SOD 40 MG DELAYED RELEASE TAB PO SCH (09:30)
[2017-05-08] MEDS: MIRTAZAPINE 15 MG TAB PO SCH (09:30)
--- NOTE | 2017-05-08 10:26 | PD.ONC.PN ---
Subjective Subjective Remarks Afebrile overnight. Patient resting in bed. patient reports that she had several nosebleeds this morning. Objective Data Date Time Temp Pulse Resp B/P (MAP) Pulse Ox O2 Delivery O2 Flow Rate FiO2 05/08/17 09:45 92 Nasal Cannula 3.00 05/08/17 09:26 99.1 89 17 109/70 (83) 92 05/08/17 05:39 90 4.00 05/08/17 05:39 98.4 95 20 122/77 (92) 90 05/08/17 00:41 98.7 84 16 103/60 (74) 05/07/17 21:31 97.7 89 16 115/70 (85) 95 05/07/17 21:10 98 Nasal Cannula 3.00 05/07/17 18:43 86 05/07/17 17:36 98.5 79 20 114/67 (83) 99 05/07/17 15:56 97.9 82 18 131/62 (85) 96 05/07/17 11:49 98.5 91 18 100/51 (67) 97 Result Diagram: 05/08/1760405/08/17604 Laboratory Results Laboratory Tests Test 05/07/17 13:01 05/08/17 06:05 White Blood Count 2.4 TH/MM3 2.7 TH/MM3 Red Blood Count 2.58 MIL/MM3 2.47 MIL/MM3 Hemoglobin 8.4 GM/DL 8.1 GM/DL Hematocrit 25.3 % 24.2 % Mean Corpuscular Volume 98.3 FL 98.0 FL Mean Corpuscular Hemoglobin 32.5 PG 32.6 PG Mean Corpuscular Hemoglobin Concent 33.1 % 33.3 % Red Cell Distribution Width 24.0 % 24.2 % Platelet Count 41 TH/MM3 37 TH/MM3 Mean Platelet Volume 8.8 FL 8.7 FL Neutrophils (%) (Auto) 75.7 % 68.9 % Lymphocytes (%) (Auto) 21.6 % 28.2 % Monocytes (%) (Auto) 2.2 % 1.8 % Eosinophils (%) (Auto) 0.1 % 0.5 % Basophils (%) (Auto) 0.4 % 0.6 % Neutrophils # (Auto) 1.8 TH/MM3 1.8 TH/MM3 Lymphocytes # (Auto) 0.5 TH/MM3 0.8 TH/MM3 Monocytes # (Auto) 0.1 TH/MM3 0.0 TH/MM3 Eosinophils # (Auto) 0.0 TH/MM3 0.0 TH/MM3 Basophils # (Auto) 0.0 TH/MM3 0.0 TH/MM3 CBC Comment AUTO DIFF AUTO DIFF Differential Total Cells Counted 100 100 Neutrophils % (Manual) 67 % 61 % Band Neutrophils % 14 % 14 % Lymphocytes % 18 % 22 % Monocytes % 1 % Neutrophils # (Manual) 1.9 TH/MM3 2.0 TH/MM3 Differential Comment FINAL DIFF MANUAL FINAL DIFF MANUAL Toxic Granulation Platelet Estimate LOW LOW Platelet Morphology Comment NORMAL ENLARGED Eosinophils % 1 % Basophils % 2 % Blood Urea Nitrogen 12 MG/DL Creatinine 0.60 MG/DL Random Glucose 92 MG/DL Calcium Level 9.2 MG/DL Sodium Level 142 MEQ/L Potassium Level 3.9 MEQ/L Chloride Level 109 MEQ/L Carbon Dioxide Level 24.1 MEQ/L Anion Gap 9 MEQ/L Estimat Glomerular Filtration Rate 97 ML/MIN Administered Medications Medications (Trade) Dose Ordered Sig/Jimmy Route PRN Reason Start Time Stop Time Status Last Admin Dose Admin Sodium Chloride (NS Flush) 2 ml BID IV FLUSH 05/06/17 21:00 05/08/17 09:29 Alprazolam (Xanax) 0.25 mg Q8H PRN PO ANXIETY 05/06/17 19:30 05/08/17 04:37 Fluticasone/ Vilanterol (Breo Ellipta 100-25 Inh) 1 puff BID INH 05/06/17 21:00 05/07/17 21:26 Albuterol/ Ipratropium (Duoneb Neb) 1 ampule Q6HR NEB INH 05/06/17 22:00 05/08/17 09:45 Mirtazapine (Remeron) 15 mg DAILY PO 05/07/17 09:00 05/08/17 09:30 Morphine Sulfate (Oramorph Sr) 30 mg Q12HR PO 05/06/17 21:00 05/08/17 09:30 Senna/Docusate Sodium (Klarissa-Colace) 1 tab BID PO 05/06/17 21:00 05/07/17 21:26 Pantoprazole Sodium (Protonix) 40 mg DAILY PO 05/07/17 09:00 10/29/17 09:30 Tamoxifen Citrate (Nolvadex) 20 mg DAILY@2100 PO 05/07/17 21:00 05/07/17 21:44 Oxycodone HCl (Roxicodone) 10 mg Q4H PRN PO PAIN SCALE 6 TO 10 05/07/17 14:00 05/07/17 18:20 Objective Remarks GENERAL: Pleasant elderly female supine in bed resting. on 3L O2 via NC SKIN: Warm and dry. HEAD: Normocephalic. no active bleeding EYES: No injection or drainage. NECK: Supple, trachea midline. CARDIOVASCULAR: +S1/S2 RESPIRATORY: Breath sounds equal bilaterally. No accessory muscle use. GASTROINTESTINAL: Abdomen soft, non-tender, nondistended. EXTREMITIES: No cyanosis NEUROLOGICAL: awake and alert, normal speech. Assessment/Plan Problem List: (1) Pancytopenia due to antineoplastic chemotherapy ICD Codes: D61.810 - Antineoplastic chemotherapy induced pancytopenia; T45.1X5A - Adverse effect of antineoplastic and immunosuppressive drugs, initial encounter Plan: --developed pancytopenia in the past with Ibrance. --was recently started back on Ibrance with tamoxifen. --completed the Ibrance on May 04. --Anticipate her blood count to recover now that she has completed the Ibrance. Transfuse platelets and keep it above 50,000 if she continued to have epistaxis. If not with could try to keep it above 30,000. (2) COPD (chronic obstructive pulmonary disease) with emphysema ICD Codes: J43.9 - Emphysema, unspecified Status: Chronic Plan: --oxygen dependent (3) Metastatic breast cancer ICD Codes: C50.919 - Malignant neoplasm of unspecified site of unspecified female breast Plan: --first presented with stage II breast cancer. --left mastectomy, the tumor was hormone receptor positive. --was on endocrine therapy and developed metastatic disease in her spine. --was then started on Ibrance and tamoxifen. --patient stated that she is feeling better since started on Ibrance. Her performance status has improved, hopefully she is responding to treatment. -- With significant pancytopenia she likely will need a dose reduction of the Ibrance. -- will continue to follow with Dr. Kirkpatrick after discharge from hospital. Assessment 76-year-old female with history of metastatic breast cancer currently on a Ibrance and tamoxifen present hospital with worsening epistaxis. She developed pancytopenia with previous cycle Ibrance and the medication was put on for about a month. She recently started another cycle which she completed May 04. she started having epistaxis 05/06, she stated she soaked a whole tissue paper. Her daughter was concerned and brought into the emergency room. history of breast cancer metastasis to the spine. Anxiety. Osteoarthritis. Chronic obstructive pulmonary disease on oxygen. Migraine headache Osteoporosis. Recent pneumonia. Abdominal aortic aneurysm. Plan 1. give 1 unit of platelets for epistaxis this AM 2. monitor CBC 3. continue supportive care Attending Statement The exam, history, and the medical decision-making described in the above note were completed with the assistance of the mid-level provider. I reviewed and agree with the findings presented. I attest that I had a [id number] encounter with the patient on the same day, and personally performed and documented my assessment and findings in the medical record. Has epistaxis this am. No active bleeding now. Transfuse platelet. Has more SOB due to COPD. Will get CXR. May need to start steroid. Gisele Wilson May 08, 2017 10:26 Sandro Pride MD May 08, 2017 11:49
[2017-05-08] MEDS ORDERED: SODIUM CHLOR 0.9% 250 ML INJ 250 ML IV ONE (10:30)
[2017-05-08] MEDS: FLUTICASONE 100 MCG/VILANTEROL 25 MCG INHALER INH SCH ×2 (11:00→20:17)
--- NOTE | 2017-05-08 11:54 | RADRPT ---
EXAM DATE/TIME: 05/08/2017 10:24 [facility] COMPARISON: CHEST SINGLE AP, May 06, 2017, 16:09. INDICATIONS : Respiratory failure MEDICAL HISTORY : Hypertension. Chronic obstructive pulmonary disease. Cardiovascular disease. Breast and lung cancer. SURGICAL HISTORY : Mastectomy, left. ENCOUNTER: Subsequent ACUITY: 4 - 6 days PAIN SCORE: 0/10 LOCATION: Chest FINDINGS: Bibasilar patchiness is noted consistent with possible pneumonia. Clinical correlation is recommende d. The heart is stable. Underlying increased interstitial markings are again noted. CONCLUSION: 1. Bibasilar patchiness consistent with atelectasis and/or pneumonia. Clinical correlation is recomm ended. 2. Underlying increased interstitial markings bilaterally. Jono Costello MD on May 08, 2017 at 11:51 Board Certified Radiologist. This report was verified electronically.
[2017-05-08] MEDS: cefTRIAXone INJ 1,000 MG in SODIUM CHLORIDE 0.9% INJ 100 ML IV SCH (14:25)
[2017-05-08] MEDS: AZITHROMYCIN 250 MG TAB PO SCH (14:25)
[2017-05-08] MEDS ORDERED: ALBUTEROL SULFATE 90 MCG/ACT HFA 8 GM INHALER INH PRN (16:30)
--- NOTE | 2017-05-08 16:36 | HHI.PR ---
Subjective Remarks The patient was complaining of shortness of breath. She had an episode of nosebleed earlier this morning. Her family was at the bedside and their questions were answered. Objective Vitals Vital Signs Date Time Temp Pulse Resp B/P (MAP) Pulse Ox O2 Delivery O2 Flow Rate FiO2 05/08/17 15:52 90 Nasal Cannula 2.50 05/08/17 12:02 99.3 97 16 130/74 (92) 90 05/08/17 12:01 99.3 97 16 130/74 90 05/08/17 11:35 93 Nasal Cannula 2.50 05/08/17 09:45 92 Nasal Cannula 3.00 05/08/17 09:26 99.1 89 17 109/70 (83) 92 05/08/17 05:39 90 4.00 05/08/17 05:39 98.4 95 20 122/77 (92) 90 05/08/17 00:41 98.7 84 16 103/60 (74) 05/07/17 21:31 97.7 89 16 115/70 (85) 95 05/07/17 21:10 98 Nasal Cannula 3.00 05/07/17 18:43 86 05/07/17 17:36 98.5 79 20 114/67 (83) 99 I/O 05/07/17 05/07/17 05/07/17 05/08/17 05/08/17 05/08/17 07:00 15:00 23:00 07:00 15:00 23:00 Intake Total 100 ml 193 ml Balance 100 ml 193 ml Intake Oral 100 ml Platelets 193 ml # Voids 1 # Bowel Movements 1 Result Diagram: 05/08/17 0605 05/08/17 0605 Imaging Last Impressions Chest X-Ray 05/08/17 0000 Signed Impressions: Service Date/Time: Monday, May 08, 2017 10:24 - CONCLUSION: 1. Bibasilar patchiness consistent with atelectasis and/or pneumonia. Clinical correlation is recommended. 2. Underlying increased interstitial markings bilaterally. Jono Costello MD Objective Remarks GENERAL: This is a thin, frail looking patient in no apparent distress. CARDIOVASCULAR: Regular rate and rhythm without murmurs, gallops, or rubs. RESPIRATORY: Decreased air movement. GASTROINTESTINAL: Abdomen soft, non-tender, nondistended. MUSCULOSKELETAL: Extremities without clubbing, cyanosis, or edema. NEUROLOGICAL: Awake and alert. Nervous tremors in upper extremities. Motor and sensory grossly within normal limits. Normal speech. Medications and IVs Current Medications Medications (Trade) Dose Ordered Sig/Jimmy Route Start Time Stop Time Status Last Admin (NS Flush) 2 ml UNSCH PRN IV FLUSH 05/06/17 19:15 (NS Flush) 2 ml BID IV FLUSH 05/06/17 21:00 05/08/17 09:29 (Zofran Inj) 4 mg Q6H PRN IVP 05/06/17 19:15 (Narcan Inj) 0.4 mg UNSCH PRN IV PUSH 05/06/17 19:15 (Milk Of Magnesia Liq) 30 ml Q12H PRN PO 05/06/17 19:15 (Senokot) 17.2 mg Q12H PRN PO 05/06/17 19:15 (Dulcolax Supp) 10 mg DAILY PRN RECTAL 05/06/17 19:15 (Lactulose Liq) 30 ml DAILY PRN PO 05/06/17 19:15 (Xanax) 0.25 mg Q8H PRN PO 05/06/17 19:30 05/08/17 04:37 (Breo Ellipta 100-25 Inh) 1 puff BID INH 05/06/17 21:00 05/08/17 11:00 (Duoneb Neb) 1 ampule Q6HR NEB INH 05/06/17 22:00 05/08/17 15:45 (Remeron) 15 mg DAILY PO 05/07/17 09:00 05/08/17 09:30 (Oramorph Sr) 30 mg Q12HR PO 05/06/17 21:00 05/08/17 09:30 (Klarissa-Colace) 1 tab BID PO 05/06/17 21:00 05/07/17 21:26 (Protonix) 40 mg DAILY PO 05/07/17 09:00 05/08/17 09:30 (Nolvadex) 20 mg DAILY@2100 PO 05/07/17 21:00 05/07/17 21:44 (Roxicodone) 10 mg Q4H PRN PO 05/07/17 14:00 05/07/17 18:20 Sodium Chloride 250 ml @ 15 mls/hr ONCE ONCE IV 10/29/17 10:30 05/09/17 03:09 Ceftriaxone Sodium 1000 mg/ Sodium Chloride 100 ml @ 200 mls/hr Q24H IV 05/08/17 12:00 05/08/17 14:25 (Zithromax) 500 mg Q24H PO 05/08/17 13:00 05/08/17 14:25 A/P Problem List: (1) Anemia ICD Code: D64.9 - Anemia, unspecified Status: Acute (2) Epistaxis ICD Code: R04.0 - Epistaxis Status: Acute (3) Bone metastasis ICD Code: C79.51 - Secondary malignant neoplasm of bone Status: Chronic (4) Breast cancer ICD Code: C50.919 - Malignant neoplasm of unspecified site of unspecified female breast Status: Chronic (5) COPD (chronic obstructive pulmonary disease) with emphysema ICD Code: J43.9 - Emphysema, unspecified Status: Chronic (6) Hypotension ICD Code: I95.9 - Hypotension, unspecified (7) Thrombocytopenia ICD Code: D69.6 - Thrombocytopenia, unspecified Status: Acute Assessment and Plan 76 y/o female with a history of breast cancer with mets to bone, anxiety, arthritis, asthma, and COPD presented to the ED with complaints of a nose bleed. Epistaxis The pt had another nose bleed 05/08 and plt transfusion was ordered by heme. -Monitor H & H, transfuse if HGB < 7 or if symptomatic -Hold home aspirin Thrombocytopenia, related to Breast Cancer with bone metastasis -Consult oncology, Dr Bailey is patients oncologist. Transfused plts 05/08. -Monitor CBC, -Cont home pain regimen Mild hypotension on admission -Home home amlodipine, monitor vitals COPD On home oxygen. Has been having dyspnea. CXR with ? PNA. - continue azithromycin. - prednisone 20 mg BID started. -O2 as needed -DuoNeb scheduled. Albuterol as needed. - encourage ambulation. DVT prophylaxis: SCDs, hold chemical for now due to bleeding and low platelets Problem Qualifiers (1) Anemia: Qualified Codes: D64.9 - Anemia, unspecified Alexis Douglas DO May 08, 2017 16:36
[2017-05-08] MEDS: predniSONE 20 MG TAB PO SCH ×2 (17:35→20:19)
[2017-05-08] MEDS: TAMOXIFEN CITRATE 10 MG TAB PO SCH (20:19)
[2017-05-09] VITALS (10 sets, daily range): BP systolic 103–119; BP diastolic 58–76; PULSE 87–100; RESP 16; TEMP 98.4–98.8; O2SAT 90–94
[2017-05-09] MEDS: RESP: ALBUTEROL 2.5 MG/IPRATROPIUM 0.5 MG NEB (SCH) INH ×4 (03:41→21:59)
[2017-05-09 06:43] LABS: AUTOMATED NEUTROPHIL # 1.6 TH/MM3 (1.8-7.7); BASOPHIL % 0.2 % (0.0-2.0); HEMOGLOBIN 7.9 GM/DL (11.6-15.3); LYMPH % 14.8 % (9.0-44.0); LYMPHOCYTE # 0.3 TH/MM3 (1.0-4.8); MEAN CELL VOLUME 96.8 FL (80.0-100.0); MEAN CORPUSCULAR HEMOGLOBIN 31.8 PG (27.0-34.0); MEAN CORPUSCULAR HGB CONC 32.9 % (32.0-36.0); MEAN PLATELET VOLUME 8.1 FL (7.0-11.0); MONO % 1.1 % (0.0-8.0); NEUT % 83.9 % (16.0-70.0); PLATELET COUNT 65 TH/MM3 (150-450); RED BLOOD COUNT 2.48 MIL/MM3 (4.00-5.30); RED CELL DISTRIBUTION WIDTH 24.9 % (11.6-17.2); WHITE BLOOD COUNT 1.9 TH/MM3 (4.0-11.0)
[2017-05-09 06:55] LABS: BICARBONATE 24.5 MEQ/L (21.0-32.0); CREATININE 0.44 MG/DL (0.50-1.00)
[2017-05-09] MEDS: PANTOPRAZOLE SOD 40 MG DELAYED RELEASE TAB PO SCH (09:27)
[2017-05-09] MEDS: FLUTICASONE 100 MCG/VILANTEROL 25 MCG INHALER INH SCH ×2 (09:27→21:34)
[2017-05-09] MEDS: predniSONE 20 MG TAB PO SCH ×2 (09:27→21:34)
[2017-05-09] MEDS: DOCUSATE SODIUM 50 MG/SENNA 8.6 MG TAB PO SCH ×2 (09:28→21:35)
[2017-05-09] MEDS: MIRTAZAPINE 15 MG TAB PO SCH (09:28)
[2017-05-09] MEDS: SODIUM CHLORIDE 0.9% FLUSH 10 ML FLUSH IV FLUSH SCH ×2 (09:29→21:35)
[2017-05-09] MEDS: MORPHINE SULFATE 30 MG CONTROLLED RELEASE TAB PO SCH ×2 (09:29→21:35)
[2017-05-09 09:41] LABS: BANDS 10 % (0-6); LYMPHOCYTES 12 % (9-44); NEUTROPHIL # MANUAL DIFF 1.7 TH/MM3 (1.8-7.7); POLYS (SEG NEUTROPHILS) 78 % (16-70)
--- NOTE | 2017-05-09 09:43 | HHI.PR ---
Subjective Remarks Patient reports she is feeling okay today. Had some blood-tinged tissue at the bedside from her nose but denies john epistaxis. Objective Vitals Vital Signs Date Time Temp Pulse Resp B/P (MAP) Pulse Ox O2 Delivery O2 Flow Rate FiO2 05/08/17 23:52 90 Nasal Cannula 3.00 05/08/17 23:50 93 3.50 05/08/17 23:37 98.4 81 18 117/71 (86) 93 05/08/17 23:09 92 Nasal Cannula 3.50 05/08/17 20:25 98.9 98 16 119/69 (86) 92 05/08/17 16:41 98.5 104 16 141/88 (105) 90 05/08/17 15:52 90 Nasal Cannula 2.50 05/08/17 12:02 99.3 97 16 130/74 (92) 90 05/08/17 12:01 99.3 97 16 130/74 90 05/08/17 11:35 93 Nasal Cannula 2.50 05/08/17 09:45 92 Nasal Cannula 3.00 I/O 05/08/17 05/08/17 05/08/17 05/09/17 05/09/17 05/09/17 07:00 15:00 23:00 07:00 15:00 23:00 Intake Total 193 ml 360 ml Output Total 725 ml Balance 193 ml -365 ml Intake Oral 360 ml Platelets 193 ml Output Urine Total 725 ml # Voids 1 Result Diagram: 05/09/17 0534 05/09/17 0534 Objective Remarks GENERAL: Elderly and frail female in no apparent distress. ENT: Nose with scant dried blood. CARDIOVASCULAR: Normal rate and regular rhythm without murmurs, gallops, or rubs. RESPIRATORY: Good respiratory efforts. Breath sounds equal and clear to auscultation bilaterally. GASTROINTESTINAL: Abdomen soft, non-tender, non-distended. Normal active bowel sounds MUSCULOSKELETAL: Extremities without cyanosis, or edema. NEURO: Alert & Oriented x4 to person, place, time, situation. Moves all ext x4 PSYCH: Appropriate mood and affect. A/P Problem List: (1) Anemia ICD Code: D64.9 - Anemia, unspecified Status: Acute (2) Epistaxis ICD Code: R04.0 - Epistaxis Status: Acute (3) Bone metastasis ICD Code: C79.51 - Secondary malignant neoplasm of bone Status: Chronic (4) Breast cancer ICD Code: C50.919 - Malignant neoplasm of unspecified site of unspecified female breast Status: Chronic (5) COPD (chronic obstructive pulmonary disease) with emphysema ICD Code: J43.9 - Emphysema, unspecified Status: Chronic (6) Hypotension ICD Code: I95.9 - Hypotension, unspecified (7) Thrombocytopenia ICD Code: D69.6 - Thrombocytopenia, unspecified Status: Acute Assessment and Plan 76 y/o female with a history of breast cancer with mets to bone, anxiety, arthritis, asthma, and COPD presented to the ED with complaints of a nose bleed. Epistaxis: Improving. Last nose bleed 05/08 and plt transfusion was ordered by heme. Some blood tinged tissue at bedside but no john bleeding. -Monitor H & H, transfuse if HGB < 7 or if symptomatic -Hold home aspirin. Thrombocytopenia, related to anti-neoplastic medication Ibrance -Oncology following oral advised supportive care with transfusion as needed to keep platelets above 50 if she continues to have epistaxis or above the 30 if no bleeding. -Monitor CBC, -Cont home pain regimen - Platelets improved post transfusion. Metastatic breast cancer: Oncology following. Patient to continue on tamoxifen. - Follow up with Oncologist Dr. Kirkpatrick on discharge. Mild hypotension on admission -Hold home amlodipine, monitor vitals COPD, Possible pneumonia On home oxygen. Has been having dyspnea. CXR with ? PNA. - continue Rocephin and azithromycin. - prednisone 20 mg BID started. -O2 as needed -DuoNeb scheduled. Albuterol as needed. - encourage ambulation. DVT prophylaxis: SCDs, hold chemical for now due to bleeding and low platelets Discharge Planning Plan to discharge home with home health tomorrow if remains stable and no further epistaxis. Problem Qualifiers (1) Anemia: Qualified Codes: D64.9 - Anemia, unspecified Adele Michaud MD May 09, 2017 09:43
[2017-05-09 09:44] LABS: DOHLE BODIES PRESENT (NONE SEEN)
--- NOTE | 2017-05-09 10:37 | PD.ONC.PN ---
Subjective Subjective Remarks Afebrile overnight. Patient resting in bed. Denies further epistaxis. Breathing better. Objective Data Date Time Temp Pulse Resp B/P (MAP) Pulse Ox O2 Delivery O2 Flow Rate FiO2 05/09/17 10:00 90 Nasal Cannula 4.00 05/08/17 23:52 90 Nasal Cannula 3.00 05/08/17 23:50 93 3.50 05/08/17 23:37 98.4 81 18 117/71 (86) 93 05/08/17 23:09 92 Nasal Cannula 3.50 05/08/17 20:25 98.9 98 16 119/69 (86) 92 05/08/17 16:41 98.5 104 16 141/88 (105) 90 05/08/17 15:52 90 Nasal Cannula 2.50 05/08/17 12:02 99.3 97 16 130/74 (92) 90 05/08/17 12:01 99.3 97 16 130/74 90 05/08/17 11:35 93 Nasal Cannula 2.50 05/09/17 05/09/17 05/09/17 07:00 15:00 23:00 Intake Total 360 ml Output Total 725 ml Balance -365 ml Result Diagram: 05/09/17 0534 05/09/17 0534 Laboratory Results Laboratory Tests Test 05/09/17 05:34 White Blood Count 1.9 TH/MM3 Red Blood Count 2.48 MIL/MM3 Hemoglobin 7.9 GM/DL Hematocrit 24.0 % Mean Corpuscular Volume 96.8 FL Mean Corpuscular Hemoglobin 31.8 PG Mean Corpuscular Hemoglobin Concent 32.9 % Red Cell Distribution Width 24.9 % Platelet Count 65 TH/MM3 Mean Platelet Volume 8.1 FL Neutrophils (%) (Auto) 83.9 % Lymphocytes (%) (Auto) 14.8 % Monocytes (%) (Auto) 1.1 % Eosinophils (%) (Auto) 0.0 % Basophils (%) (Auto) 0.2 % Neutrophils # (Auto) 1.6 TH/MM3 Lymphocytes # (Auto) 0.3 TH/MM3 Monocytes # (Auto) 0.0 TH/MM3 Eosinophils # (Auto) 0.0 TH/MM3 Basophils # (Auto) 0.0 TH/MM3 CBC Comment AUTO DIFF Differential Total Cells Counted 100 Neutrophils % (Manual) 78 % Band Neutrophils % 10 % Lymphocytes % 12 % Neutrophils # (Manual) 1.7 TH/MM3 Differential Comment FINAL DIFF MANUAL Dohle Bodies PRESENT Platelet Estimate LOW Platelet Morphology Comment NORMAL Blood Urea Nitrogen 10 MG/DL Creatinine 0.44 MG/DL Random Glucose 127 MG/DL Calcium Level 9.0 MG/DL Sodium Level 139 MEQ/L Potassium Level 4.0 MEQ/L Chloride Level 107 MEQ/L Carbon Dioxide Level 24.5 MEQ/L Anion Gap 8 MEQ/L Estimat Glomerular Filtration Rate 139 ML/MIN Administered Medications Medications (Trade) Dose Ordered Sig/Jimmy Route PRN Reason Start Time Stop Time Status Last Admin Dose Admin Sodium Chloride (NS Flush) 2 ml BID IV FLUSH 05/06/17 21:00 05/09/17 09:29 Alprazolam (Xanax) 0.25 mg Q8H PRN PO ANXIETY 05/06/17 19:30 05/08/17 16:45 Fluticasone/ Vilanterol (Breo Ellipta 100-25 Inh) 1 puff BID INH 05/06/17 21:00 05/09/17 09:27 Albuterol/ Ipratropium (Duoneb Neb) 1 ampule Q6HR NEB INH 05/06/17 22:00 05/09/17 09:57 Mirtazapine (Remeron) 15 mg DAILY PO 05/07/17 09:00 05/09/17 09:28 Morphine Sulfate (Oramorph Sr) 30 mg Q12HR PO 05/06/17 21:00 05/09/17 09:29 Senna/Docusate Sodium (Klarissa-Colace) 1 tab BID PO 05/06/17 21:00 05/09/17 09:28 Pantoprazole Sodium (Protonix) 40 mg DAILY PO 05/07/17 09:00 05/09/17 09:27 Tamoxifen Citrate (Nolvadex) 20 mg DAILY@2100 PO 05/07/17 21:00 05/08/17 20:19 Oxycodone HCl (Roxicodone) 10 mg Q4H PRN PO PAIN SCALE 6 TO 10 05/07/17 14:00 05/08/17 20:17 Ceftriaxone Sodium 1000 mg/ Sodium Chloride 100 ml @ 200 mls/hr Q24H IV 05/08/17 12:00 05/08/17 14:25 Azithromycin (Zithromax) 500 mg Q24H PO 05/08/17 13:00 05/08/17 14:25 Prednisone (Deltasone) 20 mg BID PO 05/08/17 16:30 05/09/17 09:27 Objective Remarks GENERAL: Pleasant elderly female upright in bed in nad. On 3L O2 SKIN: Warm and dry. HEAD: Normocephalic. no active bleeding EYES: No injection or drainage. NECK: Supple, trachea midline. CARDIOVASCULAR: +S1/S2 RESPIRATORY: anterior person clear. GASTROINTESTINAL: Abdomen soft, non-tender, nondistended. EXTREMITIES: No cyanosis NEUROLOGICAL: awake and alert, normal speech. Assessment/Plan Problem List: (1) Pancytopenia due to antineoplastic chemotherapy ICD Codes: D61.810 - Antineoplastic chemotherapy induced pancytopenia; T45.1X5A - Adverse effect of antineoplastic and immunosuppressive drugs, initial encounter Plan: --developed pancytopenia in the past with Ibrance. --was recently started back on Ibrance with tamoxifen. --completed the Ibrance on May 04. --Anticipate her blood count to recover now that she has completed the Ibrance. --Transfuse platelets and keep it above 50,000 if she continued to have epistaxis. Otherwise, keep it above 30,000. (2) COPD (chronic obstructive pulmonary disease) with emphysema ICD Codes: J43.9 - Emphysema, unspecified Status: Chronic Plan: --oxygen dependent (3) Metastatic breast cancer ICD Codes: C50.919 - Malignant neoplasm of unspecified site of unspecified female breast Plan: --first presented with stage II breast cancer. --left mastectomy, the tumor was hormone receptor positive. --was on endocrine therapy and developed metastatic disease in her spine. --was then started on Ibrance and tamoxifen. --patient stated that she is feeling better since started on Ibrance. Her performance status has improved, hopefully she is responding to treatment. -- With significant pancytopenia she likely will need a dose reduction of the Ibrance. -- will continue to follow with Dr. Kirkpatrick after discharge from hospital. Assessment 76-year-old female with history of metastatic breast cancer currently on a Ibrance and tamoxifen present hospital with worsening epistaxis. She developed pancytopenia with previous cycle Ibrance and the medication was put on for about a month. She recently started another cycle which she completed May 04. she started having epistaxis 05/06, she stated she soaked a whole tissue paper. Her daughter was concerned and brought into the emergency room. history of breast cancer metastasis to the spine. Anxiety. Osteoarthritis. Chronic obstructive pulmonary disease on oxygen. Migraine headache Osteoporosis. Recent pneumonia. Abdominal aortic aneurysm. Plan 1. monitor CBC 2. monitor COPD 3. continue supportive care Attending Statement The exam, history, and the medical decision-making described in the above note were completed with the assistance of the mid-level provider. I reviewed and agree with the findings presented. I attest that I had a [id number] encounter with the patient on the same day, and personally performed and documented my assessment and findings in the medical record. pancytopenic transfuse 1 unit of prbc start Neupogen Thrombocytopenia --asymptomatic check coags and fibrinogen in am mild nose bleeds encourage oral intake PT consult d/w rn o/n events reviewed Gisele Wilson May 09, 2017 10:37 Eric Kirkpatrick MD May 09, 2017 23:28
--- NOTE | 2017-05-09 11:57 | HHI.FF ---
Face to Face Verification Diagnosis: (1) Pancytopenia due to antineoplastic chemotherapy (2) Metastatic breast cancer (3) COPD (chronic obstructive pulmonary disease) with emphysema (4) Physical deconditioning Physical Therapy Order: Evaluate and Treat Home Health Nursing Order: Medical education Signs/symptoms of disease process Oxygen administration education Nursing assessment with vital signs I have seen patient Henrietta Gunter on 05/09/17. My clinical findings support the need for the requested home health care services because: Ltd mobility - disease progression Deconditioned w/ increased weakness Need for psychosocial assistance High risk of falls I certify that my clinical findings support that this patient is homebound because: Unsteady gait/balance Need for psychosocial assistance Adele Michaud MD May 09, 2017 11:57
[2017-05-09] MEDS: cefTRIAXone INJ 1,000 MG in SODIUM CHLORIDE 0.9% INJ 100 ML IV SCH (12:00)
[2017-05-09] MEDS: AZITHROMYCIN 250 MG TAB PO SCH (13:03)
[2017-05-09] MEDS: FILGRASTIM INJ 300 MCG in DEXTROSE 5% IN WATER INJ 24 ML IV SCH ×2 (14:19)
[2017-05-09] MEDS ORDERED: diphenhydrAMINE HCL 25 MG CAP PO ONE (19:30)
[2017-05-09] MEDS ORDERED: ACETAMINOPHEN 325 MG TAB PO ONE (19:30)
[2017-05-09] MEDS: TAMOXIFEN CITRATE 10 MG TAB PO SCH (21:34)
[2017-05-10] VITALS (8 sets, daily range): BP systolic 125–141; BP diastolic 77–81; PULSE 84–106; RESP 16; TEMP 98.1–98.8; O2SAT 90–93
[2017-05-10] MEDS: RESP: ALBUTEROL 2.5 MG/IPRATROPIUM 0.5 MG NEB (SCH) INH ×4 (04:00→15:34)
[2017-05-10 06:55] LABS: AUTOMATED NEUTROPHIL # 4.9 TH/MM3 (1.8-7.7); BASOPHIL % 0.1 % (0.0-2.0); HEMATOCRIT 27.1 % (35.0-46.0); HEMOGLOBIN 9.4 GM/DL (11.6-15.3); LYMPH % 10.8 % (9.0-44.0); LYMPHOCYTE # 0.6 TH/MM3 (1.0-4.8); MEAN CELL VOLUME 93.5 FL (80.0-100.0); MEAN CORPUSCULAR HEMOGLOBIN 32.4 PG (27.0-34.0); MEAN CORPUSCULAR HGB CONC 34.7 % (32.0-36.0); MEAN PLATELET VOLUME 8.5 FL (7.0-11.0); MONO % 2.8 % (0.0-8.0); MONOCYTE # 0.2 TH/MM3 (0-0.9); NEUT % 86.3 % (16.0-70.0); PLATELET COUNT 55 TH/MM3 (150-450); RED CELL DISTRIBUTION WIDTH 23.4 % (11.6-17.2); WHITE BLOOD COUNT 5.7 TH/MM3 (4.0-11.0)
[2017-05-10 07:17] LABS: INTERNATIONAL NORMALIZED RATIO 1.1 RATIO; PROTHROMBIN TIME - PATIENT 12.6 SEC (9.8-11.6)
[2017-05-10 08:39] LABS: BANDS 14 % (0-6); LYMPHOCYTES 11 % (9-44); MONOCYTES 1 % (0-8); POLYS (SEG NEUTROPHILS) 73 % (16-70)
[2017-05-10] MEDS: DOCUSATE SODIUM 50 MG/SENNA 8.6 MG TAB PO SCH (09:00)
[2017-05-10] MEDS: predniSONE 20 MG TAB PO SCH (09:25)
[2017-05-10] MEDS: PANTOPRAZOLE SOD 40 MG DELAYED RELEASE TAB PO SCH (09:25)
[2017-05-10] MEDS: MIRTAZAPINE 15 MG TAB PO SCH (09:25)
[2017-05-10] MEDS: FLUTICASONE 100 MCG/VILANTEROL 25 MCG INHALER INH SCH (09:25)
[2017-05-10] MEDS: SODIUM CHLORIDE 0.9% FLUSH 10 ML FLUSH IV FLUSH SCH (09:27)
[2017-05-10] MEDS: MORPHINE SULFATE 30 MG CONTROLLED RELEASE TAB PO SCH (09:27)
[2017-05-10] MEDS: ALPRAZolam 0.25 MG TAB PO PRN (09:30)
--- NOTE | 2017-05-10 11:52 | PD.ONC.PN ---
Subjective Subjective Remarks Afebrile overnight. Patient resting in bed. Feeling ok. Breathing well. No further nose bleeding. Objective Data Date Time Temp Pulse Resp B/P (MAP) Pulse Ox O2 Delivery O2 Flow Rate FiO2 05/10/17 11:01 93 Nasal Cannula 3.00 05/10/17 08:31 Nasal Cannula 2.50 05/10/17 08:20 98.4 95 16 130/77 (94) 90 05/10/17 08:00 88 05/10/17 05:20 98.8 84 16 141/81 (101) 93 05/10/17 04:03 88 05/10/17 00:11 90 05/09/17 23:45 98.5 97 16 119/69 (86) 91 05/09/17 22:18 16 05/09/17 22:00 94 Nasal Cannula 4.00 05/09/17 21:53 98.4 90 16 119/76 94 05/09/17 21:41 Nasal Cannula 3.00 05/09/17 21:15 98.6 94 16 114/58 93 05/09/17 21:00 98.6 94 16 114/58 (76) 93 05/09/17 20:06 100 05/09/17 16:46 98.8 97 16 119/68 (85) 91 05/09/17 13:15 98.5 99 16 115/69 (84) 92 05/10/17 05/10/17 05/10/17 07:00 15:00 23:00 Intake Total 1240 ml Output Total 300 ml Balance 940 ml Result Diagram: 05/10/17 0456 05/09/17 0534 Laboratory Results Laboratory Tests Test 05/10/17 04:56 05/10/17 09:00 White Blood Count 5.7 TH/MM3 Red Blood Count 2.90 MIL/MM3 Hemoglobin 9.4 GM/DL Hematocrit 27.1 % Mean Corpuscular Volume 93.5 FL Mean Corpuscular Hemoglobin 32.4 PG Mean Corpuscular Hemoglobin Concent 34.7 % Red Cell Distribution Width 23.4 % Platelet Count 55 TH/MM3 Mean Platelet Volume 8.5 FL Neutrophils (%) (Auto) 86.3 % Lymphocytes (%) (Auto) 10.8 % Monocytes (%) (Auto) 2.8 % Eosinophils (%) (Auto) 0.0 % Basophils (%) (Auto) 0.1 % Neutrophils # (Auto) 4.9 TH/MM3 Lymphocytes # (Auto) 0.6 TH/MM3 Monocytes # (Auto) 0.2 TH/MM3 Eosinophils # (Auto) 0.0 TH/MM3 Basophils # (Auto) 0.0 TH/MM3 CBC Comment AUTO DIFF Differential Total Cells Counted 100 Neutrophils % (Manual) 73 % Band Neutrophils % 14 % Lymphocytes % 11 % Monocytes % 1 % Eosinophils % 1 % Neutrophils # (Manual) 5.0 TH/MM3 Differential Comment FINAL DIFF MANUAL Platelet Estimate LOW Platelet Morphology Comment NORMAL Prothrombin Time 12.6 SEC Prothromb Time International Ratio 1.1 RATIO Fibrinogen 179 mg/dL Activated Partial Thromboplast Time 21.2 SEC Administered Medications Medications (Trade) Dose Ordered Sig/Jimmy Route PRN Reason Start Time Stop Time Status Last Admin Dose Admin Sodium Chloride (NS Flush) 2 ml BID IV FLUSH 05/06/17 21:00 05/10/17 09:27 Alprazolam (Xanax) 0.25 mg Q8H PRN PO ANXIETY 05/06/17 19:30 05/10/17 09:30 Fluticasone/ Vilanterol (Breo Ellipta 100-25 Inh) 1 puff BID INH 05/06/17 21:00 05/10/17 09:25 Albuterol/ Ipratropium (Duoneb Neb) 1 ampule Q6HR NEB INH 05/06/17 22:00 05/10/17 10:59 Mirtazapine (Remeron) 15 mg DAILY PO 05/07/17 09:00 05/10/17 09:25 Morphine Sulfate (Oramorph Sr) 30 mg Q12HR PO 05/06/17 21:00 05/10/17 09:27 Senna/Docusate Sodium (Klarissa-Colace) 1 tab BID PO 05/06/17 21:00 05/09/17 21:35 Pantoprazole Sodium (Protonix) 40 mg DAILY PO 05/07/17 09:00 05/10/17 09:25 Tamoxifen Citrate (Nolvadex) 20 mg DAILY@2100 PO 05/07/17 21:00 05/09/17 21:34 Oxycodone HCl (Roxicodone) 10 mg Q4H PRN PO PAIN SCALE 6 TO 10 05/07/17 14:00 05/09/17 18:25 Ceftriaxone Sodium 1000 mg/ Sodium Chloride 100 ml @ 200 mls/hr Q24H IV 05/08/17 12:00 05/09/17 12:00 Azithromycin (Zithromax) 500 mg Q24H PO 05/08/17 13:00 05/09/17 13:03 Prednisone (Deltasone) 20 mg BID PO 05/08/17 16:30 05/10/17 09:25 Filgrastim 300 mcg/Dextrose 25 ml @ 100 mls/hr DAILY@14 IV 05/09/17 14:00 05/09/17 14:19 Objective Remarks GENERAL: Elderly female upright in bed SKIN: Warm and dry. HEAD: Normocephalic. EYES: No injection or drainage. NECK: Supple, trachea midline. CARDIOVASCULAR: Regular rate and rhythm RESPIRATORY: diminished at bases. anterior person clear. GASTROINTESTINAL: Abdomen soft, non-tender, nondistended. EXTREMITIES: No cyanosis, or edema. MUSCULOSKELETAL: Adequate muscle tone. NEUROLOGICAL: awake and alert, normal speech. Assessment/Plan Problem List: (1) Pancytopenia due to antineoplastic chemotherapy ICD Codes: D61.810 - Antineoplastic chemotherapy induced pancytopenia; T45.1X5A - Adverse effect of antineoplastic and immunosuppressive drugs, initial encounter Plan: --developed pancytopenia in the past with Ibrance. --was recently started back on Ibrance with tamoxifen. --completed the Ibrance on May 04. --Anticipate her blood count to recover now that she has completed the Ibrance. --Transfuse platelets and keep it above 50,000 if she continued to have epistaxis. Otherwise, keep it above 30,000. (2) COPD (chronic obstructive pulmonary disease) with emphysema ICD Codes: J43.9 - Emphysema, unspecified Status: Chronic Plan: --oxygen dependent (3) Metastatic breast cancer ICD Codes: C50.919 - Malignant neoplasm of unspecified site of unspecified female breast Plan: --first presented with stage II breast cancer. --left mastectomy, the tumor was hormone receptor positive. --was on endocrine therapy and developed metastatic disease in her spine. --was then started on Ibrance and tamoxifen. --patient stated that she is feeling better since started on Ibrance. Her performance status has improved, hopefully she is responding to treatment. -- With significant pancytopenia she likely will need a dose reduction of the Ibrance. -- will continue to follow with Dr. Kirkpatrick after discharge from hospital. Assessment 76-year-old female with history of metastatic breast cancer currently on a Ibrance and tamoxifen present hospital with worsening epistaxis. She developed pancytopenia with previous cycle Ibrance and the medication was put on for about a month. She recently started another cycle which she completed May 04. she started having epistaxis 05/06, she stated she soaked a whole tissue paper. Her daughter was concerned and brought into the emergency room. history of breast cancer metastasis to the spine. Anxiety. Osteoarthritis. Chronic obstructive pulmonary disease on oxygen. Migraine headache Osteoporosis. Recent pneumonia. Abdominal aortic aneurysm. Plan 1. monitor CBC 2. continue supportive care 3. ok to d/c home. follow up in clinic on for labs and next week for appointment with Dr. Kirkpatrick. d/w patient, patient's daughter, Dr. Jaswant Wilson,Gisele RODRIGUEZ May 10, 2017 11:52
[2017-05-10] MEDS ORDERED: PRED10PA PO (12:04)
[2017-05-10] MEDS ORDERED: AZIT250T3 PO (12:04)
--- NOTE | 2017-05-10 12:04 | HHI.DS ---
Discharge Summary Admission Date May 09, 2017 at 11:52 Discharge Date: May 10, 2017 Admitting Diagnosis bleeding, anemia (1) Anemia ICD Code: D64.9 - Anemia, unspecified Status: Acute (2) Epistaxis ICD Code: R04.0 - Epistaxis Status: Acute (3) Bone metastasis ICD Code: C79.51 - Secondary malignant neoplasm of bone Status: Chronic (4) Breast cancer ICD Code: C50.919 - Malignant neoplasm of unspecified site of unspecified female breast Status: Chronic (5) COPD (chronic obstructive pulmonary disease) with emphysema ICD Code: J43.9 - Emphysema, unspecified Status: Chronic (6) Hypotension ICD Code: I95.9 - Hypotension, unspecified (7) Thrombocytopenia ICD Code: D69.6 - Thrombocytopenia, unspecified Status: Acute Procedures None Brief History - From Admission HPI from the admitting physician. 76 Y/O female with a history of breast cancer with mets to bone, anxiety, arthritis, asthma, and COPD presented to the ED with complaints of a nose bleed. Patient states yesterday she was blowing her nose and there was a little blood, and today at 9:00am it was much worse. She complains of associated shortness of breath and chest pressure. She states the chest pressure is intermittent and radiates to her left side. She does not know when the sob and chest pressure began, she just states she has had it for awhile because she has COPD and cancer. She does complain of a cough with no sputum production that has also been going on for a while. She denies any nausea, vomiting, fever or chills. She recently started back chemo 2 days ago and takes a pill for 7 days every 21 days. CBC/BMP: 05/10/17 0456 05/09/17 0534 Significant Findings Laboratory Tests Test 05/07/17 13:01 05/08/17 06:05 05/09/17 05:34 05/10/17 04:56 White Blood Count 2.4 TH/MM3 (4.0-11.0) 2.7 TH/MM3 (4.0-11.0) 1.9 TH/MM3 (4.0-11.0) Red Blood Count 2.58 MIL/MM3 (4.00-5.30) 2.47 MIL/MM3 (4.00-5.30) 2.48 MIL/MM3 (4.00-5.30) 2.90 MIL/MM3 (4.00-5.30) Hemoglobin 8.4 GM/DL (11.6-15.3) 8.1 GM/DL (11.6-15.3) 7.9 GM/DL (11.6-15.3) 9.4 GM/DL (11.6-15.3) Hematocrit 25.3 % (35.0-46.0) 24.2 % (35.0-46.0) 24.0 % (35.0-46.0) 27.1 % (35.0-46.0) Red Cell Distribution Width 24.0 % (11.6-17.2) 24.2 % (11.6-17.2) 24.9 % (11.6-17.2) 23.4 % (11.6-17.2) Platelet Count 41 TH/MM3 (150-450) 37 TH/MM3 (150-450) 65 TH/MM3 (150-450) 55 TH/MM3 (150-450) Neutrophils (%) (Auto) 75.7 % (16.0-70.0) 83.9 % (16.0-70.0) 86.3 % (16.0-70.0) Lymphocytes # (Auto) 0.5 TH/MM3 (1.0-4.8) 0.8 TH/MM3 (1.0-4.8) 0.3 TH/MM3 (1.0-4.8) 0.6 TH/MM3 (1.0-4.8) Band Neutrophils % 14 % (0-6) 14 % (0-6) 10 % (0-6) 14 % (0-6) Platelet Estimate LOW (NORMAL) LOW (NORMAL) LOW (NORMAL) LOW (NORMAL) Platelet Morphology Comment ENLARGED (NORMAL) Chloride Level 109 MEQ/L (98-107) Neutrophils # (Auto) 1.6 TH/MM3 (1.8-7.7) Neutrophils % (Manual) 78 % (16-70) 73 % (16-70) Neutrophils # (Manual) 1.7 TH/MM3 (1.8-7.7) Dohle Bodies PRESENT (NONE SEEN) Creatinine 0.44 MG/DL (0.50-1.00) Random Glucose 127 MG/DL (74-106) Prothrombin Time 12.6 SEC (9.8-11.6) Fibrinogen 179 mg/dL (227-377) Test 05/10/17 09:00 Activated Partial Thromboplast Time 21.2 SEC (24.3-30.1) Imaging Last Impressions Chest X-Ray 05/08/17 0000 Signed Impressions: Service Date/Time: Monday, May 08, 2017 10:24 - CONCLUSION: 1. Bibasilar patchiness consistent with atelectasis and/or pneumonia. Clinical correlation is recommended. 2. Underlying increased interstitial markings bilaterally. Jono Costello MD PE at Discharge GENERAL: Elderly and frail female in no apparent distress. ENT: Nose with scant dried blood. CARDIOVASCULAR: Normal rate and regular rhythm without murmurs, gallops, or rubs. RESPIRATORY: Good respiratory efforts. Breath sounds equal and clear to auscultation bilaterally. GASTROINTESTINAL: Abdomen soft, non-tender, non-distended. Normal active bowel sounds MUSCULOSKELETAL: Extremities without cyanosis, or edema. NEURO: Alert & Oriented x4 to person, place, time, situation. Moves all ext x4 PSYCH: Appropriate mood and affect. Pt update on day of discharge Patient reports she is feeling ok. No further nose bleed. Hospital Course 76 Y/O female with a history of breast cancer with mets to bone, anxiety, arthritis, asthma, and COPD presented to the ED with complaints of a nose bleed. Evaluation and treatment course detailed below: Epistaxis: Secondary to coagulopathy. Resolved. Patient followed by Hematology. She underwent multiple transfusions of platelets. symptoms resolved. Thrombocytopenia, related to anti-neoplastic medication Ibrance -Oncology following oral advised supportive care with transfusion as needed to keep platelets above 50 if she continues to have epistaxis or above the 30 if no bleeding. - Platelets improved post transfusion. - Ibrance on hold, will follow up outpatient with Oncology Metastatic breast cancer: Oncology following. Patient to continue on tamoxifen. - Follow up with Oncologist Dr. Kirkpatrick on discharge. Mild hypotension on admission: Resolved -Continue home dose Amlodipine COPD, Possible pneumonia On home oxygen. Has been having dyspnea. CXR with ? PNA. - Patient treated with Rocephin and azithromycin. - prednisone 20 mg BID started. - She is discharged on a prednisone taper and azithromycin. Pt Condition on Discharge: Stable Discharge Disposition: Disch w/ Home Health Serv Discharge Time: > 30 minutes Discharge Instructions DIET: Follow Instructions for: Heart Healthy Diet Activities you can perform: Regular-No Restrictions Follow up Referrals: Oncology/Hematology - 05/19/17 with Eric Kirkpatrick MD New Medications: Azithromycin (Azithromycin) 250 Mg Tab 250 MG PO DAILY for Infection, #3 TAB 0 Refills Continued Medications: Albuterol 18 GM Inh (Ventolin Hfa 18 GM Inh) 90 Mcg/Act Aer 1 PUFF INH Q4H PRN for SHORTNESS OF BREATH, #1 INHALER 0 Refills Alprazolam (Alprazolam) 0.25 Mg Tab 0.25 MG PO Q8H PRN for ANXIETY, TAB 0 Refills Amlodipine (Norvasc) 5 Mg Tab 5 MG PO DAILY for htn, #30 TAB Aspirin (Aspirin) 325 Mg Tab 325 MG PO DAILY, #30 TAB 0 Refills Fluticasone-Vilanterol Inh (Breo Ellipta Inh) 100-25 Mcg/Act Inh 1 PUFF INH BID, #1 INHALER 0 Refills Use daily at the same time. Ipratropium-Albuterol Neb (Duoneb) 0.5-2.5 Mg/3 Ml Neb 1 NEBULE INH Q6HR NEB for Breathing Treatment, #120 NEBULE 0 Refills Mirtazapine (Mirtazapine) 15 Mg Tab 15 MG PO DAILY for poor appetite, #30 TAB Morphine ER (Morphine ER) 30 Mg Tab 30 MG PO Q12HR for Pain Management, TAB 0 Refills Omeprazole (Omeprazole) 40 Mg Cap 40 MG PO DAILY, #30 CAP 0 Refills Ondansetron (Zofran) 4 Mg Tab 4 MG PO Q6HR PRN for NAUSEA OR VOMITING, TAB 0 Refills Oxycodone (Oxycodone) 10 Mg Tab 10 MG PO Q4HR for Pain Management, TAB 0 Refills Oxycodone-Acetaminophen (Percocet) 5-325 mg Tab 1-2 TAB PO Q6H PRN for PAIN, #60 TAB 0 Refills Polyethylene Glycol 3350 Powder (Miralax Powder) 17 Gm Powd 17 GM PO DAILY PRN for CONSTIPATION, #1 CAN 0 Refills Mix and dissolve one measuring cap-ful (17 grams) in water or juice. Prednisone (21) 10 mg tab Dose Pack (Prednisone (21) 10 mg tab Dose Pack) 10 Mg Pack 10 MG PO DIRECTED for Inflammation, #1 DSPK 0 Refills (This prescription has been renewed) Sennosides-Docusate Sodium (Senna Plus 8.6-50 mg) 1 Tab Tab 1 TAB PO BID, #60 TAB Tamoxifen (Tamoxifen) 20 Mg Tab 20 MG PO HS for Chemotherapy Management, #60 TAB 0 Refills Discontinued Medications: Palbociclib (Ibrance) 125 Mg Capsule 125 MG PO HS 21 DAYS ON, 7 DAYS OFF Palbociclib (Ibrance) 125 Mg Capsule Adele Michaud MD May 10, 2017 12:04
[2017-05-10] MEDS: FILGRASTIM INJ 300 MCG in DEXTROSE 5% IN WATER INJ 24 ML IV SCH ×2 (12:58)
[2017-05-10] MEDS: AZITHROMYCIN 250 MG TAB PO SCH (13:03)
[2017-05-10] MEDS: cefTRIAXone INJ 1,000 MG in SODIUM CHLORIDE 0.9% INJ 100 ML IV SCH (13:03)
== END 2017-05-10 15:59 | disposition home health service (06) | DRG 808 ==
LOC: NEPC 15:23 → NEDA 19:14 → NEPGCP 21:09 → HCIS 05-07 16:58 → OBSVTOIN 05-09 11:52
PROVIDERS: ADMIT Family Medicine; ATTEND Family Medicine
PROC: 30233R1 Transfusion of Nonautologous Platelets into Peripheral Vein, Percutaneous Approach (ICD-10-PCS; principal; 2017-05-08)
PROC: 30233N1 Transfusion of Nonautologous Red Blood Cells into Peripheral Vein, Percutaneous Approach (ICD-10-PCS; 2017-05-09)
DX: D61.810 Antineoplastic chemotherapy induced pancytopenia (principal); J18.9 Pneumonia, unspecified organism; R64 Cachexia; C79.51 Secondary malignant neoplasm of bone; D68.9 Coagulation defect, unspecified; I95.9 Hypotension, unspecified; D69.59 Other secondary thrombocytopenia; J44.0 Chronic obstructive pulmonary disease with (acute) lower respiratory infection; Z68.1 Body mass index [BMI] 19.9 or less, adult; R04.0 Epistaxis; Z99.81 Dependence on supplemental oxygen; C50.919 Malignant neoplasm of unspecified site of unspecified female breast; K21.9 Gastro-esophageal reflux disease without esophagitis; I10 Essential (primary) hypertension; F41.9 Anxiety disorder, unspecified; M19.90 Unspecified osteoarthritis, unspecified site; M81.0 Age-related osteoporosis without current pathological fracture; T45.1X5A Adverse effect of antineoplastic and immunosuppressive drugs, initial encounter; I71.4 Abdominal aortic aneurysm, without rupture; Z87.891 Personal history of nicotine dependence; Z79.810 Long term (current) use of selective estrogen receptor modulators (SERMs); Z92.3 Personal history of irradiation
CPT/HCPCS: 36430; 71010; 76937; 80048; 80053; 85007; 85025; 85027; 85384; 85610; 85730; 86850; 86900; 86901; 86920; 94640; 94664; G8987-GP; G8988-GP; J0696; J1442; J7512; P9016; P9035

== ENCOUNTER 2017-06-14 10:13 | Emergency (ER) | payer OTHER ==
[~2017-06-14] VITALS: Ht 149.9 cm; Wt 40.0 kg
[~2017-06-14 10:13] MED LIST changes: +ASPI-183 PO; -ASPI325T PO; +AZIT250T3 PO; +OXYC-395 PO; -PALB125C; -PALB125C PO; +TAMO20TA6 PO
[2017-06-14] MEDS ORDERED: IOHEXOL 350 MG/ML 10 ML VIAL (for RAD DIAG) IVCONTRAST ONE (10:14)
[2017-06-14 10:19] VITALS: TEMP 98.8
[2017-06-14 10:20] VITALS: BP 118/57; PULSE 81; RESP 20; O2SAT 98
[2017-06-14] MEDS ORDERED: SODIUM CHLORIDE 0.9% FLUSH 10 ML FLUSH IV FLUSH PRN (10:45)
[2017-06-14] MEDS ORDERED: ONDANSETRON HCL 4 MG/2 ML VIAL IVP ONE (10:45)
[2017-06-14] MEDS ORDERED: MORPHINE SULFATE 4 MG/ML INJ IV PUSH ONE (10:45)
[2017-06-14] MEDS ORDERED: SODIUM CHLORID 0.9% 500 ML INJ 500 ML IV ONE (10:45)
[2017-06-14 10:54] VITALS: O2SAT 97
[2017-06-14] MEDS ORDERED: ALPR0.5T3 PO (11:04)
[2017-06-14] MEDS ORDERED: PALB125C PO (11:04)
[2017-06-14] MEDS ORDERED: MORP1TAB24 PO (11:04)
[2017-06-14] MEDS ORDERED: BACT800T5 PO (11:04)
[2017-06-14 11:08] LABS: AUTOMATED NEUTROPHIL # 2.9 TH/MM3 (1.8-7.7); BASOPHIL % 0.9 % (0.0-2.0); EOSINOPHIL % 0.2 % (0.0-4.0); HEMATOCRIT 33.5 % (35.0-46.0); HEMO FLAGS DIFF FINAL; LYMPH % 26.4 % (9.0-44.0); LYMPHOCYTE # 1.1 TH/MM3 (1.0-4.8); MEAN CELL VOLUME 101.8 FL (80.0-100.0); MEAN CORPUSCULAR HEMOGLOBIN 33.4 PG (27.0-34.0); MEAN CORPUSCULAR HGB CONC 32.8 % (32.0-36.0); MONO % 6.6 % (0.0-8.0); NEUT % 65.9 % (16.0-70.0); PLATELET COUNT 162 TH/MM3 (150-450); RED BLOOD COUNT 3.29 MIL/MM3 (4.00-5.30); RED CELL DISTRIBUTION WIDTH 23.9 % (11.6-17.2); WHITE BLOOD COUNT 4.3 TH/MM3 (4.0-11.0)
--- NOTE | 2017-06-14 11:13 | PD ---
HPI Chief Complaint: GI Complaint Time Seen by Provider: 10:33 Travel History International Travel<30 days: No Contact w/Intl Traveler<30days: No Traveled to known affect area: No History of Present Illness HPI This is a 76-year-old female who has a history of stage IV breast cancer who presents to the emergency department with nausea and vomiting that's been going on for 2 days, constant, moderate severity associated with epigastric discomfort with no fevers or chills. She's not had a bowel movement in 2 days and has been constipated. She denies any fevers or chills. PFSH Past Medical History Arthritis: No Asthma: No Anxiety: Yes Depression: No Heart Rhythm Problems: No Cancer: Yes (SPINAL, LUNG, BREAST) Cardiovascular Problems: Yes (AAA) High Cholesterol: No Chest Pain: Yes (R/T BONES) Congestive Heart Failure: No COPD: Yes (2L NC AT HOME) Cerebrovascular Accident: No Coronary Artery Disease: No Diabetes: No Diminished Hearing: No Endocrine: No Gastrointestinal Disorders: Yes GERD: Yes Genitourinary: Yes Headaches: Yes Hiatal Hernia: No Hypertension: No Immune Disorder: No Implanted Vascular Access Dvce: Yes Kidney Stones: Yes Musculoskeletal: Yes Neurologic: Yes Psychiatric: Yes Reproductive: No Respiratory: Yes (COPD) Migraines: Yes Radiation Therapy: Yes (2016) Renal Failure: No Seizures: No Sleep Apnea: No Ulcer: No Influenza Vaccination: No ?: Not Past Surgical History Abdominal Surgery: Yes (HERNIA REPAIR, APPENDECTOMY ) Appendectomy: Yes Body Medical Devices: PIPELINE DEVICE Cardiac Surgery: Yes Ear Surgery: No Endocrine Surgery: No Eye Surgery: No Genitourinary Surgery: No Gynecologic Surgery: Yes (LEFT MASTECTOMY ) Hysterectomy: Yes Neurologic Surgery: Yes (BRAIN ANEURYSM) Oral Surgery: No Thoracic Surgery: No Other Surgery: Yes (L MASTECTOMY, DOUBLE HERNIA REPAIR, BRAIN ANEURYSM , HYSTERECTOMY, APPENDEC) Social History Alcohol Use: No Tobacco Use: No Substance Use: No Allergies-Medications (Allergen,Severity, Reaction): Coded Allergies: grapefruit (Verified Allergy, Unknown, 02/27/17) CONTRAINCDICATED WITH IBRANCE Reported Meds & Prescriptions Reported Meds & Active Scripts Active Mirtazapine 15 Mg Tab 15 Mg PO DAILY Senna Plus 8.6-50 mg (Sennosides-Docusate Sodium) 1 Tab Tab 1 Tab PO BID Reported Ibrance (Palbociclib) 125 Mg Capsule 125 Mg PO HS 21 DAYS ON 7 DAYS OFF MONTHLY Bactrim DS (Sulfamethoxazole-Trimethoprim) 800-160 Mg Tab 1 Tab PO BID 10 Days Morphine ER (Morphine Sulfate) 15 Mg Tab 45 Mg PO Q12HR Take 1 tablet (15mg) with 30mg tablet for a total dose of 45mg Alprazolam 0.5 Mg Tab 0.5 Mg PO Q8H PRN Tamoxifen (Tamoxifen Citrate) 20 Mg Tab 20 Mg PO HS Oxycodone (Oxycodone HCl) 10 Mg Tab 10 Mg PO Q4HR Morphine ER (Morphine Sulfate) 30 Mg Tab 45 Mg PO Q12HR Take 1 tablet (30mg) with 15mg tablet for a total dose of 45mg Zofran (Ondansetron HCl) 4 Mg Tab 4 Mg PO Q6HR PRN Breo Ellipta Inh (Fluticasone/Vilanterol) 100-25 Mcg/Act Inh 1 Puff INH BID Use daily at the same time. Omeprazole 40 Mg Cap 40 Mg PO DAILY Duoneb (Ipratropium-Albuterol Neb) 0.5-2.5 Mg/3 Ml Neb 3 Ml INH Q6HR NEB Ventolin Hfa 18 GM Inh (Albuterol Sulfate) 90 Mcg/Act Aer 1 Puff INH Q4H PRN Review of Systems Except as stated in HPI: all other systems reviewed are Neg Physical Exam Narrative GENERAL: Frail cachectic elderly female SKIN: Focused skin assessment warm and dry. HEAD: Atraumatic. Normocephalic. EYES: Pupils equal and round. No injection or drainage. ENT: Moist mucous membranes NECK: Trachea midline. CARDIOVASCULAR: Regular rate and rhythm. No murmur appreciated. RESPIRATORY: Clear to auscultation. Breath sounds equal bilaterally. GASTROINTESTINAL: Abdomen soft, mildly tender to palpation in the left upper and left lower quadrants with no rebound or guarding. MUSCULOSKELETAL: No obvious deformities. NEUROLOGICAL: Awake and alert. No obvious cranial nerve deficits. Moving all extremities. PSYCHIATRIC: Appropriate mood and affect; insight and judgment normal. Data Data Last Documented VS Vital Signs Date Time Temp Pulse Resp B/P (MAP) Pulse Ox O2 Delivery O2 Flow Rate FiO2 06/14/17 10:54 97 Nasal Cannula 2.00 06/14/17 10:28 20 06/14/17 10:20 81 118/57 (77) 06/14/17 10:19 98.8 Orders Orders Complete Blood Count With Diff (06/14/17 10:42) Comprehensive Metabolic Panel (06/14/17 10:42) Lipase (06/14/17 10:42) Urinalysis - C+S If Indicated (06/14/17 10:42) Ct Abd/Pel W Iv Contrast(Rout) (06/14/17 10:42) Iv Access Insert/Monitor (06/14/17 10:42) Ecg Monitoring (06/14/17 10:42) Oximetry (06/14/17 10:42) Morphine Inj (Morphine Inj) (06/14/17 10:45) Ondansetron Inj (Zofran Inj) (06/14/17 10:45) Sodium Chloride 0.9% Flush (Ns Flush) (06/14/17 10:45) Sodium Chlorid 0.9% 500 Ml Inj (Ns 500 M (06/14/17 10:45) Iohexol 350 Inj (Omnipaque 350 Inj) (06/14/17 10:14) Labs Laboratory Tests Test 06/14/17 10:47 06/14/17 11:35 06/14/17 12:45 White Blood Count 4.3 TH/MM3 Red Blood Count 3.29 MIL/MM3 Hemoglobin 11.0 GM/DL Hematocrit 33.5 % Mean Corpuscular Volume 101.8 FL Mean Corpuscular Hemoglobin 33.4 PG Mean Corpuscular Hemoglobin Concent 32.8 % Red Cell Distribution Width 23.9 % Platelet Count 162 TH/MM3 Mean Platelet Volume 8.6 FL Neutrophils (%) (Auto) 65.9 % Lymphocytes (%) (Auto) 26.4 % Monocytes (%) (Auto) 6.6 % Eosinophils (%) (Auto) 0.2 % Basophils (%) (Auto) 0.9 % Neutrophils # (Auto) 2.9 TH/MM3 Lymphocytes # (Auto) 1.1 TH/MM3 Monocytes # (Auto) 0.3 TH/MM3 Eosinophils # (Auto) 0.0 TH/MM3 Basophils # (Auto) 0.0 TH/MM3 CBC Comment DIFF FINAL Differential Comment Blood Urea Nitrogen 13 MG/DL Creatinine 0.54 MG/DL Random Glucose 123 MG/DL Total Protein 6.1 GM/DL Albumin 3.3 GM/DL Calcium Level 8.6 MG/DL Alkaline Phosphatase 70 U/L Aspartate Amino Transf (AST/SGOT) 82 U/L Alanine Aminotransferase (ALT/SGPT) 12 U/L Total Bilirubin 0.3 MG/DL Sodium Level 137 MEQ/L Potassium Level 4.4 MEQ/L Chloride Level 107 MEQ/L Carbon Dioxide Level 22.5 MEQ/L Anion Gap 8 MEQ/L Estimat Glomerular Filtration Rate 109 ML/MIN Lipase 70 U/L Urine Color YELLOW Urine Turbidity CLEAR Urine pH 6.0 Urine Specific Jackson 1.010 Urine Protein NEG mg/dL Urine Glucose (UA) NEG mg/dL Urine Ketones NEG mg/dL Urine Occult Blood MOD Urine Nitrite NEG Urine Bilirubin NEG Urine Urobilinogen LESS THAN 2.0 MG/DL Urine Leukocyte Esterase NEG Urine RBC 30 /hpf Urine WBC 2 /hpf Urine Squamous Epithelial Cells 4 /hpf Urine Bacteria OCC /hpf Urine Mucus FEW /lpf Microscopic Urinalysis Comment CULT NOT INDICATED MDM Medical Decision Making Medical Screen Exam Complete: Yes Emergency Medical Condition: Yes Interpretation(s) White blood cell count is 4.3 Hemoglobin is 11 Platelet count is 162 Electrolytes are reassuring Urinalysis demonstrates some blood but no infection Last 24 hours Impressions Abdomen/Pelvis CT 06/14/17 1042 Signed Impressions: Service Date/Time: Wednesday, June 14, 2017 13:08 - CONCLUSION: 1. Stable infrarenal abdominal aortic aneurysm and bilateral internal iliac artery aneurysms. Retained stool. 2. No evidence of acute process. 3. Stable large right renal cyst. 4. Chronic lung changes. Ricardo Bryan MD Differential Diagnosis Chemotherapy side effect, urinary tract infection, bowel obstruction, pancreatitis Narrative Course this is a 76-year-old female who has a history of metastatic breast cancer who presents to the emergency department with nausea and vomiting. Patient was placed on a monitor and an IV was established. Labs are obtained which were reassuring with no evidence of dehydration. CT abdomen and pelvis demonstrates a stable known abdominal aortic aneurysm with no other acute process to explain her symptoms. I suspect her symptoms are due to side effect from chemotherapy. Patient will be prescribed Zofran I think she is safe for discharge. Diagnosis Primary Impression: Nausea and vomiting Qualified Codes: R11.2 - Nausea with vomiting, unspecified Patient Instructions: General Instructions Additional Instructions: If you develop severe or worsening abdominal pain, fever>100.4, persistent vomiting or inability to eat or drink return to the emergency department immediately. Follow up with your primary care physician in 1-2 days for a check-up. Med/Other Pt SpecificInfo: Prescription(s) given Scripts Ondansetron Odt (Zofran Odt) 4 Mg Tab 4 MG SL Q6HR Y for Nausea/Vomiting, #30 TAB 0 Refills Prov: Saray Elaine MD 06/14/17 Disposition: 01 DISCHARGE HOME Condition: Stable Saray Elaine MD Jun 14, 2017 11:13
[2017-06-14 12:09] LABS: ALKALINE PHOSPHATASE 70 U/L (45-117); TOTAL BILIRUBIN ADULT 0.3 MG/DL (0.2-1.0)
[2017-06-14 12:19] LABS: ALT (GPT) 12 U/L (10-53); ANION GAP 8 MEQ/L (5-15); BICARBONATE 22.5 MEQ/L (21.0-32.0); BLOOD UREA NITROGEN 13 MG/DL (7-18); CHLORIDE 107 MEQ/L (98-107); GLOMERULAR FILTRATION RATE 109 ML/MIN (>89); SODIUM (NA) 137 MEQ/L (136-145)
[2017-06-14 12:22] LABS: AST (GOT) 82 U/L (15-37); POTASSIUM 4.4 MEQ/L (3.5-5.1)
[2017-06-14 13:23] LABS: BACTERIA, URINE OCC /hpf; BLOOD, URINE MOD (NEG); COMMENT (UR) CULT NOT INDICATED; CULTURE IF INDICATED CULT NOT INDICATED; GLUCOSE,URINE NEG (NEG); KETONE, URINE NEG (NEG); MUCUS URINE FEW /lpf (OCC); NITRITE,URINE NEG (NEG); SQUAMOUS EPITHELIAL CELL URINE 4 /hpf (0-5); URINE COLOR YELLOW (YELLW/STRAW)
--- NOTE | 2017-06-14 14:09 | RADRPT ---
EXAM DATE/TIME: 06/14/2017 13:08 [facility] COMPARISON: CT ABDOMEN & PELVIS W CONTRAST, January 27, 2017, 16:16. INDICATIONS : Abdomen pain nausea vomiting for two days,left side pain. IV CONTRAST: 80 cc Omnipaque 350 (iohexol) IV ORAL CONTRAST: No oral contrast ingested. RADIATION DOSE: 4.48 CTDIvol (mGy) MEDICAL HISTORY : Cardiovascular disease. Chronic obstructive pulmonary disease. Carcinoma, lung.Breast ca,Abdomen aneu rysm SURGICAL HISTORY : Appendectomy. Hysterectomy. ENCOUNTER: Initial ACUITY: 2 days PAIN SCALE: 9/10 LOCATION: Left Abdomen TECHNIQUE: Volumetric scanning of the abdomen and pelvis was performed. Using automated exposure control and ad justment of the mA and/or kV according to patient size, radiation dose was kept as low as reasonably achievable to obtain optimal diagnostic quality images. DICOM format image data is available electro nically for review and comparison. FINDINGS: LOWER LUNGS: Chronic appearing lung changes are noted. There is airway disease and patchy parenchymal scarring. LIVER: Homogeneous density without lesion. There is no dilation of the biliary tree. No calcified gallston es. SPLEEN: Normal size without lesion. PANCREAS: Within normal limits. KIDNEYS: Large simple cyst is again identified off the lower pole right kidney. Measures 5.5 cm in size. Kidne ys are otherwise stable without evidence of suspicious lesions or hydronephrosis. ADRENAL GLANDS: Within normal limits. VASCULAR: Aneurysmal enlargement of the common aorta is noted. The aneurysm extends from the renal arteries to the bifurcation. It is stable measuring 5 cm in greatest diameter. Bilateral internal iliac artery an eurysms are identified and appear stable. The right measures 2.8 cm and the left 2.1 cm. BOWEL/MESENTERY: Significant amount retained stool is present in the colon. There is no evidence of ileus free air, in flammatory changes or abnormal fluid collections. ABDOMINAL WALL: Within normal limits. RETROPERITONEUM: There is no lymphadenopathy. BLADDER: No wall thickening or mass. REPRODUCTIVE: No evidence of pelvic mass or cyst. INGUINAL: There is no lymphadenopathy or hernia. MUSCULOSKELETAL: Within normal limits for patient age. CONCLUSION: 1. Stable infrarenal abdominal aortic aneurysm and bilateral internal iliac artery aneurysms. Retaine d stool. 2. No evidence of acute process. 3. Stable large right renal cyst. 4. Chronic lung changes. Ricardo Bryan MD on June 14, 2017 at 13:58 Board Certified Radiologist. This report was verified electronically.
[2017-06-14] MEDS ORDERED: ZOFR4TAB3 SL (14:43)
== END 2017-06-14 16:22 | disposition home or self-care (01) ==
LOC: NEPE 10:13
DX: R11.2 Nausea with vomiting, unspecified (principal); R10.13 Epigastric pain; C50.919 Malignant neoplasm of unspecified site of unspecified female breast; I71.4 Abdominal aortic aneurysm, without rupture; N28.1 Cyst of kidney, acquired; J44.9 Chronic obstructive pulmonary disease, unspecified; K21.9 Gastro-esophageal reflux disease without esophagitis; F41.9 Anxiety disorder, unspecified; Z87.442 Personal history of urinary calculi
CPT/HCPCS: 74177; 80053; 81001; 83690; 85025; 96361; 96374; 96375; 99285; J2270; J2405; J7040; Q9967

== ENCOUNTER 2017-07-04 12:43 | Emergency (ER) | payer OTHER ==
[~2017-07-04] VITALS: Ht 149.9 cm; Wt 35.0 kg
[~2017-07-04 12:43] MED LIST changes: -ALPR0.25 PO; +ALPR0.5T3 PO; -AMLO5 PO; -ASPI-183 PO; -AZIT250T3 PO; +BACT800T5 PO; -GETGO ROLLING W1 MI1; -MIRA3350 PO; +MORP1TAB24 PO; +PALB125C PO; -PERC5TAB12 PO; -PRED10PA PO; +ZOFR4TAB3 SL
[2017-07-04] MEDS ORDERED: IOHEXOL 350 MG/ML 10 ML VIAL (for RAD DIAG) IVCONTRAST ONE (12:44)
[2017-07-04 12:48] VITALS: BP 121/66; PULSE 84; TEMP 98.2; O2SAT 93
[2017-07-04] MEDS ORDERED: SODIUM CHLORIDE 0.9% FLUSH 10 ML FLUSH IVF PRN (13:00)
[2017-07-04] MEDS: RESP: ALBUTEROL 2.5 MG/IPRATROPIUM 0.5 MG NEB (SCH) INH ×2 (13:12→13:14)
--- NOTE | 2017-07-04 13:13 | PD ---
HPI Chief Complaint: Respiratory Symptoms Time Seen by Provider: 12:52 Travel History International Travel<30 days: No Contact w/Intl Traveler<30days: No Traveled to known affect area: No History of Present Illness HPI 76 -year-old female presents to emergency department for evaluation of shortness of breath and cough that started on . Patient lives with her daughter who is her caregiver. Patient's daughter called her primary care on and they called in a prescription for Z-Brian. Patient has been on the Z -Brian since . Patient's daughter reports that she has not had any fevers or chills. The cough is occasional and intermittently productive with phlegm. Patient has a history of asthma and still smokes occasionally. Patient has history of breast cancer with left-sided mastectomy. Breast cancer has metastasized to her bones. Patient is currently Ibrance oral chemotherapy. She is on day 19 out of 21. She alternates days that she takes the Ibrance due to extreme nausea associated. Patient's daughter reports that she has history of frequent episodes of pneumonia and is concerned that she has pneumonia again. [facility] Past Medical History Anxiety: Yes Cancer: Yes (SPINAL, LUNG, BREAST) Cardiovascular Problems: Yes (AAA) Chest Pain: Yes COPD: Yes Diminished Hearing: No GERD: Yes Headaches: Yes Implanted Vascular Access Dvce: Yes Kidney Stones: Yes Migraines: Yes Radiation Therapy: Yes Tetanus Vaccination: Unknown Influenza Vaccination: No ?: Not Past Surgical History Abdominal Surgery: Yes (HERNIA REPAIR) Appendectomy: Yes Cardiac Surgery: Yes Gynecologic Surgery: Yes (LEFT MASTECTOMY ) Hysterectomy: Yes Neurologic Surgery: Yes (BRAIN ANEURYSM) Social History Alcohol Use: No Tobacco Use: No Substance Use: No Allergies-Medications (Allergen,Severity, Reaction): Coded Allergies: grapefruit (Verified Allergy, Unknown, 07/04/17) CONTRAINCDICATED WITH IBRANCE Reported Meds & Prescriptions Reported Meds & Active Scripts Active Mirtazapine 15 Mg Tab 15 Mg PO DAILY Senna Plus 8.6-50 mg (Sennosides-Docusate Sodium) 1 Tab Tab 1 Tab PO BID Reported Ibrance (Palbociclib) 125 Mg Capsule 125 Mg PO HS 21 DAYS ON 7 DAYS OFF MONTHLY Bactrim DS (Sulfamethoxazole-Trimethoprim) 800-160 Mg Tab 1 Tab PO BID 10 Days Morphine ER (Morphine Sulfate) 15 Mg Tab 45 Mg PO Q12HR Take 1 tablet (15mg) with 30mg tablet for a total dose of 45mg Alprazolam 0.5 Mg Tab 0.5 Mg PO Q8H PRN Tamoxifen (Tamoxifen Citrate) 20 Mg Tab 20 Mg PO HS Oxycodone (Oxycodone HCl) 10 Mg Tab 10 Mg PO Q4HR Morphine ER (Morphine Sulfate) 30 Mg Tab 45 Mg PO Q12HR Take 1 tablet (30mg) with 15mg tablet for a total dose of 45mg Zofran (Ondansetron HCl) 4 Mg Tab 4 Mg PO Q6HR PRN Breo Ellipta Inh (Fluticasone/Vilanterol) 100-25 Mcg/Act Inh 1 Puff INH BID Use daily at the same time. Omeprazole 40 Mg Cap 40 Mg PO DAILY Duoneb (Ipratropium-Albuterol Neb) 0.5-2.5 Mg/3 Ml Neb 3 Ml INH Q6HR NEB Ventolin Hfa 18 GM Inh (Albuterol Sulfate) 90 Mcg/Act Aer 1 Puff INH Q4H PRN Review of Systems Except as stated in HPI: all other systems reviewed are Neg Physical Exam Narrative GENERAL: Frail, elderly 76-year-old female presents emergency department. SKIN: Focused skin assessment warm/dry. HEAD: Atraumatic. Normocephalic. EYES: Pupils equal and round. No scleral icterus. No injection or drainage. ENT: No nasal bleeding or discharge. Mucous membranes pink and moist. NECK: Trachea midline. No JVD. CARDIOVASCULAR: Regular rate and rhythm. No murmur appreciated. RESPIRATORY: No accessory muscle use. Expiratory wheezing throughout and diminished bilateral bases. Breath sounds equal bilaterally. GASTROINTESTINAL: Abdomen soft, non-tender, nondistended. Hepatic and splenic margins not palpable. MUSCULOSKELETAL: No obvious deformities. No clubbing. No cyanosis. No edema. NEUROLOGICAL: Awake and alert. No obvious cranial nerve deficits. Motor grossly within normal limits. Normal speech. Data Data Last Documented VS Vital Signs Date Time Temp Pulse Resp B/P (MAP) Pulse Ox O2 Delivery O2 Flow Rate FiO2 07/04/17 14:58 94 17 109/57 (74) 97 Nasal Cannula 2.00 07/04/17 12:48 98.2 Orders Orders Complete Blood Count With Diff (07/04/17 12:58) Basic Metabolic Panel (Bmp) (07/04/17 12:58) B-Type Natriuretic Peptide (07/04/17 12:58) Magnesium (Mg) (07/04/17 12:58) Iv Access Insert/Monitor (07/04/17 12:58) Electrocardiogram (07/04/17 12:58) Ecg Monitoring (07/04/17 12:58) Oximetry (07/04/17 12:58) Oxygen Administration (07/04/17 12:58) Chest, Single Ap (07/04/17 12:58) Sodium Chloride 0.9% Flush (Ns Flush) (07/04/17 13:00) Albuterol-Ipratropium Neb (Duoneb Neb) (07/04/17 13:00) Methylprednisolone So Succ Inj (Solumedr (07/04/17 13:15) Ct Pulmonary Angiogram (07/04/17 14:32) Labs Laboratory Tests Test 07/04/17 13:05 White Blood Count 6.8 TH/MM3 Red Blood Count 2.91 MIL/MM3 Hemoglobin 10.0 GM/DL Hematocrit 29.3 % Mean Corpuscular Volume 100.6 FL Mean Corpuscular Hemoglobin 34.4 PG Mean Corpuscular Hemoglobin Concent 34.2 % Red Cell Distribution Width 21.5 % Platelet Count 193 TH/MM3 Mean Platelet Volume 8.1 FL Neutrophils (%) (Auto) 95.5 % Lymphocytes (%) (Auto) 1.8 % Monocytes (%) (Auto) 2.6 % Eosinophils (%) (Auto) 0.0 % Basophils (%) (Auto) 0.1 % Neutrophils # (Auto) 6.5 TH/MM3 Lymphocytes # (Auto) 0.1 TH/MM3 Monocytes # (Auto) 0.2 TH/MM3 Eosinophils # (Auto) 0.0 TH/MM3 Basophils # (Auto) 0.0 TH/MM3 CBC Comment AUTO DIFF Differential Comment AUTO DIFF CONFIRMED Toxic Vacuolation PRESENT Platelet Estimate NORMAL Platelet Morphology Comment NORMAL Ovalocytes 1+ Acanthocytes OCC Blood Urea Nitrogen 29 MG/DL Creatinine 0.72 MG/DL Random Glucose 132 MG/DL Calcium Level 8.5 MG/DL Magnesium Level 2.3 MG/DL Sodium Level 140 MEQ/L Potassium Level 4.2 MEQ/L Chloride Level 110 MEQ/L Carbon Dioxide Level 22.0 MEQ/L Anion Gap 8 MEQ/L Estimat Glomerular Filtration Rate 79 ML/MIN B-Type Natriuretic Peptide 75 PG/ML MDM Medical Decision Making Medical Screen Exam Complete: Yes Emergency Medical Condition: Yes Differential Diagnosis Differential diagnoses include but are not limited to bronchitis, pneumonia, URI , metastasis to the lungs, PE Narrative Course placed on monitor, IV obtained, blood works in the lab. CBC, BMP, BNP, magnesium ordered and pending. EKG ordered and interpreted. EKG shows sinus rhythm with heart rate 79. DuoNeb 3 ordered for wheezing. Solu-Medrol ordered but then held the patient's daughter reported that she gave her Decadron prior to EMS arrival. Chest x-ray shows no acute findings. Blood work shows no acute finding. Patient reports no relief with shortness of breath despite the wheezing resolving after the duo nebs. CTA ordered and pending to rule out PE and metastasis. Dr. Chauhan assumes care for this patient. Please see his documentation for further details and disposition. Sakshi Morrissey Jul 04, 2017 13:13
[2017-07-04 13:14] VITALS: O2SAT 97
[2017-07-04 13:15] LABS: AUTOMATED NEUTROPHIL # 6.5 TH/MM3 (1.8-7.7); BASOPHIL % 0.1 % (0.0-2.0); HEMATOCRIT 29.3 % (35.0-46.0); LYMPH % 1.8 % (9.0-44.0); LYMPHOCYTE # 0.1 TH/MM3 (1.0-4.8); MEAN CELL VOLUME 100.6 FL (80.0-100.0); MEAN CORPUSCULAR HEMOGLOBIN 34.4 PG (27.0-34.0); MEAN CORPUSCULAR HGB CONC 34.2 % (32.0-36.0); MEAN PLATELET VOLUME 8.1 FL (7.0-11.0); MONO % 2.6 % (0.0-8.0); MONOCYTE # 0.2 TH/MM3 (0-0.9); NEUT % 95.5 % (16.0-70.0); PLATELET COUNT 193 TH/MM3 (150-450); RED BLOOD COUNT 2.91 MIL/MM3 (4.00-5.30); RED CELL DISTRIBUTION WIDTH 21.5 % (11.6-17.2); WHITE BLOOD COUNT 6.8 TH/MM3 (4.0-11.0)
[2017-07-04] MEDS ORDERED: methylPREDNISolone SOD SUCC 125 MG/2 ML VIAL IV PUSH ONE (13:15)
--- NOTE | 2017-07-04 13:22 | PD ---
Data Data Last Documented VS Vital Signs Date Time Temp Pulse Resp B/P (MAP) Pulse Ox O2 Delivery O2 Flow Rate FiO2 07/04/17 14:58 94 17 109/57 (74) 97 Nasal Cannula 2.00 07/04/17 12:48 98.2 Orders Orders Complete Blood Count With Diff (07/04/17 12:58) Basic Metabolic Panel (Bmp) (07/04/17 12:58) B-Type Natriuretic Peptide (07/04/17 12:58) Magnesium (Mg) (07/04/17 12:58) Iv Access Insert/Monitor (07/04/17 12:58) Electrocardiogram (07/04/17 12:58) Ecg Monitoring (07/04/17 12:58) Oximetry (07/04/17 12:58) Oxygen Administration (07/04/17 12:58) Chest, Single Ap (07/04/17 12:58) Sodium Chloride 0.9% Flush (Ns Flush) (07/04/17 13:00) Albuterol-Ipratropium Neb (Duoneb Neb) (07/04/17 13:00) Methylprednisolone So Succ Inj (Solumedr (07/04/17 13:15) Ct Pulmonary Angiogram (07/04/17 14:32) Labs Laboratory Tests Test 07/04/17 13:05 White Blood Count 6.8 TH/MM3 Red Blood Count 2.91 MIL/MM3 Hemoglobin 10.0 GM/DL Hematocrit 29.3 % Mean Corpuscular Volume 100.6 FL Mean Corpuscular Hemoglobin 34.4 PG Mean Corpuscular Hemoglobin Concent 34.2 % Red Cell Distribution Width 21.5 % Platelet Count 193 TH/MM3 Mean Platelet Volume 8.1 FL Neutrophils (%) (Auto) 95.5 % Lymphocytes (%) (Auto) 1.8 % Monocytes (%) (Auto) 2.6 % Eosinophils (%) (Auto) 0.0 % Basophils (%) (Auto) 0.1 % Neutrophils # (Auto) 6.5 TH/MM3 Lymphocytes # (Auto) 0.1 TH/MM3 Monocytes # (Auto) 0.2 TH/MM3 Eosinophils # (Auto) 0.0 TH/MM3 Basophils # (Auto) 0.0 TH/MM3 CBC Comment AUTO DIFF Differential Comment AUTO DIFF CONFIRMED Toxic Vacuolation PRESENT Platelet Estimate NORMAL Platelet Morphology Comment NORMAL Ovalocytes 1+ Acanthocytes OCC Blood Urea Nitrogen 29 MG/DL Creatinine 0.72 MG/DL Random Glucose 132 MG/DL Calcium Level 8.5 MG/DL Magnesium Level 2.3 MG/DL Sodium Level 140 MEQ/L Potassium Level 4.2 MEQ/L Chloride Level 110 MEQ/L Carbon Dioxide Level 22.0 MEQ/L Anion Gap 8 MEQ/L Estimat Glomerular Filtration Rate 79 ML/MIN B-Type Natriuretic Peptide 75 PG/ML MDM Supervised Visit with WILY: Yes Narrative Course I, Dr. Chauhan, have reviewed the advance practice practitioner's documentation and am in agreement, met with the patient face to face, made the diagnosis, and the medical decision making was done by me. *My assessment and Findings: Patient seen and examined by me in addition to Sakshi VERDUZCO this is a unfortunate patient with metastatic late stage disease presents emergency Department with shortness of breath has a history of COPD on home oxygen. Initially with some wheezing was given treatment and lungs clear. High anxiety component she still stated that she was short of breath. Her daughter approached nursing station and she didn't eat she gets even more anxious. She was fed, given her history I think a CT PE protocol needs to be considered, discussed the patient's wishes with her and she would like to proceed with the CT preemie protocol discussion of risks benefits competitions and alternatives, will continue to reassess but anticipated PE protocol negative could be discharged home. Jono Chauhan MD Jul 04, 2017 13:22
--- NOTE | 2017-07-04 13:30 | RADRPT ---
EXAM DATE/TIME: 07/04/2017 13:13 [facility] COMPARISON: CHEST SINGLE AP, May 08, 2017, 10:24. INDICATIONS : Shortness of breath MEDICAL HISTORY : Cardiovascular disease. Chronic obstructive pulmonary disease. Carcinoma, lung. Breast ca, Abdomen an eurysm SURGICAL HISTORY : Appendectomy. Hysterectomy ENCOUNTER: Initial ACUITY: 1 day PAIN SCORE: Non-responsive. LOCATION: Bilateral chest FINDINGS: A single view of the chest demonstrates the lungs to be symmetrically aerated without evidence of mas s, infiltrate or effusion. The cardiomediastinal contours are unremarkable. Osseous structures are intact. CONCLUSION: No acute disease. Last Saucedo MD FACR on July 04, 2017 at 13:29 Board Certified Radiologist. This report was verified electronically.
[2017-07-04 13:38] LABS: CALCIUM 8.5 MG/DL (8.5-10.1); CREATININE 0.72 MG/DL (0.50-1.00); MAGNESIUM 2.3 MG/DL (1.5-2.5)
[2017-07-04 13:39] LABS: OVALOCYTES 1+ (NORMAL); TOXIC VACUOLATION PRESENT (NONE SEEN)
[2017-07-04 13:40] LABS: ACANTHOCYTES OCC (NORMAL)
[2017-07-04 14:58] VITALS: BP 109/57; PULSE 94; RESP 17; O2SAT 97
[2017-07-04 17:02] VITALS: BP 154/76; PULSE 86; RESP 17; O2SAT 96
--- NOTE | 2017-07-04 17:13 | RADRPT ---
EXAM DATE/TIME: 07/04/2017 16:36 [facility] COMPARISON: CT PULMONARY ANGIOGRAM, February 27, 2017, 17:45. INDICATIONS : Short of breath for two days. IV CONTRAST: 50 cc Omnipaque 350 (iohexol) IV RADIATION DOSE: 4.65 CTDIvol (mGy) MEDICAL HISTORY : Cardiovascular disease. Chronic obstructive pulmonary disease. Renal calculi.Spinal/Lung/Breast cance r, Empysema. SURGICAL HISTORY : Appendectomy. ENCOUNTER: Initial ACUITY: 1 day PAIN SCALE: 6/10 LOCATION: Bilateral chest TECHNIQUE: Volumetric scanning of the chest was performed using a pulmonary embolism protocol MIP images were re constructed. Using automated exposure control and adjustment of the mA and/or kV according to patien t size, radiation dose was kept as low as reasonably achievable to obtain optimal diagnostic quality images. DICOM format image data is available electronically for review and comparison. Follow-up recommendations for detected pulmonary nodules are based at a minimum on nodule size and pa tient risk factors according to Fleischner Society Guidelines. FINDINGS: PULMONARY ARTERIES: No filling defects are seen in the pulmonary arteries through the segmental level. LUNGS: Pulmonary parenchymal emphysema again seen. Patchy atelectasis of the lower lungs bilaterally. PLEURAE: There is no pleural thickening or pleural effusion. MEDIASTINUM: There is good visualization of the great vessels of the middle mediastinum. No evidence of mediastin al or hilar adenopathy/mass. MUSCULOSKELETAL: Numerous small rounded lucencies throughout all visualized osseous structures. Mild compression fract ure deformities of the midthoracic spine. MISCELLANEOUS: The visualized upper abdominal organs demonstrate no acute abnormality. CONCLUSION: 1. No evidence of pulmonary bullous. 2. Pulmonary emphysema and bilateral atelectasis. 3. Numerous small bone lucency is again seen scattered throughout all visualized bones. Total diagnos is is diffuse bony metastatic disease versus osteoporosis. 4. Age-indeterminate mild mid thoracic compression fracture deformities. Robbin Torres MD on July 04, 2017 at 17:01 Board Certified Radiologist. This report was verified electronically.
--- NOTE | 2017-07-04 18:07 | PD ---
Data Data Last Documented VS Vital Signs Date Time Temp Pulse Resp B/P (MAP) Pulse Ox O2 Delivery O2 Flow Rate FiO2 07/04/17 18:52 07/04/17 17:02 86 17 96 Nasal Cannula 2.00 07/04/17 12:48 98.2 Orders Orders Complete Blood Count With Diff (07/04/17 12:58) Basic Metabolic Panel (Bmp) (07/04/17 12:58) B-Type Natriuretic Peptide (07/04/17 12:58) Magnesium (Mg) (07/04/17 12:58) Iv Access Insert/Monitor (07/04/17 12:58) Electrocardiogram (07/04/17 12:58) Ecg Monitoring (07/04/17 12:58) Oximetry (07/04/17 12:58) Oxygen Administration (07/04/17 12:58) Chest, Single Ap (07/04/17 12:58) Sodium Chloride 0.9% Flush (Ns Flush) (07/04/17 13:00) Albuterol-Ipratropium Neb (Duoneb Neb) (07/04/17 13:00) Methylprednisolone So Succ Inj (Solumedr (07/04/17 13:15) Ct Pulmonary Angiogram (07/04/17 14:32) Iohexol 350 Inj (Omnipaque 350 Inj) (07/04/17 12:44) Ed Discharge Order (07/04/17 18:11) Labs Laboratory Tests Test 07/04/17 13:05 White Blood Count 6.8 TH/MM3 Red Blood Count 2.91 MIL/MM3 Hemoglobin 10.0 GM/DL Hematocrit 29.3 % Mean Corpuscular Volume 100.6 FL Mean Corpuscular Hemoglobin 34.4 PG Mean Corpuscular Hemoglobin Concent 34.2 % Red Cell Distribution Width 21.5 % Platelet Count 193 TH/MM3 Mean Platelet Volume 8.1 FL Neutrophils (%) (Auto) 95.5 % Lymphocytes (%) (Auto) 1.8 % Monocytes (%) (Auto) 2.6 % Eosinophils (%) (Auto) 0.0 % Basophils (%) (Auto) 0.1 % Neutrophils # (Auto) 6.5 TH/MM3 Lymphocytes # (Auto) 0.1 TH/MM3 Monocytes # (Auto) 0.2 TH/MM3 Eosinophils # (Auto) 0.0 TH/MM3 Basophils # (Auto) 0.0 TH/MM3 CBC Comment AUTO DIFF Differential Comment AUTO DIFF CONFIRMED Toxic Vacuolation PRESENT Platelet Estimate NORMAL Platelet Morphology Comment NORMAL Ovalocytes 1+ Acanthocytes OCC Blood Urea Nitrogen 29 MG/DL Creatinine 0.72 MG/DL Random Glucose 132 MG/DL Calcium Level 8.5 MG/DL Magnesium Level 2.3 MG/DL Sodium Level 140 MEQ/L Potassium Level 4.2 MEQ/L Chloride Level 110 MEQ/L Carbon Dioxide Level 22.0 MEQ/L Anion Gap 8 MEQ/L Estimat Glomerular Filtration Rate 79 ML/MIN B-Type Natriuretic Peptide 75 PG/ML MDM Supervised Visit with WILY: Yes Narrative Course patient care assumed from Sakshi VERDUZCO at 1700 at the end of her shift. Fransico see previous documentation for further information. This is an unfortunate 76-year-old female emaciated presenting with shortness of breath and some mild anxiety. Does have a history of metastatic disease, CT PE protocol was pending at the time of patient's and off, PE protocol negative for PE but does show stable bony lesions. Patient is feeling much better has tolerated food in the emergency department, I discussed with her and her daughter the possibilities of admission versus home treatment at this time we prefer outpatient treatment. I think this is very appropriate for this patient she does not appear to be any respiratory distress they're very reliable for return and have medications to treat her at home. I discussed return to ED criteria. She is stable for discharge. Diagnosis Primary Impression: Shortness of breath Disposition: 01 DISCHARGE HOME Condition: Stable Jono Chauhan MD Jul 04, 2017 18:07
--- NOTE | 2017-07-05 17:31 | EKG ---
Date Performed: 07/04/2017 Time Performed: 13:03:23 PTAGE: 76 years EKG: Sinus rhythm Since previous tracing, no significant change noted NORMAL ECG PREVIOUS TRACING : 02/27/2017 16.24 DOCTOR: Kita Leach Interpretating Date/Time 07/05/2017 17:30:50
== END 2017-07-04 18:50 | disposition home or self-care (01) ==
LOC: NEPC 12:43
DX: R06.02 Shortness of breath (principal); C50.919 Malignant neoplasm of unspecified site of unspecified female breast; C79.51 Secondary malignant neoplasm of bone; F41.9 Anxiety disorder, unspecified; I71.4 Abdominal aortic aneurysm, without rupture; J44.9 Chronic obstructive pulmonary disease, unspecified; K21.9 Gastro-esophageal reflux disease without esophagitis
CPT/HCPCS: 71010; 71275; 80048; 83735; 83880; 85025; 93005; 94640; 94664; 99285; Q9967

== ENCOUNTER 2017-08-21 16:16 | Emergency (ER) | payer OTHER ==
[~2017-08-21] VITALS: Ht 149.9 cm; Wt 40.0 kg
[~2017-08-21 16:16] MED LIST changes: -ZOFR4TAB3 SL
[2017-08-21 16:22] VITALS: BP 161/66; PULSE 98; RESP 28; TEMP 98.5; O2SAT 99
[2017-08-21] MEDS: RESP: ALBUTEROL 2.5 MG/IPRATROPIUM 0.5 MG NEB (SCH) INH ×2 (16:29→16:30)
[2017-08-21] MEDS ORDERED: methylPREDNISolone SOD SUCC 125 MG/2 ML VIAL IV PUSH ONE (16:30)
--- NOTE | 2017-08-21 16:43 | PD ---
HPI Chief Complaint: Respiratory Distress Time Seen by Provider: 16:24 Travel History International Travel<30 days: No Contact w/Intl Traveler<30days: No Traveled to known affect area: No History of Present Illness HPI 76-year-old female that presents to the ED via ambulance for evaluation of shortness of breath. Patient has significant history of COPD and breast cancer. Patient also continues to smoke. She uses 3 L at home. Apparently since yesterday she's been having worsening shortness of breath. Productive cough. No fevers chills or sweats. No chest pain. Shortness of breath is with exertion as well as with cough. States that the cough is productive. Denies any urinary or bowel movement issues. No abdominal pain. She states that she does take chemotherapy. She doesn't take any blood thinners. Allergies to tape for it. Patient was given albuterol nebulizer by ambulance with some relief. Per ambulance report patient was satting 94 with 2 L of oxygen and has been satting in 96 with DuoNeb. Denies any sick contacts. No other medical complaints at this time. PFSH Past Medical History Anxiety: Yes Cancer: Yes (SPINAL, LUNG, BREAST) Cardiovascular Problems: Yes (AAA) Chest Pain: Yes COPD: Yes Diminished Hearing: No Gastrointestinal Disorders: Yes GERD: Yes Genitourinary: Yes Headaches: Yes Implanted Vascular Access Dvce: Yes Kidney Stones: Yes Musculoskeletal: Yes Neurologic: Yes Psychiatric: Yes Respiratory: Yes Migraines: Yes Radiation Therapy: Yes ?: Past Surgical History Abdominal Surgery: Yes (HERNIA REPAIR) Appendectomy: Yes Body Medical Devices: PIPELINE DEVICE Cardiac Surgery: Yes Gynecologic Surgery: Yes (LEFT MASTECTOMY ) Hysterectomy: Yes Neurologic Surgery: Yes (BRAIN ANEURYSM) Other Surgery: Yes (L MASTECTOMY, DOUBLE HERNIA REPAIR, BRAIN ANEURYSM , HYSTERECTOMY, APPENDEC) Social History Alcohol Use: No Tobacco Use: Yes Substance Use: No Allergies-Medications (Allergen,Severity, Reaction): Coded Allergies: grapefruit (Verified Allergy, Unknown, 08/21/17) CONTRAINCDICATED WITH IBRANCE Reported Meds & Prescriptions Reported Meds & Active Scripts Active Senna Plus 8.6-50 mg (Sennosides-Docusate Sodium) 1 Tab Tab 1 Tab PO BID Reported Mirtazapine 30 Mg Tab 30 Mg PO HS Advair Diskus Inh (Fluticasone-Salmeterol Inh) 250-50 Mcg/Blist Aer 1 Puff INH BID Rinse mouth after use. Scopolamine 1 Mg/3 Day Patch.td.3 Ibrance (Palbociclib) 125 Mg Capsule 125 Mg PO HS 21 DAYS ON 7 DAYS OFF MONTHLY Bactrim DS (Sulfamethoxazole-Trimethoprim) 800-160 Mg Tab 1 Tab PO BID 10 Days Morphine ER (Morphine Sulfate) 15 Mg Tab 45 Mg PO Q12HR Take 1 tablet (15mg) with 30mg tablet for a total dose of 45mg Alprazolam 0.5 Mg Tab 0.5 Mg PO Q8H PRN Tamoxifen (Tamoxifen Citrate) 20 Mg Tab 20 Mg PO HS Oxycodone (Oxycodone HCl) 10 Mg Tab 10 Mg PO Q8HR Morphine ER (Morphine Sulfate) 30 Mg Tab 45 Mg PO Q12HR Take 1 tablet (30mg) with 15mg tablet for a total dose of 45mg Zofran (Ondansetron HCl) 4 Mg Tab 4 Mg PO Q6HR PRN Breo Ellipta Inh (Fluticasone/Vilanterol) 100-25 Mcg/Act Inh 1 Puff INH BID Use daily at the same time. Omeprazole 40 Mg Cap 40 Mg PO DAILY Duoneb (Ipratropium-Albuterol Neb) 0.5-2.5 Mg/3 Ml Neb 3 Ml INH Q6HR NEB Ventolin Hfa 18 GM Inh (Albuterol Sulfate) 90 Mcg/Act Aer 1 Puff INH Q4H PRN Review of Systems Except as stated in HPI: all other systems reviewed are Neg Physical Exam Narrative GENERAL: Well-nourished, well-developed patient in no apparent distress. SKIN: Warm and dry. HEAD: Atraumatic. Normocephalic. EYES: Pupils equal and round reactive to light and accommodation. No scleral icterus. No injection or drainage. ENT: No nasal bleeding or discharge. Mucous membranes pink and moist. TMs are clear with no sign of infection or perforation. No mastoid tenderness. Ear canals are intact bilaterally. No lymphadenopathy. Nostril mucosa is red and moist with clear mucus noted. No sinus tenderness to palpation noted. Tonsils are not enlarged or swollen. No ulvua Deviation. Tongue is midline. NECK: Trachea midline. No JVD. No meningeal signs noted CARDIOVASCULAR: Regular rate and rhythm. RESPIRATORY: No accessory muscle use. Wheezing her in all lung person. Breath sounds equal bilaterally. GASTROINTESTINAL: Abdomen soft, non-tender, nondistended. Hepatic and splenic margins not palpable. MUSCULOSKELETAL: Extremities without clubbing, cyanosis, or edema. No obvious deformities. NEUROLOGICAL: Awake and alert. No obvious cranial nerve deficits. Motor grossly within normal limits. Five out of 5 muscle strength in the arms and legs. Normal speech. PSYCHIATRIC: Appropriate mood and affect; insight and judgment normal. Data Data Last Documented VS Vital Signs Date Time Temp Pulse Resp B/P (MAP) Pulse Ox O2 Delivery O2 Flow Rate FiO2 08/21/17 16:26 93 23 96 08/21/17 16:22 98.5 161/66 (97) Orders Orders Electrocardiogram (08/21/17 16:24) Basic Metabolic Panel (Bmp) (08/21/17 16:24) Complete Blood Count With Diff (08/21/17 16:24) Chest, Single Ap (08/21/17 16:24) Ecg Monitoring (08/21/17 16:24) Iv Access Insert/Monitor (08/21/17 16:) Oximetry (08/21/17 16:24) Methylprednisolone So Succ Inj (Solumedr (08/21/17 16:30) Albuterol-Ipratropium Neb (Duoneb Neb) (08/21/17 16:30) Coag Profile (08/21/17 16:24) Influenzae A/B Antigen (08/21/17 16:24) Ed Discharge Order (08/21/17 17:53) Labs Laboratory Tests Test 08/21/17 16:35 White Blood Count 4.3 TH/MM3 Red Blood Count 3.17 MIL/MM3 Hemoglobin 10.7 GM/DL Hematocrit 32.1 % Mean Corpuscular Volume 101.2 FL Mean Corpuscular Hemoglobin 33.7 PG Mean Corpuscular Hemoglobin Concent 33.3 % Red Cell Distribution Width 17.7 % Platelet Count 132 TH/MM3 Mean Platelet Volume 7.5 FL Neutrophils (%) (Auto) 87.6 % Lymphocytes (%) (Auto) 10.3 % Monocytes (%) (Auto) 1.7 % Eosinophils (%) (Auto) 0.2 % Basophils (%) (Auto) 0.2 % Neutrophils # (Auto) 3.8 TH/MM3 Lymphocytes # (Auto) 0.4 TH/MM3 Monocytes # (Auto) 0.1 TH/MM3 Eosinophils # (Auto) 0.0 TH/MM3 Basophils # (Auto) 0.0 TH/MM3 CBC Comment DIFF FINAL Differential Comment Prothrombin Time 11.2 SEC Prothromb Time International Ratio 1.1 RATIO Activated Partial Thromboplast Time 23.5 SEC Blood Urea Nitrogen 22 MG/DL Creatinine 0.58 MG/DL Random Glucose 111 MG/DL Calcium Level 8.9 MG/DL Sodium Level 139 MEQ/L Potassium Level 4.3 MEQ/L Chloride Level 104 MEQ/L Carbon Dioxide Level 26.4 MEQ/L Anion Gap 9 MEQ/L Estimat Glomerular Filtration Rate 101 ML/MIN MDM Medical Decision Making Medical Screen Exam Complete: Yes Emergency Medical Condition: Yes Medical Record Reviewed: Yes Interpretation(s) CBC & BMP Diagram 08/21/17 16:35 Calcium Level 8.9 CXR negative influenza negative EKG shows sinus rhythm with no sign of acute ischemia or arrythmia. Differential Diagnosis Pneumonia versus COPD versus dyspnea versus COPD exacerbation versus influenza versus shortness of breath Narrative Course 76-year-old female that presents to the ED for evaluation of shortness of breath. Patient was properly examined and was found to have signs and symptoms which appeared to be consistent with COPD exacerbation. Patient has significant history. She is not tachycardic at this time but she is slightly tachypneic. She was given breathing treatments here. Labs and imaging were ordered. Labs and imaging showed no sign of acute disease. Patient was reassured. Patient was reassessed and does feel improved. Patient at this time will be sent home with prescriptions for prednisone and azithromycin. Told to follow up closely with PCP. Stop smoking. See ED worsening symptoms. Diagnosis Primary Impression: COPD with exacerbation Patient Instructions: General Instructions Additional Instructions: Motrin and Tylenol for pain and fever. You can use [id number] antihistamine as well as well as Mucinex as needed for runny nose and congestion. Cough drops for cough as needed. Drink plenty of fluids. Follow-up with PCP. See ED for worsening symptoms. Med/Other Pt SpecificInfo: Prescription(s) given Disposition: DISCHARGE HOME Condition: Stable Aidan Kay Aug 21, 2017 16:43
[2017-08-21] MEDS ORDERED: SCOP1PAT6 (17:01)
[2017-08-21] MEDS ORDERED: MIRT30TA PO (17:01)
[2017-08-21] MEDS ORDERED: ADVA250A INH (17:01)
[2017-08-21 17:05] LABS: AUTOMATED NEUTROPHIL # 3.8 TH/MM3 (1.8-7.7); BASOPHIL % 0.2 % (0.0-2.0); EOSINOPHIL % 0.2 % (0.0-4.0); HEMATOCRIT 32.1 % (35.0-46.0); HEMOGLOBIN 10.7 GM/DL (11.6-15.3); LYMPH % 10.3 % (9.0-44.0); LYMPHOCYTE # 0.4 TH/MM3 (1.0-4.8); MEAN CELL VOLUME 101.2 FL (80.0-100.0); MEAN CORPUSCULAR HEMOGLOBIN 33.7 PG (27.0-34.0); MEAN CORPUSCULAR HGB CONC 33.3 % (32.0-36.0); MEAN PLATELET VOLUME 7.5 FL (7.0-11.0); MONO % 1.7 % (0.0-8.0); MONOCYTE # 0.1 TH/MM3 (0-0.9); NEUT % 87.6 % (16.0-70.0); PLATELET COUNT 132 TH/MM3 (150-450); RED BLOOD COUNT 3.17 MIL/MM3 (4.00-5.30); RED CELL DISTRIBUTION WIDTH 17.7 % (11.6-17.2); WHITE BLOOD COUNT 4.3 TH/MM3 (4.0-11.0)
[2017-08-21 17:21] LABS: INTERNATIONAL NORMALIZED RATIO 1.1 RATIO; PROTHROMBIN TIME - PATIENT 11.2 SEC (9.8-11.6)
[2017-08-21 17:29] LABS: BICARBONATE 26.4 MEQ/L (21.0-32.0); CALCIUM 8.9 MG/DL (8.5-10.1); CREATININE 0.58 MG/DL (0.50-1.00)
--- NOTE | 2017-08-21 17:48 | RADRPT ---
EXAM DATE/TIME: 08/21/2017 16:39 [facility] COMPARISON: CHEST SINGLE AP, July 04, 2017, 13:13. INDICATIONS : Short of breath. MEDICAL HISTORY : Cardiovascular disease. Chronic obstructive pulmonary disease. Carcinoma, lung. Breast ca, Abdomen an eurysm SURGICAL HISTORY : Appendectomy. Hysterectomy ENCOUNTER: Initial ACUITY: 1 day PAIN SCORE: 0/10 LOCATION: Bilateral chest FINDINGS: Mild patient rotation towards the left. The lungs are symmetrically aerated. No focal areas of cons olidation seen. Both hemidiaphragms are well delineated. The heart is normal in size. Tubing proje cts over the left pulmonary apex. CONCLUSION: No infiltrate seen. No evidence of pneumothorax. Manfred Powell MD on August 21, 2017 at 17:45 Board Certified Radiologist. This report was verified electronically.
--- NOTE | 2017-08-21 17:52 | PD ---
Data Data Last Documented VS Vital Signs Date Time Temp Pulse Resp B/P (MAP) Pulse Ox O2 Delivery O2 Flow Rate FiO2 08/21/17 16:26 93 23 96 08/21/17 16:22 98.5 161/66 (97) Orders Orders Electrocardiogram (08/21/17 16:24) Basic Metabolic Panel (Bmp) (08/21/17 16:24) Complete Blood Count With Diff (08/21/17 16:24) Chest, Single Ap (08/21/17 16:24) Ecg Monitoring (08/21/17 16:24) Iv Access Insert/Monitor (08/21/17 16:24) Oximetry (08/21/17 16:24) Methylprednisolone So Succ Inj (Solumedr (08/21/17 16:30) Albuterol-Ipratropium Neb (Duoneb Neb) (08/21/17 16:30) Coag Profile (08/21/17 16:24) Influenzae A/B Antigen (08/21/17 16:24) Labs Laboratory Tests Test 08/21/17 16:35 White Blood Count 4.3 TH/MM3 Red Blood Count 3.17 MIL/MM3 Hemoglobin 10.7 GM/DL Hematocrit 32.1 % Mean Corpuscular Volume 101.2 FL Mean Corpuscular Hemoglobin 33.7 PG Mean Corpuscular Hemoglobin Concent 33.3 % Red Cell Distribution Width 17.7 % Platelet Count 132 TH/MM3 Mean Platelet Volume 7.5 FL Neutrophils (%) (Auto) 87.6 % Lymphocytes (%) (Auto) 10.3 % Monocytes (%) (Auto) 1.7 % Eosinophils (%) (Auto) 0.2 % Basophils (%) (Auto) 0.2 % Neutrophils # (Auto) 3.8 TH/MM3 Lymphocytes # (Auto) 0.4 TH/MM3 Monocytes # (Auto) 0.1 TH/MM3 Eosinophils # (Auto) 0.0 TH/MM3 Basophils # (Auto) 0.0 TH/MM3 CBC Comment DIFF FINAL Differential Comment Prothrombin Time 11.2 SEC Prothromb Time International Ratio 1.1 RATIO Activated Partial Thromboplast Time 23.5 SEC Blood Urea Nitrogen 22 MG/DL Creatinine 0.58 MG/DL Random Glucose 111 MG/DL Calcium Level 8.9 MG/DL Sodium Level 139 MEQ/L Potassium Level 4.3 MEQ/L Chloride Level 104 MEQ/L Carbon Dioxide Level 26.4 MEQ/L Anion Gap 9 MEQ/L Estimat Glomerular Filtration Rate 101 ML/MIN MDM Supervised Visit with WILY: Yes Narrative Course The history, exam, and medical decision-making in the associated mid-level provider note were completed with my assistance. I reviewed and agree with the findings presented. I attest that I had a [id number] encounter with the patient on the same day, and personally performed and documented my assessment and findings in the medical record. *My assessment and Findings: 76-year-old woman with cough cold symptoms ongoing for the past couple days, history of COPD, metastatic breast cancer, on oxygen at home, still smokes. Will treat bronchodilators, steroids, antibiotics. Close follow-up. aZcarias De Dios MD Aug 21, 2017 17:52
[2017-08-21] MEDS ORDERED: AZIT250T3 PO (17:58)
[2017-08-21] MEDS ORDERED: PRED20 PO (17:58)
--- NOTE | 2017-08-22 11:10 | EKG ---
Date Performed: 08/21/2017 Time Performed: 16:28:54 PTAGE: 76 years EKG: Sinus rhythm NORMAL ECG Since the prior tracing, there has been no significant change PREVIOUS TRACING DOCTOR: Rocky Beltrán Interpretating Date/Time 08/22/2017 11:05:02
== END 2017-08-21 19:28 | disposition home or self-care (01) ==
LOC: NEPE 16:16
DX: J44.1 Chronic obstructive pulmonary disease with (acute) exacerbation (principal); Z85.3 Personal history of malignant neoplasm of breast; F41.9 Anxiety disorder, unspecified; K21.9 Gastro-esophageal reflux disease without esophagitis; Z87.442 Personal history of urinary calculi; Z72.0 Tobacco use
CPT/HCPCS: 71045; 80048; 85025; 85610; 85730; 87804; 93005; 94664; 96374; 99285; J2930

== ENCOUNTER 2017-09-26 13:51 | Inpatient (IN) | payer OTHER, MEDICARE ==
[~2017-09-26 13:51] MED LIST changes: +ADVA250A INH; +AZIT250T3 PO; +MIRT30TA PO; -MIRTA15 PO; +PRED20 PO; +SCOP1PAT6
[2017-09-26 16:14] VITALS: BP 104/59; PULSE 86; RESP 20; TEMP 98.6; O2SAT 97
[2017-09-26] MEDS ORDERED: SODIUM CHLORID 0.9% 500 ML INJ 500 ML IV ONE (16:30)
--- NOTE | 2017-09-26 16:55 | RADRPT ---
EXAM DATE/TIME: 09/26/2017 16:39 [facility] COMPARISON: CHEST SINGLE AP, August 21, 2017, 16:39. INDICATIONS : Patient states that she has lower chest and back pain with no history of trauma. MEDICAL HISTORY : Cardiovascular disease. Chronic obstructive pulmonary disease. Renal SURGICAL HISTORY : Appendectomy. ENCOUNTER: Initial ACUITY: 3 days PAIN SCORE: 8/10 LOCATION: Bilateral lower chest FINDINGS: Moderate hyperinflation. Thoracic aorta tortuous and uncoiled. Cardiac size is appropriate. No pne umothorax, infiltrate or failure. The portion of the bony skeleton visualized is unremarkable. CONCLUSION: Moderate hyperinflation Thoracic aorta tortuous and uncoiled. Last Saucedo MD FACR on September 26, 2017 at 16:52 Board Certified Radiologist. This report was verified electronically.
[2017-09-26 17:36] LABS: AMORPHOUS SEDIMENT, URINE RARE; BILIRUBIN, URINE NEG (NEG); BLOOD, URINE NEG (NEG); GLUCOSE,URINE NEG (NEG); KETONE, URINE 10 mg/dL (NEG); MUCUS URINE FEW /lpf (OCC); NITRITE,URINE NEG (NEG); SQUAMOUS EPITHELIAL CELL URINE 9 /hpf (0-5); URINE COLOR YELLOW (YELLW/STRAW); URINE LEUKOCYTE ESTERASE NEG (NEG)
[2017-09-26 17:54] LABS: AUTOMATED NEUTROPHIL # 1.6 TH/MM3 (1.8-7.7); EOSINOPHIL % 0.2 % (0.0-4.0); HEMATOCRIT 28.9 % (35.0-46.0); HEMOGLOBIN 9.5 GM/DL (11.6-15.3); LYMPH % 6.3 % (9.0-44.0); LYMPHOCYTE # 0.1 TH/MM3 (1.0-4.8); MEAN CELL VOLUME 101.7 FL (80.0-100.0); MEAN CORPUSCULAR HEMOGLOBIN 33.4 PG (27.0-34.0); MEAN CORPUSCULAR HGB CONC 32.8 % (32.0-36.0); MEAN PLATELET VOLUME 8.3 FL (7.0-11.0); MONO % 2.8 % (0.0-8.0); MONOCYTE # 0.1 TH/MM3 (0-0.9); NEUT % 90.7 % (16.0-70.0); PLATELET COUNT 100 TH/MM3 (150-450); RED BLOOD COUNT 2.84 MIL/MM3 (4.00-5.30); RED CELL DISTRIBUTION WIDTH 18.3 % (11.6-17.2); WHITE BLOOD COUNT 1.8 TH/MM3 (4.0-11.0)
[2017-09-26 18:03] LABS: INTERNATIONAL NORMALIZED RATIO 1.1 RATIO
--- NOTE | 2017-09-26 18:09 | PD ---
Physical Exam Date Seen by Provider: Sep 26, 2017 Time Seen by Provider: 17:00 Narrative I, Dr. Wall, have reviewed the advance practice practitioner's documentation and am in agreement, met with the patient face to face, made the diagnosis, and the medical decision making was done by me. *My assessment and Findings: Patient seen and evaluated with PA, please see PA notes for further details. She has been sent in because of severe anemia, and confirmation lab work was done which shows that her hemoglobin is 4. She has previous history of anemia although it is not known whether there is a obvious source of bleeding. Rectal exam has been done by PA and Hemoccult was negative. Patient is mildly tachycardic but the rest of the vital signs are stable in the ER. Plan would be to admit her for further treatment and blood transfusion. Laboratory Tests Test 09/26/17 15:00 09/26/17 16:45 White Blood Count 1.8 TH/MM3 (4.0-11.0) Red Blood Count 2.84 MIL/MM3 (4.00-5.30) Hemoglobin 9.5 GM/DL (11.6-15.3) Hematocrit 28.9 % (35.0-46.0) Mean Corpuscular Volume 101.7 FL (80.0-100.0) Red Cell Distribution Width 18.3 % (11.6-17.2) Platelet Count 100 TH/MM3 (150-450) Neutrophils (%) (Auto) 90.7 % (16.0-70.0) Lymphocytes (%) (Auto) 6.3 % (9.0-44.0) Neutrophils # (Auto) 1.6 TH/MM3 (1.8-7.7) Lymphocytes # (Auto) 0.1 TH/MM3 (1.0-4.8) Activated Partial Thromboplast Time 21.2 SEC (24.3-30.1) Urine Turbidity HAZY (CLEAR) Urine Ketones 10 mg/dL (NEG) Urine Mucus FEW /lpf (OCC) Data Data Last Documented VS Vital Signs Date Time Temp Pulse Resp B/P (MAP) Pulse Ox O2 Delivery O2 Flow Rate FiO2 09/26/17 16:14 98.6 86 20 104/59 (74) 97 Orders Orders Complete Blood Count With Diff (09/26/17 16:30) Comprehensive Metabolic Panel (09/26/17 16:30) Prothrombin Time / Inr (Pt) (09/26/17 16:30) Act Partial Throm Time (Ptt) (09/26/17 16:30) Blood Culture (09/26/17 16:30) Lipase (09/26/17 16:30) Urinalysis - C+S If Indicated (09/26/17 16:30) Magnesium (Mg) (09/26/17 16:30) Thyroid Stimulating Hormone (09/26/17 16:30) Chest, Single Ap (09/26/17 16:30) Ct Abd/Pel W Iv Contrast(Rout) (09/26/17 16:30) Iv Access Insert/Monitor (09/26/17 16:30) Ecg Monitoring (09/26/17 16:30) Oximetry (09/26/17 16:30) Sodium Chlorid 0.9% 500 Ml Inj (Ns 500 M (09/26/17 16:30) Morphine Inj (Morphine Inj) (09/26/17 18:15) Ondansetron Inj (Zofran Inj) (09/26/17 18:15) Labs Laboratory Tests Test 09/26/17 15:00 09/26/17 16:45 White Blood Count 1.8 TH/MM3 Red Blood Count 2.84 MIL/MM3 Hemoglobin 9.5 GM/DL Hematocrit 28.9 % Mean Corpuscular Volume 101.7 FL Mean Corpuscular Hemoglobin 33.4 PG Mean Corpuscular Hemoglobin Concent 32.8 % Red Cell Distribution Width 18.3 % Platelet Count 100 TH/MM3 Mean Platelet Volume 8.3 FL Neutrophils (%) (Auto) 90.7 % Lymphocytes (%) (Auto) 6.3 % Monocytes (%) (Auto) 2.8 % Eosinophils (%) (Auto) 0.2 % Basophils (%) (Auto) 0.0 % Neutrophils # (Auto) 1.6 TH/MM3 Lymphocytes # (Auto) 0.1 TH/MM3 Monocytes # (Auto) 0.1 TH/MM3 Eosinophils # (Auto) 0.0 TH/MM3 Basophils # (Auto) 0.0 TH/MM3 CBC Comment AUTO DIFF Prothrombin Time 11.0 SEC Prothromb Time International Ratio 1.1 RATIO Activated Partial Thromboplast Time 21.2 SEC Urine Color YELLOW Urine Turbidity HAZY Urine pH 6.0 Urine Specific [place] 1.023 Urine Protein TRACE mg/dL Urine Glucose (UA) NEG mg/dL Urine Ketones 10 mg/dL Urine Occult Blood NEG Urine Nitrite NEG Urine Bilirubin NEG Urine Urobilinogen LESS THAN 2.0 MG/DL Urine Leukocyte Esterase NEG Urine RBC 2 /hpf Urine WBC 2 /hpf Urine Squamous Epithelial Cells 9 /hpf Urine Amorphous Sediment RARE Urine Mucus FEW /lpf Microscopic Urinalysis Comment CULT NOT INDICATED MDM Medical Record Reviewed: Yes Supervised Visit with WILY: Yes Diagnosis Primary Impression: Anemia Admitting Information Admitting Physician Requests: it Sherin Wall MD Sep 26, 2017 18:09
[2017-09-26] MEDS ORDERED: ONDANSETRON HCL 4 MG/2 ML VIAL IV PUSH ONE (18:15)
[2017-09-26] MEDS ORDERED: MORPHINE SULFATE 2 MG/ML INJ IV PUSH ONE (18:15)
[2017-09-26 18:24] LABS: ALBUMIN 2.3 GM/DL (3.4-5.0); BICARBONATE 24.3 MEQ/L (21.0-32.0); CALCIUM 7.2 MG/DL (8.5-10.1); CREATININE 0.66 MG/DL (0.50-1.00); MAGNESIUM 2.9 MG/DL (1.5-2.5)
--- NOTE | 2017-09-26 18:26 | PD ---
HPI Chief Complaint: Abdominal Pain Time Seen by Provider: 16:24 Travel History International Travel<30 days: No Contact w/Intl Traveler<30days: No Traveled to known affect area: No History of Present Illness HPI 76-year-old female with a history of stage IV bone cancer and breast cancer to presents to the ED for evaluation of abdominal distention and pain. Patient has a history of chronic pain secondary to the cancer and gets chemotherapy orally every day. Patient is DNR patient. Patient was recently admitted to [facility] for an infection on her lungs and was started antibiotics. Apparently patient was 7 days in the hospital. Patient was comfortable 3 days and went back to the hospital secondary to infection continuing especially with the fever. She was there for 3 days since and she was discharged. She was told so than tropics that she developed some diarrhea. Per family she has since stopped the diarrhea for the past 2 that she has not had a bowel movement which is also been losing her appetite. She doesn't want to drink or eat. She' s had lower abdominal distention as well as pain. No history this the past. No recent surgeries or trauma. No chest pain or shortness of breath although she is always chronically short of breath and uses oxygen. She has an allergy to grapefruits. Denies any urinary issues. Daughter is concerned about possible obstruction. PFSH Past Medical History Anxiety: Yes Cancer: Yes (SPINAL, LUNG, BREAST) Cardiovascular Problems: Yes (AAA) Chest Pain: Yes COPD: Yes Diminished Hearing: No Gastrointestinal Disorders: Yes GERD: Yes Genitourinary: Yes Headaches: Yes Implanted Vascular Access Dvce: Yes Kidney Stones: Yes Musculoskeletal: Yes Neurologic: Yes Psychiatric: Yes Respiratory: Yes Migraines: Yes Radiation Therapy: Yes Past Surgical History Abdominal Surgery: Yes (HERNIA REPAIR) Appendectomy: Yes Body Medical Devices: PIPELINE DEVICE Cardiac Surgery: Yes Gynecologic Surgery: Yes (LEFT MASTECTOMY ) Hysterectomy: Yes Neurologic Surgery: Yes (BRAIN ANEURYSM) Other Surgery: Yes (L MASTECTOMY, DOUBLE HERNIA REPAIR, BRAIN ANEURYSM , HYSTERECTOMY, APPENDEC) Social History Alcohol Use: No Tobacco Use: Yes ("ONCE IN AWHILE") Substance Use: No Allergies-Medications (Allergen,Severity, Reaction): Coded Allergies: grapefruit (Verified Allergy, Unknown, 09/26/17) CONTRAINCDICATED WITH IBRANCE Reported Meds & Prescriptions Reported Meds & Active Scripts Active Prednisone 20 Mg Tab 20 Mg PO BID 5 Days Senna Plus 8.6-50 mg (Sennosides-Docusate Sodium) 1 Tab Tab 1 Tab PO BID Reported Mirtazapine 30 Mg Tab 30 Mg PO HS Advair Diskus Inh (Fluticasone-Salmeterol Inh) 250-50 Mcg/Blist Aer 1 Puff INH BID Rinse mouth after use. Scopolamine 1 Mg/3 Day Patch.td.3 Ibrance (Palbociclib) 125 Mg Capsule 125 Mg PO HS 21 DAYS ON 7 DAYS OFF MONTHLY Morphine ER (Morphine Sulfate) 15 Mg Tab 45 Mg PO Q12HR Take 1 tablet (15mg) with 30mg tablet for a total dose of 45mg Alprazolam 0.5 Mg Tab 0.5 Mg PO Q8H PRN Tamoxifen (Tamoxifen Citrate) 20 Mg Tab 20 Mg PO HS Oxycodone (Oxycodone HCl) 10 Mg Tab 10 Mg PO Q8HR Morphine ER (Morphine Sulfate) 30 Mg Tab 45 Mg PO Q12HR Take 1 tablet (30mg) with 15mg tablet for a total dose of 45mg Zofran (Ondansetron HCl) 4 Mg Tab 4 Mg PO Q6HR PRN Omeprazole 40 Mg Cap 40 Mg PO DAILY Duoneb (Ipratropium-Albuterol Neb) 0.5-2.5 Mg/3 Ml Neb 3 Ml INH Q6HR NEB Ventolin Hfa 18 GM Inh (Albuterol Sulfate) 90 Mcg/Act Aer 1 Puff INH Q4H PRN Review of Systems Except as stated in HPI: all other systems reviewed are Neg Physical Exam Narrative GENERAL: SKIN: Warm and dry. HEAD: Atraumatic. Normocephalic. EYES: Pupils equal and round. No scleral icterus. No injection or drainage. ENT: No nasal bleeding or discharge. Mucous membranes pink and moist. Tongue is midline. No uvula deviation. NECK: Trachea midline. No JVD. CARDIOVASCULAR: Regular rate and rhythm. No murmurs, S3, S4. RESPIRATORY: No accessory muscle use. Clear to auscultation. Breath sounds equal bilaterally. GASTROINTESTINAL: Abdomen soft, tender to palpation on the lower abdomen with distention noted. Hepatic and splenic margins not palpable. MUSCULOSKELETAL: Extremities without clubbing, cyanosis, or edema. No obvious deformities. Full range of motion of the upper and lower extremities bilaterally. 2+ pulses bilaterally. NEUROLOGICAL: Awake and alert. No obvious cranial nerve deficits. Motor grossly within normal limits. Five out of 5 muscle strength in the arms and legs. Normal speech. PSYCHIATRIC: Appropriate mood and affect; insight and judgment normal. Data Data Last Documented VS Vital Signs Date Time Temp Pulse Resp B/P (MAP) Pulse Ox O2 Delivery O2 Flow Rate FiO2 09/26/17 19:00 84 106/53 (70) 99 09/26/17 16:14 98.6 20 Orders Orders Complete Blood Count With Diff (09/26/17 16:30) Comprehensive Metabolic Panel (09/26/17 16:30) Prothrombin Time / Inr (Pt) (09/26/17 16:30) Act Partial Throm Time (Ptt) (09/26/17 16:30) Blood Culture (09/26/17 16:30) Lipase (09/26/17 16:30) Urinalysis - C+S If Indicated (09/26/17 16:30) Magnesium (Mg) (09/26/17 16:30) Thyroid Stimulating Hormone (09/26/17 16:30) Chest, Single Ap (09/26/17 16:30) Ct Abd/Pel W Iv Contrast(Rout) (09/26/17 16:30) Iv Access Insert/Monitor (09/26/17 16:30) Ecg Monitoring (09/26/17 16:30) Oximetry (09/26/17 16:30) Sodium Chlorid 0.9% 500 Ml Inj (Ns 500 M (09/26/17 16:30) Morphine Inj (Morphine Inj) (09/26/17 18:15) Ondansetron Inj (Zofran Inj) (09/26/17 18:15) Iohexol 350 Inj (Omnipaque 350 Inj) (09/26/17 19:19) Metronidazole 500 Mg Inj (Flagyl 500 Mg (09/26/17 20:15) Ciprofloxacin 400 Mg Premix (Cipro 400 M (09/26/17 20:15) C Diff Toxin Pcr (09/26/17 20:11) Admit Order (Ed Use Only) (09/26/17 20:12) Labs Laboratory Tests Test 09/26/17 15:00 09/26/17 16:45 White Blood Count 1.8 TH/MM3 Red Blood Count 2.84 MIL/MM3 Hemoglobin 9.5 GM/DL Hematocrit 28.9 % Mean Corpuscular Volume 101.7 FL Mean Corpuscular Hemoglobin 33.4 PG Mean Corpuscular Hemoglobin Concent 32.8 % Red Cell Distribution Width 18.3 % Platelet Count 100 TH/MM3 Mean Platelet Volume 8.3 FL Neutrophils (%) (Auto) 90.7 % Lymphocytes (%) (Auto) 6.3 % Monocytes (%) (Auto) 2.8 % Eosinophils (%) (Auto) 0.2 % Basophils (%) (Auto) 0.0 % Neutrophils # (Auto) 1.6 TH/MM3 Lymphocytes # (Auto) 0.1 TH/MM3 Monocytes # (Auto) 0.1 TH/MM3 Eosinophils # (Auto) 0.0 TH/MM3 Basophils # (Auto) 0.0 TH/MM3 CBC Comment AUTO DIFF Differential Total Cells Counted 100 Neutrophils % (Manual) 55 % Band Neutrophils % 30 % Lymphocytes % 8 % Monocytes % 2 % Neutrophils # (Manual) 1.6 TH/MM3 Metamyelocytes 4 % Myelocytes 1 % Nucleated Red Blood Cells 5 /100 WBC Differential Comment FINAL DIFF MANUAL Toxic Granulation 1+ Dohle Bodies PRESENT Platelet Estimate LOW Platelet Morphology Comment NORMAL Stomatocytes 1+ Prothrombin Time 11.0 SEC Prothromb Time International Ratio 1.1 RATIO Activated Partial Thromboplast Time 21.2 SEC Blood Urea Nitrogen 34 MG/DL Creatinine 0.66 MG/DL Random Glucose 92 MG/DL Total Protein 5.0 GM/DL Albumin 2.3 GM/DL Calcium Level 7.2 MG/DL Magnesium Level 2.9 MG/DL Alkaline Phosphatase 56 U/L Aspartate Amino Transf (AST/SGOT) 54 U/L Alanine Aminotransferase (ALT/SGPT) 12 U/L Total Bilirubin 0.4 MG/DL Sodium Level 138 MEQ/L Potassium Level 4.0 MEQ/L Chloride Level 105 MEQ/L Carbon Dioxide Level 24.3 MEQ/L Anion Gap 9 MEQ/L Estimat Glomerular Filtration Rate 87 ML/MIN Protein Corrected Calcium 8.3 MG/DL Lipase 44 U/L Thyroid Stimulating Hormone 3rd Gen 1.660 uIU/ML Urine Color YELLOW Urine Turbidity HAZY Urine pH 6.0 Urine Specific [place] 1.023 Urine Protein TRACE mg/dL Urine Glucose (UA) NEG mg/dL Urine Ketones 10 mg/dL Urine Occult Blood NEG Urine Nitrite NEG Urine Bilirubin NEG Urine Urobilinogen LESS THAN 2.0 MG/DL Urine Leukocyte Esterase NEG Urine RBC 2 /hpf Urine WBC 2 /hpf Urine Squamous Epithelial Cells 9 /hpf Urine Amorphous Sediment RARE Urine Mucus FEW /lpf Microscopic Urinalysis Comment CULT NOT INDICATED MDM Medical Decision Making Medical Screen Exam Complete: Yes Emergency Medical Condition: Yes Medical Record Reviewed: Yes Interpretation(s) CBC & BMP Diagram 09/26/17 15:00 Total Protein 5.0 L, Albumin 2.3 L, Calcium Level 7.2 *L, Magnesium Level 2.9 H , Alkaline Phosphatase 56, Aspartate Amino Transf (AST/SGOT) 54 H, Alanine Aminotransferase (ALT/SGPT) 12, Total Bilirubin 0.4 Last Impressions Chest X-Ray 09/26/17 1630 Signed Impressions: Service Date/Time: Tuesday, September 26, 2017 16:39 - CONCLUSION: Moderate hyperinflation Thoracic aorta tortuous and uncoiled. Last Saucedo MD FACR Abdomen/Pelvis CT 09/26/17 1630 Signed Impressions: Service Date/Time: Tuesday, September 26, 2017 19:14 - CONCLUSION: 1. Development of marked mural thickening of the colon diffusely characteristic of a severe colitis. 2. Mild to moderate anasarca. 3. Stable abdominal aortic aneurysm and aneurysm of both internal iliac arteries. 4. Osteopenia with mild compression deformities in the lower thoracic spine at T9 and T10. Duncan Bentley MD Differential Diagnosis Acute abdomen versus appendicitis versus obstruction versus cancer pain versus constipation versus obstipation versus sepsis Narrative Course 76-year-old female that presents to the ED for evaluation of lower abdominal pain with distention. Patient was properly examined and was found to have signs and symptoms concerning for obstruction. Labs and imaging ordered. Patient was given IV pain medication and fluids. Labs and imaging showed what appears to be global to account as well as what appears to be severe colitis. Patient still mild discomfort. Because of her history of cancer and recent admission with antibiotics very concerning for C. difficile colitis. We'll start patient on antibiotics. Patient will be admitted. Patient agrees with plan. Case discussed with Dr. Watts agrees to admission. Dr. Watts wanted me to make sure the patient is a DNR and paperwork order was placed for this. Patient and family verbally agreed to DNR status. Diagnosis Primary Impression: Colitis, acute Additional Impressions: Abdominal pain Qualified Codes: R10.30 - Lower abdominal pain, unspecified Pain of metastatic malignancy T10 vertebral fracture Qualified Codes: S22.079A - Unspecified fracture of t9-t10 vertebra, initial encounter for closed fracture T9 vertebral fracture Qualified Codes: S22.079A - Unspecified fracture of t9-t10 vertebra, initial encounter for closed fracture Admitting Information Admitting Physician Requests: it Aidan Kay Sep 26, 2017 18:26
[2017-09-26 18:32] LABS: BANDS 30 % (0-6); CORRECTED NUCLEATED RBC 5 /100 WBC (0-0); DOHLE BODIES PRESENT (NONE SEEN); LYMPHOCYTES 8 % (9-44); METAMYELOCYTES 4 % (0-1); MONOCYTES 2 % (0-8); MYELOCYTES 1 % (0-0); NEUTROPHIL # MANUAL DIFF 1.6 TH/MM3 (1.8-7.7); NUCLEATED RED BLOOD CELL 5 (0-0); POLYS (SEG NEUTROPHILS) 55 % (16-70); STOMATOCYTES 1+ (NORMAL); TOXIC GRANULATION 1+ (NORMAL)
[2017-09-26 18:40] LABS: CALCIUM-PROTEIN CORRECTED 8.3 MG/DL (8.5-10.1); TOTAL BILIRUBIN ADULT 0.4 MG/DL (0.2-1.0)
[2017-09-26 19:00] VITALS: BP 106/53; PULSE 84; O2SAT 99
[2017-09-26] MEDS ORDERED: IOHEXOL 350 MG/ML 10 ML VIAL (for RAD DIAG) IVCONTRAST ONE (19:19)
--- NOTE | 2017-09-26 19:56 | RADRPT ---
EXAM DATE/TIME: 09/26/2017 19:14 [facility] COMPARISON: No previous studies available for comparison. INDICATIONS : Abdomen pain. IV CONTRAST: 70 cc Omnipaque 350 (iohexol) IV ORAL CONTRAST: No oral contrast ingested. RADIATION DOSE: 4.57 CTDIvol (mGy) MEDICAL HISTORY : Cardiovascular disease. Carcinoma, not otherwise specified. SURGICAL HISTORY : Appendectomy. Abdominal aortic aneurysm repair.Hysterectomy.Hernia repair. ENCOUNTER: Initial ACUITY: 1 day PAIN SCALE: 7/10 LOCATION: Bilateral abdomen TECHNIQUE: Volumetric scanning of the abdomen and pelvis was performed. Using automated exposure control and ad justment of the mA and/or kV according to patient size, radiation dose was kept as low as reasonably achievable to obtain optimal diagnostic quality images. DICOM format image data is available electro nically for review and comparison. FINDINGS: There is an increase in the right lower lobe air space consolidation since June 14 with small righ t-sided pleural effusion. There is marked mural thickening of the colon, especially the right colon characteristic of a severe colitis. No acute findings in the liver, spleen, adrenals, kidneys or pancreas. There is a focal 9 cm infraren al abdominal aortic aneurysm, relatively stable. There is also bilateral internal iliac artery aneury sms measuring up to 2.8 cm on the right and 2.1 cm on the left. CONCLUSION: 1. Development of marked mural thickening of the colon diffusely characteristic of a severe colitis. 2. Mild to moderate anasarca. 3. Stable abdominal aortic aneurysm and aneurysm of both internal iliac arteries. 4. Osteopenia with mild compression deformities in the lower thoracic spine at T9 and T10. Duncan Bentley MD on September 26, 2017 at 19:50 Board Certified Radiologist. This report was verified electronically.
[2017-09-26] MEDS ORDERED: SODIUM CHLORIDE 0.9% FLUSH 10 ML FLUSH IV FLUSH PRN (20:15)
[2017-09-26] MEDS ORDERED: CIPROFLOXACIN 400 MG PREMIX 200 ML IV ONE (20:15)
[2017-09-26] MEDS ORDERED: NALOXONE HCL 0.4 MG/ML AMP IV PUSH PRN (20:15)
[2017-09-26] MEDS ORDERED: metroNIDAZOLE 500 MG INJ 100 ML IV ONE (20:15)
[2017-09-26] MEDS ORDERED: ONDANSETRON HCL 4 MG/2 ML VIAL IV PUSH PRN (20:30)
[2017-09-26] MEDS: SODIUM CHLORIDE 0.9% FLUSH 10 ML FLUSH IV FLUSH SCH (21:25)
[2017-09-26 22:39] VITALS: BP 92/52; PULSE 82; RESP 18; O2SAT 97
[2017-09-27 01:33] VITALS: BP 107/54; PULSE 85; RESP 18; O2SAT 94
[2017-09-27] MEDS: metroNIDAZOLE 500 MG INJ 100 ML IV SCH ×3 (02:30→13:44)
[2017-09-27 04:54] VITALS: BP 107/53; PULSE 87; RESP 18; O2SAT 94
--- NOTE | 2017-09-27 06:44 | HHI.HP ---
HPI Service [facility] Primary Care Physician Unknown Admission Diagnosis acute severe colitis, T9, t10 compression fx, Stage 4 cancer Diagnoses: Travel History International Travel<30 Days: No Contact w/Intl Traveler <30 Da: No Traveled to Known Affected Are: No History of Present Illness History from patient, ER communication, interview of medical records. Patient's daughter is not at the bedside at the time of my exam. However patient is a very sharp lady who knows her history. She reports that she came to the hospital because she was having pain in her stomach diffusely. Denies any vomiting although she was having quite a bit of nausea. Reports of diarrhea for the past one week at least 3-4 times a day. No black or red stools. Denies any urinary symptoms. Denies any blood in her urine. She states her abdominal pain is pretty much everywhere in her abdomen. Apart from the above, patient denies any other symptoms. She denies any chest pain/palpitations/dizziness/syncopal episode. Patient was hospitalized at [facility]. She was discharged on Tuesday or Tuesday. had diarrhea while at now is constipated Review of Systems Except as stated in HPI: all other systems reviewed are Neg Past Family Social History Past Medical History copd on home oxygen cerebral aneurysm- s/p clipping about 3-4 yrs ago in [place] stage IV breast cancer- spread to rib cage, spine, Past Surgical History hysterectomy appendectomy Allergies: Coded Allergies: grapefruit (Verified Allergy, Unknown, 09/26/17) CONTRAINCDICATED WITH IBRANCE Family History father- old age ; emphysema Social History quit smoking about 3 yrs ago no etoh abuse no drugs abuse daughter lives with her Physical Exam Vital Signs Vital Signs Date Time Temp Pulse Resp B/P (MAP) Pulse Ox O2 Delivery O2 Flow Rate FiO2 09/27/17 04:54 87 18 107/53 (71) 94 Nasal Cannula 2.00 09/27/17 01:33 85 18 107/54 (71) 94 Nasal Cannula 2.00 09/26/17 22:39 82 18 92/52 (65) 97 Nasal Cannula 2.00 09/26/17 19:00 84 106/53 (70) 99 09/26/17 16:14 98.6 86 20 104/59 (74) 97 Physical Exam GENERAL: This is thin, very pleasant elderly lady, in no apparent distress. SKIN: No rashes, ecchymoses or lesions. Cool and dry. HEAD: Atraumatic. Normocephalic. No temporal or scalp tenderness. EYES:. No scleral icterus. No injection or drainage. ENT: Nose without bleeding, purulent drainage or septal hematoma. . Airway patent. NECK: Trachea midline. No JVD. Supple, nontender, no meningeal signs. CARDIOVASCULAR: Regular rate and rhythm without murmurs, gallops, or rubs. RESPIRATORY: Clear to auscultation. Breath sounds equal bilaterally. No wheezes , rales, or rhonchi. GASTROINTESTINAL: Abdomen soft, tenderness diffusely, nondistended. No guarding. MUSCULOSKELETAL: Extremities without clubbing, cyanosis, or edema. No calf tenderness. NEUROLOGICAL: Awake and alert. Motor and sensory grossly within normal limits. Normal speech. Laboratory Laboratory Tests Test 09/26/17 15:00 09/26/17 16:45 White Blood Count 1.8 Red Blood Count 2.84 Hemoglobin 9.5 Hematocrit 28.9 Mean Corpuscular Volume 101.7 Mean Corpuscular Hemoglobin 33.4 Mean Corpuscular Hemoglobin Concent 32.8 Red Cell Distribution Width 18.3 Platelet Count 100 Mean Platelet Volume 8.3 Neutrophils (%) (Auto) 90.7 Lymphocytes (%) (Auto) 6.3 Monocytes (%) (Auto) 2.8 Eosinophils (%) (Auto) 0.2 Basophils (%) (Auto) 0.0 Neutrophils # (Auto) 1.6 Lymphocytes # (Auto) 0.1 Monocytes # (Auto) 0.1 Eosinophils # (Auto) 0.0 Basophils # (Auto) 0.0 CBC Comment AUTO DIFF Differential Total Cells Counted 100 Neutrophils % (Manual) 55 Band Neutrophils % 30 Lymphocytes % 8 Monocytes % 2 Neutrophils # (Manual) 1.6 Metamyelocytes 4 Myelocytes 1 Nucleated Red Blood Cells 5 Differential Comment FINAL DIFF MANUAL Toxic Granulation 1+ Dohle Bodies PRESENT Platelet Estimate LOW Platelet Morphology Comment NORMAL Stomatocytes 1+ Prothrombin Time 11.0 Prothromb Time International Ratio 1.1 Activated Partial Thromboplast Time 21.2 Blood Urea Nitrogen 34 Creatinine 0.66 Random Glucose 92 Total Protein 5.0 Albumin 2.3 Calcium Level 7.2 Magnesium Level 2.9 Alkaline Phosphatase 56 Aspartate Amino Transf (AST/SGOT) 54 Alanine Aminotransferase (ALT/SGPT) 12 Total Bilirubin 0.4 Sodium Level 138 Potassium Level 4.0 Chloride Level 105 Carbon Dioxide Level 24.3 Anion Gap 9 Estimat Glomerular Filtration Rate 87 Protein Corrected Calcium 8.3 Lipase 44 Thyroid Stimulating Hormone 3rd Gen 1.660 Urine Color YELLOW Urine Turbidity HAZY Urine pH 6.0 Urine Specific [place] 1.023 Urine Protein TRACE Urine Glucose (UA) NEG Urine Ketones 10 Urine Occult Blood NEG Urine Nitrite NEG Urine Bilirubin NEG Urine Urobilinogen LESS THAN 2.0 Urine Leukocyte Esterase NEG Urine RBC 2 Urine WBC 2 Urine Squamous Epithelial Cells 9 Urine Amorphous Sediment RARE Urine Mucus FEW Microscopic Urinalysis Comment CULT NOT INDICATED Date/Time Source Procedure Growth Status 09/26/17 17:08 Blood Peripheral Aerobic Blood Culture Pending Received 09/26/17 17:08 Blood Peripheral Anaerobic Blood Culture Pending Received Result Diagram: 09/26/17 1500 09/26/17 1500 Imaging Last 48 hours Impressions Chest X-Ray 09/26/17 1630 Signed Impressions: Service Date/Time: Tuesday, September 26, 2017 16:39 - CONCLUSION: Moderate hyperinflation Thoracic aorta tortuous and uncoiled. Last Saucedo MD FACR Abdomen/Pelvis CT 09/26/17 1630 Signed Impressions: Service Date/Time: Tuesday, September 26, 2017 19:14 - CONCLUSION: 1. Development of marked mural thickening of the colon diffusely characteristic of a severe colitis. 2. Mild to moderate anasarca. 3. Stable abdominal aortic aneurysm and aneurysm of both internal iliac arteries. 4. Osteopenia with mild compression deformities in the lower thoracic spine at T9 and T10. Duncan Bentley MD Caprini VTE Risk Assessment Caprini VTE Risk Assessment: Mod/High Risk (score >= 2) Caprini Risk Assessment Model Point Value = 1 Point Value = 2 Point Value = 3 Point Value = 5 Age 41-60 Minor surgery BMI > 25 kg/m2 Swollen legs Varicose veins or History of unexplained or recurrent spontaneous Oral contraceptives or hormone replacement Sepsis (< 1 month) Serious lung disease, including pneumonia (< 1 month) Abnormal pulmonary function Acute myocardial infarction Congestive heart failure (< 1 month) History of inflammatory bowel disease Medical patient at bed rest Age 61-74 Arthroscopic surgery Major open surgery (> 45 min) Laparoscopic surgery (> 45 min) Malignancy Confined to bed (> 72 hours) Immobilizing plaster cast Central venous access Age >= 75 History of VTE Family history of VTE Factor V Leiden Prothrombin [id number] Lupus anticoagulant Anticardiolipin antibodies Elevated serum homocysteine Heparin-induced thrombocytopenia Other congenital or acquired thrombophilia Stroke (< 1 month) Elective arthroplasty Hip, pelvis, or leg fracture Acute spinal cord injury (< 1 month) Prophylaxis Regimen Total Risk Factor Score Risk Level Prophylaxis Regimen 0-1 Low Early ambulation 2 Moderate Order ONE of the following: *Sequential Compression Device (SCD) *Heparin 5000 units SQ BID 3-4 Higher Order ONE of the following medications: *Heparin 5000 units SQ TID *Enoxaparin/Lovenox 40 mg SQ daily (WT < 150 kg, CrCl > 30 mL/min) *Enoxaparin/Lovenox 30 mg SQ daily (WT < 150 kg, CrCl > 10-29 mL/min) *Enoxaparin/Lovenox 30 mg SQ BID (WT < 150 kg, CrCl > 30 mL/min) AND/OR *Sequential Compression Device (SCD) 5 or more Highest Order ONE of the following medications: *Heparin 5000 units SQ TID (Preferred with Epidurals) *Enoxaparin/Lovenox 40 mg SQ daily (WT < 150 kg, CrCl > 30 mL/min) *Enoxaparin/Lovenox 30 mg SQ daily (WT < 150 kg, CrCl > 10-29 mL/min) *Enoxaparin/Lovenox 30 mg SQ BID (WT < 150 kg, CrCl > 30 mL/min) AND *Sequential Compression Device (SCD) Assessment and Plan Assessment and Plan Impression: Diffuse colitis. Suspect C. difficile colitis. Patient with history of diarrhea now followed by constipation, recent hospitalization. Abdominal pain secondary to above T9-T10 compression fracture. Per family. This is new. Pathologic fracture. No trauma. Stage IV breast cancer with metastasis to rib cage and spine according to the patient. COPD on home oxygen History of cerebral aneurysm- s/p clipping about 3-4 yrs ago in [place] Plan: Send stool for C. difficile. Start patient on Flagyl 500 mg IV every 6 hours, Cipro 400 mg IV every 12 hours.. Possible the patient also have other infectious colitis as well as and she is immunocompromised. However if C. difficile is positive, will likely DC Cipro. Oxygen supplementation. Nebulizers when necessary. Continue home dose of steroids. Continue home anti-neoplastic medications in the pill form. DVT prophylaxis with Lovenox. Discussed Condition With patient, ER PA, nursing staff Physician Certification 2 Midnight Certification Type: Admission for Inpatient Services Order for Inpatient Services The services are ordered in accordance with Medicare regulations or non- Medicare payer requirements, as applicable. In the case of services not specified as inpatient-only, they are appropriately provided as inpatient services in accordance with the 2-midnight benchmark. Estimated LOS (days): 2 days is the estimated time the patient will need to remain in the hospital, assuming treatment plan goals are met and no additional complications. Post-Hospital Plan: Home Felisha Watts MD Sep 27, 2017 06:44
[2017-09-27] MEDS ORDERED: ONDANSETRON ODT 4 MG TAB PO PRN (06:45)
[2017-09-27] MEDS: MORPHINE SULFATE 2 MG/ML INJ IV PUSH PRN ×2 (07:02→21:01)
[2017-09-27 07:18] LABS: AUTOMATED NEUTROPHIL # 2.5 TH/MM3 (1.8-7.7); EOSINOPHIL % 0.1 % (0.0-4.0); HEMATOCRIT 29.7 % (35.0-46.0); HEMOGLOBIN 9.8 GM/DL (11.6-15.3); LYMPH % 6.9 % (9.0-44.0); LYMPHOCYTE # 0.2 TH/MM3 (1.0-4.8); MEAN CELL VOLUME 101.7 FL (80.0-100.0); MEAN CORPUSCULAR HEMOGLOBIN 33.4 PG (27.0-34.0); MEAN CORPUSCULAR HGB CONC 32.9 % (32.0-36.0); MONO % 3.1 % (0.0-8.0); MONOCYTE # 0.1 TH/MM3 (0-0.9); NEUT % 89.9 % (16.0-70.0); PLATELET COUNT 95 TH/MM3 (150-450); RED BLOOD COUNT 2.92 MIL/MM3 (4.00-5.30); RED CELL DISTRIBUTION WIDTH 17.9 % (11.6-17.2); WHITE BLOOD COUNT 2.8 TH/MM3 (4.0-11.0)
[2017-09-27 07:52] LABS: BICARBONATE 22.4 MEQ/L (21.0-32.0); CALCIUM 7.2 MG/DL (8.5-10.1); CREATININE 0.48 MG/DL (0.50-1.00)
[2017-09-27 08:02] LABS: BANDS 54 % (0-6); CORRECTED NUCLEATED RBC 1 /100 WBC (0-0); LYMPHOCYTES 4 % (9-44); METAMYELOCYTES 1 % (0-1); MONOCYTES 1 % (0-8); MYELOCYTES 1 % (0-0); NEUTROPHIL # MANUAL DIFF 2.7 TH/MM3 (1.8-7.7); NUCLEATED RED BLOOD CELL 1 (0-0); POLYS (SEG NEUTROPHILS) 39 % (16-70)
[2017-09-27 08:03] LABS: CALCIUM-PROTEIN CORRECTED 8.3 MG/DL (8.5-10.1); TOXIC GRANULATION 1+ (NORMAL)
[2017-09-27] MEDS: PANTOPRAZOLE SOD 40 MG DELAYED RELEASE TAB PO SCH (08:36)
[2017-09-27] MEDS: ENOXAPARIN SODIUM 40 MG/0.4 ML SYRINGE SQ SCH ×2 (08:37→08:46)
[2017-09-27] MEDS: SODIUM CHLORIDE 0.9% FLUSH 10 ML FLUSH IV FLUSH SCH ×2 (08:37→21:03)
[2017-09-27] MEDS: predniSONE 20 MG TAB PO SCH ×2 (08:38→21:00)
[2017-09-27 08:46] VITALS: BP 108/53; PULSE 89; RESP 16; O2SAT 98
[2017-09-27] MEDS ORDERED: MORPHINE SULFATE 30 MG CONTROLLED RELEASE TAB PO SCH (09:00)
[2017-09-27] MEDS: MORPHINE SULFATE 15 MG CONTROLLED RELEASE TAB PO SCH ×2 (09:00→21:00)
[2017-09-27] MEDS ORDERED: CIPROFLOXACIN 400 MG PREMIX 200 ML IV SCH (09:00)
[2017-09-27 12:38] VITALS: BP 110/56; PULSE 83; RESP 15; O2SAT 97
[2017-09-27 20:00] VITALS: BP 101/53; PULSE 81; RESP 16; TEMP 98.4; O2SAT 96
[2017-09-27] MEDS: RESP: ALBUTEROL 2.5 MG/IPRATROPIUM 0.5 MG NEB (SCH) NEB (20:00)
[2017-09-27 20:07] VITALS: PULSE 83
[2017-09-27] MEDS ORDERED: [UNRECOGNIZED DRUG - OTHER] PO SCH (21:00)
[2017-09-27] MEDS: VANCOMYCIN 500 MG VIAL (FOR ORAL USE ONLY) PO SCH (21:00)
[2017-09-27] MEDS ORDERED: PALBOCICLIB 125 MG PO SCH (21:00)
[2017-09-27] MEDS: TAMOXIFEN CITRATE 10 MG TAB PO SCH (22:32)
[2017-09-28] VITALS (11 sets, daily range): BP systolic 95–116; BP diastolic 50–65; PULSE 75–87; RESP 16–20; TEMP 96.2–98.6; O2SAT 94–98
[2017-09-28] MEDS: RESP: ALBUTEROL 2.5 MG/IPRATROPIUM 0.5 MG NEB (SCH) NEB ×4 (08:00→21:11)
[2017-09-28] MEDS: ENOXAPARIN SODIUM 40 MG/0.4 ML SYRINGE SQ SCH ×2 (09:00→09:09)
[2017-09-28] MEDS: VANCOMYCIN 500 MG VIAL (FOR ORAL USE ONLY) PO SCH ×4 (09:09→22:24)
[2017-09-28] MEDS: PANTOPRAZOLE SOD 40 MG DELAYED RELEASE TAB PO SCH (09:10)
[2017-09-28] MEDS: predniSONE 20 MG TAB PO SCH ×2 (09:10→22:24)
[2017-09-28] MEDS: MORPHINE SULFATE 15 MG CONTROLLED RELEASE TAB PO SCH ×2 (09:10→22:24)
[2017-09-28] MEDS: SODIUM CHLORIDE 0.9% FLUSH 10 ML FLUSH IV FLUSH SCH ×2 (09:10→22:33)
[2017-09-28] MEDS ORDERED: POTASSIUM CHLORIDE 20 MEQ CONTROLLED RELEASE TAB PO ONE (09:45)
--- NOTE | 2017-09-28 11:11 | HHI.PR ---
Subjective Remarks Follow-up C. difficile colitis. 1 loose stool today no abdominal pain. Complains of lower back pain. Discussed with nursing and physical therapy Objective Vitals Vital Signs Date Time Temp Pulse Resp B/P (MAP) Pulse Ox O2 Delivery O2 Flow Rate FiO2 09/28/17 08:00 97.8 79 17 100/58 (72) 94 09/28/17 04:00 97.4 82 16 95/50 (65) 97 09/28/17 03:55 75 09/28/17 00:03 79 09/28/17 00:00 98.6 81 16 103/57 (72) 97 09/27/17 20:55 8 Nasal Cannula 3.00 09/27/17 20:07 83 09/27/17 20:00 98.4 81 16 101/53 (69) 96 09/27/17 17:10 09/27/17 12:38 83 15 110/56 (74) 97 Nasal Cannula 3.00 I/O 09/27/17 09/27/17 09/27/17 09/28/17 09/28/17 09/28/17 07:00 15:00 23:00 07:00 15:00 23:00 Intake Total 200 ml 300 ml 100 ml 240 ml Balance 200 ml 300 ml 100 ml 240 ml Intake Oral 240 ml IV Total 200 ml 300 ml 100 ml # Voids 2 1 4 # Bowel Movements 1 4 Result Diagram: 09/27/17 0622 09/27/17 0622 Imaging Last Impressions Chest X-Ray 09/26/17 1630 Signed Impressions: Service Date/Time: Tuesday, September 26, 2017 16:39 - CONCLUSION: Moderate hyperinflation Thoracic aorta tortuous and uncoiled. Last Saucedo MD FACR Abdomen/Pelvis CT 09/26/17 1630 Signed Impressions: Service Date/Time: Tuesday, September 26, 2017 19:14 - CONCLUSION: 1. Development of marked mural thickening of the colon diffusely characteristic of a severe colitis. 2. Mild to moderate anasarca. 3. Stable abdominal aortic aneurysm and aneurysm of both internal iliac arteries. 4. Osteopenia with mild compression deformities in the lower thoracic spine at T9 and T10. Duncan Bentley MD Objective Remarks GENERAL: This is thin, very pleasant elderly lady, in no apparent distress. SKIN: No rashes, ecchymoses or lesions. Cool and dry. HEENT pupils reactive to light left upper lid droop CARDIOVASCULAR: Regular rate and rhythm without murmurs, gallops, or rubs. RESPIRATORY: Clear to auscultation. Breath sounds equal bilaterally. No wheezes , rales, or rhonchi. GASTROINTESTINAL: Abdomen soft, nontender, nondistended. No guarding. MUSCULOSKELETAL: Extremities without clubbing, cyanosis, or edema. No calf tenderness. Tender lower thoracic area NEUROLOGICAL: Awake and alert. Motor and sensory grossly within normal limits. Normal speech. A/P Problem List: (1) Colitis, acute ICD Code: K52.9 - Noninfective gastroenteritis and colitis, unspecified Status: Acute Assessment and Plan C. difficile colitis. Continue vancomycin and will add Lactinex. Monitor renal function and electrolytes. Lower thoracic compression injuries with history of metastatic breast cancer to her rib cage and spine. Pain management. Physical therapy evaluation with TLSO brace. Not a candidate for surgical intervention at this time secondary to ongoing infection. Fall precautions Chronic respiratory failure on home oxygen and COPD. Stable wean prednisone Pancytopenia likely secondary to antineoplastic agent. Will monitor Mild AST elevation will monitor History of cerebral aneurysm- s/p clipping about 3-4 yrs ago in [place] DVT prophylaxis with Lovenox, SCD and early ambulation. Monitor platelet ct Conrad Dsouza MD Sep 28, 2017 11:11
[2017-09-28] MEDS: LACTOBACILLUS ACIDOPHILUS TAB PO SCH ×3 (11:17→17:50)
[2017-09-28] MEDS: BUDESONIDE-FORMOTEROL 160/4.5 MCG INHALER INH SCH ×2 (11:17→23:03)
[2017-09-28] MEDS: NS + KCL 20 MEQ INJ 1,000 ML IV SCH ×2 (11:30→22:33)
[2017-09-28] MEDS: TAMOXIFEN CITRATE 10 MG TAB PO SCH (22:23)
[2017-09-28] MEDS: MIRTAZAPINE 15 MG TAB PO SCH (22:23)
[2017-09-28] MEDS: ALPRAZolam 0.5 MG TAB PO PRN (23:57)
[2017-09-29] VITALS (10 sets, daily range): BP systolic 99–124; BP diastolic 55–82; PULSE 75–99; RESP 16–20; TEMP 95.9–98.8; O2SAT 94–100
--- NOTE | 2017-09-29 08:35 | HHI.FF ---
Face to Face Verification Diagnosis: (1) Pain of metastatic malignancy (2) Metastatic breast cancer (3) Colitis, acute Physical Therapy Order: Evaluate and Treat, Improve ambulation, Strength and gait training Home Health Nursing Order: Medical education Signs/symptoms of disease process Oxygen administration education Nursing assessment with vital signs I have seen patient Henrietta Gunter on 09/29/17. My clinical findings support the need for the requested home health care services because: Patient has SOB Deconditioned w/ increased weakness I certify that my clinical findings support that this patient is homebound because: Unsafe to leave home unassisted Conrad Dsouza MD Sep 29, 2017 08:35
--- NOTE | 2017-09-29 08:37 | HHI.DCPOC ---
Discharge Care Plan Diagnosis: (1) Colitis, acute Your Health Problems Are: Difficulty with ADL Exercise Tolerance Goals to Promote Your Health * To prevent worsening of your condition and complications * To maintain your health at the optimal level Directions to Meet Your Goals Take your medications as prescribed Follow your dietary instruction Follow activity as directed Keep your appointments as scheduled Take your immunizations and boosters as scheduled If your symptoms worsen call your PCP, if no PCP go to Urgent Care Center or Emergency Room Smoking is Dangerous to Your Health. Avoid second hand smoke Call the 24-hour hour crisis hotline for domestic abuse at Conrad Dsouza MD Sep 29, 2017 08:37
[2017-09-29] MEDS: BUDESONIDE-FORMOTEROL 160/4.5 MCG INHALER INH SCH ×2 (08:46→20:49)
[2017-09-29] MEDS: SODIUM CHLORIDE 0.9% FLUSH 10 ML FLUSH IV FLUSH SCH ×2 (08:47→20:47)
[2017-09-29] MEDS: ENOXAPARIN SODIUM 40 MG/0.4 ML SYRINGE SQ SCH (08:47)
[2017-09-29] MEDS: PANTOPRAZOLE SOD 40 MG DELAYED RELEASE TAB PO SCH (08:48)
[2017-09-29] MEDS: LACTOBACILLUS ACIDOPHILUS TAB PO SCH ×3 (08:48→18:03)
[2017-09-29] MEDS: MORPHINE SULFATE 15 MG CONTROLLED RELEASE TAB PO SCH ×2 (08:48→20:47)
[2017-09-29] MEDS: predniSONE 20 MG TAB PO SCH ×2 (08:48→20:46)
[2017-09-29] MEDS: VANCOMYCIN 500 MG VIAL (FOR ORAL USE ONLY) PO SCH ×4 (08:48→20:47)
[2017-09-29] MEDS: RESP: ALBUTEROL 2.5 MG/IPRATROPIUM 0.5 MG NEB (SCH) NEB ×4 (09:07→19:16)
[2017-09-29 09:18] LABS: HEMATOCRIT 30.6 % (35.0-46.0); MEAN CELL VOLUME 104.3 FL (80.0-100.0); MEAN CORPUSCULAR HGB CONC 32.6 % (32.0-36.0); MEAN PLATELET VOLUME 7.8 FL (7.0-11.0); PLATELET COUNT 57 TH/MM3 (150-450); RED BLOOD COUNT 2.93 MIL/MM3 (4.00-5.30); RED CELL DISTRIBUTION WIDTH 18.5 % (11.6-17.2); WHITE BLOOD COUNT 2.8 TH/MM3 (4.0-11.0)
[2017-09-29 09:33] LABS: ALBUMIN 2.2 GM/DL (3.4-5.0); BICARBONATE 19.3 MEQ/L (21.0-32.0); CALCIUM 6.5 MG/DL (8.5-10.1); CALCIUM-PROTEIN CORRECTED 7.5 MG/DL (8.5-10.1); CREATININE 0.39 MG/DL (0.50-1.00); MAGNESIUM 2.6 MG/DL (1.5-2.5); TOTAL BILIRUBIN ADULT 0.3 MG/DL (0.2-1.0)
[2017-09-29 09:41] LABS: BANDS 14 % (0-6); LYMPHOCYTES 6 % (9-44); MONOCYTES 5 % (0-8); NEUTROPHIL # MANUAL DIFF 2.5 TH/MM3 (1.8-7.7); POLYS (SEG NEUTROPHILS) 75 % (16-70)
[2017-09-29 09:43] LABS: OVALOCYTES 1+ (NORMAL); TEARDROP RBCS 1+ (NORMAL)
--- NOTE | 2017-09-29 11:20 | HHI.PR ---
Subjective Remarks Follow-up C. difficile colitis. No BM today. States she lives with her daughter and 3 children by has her own room and commode. Discussed with nursing , patient not eating. Will consult dietitian and add Ensure Objective Vitals Vital Signs Date Time Temp Pulse Resp B/P (MAP) Pulse Ox O2 Delivery O2 Flow Rate FiO2 09/29/17 09:08 94 Nasal Cannula 3.00 09/29/17 04:24 75 09/29/17 04:00 96.1 79 20 111/63 (79) 100 09/29/17 00:40 Nasal Cannula 3.00 09/29/17 00:00 97.8 90 20 104/55 (71) 96 09/28/17 21:11 98 Nasal Cannula 3.00 09/28/17 20:00 97.1 87 20 116/65 (82) 94 09/28/17 17:16 97 Nasal Cannula 3.00 09/28/17 16:00 96.2 84 17 100/57 (71) 97 09/28/17 12:00 97.7 79 17 104/65 (78) 97 I/O 09/28/17 09/28/17 09/28/17 09/29/17 09/29/17 09/29/17 07:00 15:00 23:00 07:00 15:00 23:00 Intake Total 240 ml 1360 ml 0 ml Balance 240 ml 1360 ml 0 ml Intake Oral 240 ml 360 ml 0 ml IV Total 1000 ml # Voids 4 2 2 # Bowel Movements 4 1 0 Result Diagram: 09/29/17 0843 09/29/17 0843 Imaging Last Impressions Chest X-Ray 09/26/17 1630 Signed Impressions: Service Date/Time: Tuesday, September 26, 2017 16:39 - CONCLUSION: Moderate hyperinflation Thoracic aorta tortuous and uncoiled. Last Saucedo MD FACR Abdomen/Pelvis CT 09/26/17 1630 Signed Impressions: Service Date/Time: Tuesday, September 26, 2017 19:14 - CONCLUSION: 1. Development of marked mural thickening of the colon diffusely characteristic of a severe colitis. 2. Mild to moderate anasarca. 3. Stable abdominal aortic aneurysm and aneurysm of both internal iliac arteries. 4. Osteopenia with mild compression deformities in the lower thoracic spine at T9 and T10. Duncan Bentley MD Objective Remarks GENERAL: This is thin, very pleasant elderly lady, in no apparent distress. SKIN: No rashes, ecchymoses or lesions. Cool and dry. HEENT pupils reactive to light left upper lid droop CARDIOVASCULAR: Regular rate and rhythm without murmurs, gallops, or rubs. RESPIRATORY: Clear to auscultation. Breath sounds equal bilaterally. No wheezes , rales, or rhonchi. GASTROINTESTINAL: Abdomen soft, nontender, nondistended. No guarding. MUSCULOSKELETAL: Extremities without clubbing, cyanosis, or edema. No calf tenderness. Tender lower thoracic area NEUROLOGICAL: Awake and alert. Motor and sensory grossly within normal limits. Normal speech. A/P Problem List: (1) Colitis, acute ICD Code: K52.9 - Noninfective gastroenteritis and colitis, unspecified Status: Acute Assessment and Plan C. difficile colitis. Improving. Continue vancomycin and will add Lactinex. Monitor renal function and electrolytes. Lower thoracic compression injuries with history of metastatic breast cancer to her rib cage and spine. Pain management. Physical therapy evaluation with TLSO brace. Not a candidate for surgical intervention at this time secondary to ongoing infection. Fall precautions Chronic respiratory failure on home oxygen and COPD. Stable wean prednisone Pancytopenia likely secondary to antineoplastic agent. Worsening thrombocytopenia will discontinue Lovenox. Will monitor Mild AST elevation will monitor History of cerebral aneurysm- s/p clipping about 3-4 yrs ago in [place] DVT prophylaxis with SCD and early ambulation. Consult dietitian Discharge Planning Possible discharge in the morning Conrad Dsouza MD Sep 29, 2017 11:20
[2017-09-29] MEDS: ALPRAZolam 0.5 MG TAB PO PRN (18:07)
[2017-09-29] MEDS: TAMOXIFEN CITRATE 10 MG TAB PO SCH (20:46)
[2017-09-29] MEDS: MIRTAZAPINE 15 MG TAB PO SCH (20:46)
[2017-09-30] VITALS (11 sets, daily range): BP systolic 126–147; BP diastolic 73–81; PULSE 86–103; RESP 18–22; TEMP 97–99.3; O2SAT 95–99
[2017-09-30] MEDS: ALPRAZolam 0.5 MG TAB PO PRN ×2 (03:07→16:53)
[2017-09-30] MEDS: RESP: ALBUTEROL 2.5 MG/IPRATROPIUM 0.5 MG NEB (SCH) NEB ×4 (09:04→19:48)
[2017-09-30] MEDS: VANCOMYCIN 500 MG VIAL (FOR ORAL USE ONLY) PO SCH ×4 (10:00→21:29)
[2017-09-30] MEDS: predniSONE 20 MG TAB PO SCH ×2 (10:01→21:27)
[2017-09-30] MEDS: PANTOPRAZOLE SOD 40 MG DELAYED RELEASE TAB PO SCH (10:01)
[2017-09-30] MEDS: SODIUM CHLORIDE 0.9% FLUSH 10 ML FLUSH IV FLUSH SCH ×2 (10:01→22:22)
[2017-09-30] MEDS: LACTOBACILLUS ACIDOPHILUS TAB PO SCH ×3 (10:01→16:52)
[2017-09-30] MEDS: MORPHINE SULFATE 15 MG CONTROLLED RELEASE TAB PO SCH ×2 (10:01→21:27)
[2017-09-30] MEDS: BUDESONIDE-FORMOTEROL 160/4.5 MCG INHALER INH SCH ×2 (10:02→21:37)
--- NOTE | 2017-09-30 10:36 | HHI.PR ---
Subjective Remarks Follow-up for C. difficile Patient continues to complain of pain. She stated that her pain is not controlled. She denies any active bleeding. She stated Dr. Christy is her oncologist. She stated that she feels too weak and is not ready to be discharged home. She denies any abdominal pain. She stated that her diarrhea is improving. So far she had 2 bowel movements. She remains afebrile. Objective Vitals Vital Signs Date Time Temp Pulse Resp B/P (MAP) Pulse Ox O2 Delivery O2 Flow Rate FiO2 09/30/17 09:08 95 Nasal Cannula 3.00 09/30/17 08:00 97.0 86 20 136/81 (99) 98 09/30/17 04:00 97.8 88 18 130/73 (92) 98 09/30/17 01:47 91 09/30/17 00:00 99.3 91 18 126/74 (91) 96 09/29/17 20:00 95.9 79 19 121/82 (95) 98 09/29/17 16:00 98.8 99 18 106/77 (87) 99 09/29/17 15:44 98 Nasal Cannula 3.00 09/29/17 12:00 97.7 95 16 124/76 (92) 98 I/O 09/29/17 09/29/17 09/29/17 09/30/17 09/30/17 09/30/17 07:00 15:00 23:00 07:00 15:00 23:00 Intake Total 0 ml 620 ml 220 ml Output Total 300 ml Balance 0 ml 620 ml -80 ml Intake Oral 0 ml 620 ml 220 ml Output Urine Total 300 ml # Voids 2 2 # Bowel Movements 0 0 0 Result Diagram: 09/29/17 0843 09/29/17 0843 Objective Remarks GENERAL: in NAD CARDIOVASCULAR: Regular rate and rhythm without murmurs, gallops, or rubs. RESPIRATORY: Breath sounds equal bilaterally. No accessory muscle use. GASTROINTESTINAL: Abdomen soft, non-tender, nondistended. A/P Problem List: (1) Colitis, acute ICD Code: K52.9 - Noninfective gastroenteritis and colitis, unspecified Status: Acute Assessment and Plan This is a 76-year-old female with history of metastatic breast cancer who presented with diarrhea C. difficile colitis. -Improving with vancomycin. Continue with vancomycin and Lasix. Lower thoracic compression injuries with history of metastatic breast cancer to her rib cage and spine. - Pain continues to be uncontrolled. She is currently on oxycodone. Will give lidocaine patch since pain seems to be located in lower back. Physical therapy evaluation with TLSO brace. Not a candidate for surgical intervention at this time secondary to ongoing infection. Fall precautions Chronic respiratory failure on home oxygen and COPD. - Stable wean prednisone Pancytopenia likely secondary to antineoplastic agent. - Worsening thrombocytopenia where Lovenox was discontinued on 09/29. Due to the platelets trending down significantly was consult her oncologist Dr. Christy. Still pending labs from today. History of cerebral aneurysm - s/p clipping about 3-4 yrs ago in [place] Deconditioned -Patient states she is very weak. PT already consulted. DVT prophylaxis with SCD and early ambulation. Madeleine Bobby MD Sep 30, 2017 10:36
[2017-09-30] MEDS: NS + KCL 20 MEQ INJ 1,000 ML IV SCH (10:53)
[2017-09-30] MEDS: MORPHINE SULFATE 2 MG/ML INJ IV PUSH PRN (12:32)
[2017-09-30 16:30] LABS: HEMATOCRIT 28.9 % (35.0-46.0); HEMOGLOBIN 9.5 GM/DL (11.6-15.3); MEAN CELL VOLUME 101.7 FL (80.0-100.0); MEAN CORPUSCULAR HEMOGLOBIN 33.5 PG (27.0-34.0); PLATELET COUNT 64 TH/MM3 (150-450); RED BLOOD COUNT 2.85 MIL/MM3 (4.00-5.30); RED CELL DISTRIBUTION WIDTH 18.6 % (11.6-17.2); WHITE BLOOD COUNT 4.9 TH/MM3 (4.0-11.0)
[2017-09-30] MEDS: LIDOCAINE HCL 5% PATCH T-DERMAL SCH (16:54)
[2017-09-30 17:11] LABS: ALBUMIN 2.3 GM/DL (3.4-5.0); BICARBONATE 22.9 MEQ/L (21.0-32.0); CALCIUM 7.1 MG/DL (8.5-10.1); CALCIUM-PROTEIN CORRECTED 8.4 MG/DL (8.5-10.1); CREATININE 0.5 MG/DL (0.50-1.00); MAGNESIUM 2.3 MG/DL (1.5-2.5); TOTAL BILIRUBIN ADULT 0.2 MG/DL (0.2-1.0); TOTAL PROTEIN 4.8 GM/DL (6.4-8.2)
[2017-09-30 17:35] LABS: BANDS 24 % (0-6); CORRECTED NUCLEATED RBC 9 /100 WBC (0-0); LYMPHOCYTES 2 % (9-44); METAMYELOCYTES 3 % (0-1); MONOCYTES 5 % (0-8); NEUTROPHIL # MANUAL DIFF 4.6 TH/MM3 (1.8-7.7); NUCLEATED RED BLOOD CELL 9 (0-0); POLYS (SEG NEUTROPHILS) 66 % (16-70)
[2017-09-30] MEDS ORDERED: MORPHINE SULFATE 2 MG/ML INJ IV PUSH PRN (19:45)
--- NOTE | 2017-09-30 20:49 | MB ---
cc: Eric Kirkpatrick MD DATE: 09/30/2017 REASON FOR CONSULTATION: Patient with stage IV breast cancer. HISTORY OF PRESENT ILLNESS: This is a 76-year-old female who has a history of stage IV breast cancer, who is being treated with an aromatase inhibitor and Ibrance. She has progressive declining performance status. She has had multiple hospitalizations recently to [place], as well as to the [facility] where she was treated for pneumonia. She was now brought to the emergency room with abdominal pain. She was also nauseous and was having diarrhea. The patient was positive for C. difficile and she is being treated with vancomycin. The diarrhea is improving. She complains of pain all over and states that her pain is not well controlled. The patient also has worsening thrombocytopenia. She has not had any nosebleeds, gum bleeds, petechiae or bruising, no bright red blood per rectum or melena. REVIEW OF SYSTEMS: A comprehensive review of system was completed which is negative except as described in HPI. PAST MEDICAL HISTORY: Stage IV breast cancer with bone metastasis, severe COPD, emphysema, significant osteoporosis, asthma, history of cataracts, history of migraine headaches. PAST SURGICAL HISTORY: Appendectomy, breast biopsy, hernia repair, hysterectomy, mastectomy in 2016. MEDICATIONS: Reviewed in the EMR. ALLERGIES: SHE IS ALLERGIC TO CODEINE. FAMILY HISTORY: Reviewed and is noncontributory to this admission. SOCIAL HISTORY: She has more than 60 pack year of smoking history. She still has occasional smokes, does not drink alcohol. No illicit drug use. She lives with her daughter. PHYSICAL EXAMINATION: VITAL SIGNS: Blood pressure is 147/74, pulse in the 90s, temperature is 97.6, O2 saturations are 99% on 3 liters of nasal cannula. GENERAL: Elderly, frail, chronically ill-appearing female who is complaining of pain all over. HEENT: Pupils are equal, round, reactive to light. EOMI. No thrush. No lesions. NECK: Supple. No JVD. No bruits. No lymphadenopathy. CHEST: Clear to auscultation bilaterally. CARDIAC: S1, S2. Regular rate and rhythm. ABDOMEN: Soft, nontender, nondistended. Bowel sounds are decreased. EXTREMITIES: No edema, erythema, cyanosis. SKIN: Without any petechiae, lesions or bruises. NEUROLOGIC: No focal deficits. PSYCHIATRIC: Mood and affect are appropriate. LABORATORY DATA: WBC is 4.9, hemoglobin is 9.5, platelet count is 64. Serum chemistry: Sodium 142, potassium 4.9, BUN is 13, creatinine is 0.5, calcium is 7.1, total bilirubin is 0.2, AST is 479, ALT is 20, total protein is 4.8, albumin is 2.3. IMAGING: CT of the abdomen and pelvis shows mural thickening of the colon with diffuse characteristics of colitis. There is stable abdominal aortic aneurysm and aneurysm of both internal iliac arteries, osteopenia with mild compression deformity in the lower thoracic spine at T9 and T10. Chest x-ray was reviewed. There is moderate hyperinflation. ASSESSMENT AND PLAN: This is a 76-year-old female who has a history of stage IV breast cancer with metastasis to the bone involving the spine. She was originally diagnosed with stage IIB breast cancer and underwent adjuvant radiation treatments. This was an ER positive, MN negative and HER2 negative cancer. She underwent left breast mastectomy. Tumor size was 2.6 cm and 7 out of 9 sentinel lymph nodes were positive. She refused adjuvant chemotherapy. She subsequently had progressive disease in spring and metastatic disease was found in the spine. She is currently being treated with Ibrance and hormone blockade therapy. She is also being treated with Xgeva for bony metastatic disease. She presents to the emergency room with abdominal pain and diarrhea. 1. Abdominal pain and diarrhea secondary to Clostridium difficile colitis. She is currently on vancomycin. Symptomatically, she is doing better. 2. Intractable pain. She states that she has pain all over. She is requesting pain medications. I will add short-acting morphine 2 mg every 3 hours p.r.n. pain. She has progressively declining performance status. 3. Stage IV breast cancer. Again, I had a long discussion with the patient. Over the past several months she is clinically declining. She has had recurrent hospital admissions. She is quite weak and cachectic. She has overall poor prognosis. I have discussed this with the patient. We talked about hospice supportive care and she is open to this idea. We will ask palliative care to see the patient. Will hold off any treatment while she is in the hospital. 4. Elevated liver function tests, possibly due to infection. She did have a CT scan of the abdomen on admission. There were no abnormal findings in the liver. We may need to obtain repeat imaging. I will wait or ordering any additional imaging at this time as patient is considering palliative care and hospice. 5. Acute thrombocytopenia secondary to acute infection and illness. Check daily fibrinogen levels. Hold Ibrance while inpatient. Thank you for allowing me to participate in the care of this patient. I continue to follow this patient along. MD VANI Marin/rt , 07:59 PM , 08:47 PM
[2017-09-30] MEDS: REMOVE OLD LIDOCAINE PATCH T-DERMAL SCH (21:00)
[2017-09-30] MEDS: MIRTAZAPINE 15 MG TAB PO SCH (21:28)
[2017-09-30] MEDS: TAMOXIFEN CITRATE 10 MG TAB PO SCH (21:28)
[2017-10-01] VITALS (10 sets, daily range): BP systolic 118–146; BP diastolic 65–75; PULSE 90–104; RESP 16–20; TEMP 97.7–98.2; O2SAT 95–100
[2017-10-01] MEDS: ALPRAZolam 0.5 MG TAB PO PRN (02:58)
[2017-10-01 07:26] LABS: HEMATOCRIT 28.2 % (35.0-46.0); HEMOGLOBIN 9.3 GM/DL (11.6-15.3); MEAN CORPUSCULAR HEMOGLOBIN 34.3 PG (27.0-34.0); MEAN PLATELET VOLUME 8.2 FL (7.0-11.0); PLATELET COUNT 47 TH/MM3 (150-450); RED BLOOD COUNT 2.71 MIL/MM3 (4.00-5.30); RED CELL DISTRIBUTION WIDTH 19.1 % (11.6-17.2); WHITE BLOOD COUNT 3.9 TH/MM3 (4.0-11.0)
[2017-10-01 07:43] LABS: CALCIUM 7.8 MG/DL (8.5-10.1); CREATININE 0.45 MG/DL (0.50-1.00)
[2017-10-01] MEDS: RESP: ALBUTEROL 2.5 MG/IPRATROPIUM 0.5 MG NEB (SCH) NEB ×3 (08:04→16:41)
[2017-10-01] MEDS: SODIUM CHLORIDE 0.9% FLUSH 10 ML FLUSH IV FLUSH SCH ×2 (09:00→19:41)
--- NOTE | 2017-10-01 10:08 | HHI.PR ---
Subjective Remarks f/u for pancytopenia, uncontrolled pain, C diff patient found very lethargic but able to arouse. she stated she feels a lot better and pain is better controlled. Denied any pain. diarrhea is improving. Objective Vitals Vital Signs Date Time Temp Pulse Resp B/P (MAP) Pulse Ox O2 Delivery O2 Flow Rate FiO2 10/01/17 08:05 98 Nasal Cannula 3.00 10/01/17 08:00 97.7 90 18 119/65 (83) 98 10/01/17 04:42 98.1 96 18 146/69 (94) 96 10/01/17 00:00 97.8 95 17 119/67 (84) 95 09/30/17 22:32 97 09/30/17 22:32 3.00 09/30/17 20:00 98.1 103 18 134/74 (94) 96 09/30/17 19:48 96 Nasal Cannula 3.00 09/30/17 19:13 91 09/30/17 16:00 97.6 92 22 147/74 (98) 99 09/30/17 12:00 97.6 100 22 141/80 (100) 96 I/O 09/30/17 09/30/17 09/30/17 10/01/17 10/01/17 10/01/17 07:00 15:00 23:00 07:00 15:00 23:00 Intake Total 220 ml 1600 ml 480 ml Output Total 300 ml 300 ml Balance -80 ml 1300 ml 480 ml Intake Oral 220 ml 1600 ml 480 ml Output Urine Total 300 ml 300 ml # Voids 3 # Bowel Movements 0 0 Result Diagram: 10/01/1728 10/01/17627 Objective Remarks GENERAL: in NAD but very sleepy CARDIOVASCULAR: Regular rate and rhythm without murmurs, gallops, or rubs. RESPIRATORY: Breath sounds equal bilaterally. No accessory muscle use. GASTROINTESTINAL: Abdomen soft, non-tender, nondistended. Medications and IVs Current Medications Sodium Chloride 500 ml @ 500 mls/hr BOLUS ONCE IV Last administered on at 17:15; Start 09/26/17 at 16:30; Stop 09/26/17 at 17:29; Status DC Morphine Sulfate (Morphine Inj) 4 mg ONCE ONCE IV PUSH Last administered on at 18:16; Start 09/26/17 at 18:15; Stop 09/26/17 at 18:16; Status DC Ondansetron HCl (Zofran Inj) 4 mg ONCE ONCE IV PUSH Last administered on at 18:16; Start 09/26/17 at 18:15; Stop 09/26/17 at 18:16; Status DC Iohexol (Omnipaque 350 Inj) 70 ml STK-MED ONCE IVCONTRAST Last administered on 09/26/17at 19:19; Start 09/26/17 at 19:19; Stop 09/26/17 at 19:20; Status DC Metronidazole 100 ml @ 100 mls/hr ONCE ONCE IV Last administered on at 22:38; Start 09/26/17 at 20:15; Stop 09/26/17 at 21:14; Status DC Ciprofloxacin/ Dextrose 200 ml @ 200 mls/hr ONCE ONCE IV Last administered on 09/26/17at 21:25; Start 09/26/17 at 20:15; Stop 09/26/17 at 21:14; Status DC Sodium Chloride (NS Flush) 2 ml UNSCH PRN IV FLUSH FLUSH AFTER USING IV ACCESS ; Start 09/26/17 at 20:15 Sodium Chloride (NS Flush) 2 ml BID IV FLUSH Last administered on 09/30/17at 22: 22; Start 09/26/17 at 21:00 Naloxone HCl (Narcan Inj) 0.4 mg UNSCH PRN IV PUSH SEE LABEL COMMENTS; Start at 20:15 Metronidazole 100 ml @ 100 mls/hr Q6H IV Last administered on 09/27/17at 13:44 ; Start 09/27/17 at 02:00; Stop 09/27/17 at 17:45; Status DC Morphine Sulfate (Morphine Inj) 2 mg Q3H PRN IV PUSH pain >5 Last administered on 09/30/17at 12:32; Start 09/26/17 at 20:30; Stop 09/30/17 at 20:30; Status DC Ondansetron HCl (Zofran Inj) 4 mg Q6HR PRN IV PUSH nausea Last administered on 09/27/17at 07:02; Start 09/26/17 at 20:30; Stop 09/27/17 at 08:37; Status DC Alprazolam (Xanax) 0.5 mg Q8H PRN PO ANXIETY Last administered on 10/01/17 02: 58; Start 09/27/17 at 06:45 Morphine Sulfate (Oramorph Sr) 45 mg Q12HR PO Last administered on 09/30/17at 21 :27; Start 09/27/17 at 09:00 Morphine Sulfate (Oramorph Sr) 45 mg Q12HR PO ; Start 09/27/17 at 09:00; Stop at 09:00; Status DC Oxycodone HCl (Roxicodone) 10 mg Q8HR PO Last administered on 10/01/17at 05:33; Start 09/27/17 at 14:00 Prednisone (Deltasone) 20 mg BID PO Last administered on 09/30/17at 21:27; Start 09/27/17 at 09:00; Stop 10/01/17 at 08:59; Status DC Tamoxifen Citrate (Nolvadex) 20 mg HS PO Last administered on 09/30/17 21:28; Start 09/27/17 at 21:00 Pantoprazole Sodium (Protonix) 40 mg DAILY PO Last administered on 09/30/17at 10 :01; Start 09/27/17 at 09:00 Ondansetron HCl (Zofran Odt) 4 mg Q6HR PRN PO NAUSEA OR VOMITING; Start at 06:45 Patient Own Medication PT OWN MED: PALBOCIC... HS PO ; Start 09/27/17 at 21:00; Status Future Hold Ciprofloxacin/ Dextrose 200 ml @ 200 mls/hr Q12H IV Last administered on at 09:08; Start 09/27/17 at 09:00; Stop 09/27/17 at 17:45; Status DC Enoxaparin Sodium (Lovenox Inj) 40 mg Q24H SQ ; Start 09/27/17 at 09:00; Stop at 10:14; Status DC Albuterol/ Ipratropium (Duoneb Neb) 1 ampule Q4HR WHILE AWAKE NEB NEB Last administered on 10/01/17at 08:04; Start 09/27/17 at 20:00 Vancomycin HCl (VANCOMYCIN for oral use only) 125 mg QID PO Last administered on 09/30/17at 21:29; Start 09/27/17 at 21:00; Stop 10/07/17 at 20:59 Lactobacillus Acidophilus (Lactinex) 1 tab TID PO Last administered on 16:52; Start 09/28/17 at 09:00 Potassium Chloride (KCl) 20 meq ONCE ONCE PO Last administered on 09/28/17 11 :17; Start 09/28/17 at 09:45; Stop 09/28/17 at 09:46; Status DC Mirtazapine (Remeron) 30 mg HS PO Last administered on 09/30/17 21:28; Start 09/28/17 at 21:00 Budesonide/ Formoterol Fumarate (Symbicort 160-4.5 Mcg Inh) 2 puff BID INH Last administered on 09/30/17 21:37; Start 09/28/17 at 10:00 Potassium Chloride/Sodium Chloride 1,000 ml @ 42 mls/hr [id number] IV Last administered on 09/28/17 22:33; Start 09/28/17 at 11:15 Lidocaine HCl (Lidoderm 5% Patch.12 Hr) 1 patch DAILY T-DERMAL Last administered on 09/30/17 16:54; Start 09/30/17 at 10:45 Miscellaneous Information 1 Q24H T-DERMAL Last administered on 09/30/17 21:00 ; Start 09/30/17 at 21:00 Morphine Sulfate (Morphine Inj) 2 mg Q4H PRN IV PUSH pain 1-10; Start 09/30/17 at 19:45 A/P Problem List: (1) Colitis, acute ICD Code: K52.9 - Noninfective gastroenteritis and colitis, unspecified Status: Acute Assessment and Plan This is a 76-year-old female with history of metastatic breast cancer who presented with diarrhea C. difficile colitis. -Improving with vancomycin. Continue with vancomycin and Lasix. lethargy -most likely due to pain medication but patient stated she feels better. Lower thoracic compression injuries with history of metastatic breast cancer to her rib cage and spine. - controlled and was started on morphine by her oncologist. Physical therapy evaluation with TLSO brace. Not a candidate for surgical intervention at this time secondary to ongoing infection. Fall precautions Chronic respiratory failure on home oxygen and COPD. - Stable wean prednisone Pancytopenia likely secondary to antineoplastic agent. - Worsening thrombocytopenia where Lovenox was discontinued on 09/29. Dr. Kirkpatrick consulted and stated by to infection. History of cerebral aneurysm - s/p clipping about 3-4 yrs ago in [place] metastatic breast cancer -patient is getting worse. Dr. Kirkpatrick ff and appreciated recommendation and assistance. poor prognosis and considering hospice. palliative care consulted. palliative care does not work on weekend consider hospice consult since patient was considering this. Deconditioned -PT recommend SNF. DVT prophylaxis with SCD and early ambulation. Discharge Planning patient is considering hospice and palliative care does not work on weekends. will put hospice consult since she is considering this. Madeleine Bobby MD Oct 01, 2017 10:08
[2017-10-01] MEDS: PANTOPRAZOLE SOD 40 MG DELAYED RELEASE TAB PO SCH (10:29)
[2017-10-01] MEDS: VANCOMYCIN 500 MG VIAL (FOR ORAL USE ONLY) PO SCH ×4 (10:29→19:42)
[2017-10-01] MEDS: LACTOBACILLUS ACIDOPHILUS TAB PO SCH ×3 (10:30→18:27)
[2017-10-01] MEDS: MORPHINE SULFATE 15 MG CONTROLLED RELEASE TAB PO SCH ×2 (10:30→22:24)
[2017-10-01] MEDS: BUDESONIDE-FORMOTEROL 160/4.5 MCG INHALER INH SCH ×2 (10:30→19:40)
[2017-10-01] MEDS: LIDOCAINE HCL 5% PATCH T-DERMAL SCH (10:31)
[2017-10-01] MEDS: NS + KCL 20 MEQ INJ 1,000 ML IV SCH (10:42)
[2017-10-01] MEDS: REMOVE OLD LIDOCAINE PATCH T-DERMAL SCH (19:42)
[2017-10-01] MEDS: TAMOXIFEN CITRATE 10 MG TAB PO SCH (19:42)
[2017-10-01] MEDS: MIRTAZAPINE 15 MG TAB PO SCH (19:42)
[2017-10-02] VITALS (11 sets, daily range): BP systolic 120–156; BP diastolic 57–77; PULSE 101–110; RESP 16–24; TEMP 98.7–99.7; O2SAT 94–99
[2017-10-02] MEDS: ALPRAZolam 0.5 MG TAB PO PRN ×2 (03:19→15:24)
[2017-10-02] MEDS: MORPHINE SULFATE 15 MG CONTROLLED RELEASE TAB PO SCH ×2 (09:00→20:27)
[2017-10-02] MEDS: LACTOBACILLUS ACIDOPHILUS TAB PO SCH ×3 (09:40→18:44)
[2017-10-02] MEDS: LIDOCAINE HCL 5% PATCH T-DERMAL SCH (09:40)
[2017-10-02] MEDS: PANTOPRAZOLE SOD 40 MG DELAYED RELEASE TAB PO SCH (09:40)
[2017-10-02] MEDS: VANCOMYCIN 500 MG VIAL (FOR ORAL USE ONLY) PO SCH ×4 (09:40→20:27)
[2017-10-02] MEDS: SODIUM CHLORIDE 0.9% FLUSH 10 ML FLUSH IV FLUSH SCH ×2 (09:44→20:26)
[2017-10-02] MEDS: BUDESONIDE-FORMOTEROL 160/4.5 MCG INHALER INH SCH ×2 (09:44→20:26)
[2017-10-02] MEDS: NS + KCL 20 MEQ INJ 1,000 ML IV SCH (10:31)
--- NOTE | 2017-10-02 11:01 | HHI.PR ---
Subjective Remarks Follow-up for pancytopenia, metastatic breast cancer, C. difficile colitis Patient sedated. She stated that is because the pain medication. When asked patient if she was feeling better she stated no. She was too sedated to give me a history but when I asked her if she was just very fatigued she stated yes. She denies any pain. Unable to get further information. Discussed case with patient's nurse. Objective Vitals Vital Signs Date Time Temp Pulse Resp B/P (MAP) Pulse Ox O2 Delivery O2 Flow Rate FiO2 10/02/17 08:00 99.7 110 22 156/77 (103) 94 10/02/17 04:00 99.0 106 16 147/70 (95) 95 10/02/17 03:53 101 10/02/17 00:00 98.9 102 18 132/68 (89) 95 10/01/17 23:51 100 10/01/17 21:40 Nasal Cannula 3.00 10/01/17 20:02 101 10/01/17 20:00 97.9 104 16 141/75 (97) 99 10/01/17 19:11 96 10/01/17 16:00 98.2 101 20 126/72 (90) 100 10/01/17 12:00 97.9 98 16 118/70 (86) 99 I/O 10/01/17 10/01/17 10/01/17 10/02/17 10/02/17 10/02/17 07:00 15:00 23:00 07:00 15:00 23:00 Intake Total 480 ml 1200 ml Output Total 300 ml Balance 480 ml 900 ml Intake Oral 480 ml 1200 ml Output Urine Total 300 ml # Voids 3 # Bowel Movements 0 Result Diagram: 10/01/1728 10/01/17627 Objective Remarks GENERAL: in NAD but very sleepy CARDIOVASCULAR: Regular rate and rhythm without murmurs, gallops, or rubs. RESPIRATORY: Breath sounds equal bilaterally. No accessory muscle use. GASTROINTESTINAL: Abdomen soft, non-tender, nondistended. Medications and IVs Current Medications Sodium Chloride 500 ml @ 500 mls/hr BOLUS ONCE IV Last administered on at 17:15; Start 09/26/17 at 16:30; Stop 09/26/17 at 17:29; Status DC Morphine Sulfate (Morphine Inj) 4 mg ONCE ONCE IV PUSH Last administered on 18:16; Start 09/26/17 at 18:15; Stop 09/26/17 at 18:16; Status DC Ondansetron HCl (Zofran Inj) 4 mg ONCE ONCE IV PUSH Last administered on at 18:16; Start 09/26/17 at 18:15; Stop 09/26/17 at 18:16; Status DC Iohexol (Omnipaque 350 Inj) 70 ml STK-MED ONCE IVCONTRAST Last administered on 09/26/17at 19:19; Start 09/26/17 at 19:19; Stop 09/26/17 at 19:20; Status DC Metronidazole 100 ml @ 100 mls/hr ONCE ONCE IV Last administered on at 22:38; Start 09/26/17 at 20:15; Stop 09/26/17 at 21:14; Status DC Ciprofloxacin/ Dextrose 200 ml @ 200 mls/hr ONCE ONCE IV Last administered on 09/26/17at 21:25; Start 09/26/17 at 20:15; Stop 09/26/17 at 21:14; Status DC Sodium Chloride (NS Flush) 2 ml UNSCH PRN IV FLUSH FLUSH AFTER USING IV ACCESS ; Start 09/26/17 at 20:15 Sodium Chloride (NS Flush) 2 ml BID IV FLUSH Last administered on 10/02/17at 09: 44; Start 09/26/17 at 21:00 Naloxone HCl (Narcan Inj) 0.4 mg UNSCH PRN IV PUSH SEE LABEL COMMENTS; Start at 20:15 Metronidazole 100 ml @ 100 mls/hr Q6H IV Last administered on 09/27/17at 13:44 ; Start 09/27/17 at 02:00; Stop 09/27/17 at 17:45; Status DC Morphine Sulfate (Morphine Inj) 2 mg Q3H PRN IV PUSH pain >5 Last administered on 09/30/17at 12:32; Start 09/26/17 at 20:30; Stop 09/30/17 at 20:30; Status DC Ondansetron HCl (Zofran Inj) 4 mg Q6HR PRN IV PUSH nausea Last administered on 09/27/17at 07:02; Start 09/26/17 at 20:30; Stop 09/27/17 at 08:37; Status DC Alprazolam (Xanax) 0.5 mg Q8H PRN PO ANXIETY Last administered on 10/02/17 03: 19; Start 09/27/17 at 06:45 Morphine Sulfate (Oramorph Sr) 45 mg Q12HR PO Last administered on 10/01/17at 22 :24; Start 09/27/17 at 09:00 Morphine Sulfate (Oramorph Sr) 45 mg Q12HR PO ; Start 09/27/17 at 09:00; Stop at 09:00; Status DC Oxycodone HCl (Roxicodone) 10 mg Q8HR PO Last administered on 10/02/17at 06:29; Start 09/27/17 at 14:00 Prednisone (Deltasone) 20 mg BID PO Last administered on 09/30/17at 21:27; Start 09/27/17 at 09:00; Stop 10/01/17 at 08:59; Status DC Tamoxifen Citrate (Nolvadex) 20 mg HS PO Last administered on 10/01/17at 19:42; Start 09/27/17 at 21:00 Pantoprazole Sodium (Protonix) 40 mg DAILY PO Last administered on 10/02/17at 09 :40; Start 09/27/17 at 09:00 Ondansetron HCl (Zofran Odt) 4 mg Q6HR PRN PO NAUSEA OR VOMITING; Start at 06:45 Patient Own Medication PT OWN MED: PALBOCIC... HS PO ; Start 09/27/17 at 21:00; Status Future Hold Ciprofloxacin/ Dextrose 200 ml @ 200 mls/hr Q12H IV Last administered on at 09:08; Start 09/27/17 at 09:00; Stop 09/27/17 at 17:45; Status DC Enoxaparin Sodium (Lovenox Inj) 40 mg Q24H SQ ; Start 09/27/17 at 09:00; Stop at 10:14; Status DC Albuterol/ Ipratropium (Duoneb Neb) 1 ampule Q4HR WHILE AWAKE NEB NEB Last administered on 10/01/17at 16:41; Start 09/27/17 at 20:00; Stop 10/01/17 at 19:59 ; Status DC Vancomycin HCl (VANCOMYCIN for oral use only) 125 mg QID PO Last administered on 10/02/17 09:40; Start 09/27/17 at 21:00; Stop 10/07/17 at 20:59 Lactobacillus Acidophilus (Lactinex) 1 tab TID PO Last administered on 09:40; Start 09/28/17 at 09:00 Potassium Chloride (KCl) 20 meq ONCE ONCE PO Last administered on 09/28/17 11 :17; Start 09/28/17 at 09:45; Stop 09/28/17 at 09:46; Status DC Mirtazapine (Remeron) 30 mg HS PO Last administered on 10/01/17 19:42; Start 09/28/17 at 21:00 Budesonide/ Formoterol Fumarate (Symbicort 160-4.5 Mcg Inh) 2 puff BID INH Last administered on 10/02/17 09:44; Start 09/28/17 at 10:00 Potassium Chloride/Sodium Chloride 1,000 ml @ 42 mls/hr [id number] IV Last administered on 09/28/17 22:33; Start 09/28/17 at 11:15 Lidocaine HCl (Lidoderm 5% Patch.12 Hr) 1 patch DAILY T-DERMAL Last administered on 10/02/17 09:40; Start 09/30/17 at 10:45 Miscellaneous Information 1 Q24H T-DERMAL Last administered on 10/01/17 19:42 ; Start 09/30/17 at 21:00 Morphine Sulfate (Morphine Inj) 2 mg Q4H PRN IV PUSH pain 1-10; Start 09/30/17 at 19:45 A/P Problem List: (1) Colitis, acute ICD Code: K52.9 - Noninfective gastroenteritis and colitis, unspecified Status: Acute Assessment and Plan This is a 76-year-old female with history of metastatic breast cancer who presented with diarrhea C. difficile colitis. -Improving with vancomycin. Continue with vancomycin and Lasix. lethargy -Most likely secondary to pain medication. Discussed case with patient nurse will need to hold pain medication if patient is sedated. Will adjust medication. Decrease her oxycodone. -This also may be a deterioration in her clinical status. Lower thoracic compression injuries with history of metastatic breast cancer to her rib cage and spine. -Pain is controlled now but patient is very sedated see treatment as above. Physical therapy evaluation with TLSO brace. Not a candidate for surgical intervention at this time secondary to ongoing infection. Fall precautions Chronic respiratory failure on home oxygen and COPD. - Stable wean prednisone Pancytopenia likely secondary to antineoplastic agent. - Worsening thrombocytopenia where Lovenox was discontinued on 09/29. Dr. Kirkpatrick consulted and stated by to infection. Platelet continues to decrease. No signs of bleeding. History of cerebral aneurysm - s/p clipping about 3-4 yrs ago in [place] metastatic breast cancer -patient is getting worse. Patient and daughter refused hospice or palliative care. She wants to take patient home with home health. Deconditioned -PT recommend SNF. DVT prophylaxis with SCD and early ambulation. Discharge Planning Patient is deteriorating. Recommendation is for hospice but patient and daughter refused. Daughter wants to take patient home at home health. At the moment patient is very weak and unable to get up. I am weaning her off of her medication to make her more awake. But it will be very difficult to get patient home when she cannot ambulate and is deteriorating. Madeleine Bobby MD Oct 02, 2017 11:01
[2017-10-02] MEDS ORDERED: MAGNESIUM HYDROXIDE SUSP 30 ML CUP PO PRN (15:15)
[2017-10-02] MEDS: DOCUSATE SODIUM 50 MG/SENNA 8.6 MG TAB PO SCH ×2 (15:25→20:26)
[2017-10-02] MEDS: TAMOXIFEN CITRATE 10 MG TAB PO SCH (20:26)
[2017-10-02] MEDS: MIRTAZAPINE 15 MG TAB PO SCH (20:26)
[2017-10-02] MEDS: REMOVE OLD LIDOCAINE PATCH T-DERMAL SCH (20:27)
[2017-10-03 04:00] VITALS: BP 124/62; PULSE 92; PULSE 97; RESP 16; TEMP 98.3; O2SAT 91
[2017-10-03 08:00] VITALS: BP 125/65; PULSE 94; RESP 20; TEMP 98.6; O2SAT 97
[2017-10-03] MEDS: LIDOCAINE HCL 5% PATCH T-DERMAL SCH (08:12)
[2017-10-03] MEDS: SODIUM CHLORIDE 0.9% FLUSH 10 ML FLUSH IV FLUSH SCH (08:12)
[2017-10-03] MEDS: LACTOBACILLUS ACIDOPHILUS TAB PO SCH ×3 (08:13→17:30)
[2017-10-03] MEDS: PANTOPRAZOLE SOD 40 MG DELAYED RELEASE TAB PO SCH (08:13)
[2017-10-03] MEDS: DOCUSATE SODIUM 50 MG/SENNA 8.6 MG TAB PO SCH (08:13)
[2017-10-03] MEDS: VANCOMYCIN 500 MG VIAL (FOR ORAL USE ONLY) PO SCH ×3 (08:14→17:30)
[2017-10-03] MEDS: MORPHINE SULFATE 15 MG CONTROLLED RELEASE TAB PO SCH (08:14)
[2017-10-03] MEDS: BUDESONIDE-FORMOTEROL 160/4.5 MCG INHALER INH SCH (08:16)
[2017-10-03] MEDS: NS + KCL 20 MEQ INJ 1,000 ML IV SCH (08:16)
--- NOTE | 2017-10-03 10:09 | HHI.PR ---
Subjective Remarks Follow-up for pancytopenia and C. difficile colitis Patient much more awake today. She stated that she has some lower back pain but pain medication is enough. She has not ambulated at all. Patient seen that she will only go home even if she cannot walk. Patient had a bowel movement this morning. Discussed case with patient's nurse. Objective Vitals Vital Signs Date Time Temp Pulse Resp B/P (MAP) Pulse Ox O2 Delivery O2 Flow Rate FiO2 10/03/17 08:29 Nasal Cannula 4.00 10/03/17 04:00 92 10/03/17 04:00 98.3 97 16 124/62 (82) 91 10/02/17 23:53 103 10/02/17 23:52 99.2 103 22 128/63 (84) 96 10/02/17 21:25 Nasal Cannula 3.00 10/02/17 20:00 98.8 107 22 134/76 (95) 95 10/02/17 19:52 103 10/02/17 17:35 103 10/02/17 16:00 98.7 102 24 130/57 (81) 99 10/02/17 15:10 94 3.00 10/02/17 12:00 99.1 101 20 120/64 (82) 98 I/O 10/02/17 10/02/17 10/02/17 10/03/17 10/03/17 10/03/17 07:00 15:00 23:00 07:00 15:00 23:00 Intake Total 1400 ml 120 ml Output Total 350 ml Balance 1050 ml 120 ml Intake Oral 1400 ml 120 ml Output Urine Total 350 ml # Voids 3 3 # Bowel Movements 1 Result Diagram: 10/01/1728 10/01/17627 Objective Remarks GENERAL: in NAD and awake CARDIOVASCULAR: Regular rate and rhythm without murmurs, gallops, or rubs. RESPIRATORY: Breath sounds equal bilaterally. No accessory muscle use. GASTROINTESTINAL: Abdomen soft, non-tender, nondistended. Medications and IVs Current Medications Sodium Chloride 500 ml @ 500 mls/hr BOLUS ONCE IV Last administered on at 17:15; Start 09/26/17 at 16:30; Stop 09/26/17 at 17:29; Status DC Morphine Sulfate (Morphine Inj) 4 mg ONCE ONCE IV PUSH Last administered on at 18:16; Start 09/26/17 at 18:15; Stop 09/26/17 at 18:16; Status DC Ondansetron HCl (Zofran Inj) 4 mg ONCE ONCE IV PUSH Last administered on at 18:16; Start 09/26/17 at 18:15; Stop 09/26/17 at 18:16; Status DC Iohexol (Omnipaque 350 Inj) 70 ml STK-MED ONCE IVCONTRAST Last administered on 09/26/17at 19:19; Start 09/26/17 at 19:19; Stop 09/26/17 at 19:20; Status DC Metronidazole 100 ml @ 100 mls/hr ONCE ONCE IV Last administered on at 22:38; Start 09/26/17 at 20:15; Stop 09/26/17 at 21:14; Status DC Ciprofloxacin/ Dextrose 200 ml @ 200 mls/hr ONCE ONCE IV Last administered on 09/26/17at 21:25; Start 09/26/17 at 20:15; Stop 09/26/17 at 21:14; Status DC Sodium Chloride (NS Flush) 2 ml UNSCH PRN IV FLUSH FLUSH AFTER USING IV ACCESS ; Start 09/26/17 at 20:15 Sodium Chloride (NS Flush) 2 ml BID IV FLUSH Last administered on 10/03/17at 08: 12; Start 09/26/17 at 21:00 Naloxone HCl (Narcan Inj) 0.4 mg UNSCH PRN IV PUSH SEE LABEL COMMENTS; Start at 20:15 Metronidazole 100 ml @ 100 mls/hr Q6H IV Last administered on 09/27/17at 13:44 ; Start 09/27/17 at 02:00; Stop 09/27/17 at 17:45; Status DC Morphine Sulfate (Morphine Inj) 2 mg Q3H PRN IV PUSH pain >5 Last administered on 09/30/17at 12:32; Start 09/26/17 at 20:30; Stop 09/30/17 at 20:30; Status DC Ondansetron HCl (Zofran Inj) 4 mg Q6HR PRN IV PUSH nausea Last administered on 09/27/17at 07:02; Start 09/26/17 at 20:30; Stop 09/27/17 at 08:37; Status DC Alprazolam (Xanax) 0.5 mg Q8H PRN PO ANXIETY Last administered on 10/02/17at 15: 24; Start 09/27/17 at 06:45 Morphine Sulfate (Oramorph Sr) 45 mg Q12HR PO Last administered on 10/03/17at 08 :14; Start 09/27/17 at 09:00 Morphine Sulfate (Oramorph Sr) 45 mg Q12HR PO ; Start 09/27/17 at 09:00; Stop at 09:00; Status DC Oxycodone HCl (Roxicodone) 10 mg Q8HR PO Last administered on 10/02/17at 06:29; Start 09/27/17 at 14:00; Stop 10/02/17 at 10:58; Status DC Prednisone (Deltasone) 20 mg BID PO Last administered on 09/30/17at 21:27; Start 09/27/17 at 09:00; Stop 10/01/17 at 08:59; Status DC Tamoxifen Citrate (Nolvadex) 20 mg HS PO Last administered on 10/02/17at 20:26; Start 09/27/17 at 21:00 Pantoprazole Sodium (Protonix) 40 mg DAILY PO Last administered on 10/03/17at 08 :13; Start 09/27/17 at 09:00 Ondansetron HCl (Zofran Odt) 4 mg Q6HR PRN PO NAUSEA OR VOMITING; Start at 06:45 Patient Own Medication PT OWN MED: PALBOCIC... HS PO ; Start 09/27/17 at 21:00; Status Future Hold Ciprofloxacin/ Dextrose 200 ml @ 200 mls/hr Q12H IV Last administered on at 09:08; Start 09/27/17 at 09:00; Stop 09/27/17 at 17:45; Status DC Enoxaparin Sodium (Lovenox Inj) 40 mg Q24H SQ ; Start 09/27/17 at 09:00; Stop at 10:14; Status DC Albuterol/ Ipratropium (Duoneb Neb) 1 ampule Q4HR WHILE AWAKE NEB NEB Last administered on 10/01/17at 16:41; Start 09/27/17 at 20:00; Stop 10/01/17 at 19:59 ; Status DC Vancomycin HCl (VANCOMYCIN for oral use only) 125 mg QID PO Last administered on 10/03/17 08:14; Start 09/27/17 at 21:00; Stop 10/07/17 at 20:59 Lactobacillus Acidophilus (Lactinex) 1 tab TID PO Last administered on 08:13; Start 09/28/17 at 09:00 Potassium Chloride (KCl) 20 meq ONCE ONCE PO Last administered on 09/28/17 11 :17; Start 09/28/17 at 09:45; Stop 09/28/17 at 09:46; Status DC Mirtazapine (Remeron) 30 mg HS PO Last administered on 10/02/17 20:26; Start 09/28/17 at 21:00 Budesonide/ Formoterol Fumarate (Symbicort 160-4.5 Mcg Inh) 2 puff BID INH Last administered on 10/03/17 08:16; Start 09/28/17 at 10:00 Potassium Chloride/Sodium Chloride 1,000 ml @ 42 mls/hr [id number] IV Last administered on 09/28/17 22:33; Start 09/28/17 at 11:15 Lidocaine HCl (Lidoderm 5% Patch.12 Hr) 1 patch DAILY T-DERMAL Last administered on 10/03/17 08:12; Start 09/30/17 at 10:45 Miscellaneous Information 1 Q24H T-DERMAL Last administered on 10/02/17 20:27 ; Start 09/30/17 at 21:00 Morphine Sulfate (Morphine Inj) 2 mg Q4H PRN IV PUSH pain 1-10; Start 09/30/17 at 19:45; Stop 10/02/17 at 10:58; Status DC Oxycodone HCl (Roxicodone) 5 mg Q8HR PO ; Start 10/02/17 at 14:00 Magnesium Hydroxide (Milk Of Magnesia Liq) 30 ml DAILY PRN PO constipation Last administered on 10/02/17 15:24; Start 10/02/17 at 15:15 Senna/Docusate Sodium (Klarissa-Colace) 1 tab BID PO Last administered on at 08:13; Start 10/02/17 at 15:15 A/P Problem List: (1) Colitis, acute ICD Code: K52.9 - Noninfective gastroenteritis and colitis, unspecified Status: Acute Assessment and Plan This is a 76-year-old female with history of metastatic breast cancer who presented with diarrhea C. difficile colitis. -on vancomycin will need 14 days worth. lethargy -Most likely secondary to pain medication. -improved with pain medication. Lower thoracic compression injuries with history of metastatic breast cancer to her rib cage and spine. -pain controlled. Physical therapy evaluation with TLSO brace. Not a candidate for surgical intervention at this time secondary to ongoing infection. Fall precautions Chronic respiratory failure on home oxygen and COPD. - Stable wean prednisone Pancytopenia likely secondary to antineoplastic agent. - Worsening thrombocytopenia where Lovenox was discontinued on 09/29. Dr. Kirkpatrick consulted and stated due to infection. Platelet continues to decrease. No signs of bleeding. History of cerebral aneurysm - s/p clipping about 3-4 yrs ago in [place] metastatic breast cancer -patient is getting worse. Patient and daughter refused hospice or palliative care. She wants to take patient home with home health, but patient cannot walk or take care of herself. Deconditioned -PT recommend SNF. DVT prophylaxis with SCD and early ambulation. Discharge Planning Patient is deteriorating. Recommendation is for hospice but patient and daughter refused. Patient wants to go home. Daughter is in agreement. Patient unable to ambulate. She stated that even if she is unable to ambulate she would not go to a SNF. Will have PT work with patient aggressively. Madeleine Bobby MD Oct 03, 2017 10:09
--- NOTE | 2017-10-03 11:31 | PD.CONS ---
Consult Service Palliative Care Consult Requested By Dr. Kirkpatrick . Primary Care Physician Unknown Reason for Consultation a. To assist with evaluation and management of symptoms including: Pain, shortness of breath, debility b. To assist medical decision maker(s) with: better understanding of current medical conditions; weighing benefits/burdens of medical treatment options; making medical treatment decisions. HPI History of Present Illness Ms. Gunter is a 76-year-old female with significant medical history of stage IV breast cancer with metastasis to the spine and ribs currently on oral chemotherapy, COPD on home oxygen, emphysema, asthma,cerebral aneurysm s/p clipping, osteoporosis and arthritis. She presented to the ER on 09/26/17 for evaluation of abdominal distention, and pain. Patient has not been able to eat or drink. She is currently on chemotherapy. She was recently admitted at [facility] for 7 days and was treated with antibiotics for infection on the lungs. Patient also had had diarrhea for the past week prior to ER visit, averaging 3-4 bowel movements per day and was complaining of constipation on admission. Patient was originally diagnosed with stage IIb, breast cancer and she underwent adjuvant radiation treatments and then she developed a breast mass in the left breast February 2016. In spring 2016 she developed acute back pain and was found to have metastatic disease to the spine. Patient is currently being treated with Ibrance and hormone blockade therapy and unfortunately has had multiple hospitalizations due to COPD exacerbation, pneumonia, thrombocytopenia and neutropenia. ER course: * Vital signs: Temperature 98.6, pulse 84, respirations 20, BP 106/53, O2 saturation 99% * Chest x-ray revealed moderate hyperinflation thoracic aorta tortuous and uncoiled. * Abdomen/pelvis CT revealed development of mild mural thickening of the colon diffusely characteristic of a severe colitis. Mild to moderate anasarca. Stable abdominal aortic aneurysm and aneurysm of both internal iliac arteries. Osteopenia with mild compression deformities in the lower thoracic spine 8 T9 and T10. * Laboratory workup revealed WBC 1.8, hemoglobin 9.5, hematocrit 28.9, platelet count 100, calcium 7.2, AST 54, ALT 12, total protein 5.0, albumin 2.3, lipase 44. * Urinalysis negative for nitrites and leukocyte esterase Patient continued to have diarrhea and stool tested positive for C. difficile. Oral vancomycin started. Oncology Dr. Christy consulted who noted that patient has had poor performance status with multiple hospital admissions and overall has a poor prognosis. Physical therapy consulted. Palliative care consulted to assist with symptom management and establishing goals of care. Patient seen and examined in her room on [facility]. Patient is lethargic, oriented to self, place and situation. Patient complaining of pain "all over". Patient endorsing feeling "tired of being sick". Obtained psychosocial and past medical history. Discussed recent hospitalization and trajectory of decline. Patient stated that she knows she is not doing very well and she has tried everything she could but she "does not want to fight anymore". Patient states that all she wants now is comfort care and would like to go home with her daughter under hospice care. Patient requested that her daughter Cynthia gets involved in discussions regarding her health care as well as transitioning to hospice services. Telephone conversation with Cynthia, patient`s daughter who is also her healthcare surrogate. Discussed trajectory of decline since last year in May. Patient's daughter agrees that her mother is suffering and is supportive of her mother's decision to forego aggressive treatment and seek only comfort measures. Patient's daughter agreeable with having her mother discharged home under hospice services. Case discussed with skin lap bonder. . Function/Cognitive Trajectory Patient lives at home with her daughter. Patient has been progressively declining since last year. In she was independent of all her ADLs and since May 2017 patient has been mostly wheelchair-bound. In July 2017, according to oncology progress note patient has had poor performance status due to multiple hospitalizations. Patient reports that she is now very weak and requires assistance with most of her ADLs. She reports that she can ambulate short distances with a rolling walker that she is mostly wheelchair-bound. Patient is dependent on oxygen at home secondary to COPD. Patient endorsing weight loss unable to quantify. Patient remains oriented 3-able to verbalize her needs. . Review of Systems Constitutional: COMPLAINS OF: Fatigue, Weight loss, Change in appetite, Generalized weakness Eyes: DENIES: Eye pain Ears, nose, mouth, throat: DENIES: Hearing loss, Nasal discharge Respiratory: COMPLAINS OF: Cough, Shortness of breath Cardiovascular: DENIES: Chest pain, Palpitations, Syncope Gastrointestinal: COMPLAINS OF: Constipation, Diarrhea Musculoskeletal: COMPLAINS OF: Back pain Neurologic: COMPLAINS OF: Headache, DENIES: Localized weakness, Seizures, Speech Problems Psychiatric: COMPLAINS OF: Anxiety, Depression, DENIES: Hallucinations, Agitation Past Family Social History Coded Allergies: grapefruit (Verified Allergy, Unknown, 09/26/17) CONTRAINCDICATED WITH IBRANCE Past Medical History COPD on home oxygen Emphysema Cerebral aneurysm- s/p clipping about 3-4 yrs ago in [place] 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 Abdominal aortic aneurysm-less noted to measure over 4 cm in size Stage IV breast cancer-metastasis to rib cage, spine Anxiety Arthritis Asthma Cataracts Migraine headaches . Past Surgical History Breast biopsy Left mastectomy in 05/05/2016 Double hernia repair Complete hysterectomy Appendectomy Brain aneurysm s/p clipping about 3-4 yrs ago in [place] Upper endoscopy . Reported Medications Prednisone 20 Mg Tab 20 Mg PO BID 5 Days Senna Plus 8.6-50 mg (Sennosides-Docusate Sodium) 1 Tab Tab 1 Tab PO BID Mirtazapine 30 Mg Tab 30 Mg PO HS Advair Diskus Inh (Fluticasone-Salmeterol Inh) 250-50 Mcg/Blist Aer 1 Puff INH BID Scopolamine 1 Mg/3 Day Patch.td.3 Ibrance (Palbociclib) 125 Mg Capsule 125 Mg PO HS Morphine ER (Morphine Sulfate) 15 Mg Tab 45 Mg PO Q12HR Alprazolam 0.5 Mg Tab 0.5 Mg PO Q8H PRN Tamoxifen (Tamoxifen Citrate) 20 Mg Tab 20 Mg PO HS Oxycodone (Oxycodone HCl) 10 Mg Tab 10 Mg PO Q8HR Morphine ER (Morphine Sulfate) 30 Mg Tab 45 Mg PO Q12HR Zofran (Ondansetron HCl) 4 Mg Tab 4 Mg PO Q6HR PRN Omeprazole 40 Mg Cap 40 Mg PO DAILY Duoneb (Ipratropium-Albuterol Neb) 0.5-2.5 Mg/3 Ml Neb 3 Ml INH Q6HR NEB Ventolin Hfa 18 GM Inh (Albuterol Sulfate) 90 Mcg/Act Aer 1 Puff INH Q4H PRN . Current Medications Medications (Trade) Dose Ordered Sig/Jimmy Route Start Time Stop Time Status Last Admin (NS Flush) 2 ml UNSCH PRN IV FLUSH 09/26/17 20:15 (NS Flush) 2 ml BID IV FLUSH 09/26/17 21:00 10/03/17 08:12 (Narcan Inj) 0.4 mg UNSCH PRN IV PUSH 09/26/17 20:15 (Xanax) 0.5 mg Q8H PRN PO 09/27/17 06:45 10/02/17 15:24 (Oramorph Sr) 45 mg Q12HR PO 09/27/17 09:00 10/03/17 08:14 (Nolvadex) 20 mg HS PO 09/27/17 21:00 10/02/17 20:26 (Protonix) 40 mg DAILY PO 09/27/17 09:00 10/03/17 08:13 (Zofran Odt) 4 mg Q6HR PRN PO 09/27/17 06:45 Patient Own Medication PT OWN MED: PALBOCIC... HS PO 09/27/17 21:00 Future Hold (VANCOMYCIN for oral use only) 125 mg QID PO 09/27/17 21:00 10/07/17 20:59 10/03/17 08:14 (Lactinex) 1 tab TID PO 09/28/17 09:00 10/03/17 08:13 (Remeron) 30 mg HS PO 09/28/17 21:00 10/02/17 20:26 (Symbicort 160-4.5 Mcg Inh) 2 puff BID INH 09/28/17 10:00 10/03/17 08:16 Potassium Chloride/Sodium Chloride 1,000 ml @ 42 mls/hr [id number] IV 09/28/17 11:15 09/28/17 22:33 (Lidoderm 5% Patch.12 Hr) 1 patch DAILY T-DERMAL 09/30/17 10:45 10/03/17 08:12 Miscellaneous Information 1 Q24H T-DERMAL 09/30/17 21:00 10/02/17 20:27 (Roxicodone) 5 mg Q8HR PO 10/02/17 14:00 (Milk Of Magnesia Liq) 30 ml DAILY PRN PO 10/02/17 15:15 10/02/17 15:24 (Klarissa-Colace) 1 tab BID PO 10/02/17 15:15 10/03/17 08:13 Family History Mother at 96 from old age. Father at 84. He had diabetes, hypertension and COPD/emphysema . Substance Use Tobacco: Smoked 2 packs cigarette per day for 35 years. Smokes 2-3 cigarettes a day Alcohol: Denies Prescription med abuse: Denies Illicits: Denies . Psychosocial History Patient was born in [place]. Patient moved to [place] in 7. She is now in [facility]. She has 3 adult children, 2 daughters and 1 son. 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 She also has 10 grandchildren and 10 great-grandchildren. Patient's from untreated prostate cancer. Patient currently lives with her daughter Cynthia who is also her HCS. . Spiritual/Cultural Factors No mormon affiliation-open to recycling specialist visit . Living Will: Copy in medical record Health Care Surrogate: Copy in medical record Date completed: 01/25/2017 . Health Care Surrogate(s): Healthcare surrogate -daughter Cynthia Ty Alternate HCS-grandson Rafael Ty . Documented care wishes: Living Will- Standard verbiage. Copy on EMR. Patient is also a DNR-Copy on chart. . Today's verbally stated goals: Patient wants comfort measures only . Family/friends goals: Patient's daughter is supportive of comfort measures only . Ethical and Legal Issues None reported at this time. . Physical Exam Vital Signs Date Time Temp Pulse Resp B/P (MAP) Pulse Ox O2 Delivery O2 Flow Rate FiO2 10/03/17 08:29 Nasal Cannula 4.00 10/03/17 08:00 98.6 94 20 125/65 (85) 97 10/03/17 04:00 92 10/03/17 04:00 98.3 97 16 124/62 (82) 91 10/02/17 23:53 103 10/02/17 23:52 99.2 103 22 128/63 (84) 96 10/02/17 21:25 Nasal Cannula 3.00 10/02/17 20:00 98.8 107 22 134/76 (95) 95 10/02/17 19:52 103 10/02/17 17:35 103 10/02/17 16:00 98.7 102 24 130/57 (81) 99 10/02/17 15:10 94 3.00 10/02/17 12:00 99.1 101 20 120/64 (82) 98 Exam CONSTITUTIONAL/GENERAL: This is a frail, elderly lady with mild respiratory distress TUBES/LINES/DRAINS: Nasal cannula, PIV SKIN: No jaundice, rashes, or lesions. Ecchymoses on upper extremities. No wounds seen anteriorly. Skin temperature appropriate. Not diaphoretic. HEAD: Atraumatic. Normocephalic. EYES: Pupils equal and round and reactive. Extraocular motions intact. Ptosis to left eyelid. No scleral icterus. No injection or drainage. Fundi not examined. ENT: Hearing grossly normal. Nose without bleeding or purulent drainage. NECK: Trachea midline. Supple, nontender. Moist oral mucosa CARDIOVASCULAR: Regular rate and rhythm without murmurs, gallops, or rubs. No JVD. Peripheral pulses symmetric. RESPIRATORY/CHEST: Symmetric, unlabored respirations. Clear to auscultation. Breath sounds equal bilaterally. No wheezes, rales, or rhonchi. GASTROINTESTINAL: Abdomen soft, non-tender, nondistended. No hepato-splenomegaly , or palpable masses. No guarding. Bowel sounds present. GENITOURINARY: Without palpable bladder distension. MUSCULOSKELETAL: Extremities without clubbing, cyanosis, or edema. No joint tenderness or effusion noted. No calf tenderness. No mottling or clubbing. NEUROLOGICAL: Lethargic and oriented 3. Motor and sensory grossly within normal limits. Follows commands. . Moves all extremities. PSYCHIATRIC: No obvious anxiety/depression. no apparent hallucinations or other psychotic thought process. Diagnostic Tests Laboratory Laboratory Tests Test 09/30/17 15:52 10/01/17 06:28 White Blood Count 4.9 TH/MM3 (4.0-11.0) 3.9 TH/MM3 (4.0-11.0) Red Blood Count 2.85 MIL/MM3 (4.00-5.30) 2.71 MIL/MM3 (4.00-5.30) Hemoglobin 9.5 GM/DL (11.6-15.3) 9.3 GM/DL (11.6-15.3) Hematocrit 28.9 % (35.0-46.0) 28.2 % (35.0-46.0) Mean Corpuscular Volume 101.7 FL (80.0-100.0) 104.0 FL (80.0-100.0) Mean Corpuscular Hemoglobin 33.5 PG (27.0-34.0) 34.3 PG (27.0-34.0) Mean Corpuscular Hemoglobin Concent 33.0 % (32.0-36.0) 33.0 % (32.0-36.0) Red Cell Distribution Width 18.6 % (11.6-17.2) 19.1 % (11.6-17.2) Platelet Count 64 TH/MM3 (150-450) 47 TH/MM3 (150-450) Mean Platelet Volume 8.0 FL (7.0-11.0) 8.2 FL (7.0-11.0) CBC Comment AUTO DIFF Differential Total Cells Counted 100 Neutrophils % (Manual) 66 % (16-70) Band Neutrophils % 24 % (0-6) Lymphocytes % 2 % (9-44) Monocytes % 5 % (0-8) Neutrophils # (Manual) 4.6 TH/MM3 (1.8-7.7) Metamyelocytes 3 % (0-1) Nucleated Red Blood Cells 9 /100 WBC (0-0) Differential Comment FINAL DIFF MANUAL Platelet Estimate LOW (NORMAL) Platelet Morphology Comment NORMAL (NORMAL) Blood Urea Nitrogen 13 MG/DL (7-18) 14 MG/DL (7-18) Creatinine 0.50 MG/DL (0.50-1.00) 0.45 MG/DL (0.50-1.00) Random Glucose 113 MG/DL (74-106) 139 MG/DL (74-106) Total Protein 4.8 GM/DL (6.4-8.2) Albumin 2.3 GM/DL (3.4-5.0) Calcium Level 7.1 MG/DL (8.5-10.1) 7.8 MG/DL (8.5-10.1) Magnesium Level 2.3 MG/DL (1.5-2.5) Alkaline Phosphatase 124 U/L (45-117) Aspartate Amino Transf (AST/SGOT) 479 U/L (15-37) Alanine Aminotransferase (ALT/SGPT) 20 U/L (10-53) Total Bilirubin 0.2 MG/DL (0.2-1.0) Sodium Level 142 MEQ/L (136-145) 141 MEQ/L (136-145) Potassium Level 4.9 MEQ/L (3.5-5.1) 4.8 MEQ/L (3.5-5.1) Chloride Level 110 MEQ/L (98-107) 110 MEQ/L (98-107) Carbon Dioxide Level 22.9 MEQ/L (21.0-32.0) 22.0 MEQ/L (21.0-32.0) Anion Gap 9 MEQ/L (5-15) 9 MEQ/L (5-15) Estimat Glomerular Filtration Rate 120 ML/MIN (>89) 135 ML/MIN (>89) Protein Corrected Calcium 8.4 MG/DL (8.5-10.1) Result Diagram: 10/01/17 0628 10/01/17627 Imaging Last Impressions Chest X-Ray 09/26/17 1630 Signed Impressions: Service Date/Time: Tuesday, September 26, 2017 16:39 - CONCLUSION: Moderate hyperinflation Thoracic aorta tortuous and uncoiled. Last Saucedo MD FACR Abdomen/Pelvis CT 09/26/17 1630 Signed Impressions: Service Date/Time: Tuesday, September 26, 2017 19:14 - CONCLUSION: 1. Development of marked mural thickening of the colon diffusely characteristic of a severe colitis. 2. Mild to moderate anasarca. 3. Stable abdominal aortic aneurysm and aneurysm of both internal iliac arteries. 4. Osteopenia with mild compression deformities in the lower thoracic spine at T9 and T10. Duncan Bentley MD Patient/Family Conference Family Conference Location: Bedside, Telephone Issues Discussed: * Palliative care role, purpose, approach * Additional medical, psychosocial, and spiritual history * Patients general health, functional status, and cognitive changes in the months leading up to the current hospitalization * Patient/family understanding of the current medical problems * Patient/family understanding of prognosis * Patients goals of care as best understood from advance directives and/or conversations and/or values * Current medical treatment options and benefits/burdens of those options * Likely scenarios comparing ongoing aggressive care with a transition to comfort measures only * Questions answered to the best of my ability * Introduced hospice philosophy and benefits * Palliative care contact information provided Assessment and Plan Disease Oriented Problem List: (1) Metastatic breast cancer (2) C. difficile colitis (3) T9 vertebral fracture (4) T10 vertebral fracture (5) COPD (chronic obstructive pulmonary disease) with emphysema Symptom Scale: (1) Pain Comment: Patient is history of metastatic breast cancer, currently on chemotherapy. Recent acute colitis. . (2) Shortness of breath 0-10 Scale: Unable to quantify Comment: History of COPD and home O2 . (3) Debility 0-10 Scale: Unable to quantify Comment: Multiple hospitalizations. Patient is not able to ambulate. . Pertinent Non-Medical Issues Psychosocial:Patient was born in [place]. Patient moved to [place] in 1956. She is now in [place]. She has 3 adult children, 2 daughters and 1 son. 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 She also has 10 grandchildren and 10 great-grandchildren. Patient's from untreated prostate cancer. Patient currently lives with her daughter Cynthia who is also her HCS. Spiritual: No mormon affiliation-open to recycling specialist visit Legal: Patient has a living will, healthcare surrogate, community DNR Ethical issues impacting care: None reported at this time . Important Contacts Healthcare surrogate -daughter Cynthia Ty Alternate HCS-grandson Rafael Ty . Prognosis Ms. Gunter is a 76-year-old female with significant medical history of stage IV breast cancer with metastasis to the spine and ribs currently on oral chemotherapy, COPD on home oxygen, emphysema, asthma,cerebral aneurysm s/p clipping, osteoporosis and arthritis. She presented to the ER on 09/26/17 for evaluation of abdominal distention, and pain.Patient was recently admitted at [facility] for lung infection of which she was treated with antibiotics, she lso developed diarrhea during that hospitalization. Her clinical course is complicated with C. difficile, and newly diagnosed T9 and T10 compression fracture. Given ongoing comorbidities and recent hospitalization, patient remains at high risk for further complications, deterioration decline and . If goals align comfort oriented care, patient would benefit from hospice services. . Code Status: No Code Plan PLAN: Legal decision maker: Patient is currently able to participate in medical decision making. In the event that she is incapacitated patient has in the past designated his daughter Cynthia Ty is a healthcare surrogate and his grandson Rafael Ty is here alternate healthcare surrogate. Goals: Patient no longer wants aggressive treatment, requesting comfort care only at home CODE STATUS: No code DNR/DNI Patient seen and examined in her room on [facility]. Patient is lethargic, oriented to self, place and situation. Patient complaining of pain "all over". Patient endorsing feeling "tired of being sick". Obtained psychosocial and past medical history. Discussed recent hospitalization and trajectory of decline. Patient stated that she knows she is not doing very well and she has tried everything she could but she "does not want to fight anymore". Patient states that all she wants now is comfort care and would like to go home with her daughter under hospice care. Patient requested that her daughter Cynthia gets involved in discussions regarding her health care as well as transitioning to hospice services. Telephone conversation with Cynthia, patient`s daughter who is also her healthcare surrogate. Discussed trajectory of decline since last year in May. Patient's daughter agrees that her mother is suffering and is supportive of her mother's decision to forego aggressive treatment and seek only comfort measures. Patient's daughter agreeable with having her mother discharged home under hospice services. SYMPTOMS: * Pain: Multifactorial. History of stage IV bone cancer and breast cancer. Recently noted to T9 and T10 compression fractures. Patient on 45 mg oral morphine sulfate q 12hrs ATC. oxycodone 5mg q 8 hrs ATC. patient has a lidocaine 5%patch daily. No recommendations at this time. * Shortness of breath: History of COPD on home O2. Patient is on Symbicort 160- 4.5mcg inhaler BID. Xanax 0.5 mg q 8 hrs prn. patient may benefit from duo nebs PRN. * Debility: History of stage IV bone cancer and breast cancer. Recent hospital admission. Physical therapy consulted on 09/28, recommended we will do a walker and home with home health PT. Patient is not able to ambulate. Palliative care will continue to follow the patient during hospital course as condition evolves, to assist patient/decision-maker with understanding of their medical conditions, weighing benefits/burdens of treatment options, for clarification of goals of treatment. Additionally will assist with any symptoms of palliative concern Thank you for the opportunity to participate in the care of Ms. Gunter. Attestation To help prompt me to consider important information that might be impacting today's encounter and assessment, information from prior notes written by myself or my colleagues may have been "brought forward" into today's note. My signature on this note, however, is an attestation that I personally performed the exam, history, and/or decision-making noted today, and, unless otherwise indicated, the interactions with patient, family, and staff as well as the review of records all occurred today. I also attest that the listed assessment and stated plan reflect my best clinical judgment today based on the combination of historical information, prior notes, and today's exam/ interactions. When time spent is documented, it refers only to time spent today by the signer, or if indicated, combined time spent today by collaborating physician/nurse practitioner. Latia Monk Oct 03, 2017 11:31
[2017-10-03 12:00] VITALS: BP 106/59; PULSE 90; RESP 16; TEMP 98.5; O2SAT 97
[2017-10-03 16:00] VITALS: BP 112/59; PULSE 90; RESP 18; TEMP 98.3; O2SAT 99
[2017-10-03] MEDS ORDERED: VANC500I3 PO (16:18)
--- NOTE | 2017-10-03 16:18 | HHI.DS ---
Discharge Summary Admission Date Sep 26, 2017 at 20:14 Admitting Diagnosis acute severe colitis, T9, t10 compression fx, Stage 4 cancer (1) Colitis, acute ICD Code: K52.9 - Noninfective gastroenteritis and colitis, unspecified Status: Acute Brief History - From Admission History from patient, ER communication, interview of medical records. Patient's daughter is not at the bedside at the time of my exam. However patient is a very sharp lady who knows her history. She reports that she came to the hospital because she was having pain in her stomach diffusely. Denies any vomiting although she was having quite a bit of nausea. Reports of diarrhea for the past one week at least 3-4 times a day. No black or red stools. Denies any urinary symptoms. Denies any blood in her urine. She states her abdominal pain is pretty much everywhere in her abdomen. Apart from the above, patient denies any other symptoms. She denies any chest pain/palpitations/dizziness/syncopal episode. Patient was hospitalized at [facility]. She was discharged on Tuesday or Tuesday. had diarrhea while at now is constipated CBC/BMP: 10/01/17 0628 10/01/17 0628 Significant Findings Laboratory Tests Test 10/01/17 06:28 White Blood Count 3.9 TH/MM3 (4.0-11.0) Red Blood Count 2.71 MIL/MM3 (4.00-5.30) Hemoglobin 9.3 GM/DL (11.6-15.3) Hematocrit 28.2 % (35.0-46.0) Mean Corpuscular Volume 104.0 FL (80.0-100.0) Mean Corpuscular Hemoglobin 34.3 PG (27.0-34.0) Red Cell Distribution Width 19.1 % (11.6-17.2) Platelet Count 47 TH/MM3 (150-450) Creatinine 0.45 MG/DL (0.50-1.00) Random Glucose 139 MG/DL (74-106) Calcium Level 7.8 MG/DL (8.5-10.1) Chloride Level 110 MEQ/L (98-107) PE at Discharge GENERAL: in NAD and awake CARDIOVASCULAR: Regular rate and rhythm without murmurs, gallops, or rubs. RESPIRATORY: Breath sounds equal bilaterally. No accessory muscle use. GASTROINTESTINAL: Abdomen soft, non-tender, nondistended. Pt Condition on Discharge: Deteriorating Discharge Disposition: Hospice/Med Facility Discharge Instructions DIET: Follow Instructions for: As Tolerated, No Restrictions Activities you can perform: Regular-No Restrictions Madeleine Bobby MD Oct 03, 2017 16:18
== END 2017-10-03 18:45 | disposition hospice, inpatient (51) | DRG 371 ==
LOC: NEPE 13:51 → NEDA 20:14 → NEDH 09-27 00:14 → N07B 09-27 17:05
PROVIDERS: ADMIT Internal Medicine; ATTEND Internal Medicine
DX: A04.72 Enterocolitis due to Clostridium difficile, not specified as recurrent (principal); D61.810 Antineoplastic chemotherapy induced pancytopenia; R64 Cachexia; J96.10 Chronic respiratory failure, unspecified whether with hypoxia or hypercapnia; C79.51 Secondary malignant neoplasm of bone; J43.9 Emphysema, unspecified; M48.54XA Collapsed vertebra, not elsewhere classified, thoracic region, initial encounter for fracture; G89.3 Neoplasm related pain (acute) (chronic); K21.9 Gastro-esophageal reflux disease without esophagitis; I71.4 Abdominal aortic aneurysm, without rupture; K59.00 Constipation, unspecified; M81.0 Age-related osteoporosis without current pathological fracture; M19.90 Unspecified osteoarthritis, unspecified site; T45.1X5A Adverse effect of antineoplastic and immunosuppressive drugs, initial encounter; F41.9 Anxiety disorder, unspecified; Z17.0 Estrogen receptor positive status [ER+]; Z51.5 Encounter for palliative care; Z66 Do not resuscitate; Z72.0 Tobacco use; Z85.3 Personal history of malignant neoplasm of breast; Z88.5 Allergy status to narcotic agent; Z90.12 Acquired absence of left breast and nipple; Z92.3 Personal history of irradiation; Z99.3 Dependence on wheelchair; Z99.81 Dependence on supplemental oxygen
CPT/HCPCS: 71045; 74177; 76937; 80048; 80053; 81001; 83690; 83735; 84155; 84443; 85007; 85027; 85610; 85730; 87040; 87493; 94640; 94664; 96361; 96374; 96375; J0744; J1650; J2270; J2405; J3480; J7040; J7512; L0200; L0484; Q9967

== ENCOUNTER 2017-11-06 04:11 | Emergency (ER) | payer MEDICARE, OTHER ==
[~2017-11-06] VITALS: Ht 160 cm; Wt 40.0 kg
[~2017-11-06 04:11] MED LIST changes: -AZIT250T3 PO; -BACT800T5 PO; -FLUT1INH INH; +VANC500I3 PO
[2017-11-06 04:15] VITALS: BP 124/74; PULSE 133; RESP 34
--- NOTE | 2017-11-06 04:17 | PD ---
HPI Chief Complaint: Shortness of breath Time Seen by Provider: 04:13 Travel History International Travel<30 days: No Contact w/Intl Traveler<30days: No Traveled to known affect area: No History of Present Illness HPI EMS brought patient in, they responded to a respiratory distress call. Upon arrival they found the patient on her private home, sitting in a recliner, with a pulse ox in the mid 70s-77.... Patient is a DNR and has the paperwork with her , she has advance COPD as well as terminal CA with metastases. No known drug allergy Past medical history significant for brain aneurysm, AAA, COPD, emphysema, appendectomy, GERD, hernia repair, left mastectomy, hysterectomy, kidney stones , anxiety, long breast spinal CVA PFSH Past Medical History Arthritis: No Asthma: No Anxiety: Yes Depression: No Heart Rhythm Problems: No Cancer: Yes (SPINAL, LUNG, BREAST) Cardiovascular Problems: Yes (AAA) High Cholesterol: No Chest Pain: Yes Congestive Heart Failure: No COPD: Yes Cerebrovascular Accident: No Diabetes: No Diminished Hearing: No Endocrine: No Gastrointestinal Disorders: Yes GERD: Yes Genitourinary: Yes Headaches: Yes Hiatal Hernia: No Immune Disorder: No Implanted Vascular Access Dvce: Yes Kidney Stones: Yes Musculoskeletal: Yes Neurologic: Yes Psychiatric: Yes Reproductive: No Respiratory: Yes Migraines: Yes Radiation Therapy: Yes Renal Failure: No Seizures: No Sleep Apnea: No Ulcer: No Past Surgical History Abdominal Surgery: Yes (HERNIA REPAIR) Appendectomy: Yes Body Medical Devices: PIPELINE DEVICE Cardiac Surgery: Yes Ear Surgery: No Endocrine Surgery: No Eye Surgery: No Genitourinary Surgery: No Gynecologic Surgery: Yes (LEFT MASTECTOMY ) Hysterectomy: Yes Neurologic Surgery: Yes (BRAIN ANEURYSM) Oral Surgery: No Thoracic Surgery: No Other Surgery: Yes (L MASTECTOMY, DOUBLE HERNIA REPAIR, BRAIN ANEURYSM , HYSTERECTOMY, APPENDEC) Social History Alcohol Use: No Tobacco Use: Yes ("ONCE IN AWHILE") Substance Use: No Allergies-Medications (Allergen,Severity, Reaction): Coded Allergies: grapefruit (Verified Allergy, Unknown, 09/26/17) CONTRAINCDICATED WITH IBRANCE Reported Meds & Prescriptions Reported Meds & Active Scripts Active Senna Plus 8.6-50 mg (Sennosides-Docusate Sodium) 1 Tab Tab 1 Tab PO BID Reported Morphine Liq (Morphine Sulfate) 20 Mg/5 Ml Liq 20 Mg PO Q4H Dexamethasone 2 Mg Tab 2 Mg PO BID Hyoscyamine (Hyoscyamine Sulfate) 0.125 Mg Tab 0.125 Mg PO Q4H Mirtazapine 30 Mg Tab 30 Mg PO HS Advair Diskus Inh (Fluticasone-Salmeterol Inh) 250-50 Mcg/Blist Aer 1 Puff INH BID Rinse mouth after use. Morphine ER (Morphine Sulfate) 15 Mg Tab 45 Mg PO Q12HR Take 1 tablet (15mg) with 30mg tablet for a total dose of 45mg Alprazolam 0.5 Mg Tab 0.5 Mg PO Q8H PRN Morphine ER (Morphine Sulfate) 30 Mg Tab 45 Mg PO Q12HR Take 1 tablet (30mg) with 15mg tablet for a total dose of 45mg Omeprazole 40 Mg Cap 40 Mg PO DAILY Duoneb (Ipratropium-Albuterol Neb) 0.5-2.5 Mg/3 Ml Neb 3 Ml INH Q6HR NEB Ventolin Hfa 18 GM Inh (Albuterol Sulfate) 90 Mcg/Act Aer 1 Puff INH Q4H PRN Review of Systems General / Constitutional: No: Fever Eyes: No: Visual changes HENT: No: Headaches Cardiovascular: No: Chest Pain or Discomfort Respiratory: Positive: Shortness of Breath, Wheezing Gastrointestinal: No: Abdominal Pain Genitourinary: No: Dysuria Musculoskeletal: No: Pain Skin: No Rash Neurologic: No: Weakness Psychiatric: No: Depression Endocrine: No: Polydipsia Hematologic/Lymphatic: No: Easy Bruising Physical Exam Narrative GENERAL: SKIN: Warm and dry. HEAD: Atraumatic. Normocephalic. EYES: Pupils equal and round. No scleral icterus. No injection or drainage. ENT: No nasal bleeding or discharge. Mucous membranes pink and moist. NECK: Trachea midline. No JVD. CARDIOVASCULAR: Regular rate and rhythm. RESPIRATORY: Suprasternal and intercostal accessory muscle use. Tripoding and speaking 1 word dyspnea, bilateral wheezing decreased tidal volume GASTROINTESTINAL: Abdomen soft, non-tender, distended. MUSCULOSKELETAL: Extremities without clubbing, cyanosis, or edema. No obvious deformities. NEUROLOGICAL: Awake, confused and does not follow commands very well. Data Data Last Documented VS Vital Signs Date Time Temp Pulse Resp B/P (MAP) Pulse Ox O2 Delivery O2 Flow Rate FiO2 11/06/17 05:05 Non-Rebreather 12.00 11/06/17 04:33 85 40 11/06/17 04:18 132 34 11/06/17 04:15 124/74 (91) Orders Orders Complete Blood Count With Diff (11/06/17 04:17) Comprehensive Metabolic Panel (11/06/17 04:17) B-Type Natriuretic Peptide (11/06/17 04:17) Act Partial Throm Time (Ptt) (11/06/17 04:17) Prothrombin Time / Inr (Pt) (11/06/17 04:17) Ckmb (Isoenzyme) Profile (11/06/17 04:17) Troponin I (11/06/17 04:17) Arterial Blood Gas (Abg) (11/06/17 04:17) Influenzae A/B Antigen (11/06/17 04:17) Iv Access Insert/Monitor (11/06/17 04:17) Electrocardiogram (11/06/17 04:17) Ecg Monitoring (11/06/17 04:17) Oximetry (11/06/17 04:17) Oxygen Administration (11/06/17 04:17) Chest, Single Ap (11/06/17 04:17) Sodium Chloride 0.9% Flush (Ns Flush) (11/06/17 04:30) Albuterol Neb (Albuterol Neb) (11/06/17 04:30) Resp Bipap / Cpap Non Invas Vt (11/06/17 04:17) Magnesium Sulfate 1 Gm Premix (Magnesium (11/06/17 04:30) Levofloxacin 500 Mg Premix Inj (Levaquin (11/06/17 05:15) Sodium Chlorid 0.9% 500 Ml Inj (Ns 500 M (11/06/17 05:30) CKMB (11/06/17 05:10) CKMB% (11/06/17 05:10) Labs Laboratory Tests Test 11/06/17 04:45 11/06/17 05:10 Blood Gas Puncture Site RT FEMORAL Blood Gas Patient Temperature 98.6 Blood Gas HCO3 23 mmol/L Blood Gas Base Excess 0.1 mmol/L Blood Gas Oxygen Saturation 84 % Arterial Blood pH 7.50 Arterial Blood Partial Pressure CO2 30 mmHg Arterial Blood Partial Pressure O2 48 mmHG Arterial Blood Oxygen Content 15.0 Vol % Arterial Blood Carboxyhemoglobin 1.3 % Arterial Blood Methemoglobin 0.8 % Blood Gas Hemoglobin 12.8 G/DL Oxygen Delivery Device Venti Mask Blood Gas Inspired Oxygen 50 % White Blood Count 7.1 TH/MM3 Red Blood Count 3.58 MIL/MM3 Hemoglobin 11.7 GM/DL Hematocrit 36.3 % Mean Corpuscular Volume 101.3 FL Mean Corpuscular Hemoglobin 32.7 PG Mean Corpuscular Hemoglobin Concent 32.3 % Red Cell Distribution Width 16.9 % Platelet Count 129 TH/MM3 Mean Platelet Volume 8.9 FL Neutrophils (%) (Auto) 74.0 % Lymphocytes (%) (Auto) 24.2 % Monocytes (%) (Auto) 1.1 % Eosinophils (%) (Auto) 0.0 % Basophils (%) (Auto) 0.7 % Neutrophils # (Auto) 5.2 TH/MM3 Lymphocytes # (Auto) 1.7 TH/MM3 Monocytes # (Auto) 0.1 TH/MM3 Eosinophils # (Auto) 0.0 TH/MM3 Basophils # (Auto) 0.0 TH/MM3 CBC Comment AUTO DIFF Blood Urea Nitrogen 28 MG/DL Creatinine 0.49 MG/DL Random Glucose 139 MG/DL Total Protein 5.6 GM/DL Albumin 2.4 GM/DL Calcium Level 9.1 MG/DL Alkaline Phosphatase 125 U/L Aspartate Amino Transf (AST/SGOT) 241 U/L Alanine Aminotransferase (ALT/SGPT) 20 U/L Total Bilirubin 0.5 MG/DL Sodium Level 143 MEQ/L Potassium Level 4.1 MEQ/L Chloride Level 107 MEQ/L Carbon Dioxide Level 24.0 MEQ/L Anion Gap 12 MEQ/L Estimat Glomerular Filtration Rate 122 ML/MIN Total Creatine Kinase 906 U/L Troponin I LESS THAN 0.02 NG/ML B-Type Natriuretic Peptide 39 PG/ML MDM Medical Decision Making Medical Screen Exam Complete: Yes Emergency Medical Condition: Yes Medical Record Reviewed: Yes Interpretation(s) Patient had an ABG performed while on 50% FiO2 Venturi mask, and it revealed a pH of 7.49 PCO2 of 30 PaO2 48. Which is consistent with hypoxemia but without hypercapnia, this patient is known to have terminal CA and has a DNR in place. The patient will be treated with IV antibiotics, supplemental oxygen and a nonrebreather form and admitted for further evaluation and care Differential Diagnosis COPD exacerbation versus pneumonia versus pneumothorax versus hypoxemic versus hypercapnic respiratory failure Narrative Course See above for ABG results Chest x-ray read by radiologist as partially consolidative infiltrate in the lateral left midlung and in the medial left lower lung.... Due to these findings the patient will be given IV antibiotics, back on October 01, 2017 the patient had a creatinine of 0.45 and a GFR that was within normal limits, so therefore the patient will be given Levaquin regular dose IV 1, the patient has already received Solu-Medrol 125 mg IV, magnesium IV, as well as albuterol treatments, and a nonrebreather mask to assist in helping her hypoxemia. Discussed all findings with daughter, who is strongly requesting to be discharged home and to continue hospice at home. The patient and the daughter both ready are aware that the patient is terminal and that she will be dying, they have come to accept this and the daughter is emphatic that she wants her mother to at peace at home and not in the hospital. Hospice staff came to visit at the bedside and have stated that they will arrange for transfer/ transportation back home and will increase her oxygenation as well as medicate her for comfort. Patient is a hospice/DNR patient Diagnosis Primary Impression: COPD exacerbation Additional Impressions: Hypoxemic respiratory failure Left lower lung consolidation Admitting Information Admitting Physician Requests: Admit Patient Instructions: General Instructions, Hospice Care (GEN) Disposition: 51 HOSPICE/MED FACILITY Condition: Serious Ham Sun MD Nov 06, 2017 04:17
[2017-11-06 04:20] VITALS: O2SAT 92
[2017-11-06] MEDS ORDERED: MAGNESIUM SULFATE 1 GM PREMIX 100 ML IV ONE (04:30)
[2017-11-06] MEDS ORDERED: methylPREDNISolone SOD SUCC 125 MG/2 ML VIAL IV PUSH ONE (04:30)
[2017-11-06] MEDS ORDERED: SODIUM CHLORIDE 0.9% FLUSH 10 ML FLUSH IVF PRN (04:30)
[2017-11-06] MEDS: RESP: ALBUTEROL 2.5 MG/3 ML NEB (SCH) INH ×2 (04:52→04:53)
--- NOTE | 2017-11-06 04:59 | RADRPT ---
EXAM DATE/TIME: 11/06/2017 04:28 [facility] COMPARISON: CHEST SINGLE AP, September 26, 2017, 16:39. INDICATIONS : Shortness of breath. MEDICAL HISTORY : Cardiovascular disease. Chronic obstructive pulmonary disease. SURGICAL HISTORY : Appendectomy. ENCOUNTER: Initial ACUITY: 1 day PAIN SCORE: 0/10 LOCATION: Bilateral chest FINDINGS: Interval development of partially consolidative infiltrate in the left midlung and consolidation in t he medial left lower lobe. The right lung is clear. The heart is normal in size. CONCLUSION: Partially consolidative infiltrates in the lateral left midlung and in the medial left lower lung. Manfred Powell MD on November 06, 2017 at 4:56 Board Certified Radiologist. This report was verified electronically.
[2017-11-06] MEDS ORDERED: LEVOFLOXACIN 500 MG PREMIX INJ 100 ML IV ONE (05:15)
[2017-11-06] MEDS ORDERED: SODIUM CHLORID 0.9% 500 ML INJ 500 ML IV ONE (05:30)
[2017-11-06 05:43] LABS: AUTOMATED NEUTROPHIL # 5.2 TH/MM3 (1.8-7.7); BASOPHIL % 0.7 % (0.0-2.0); HEMATOCRIT 36.3 % (35.0-46.0); HEMOGLOBIN 11.7 GM/DL (11.6-15.3); LYMPH % 24.2 % (9.0-44.0); LYMPHOCYTE # 1.7 TH/MM3 (1.0-4.8); MEAN CELL VOLUME 101.3 FL (80.0-100.0); MEAN CORPUSCULAR HEMOGLOBIN 32.7 PG (27.0-34.0); MEAN CORPUSCULAR HGB CONC 32.3 % (32.0-36.0); MEAN PLATELET VOLUME 8.9 FL (7.0-11.0); MONO % 1.1 % (0.0-8.0); MONOCYTE # 0.1 TH/MM3 (0-0.9); PLATELET COUNT 129 TH/MM3 (150-450); RED BLOOD COUNT 3.58 MIL/MM3 (4.00-5.30); RED CELL DISTRIBUTION WIDTH 16.9 % (11.6-17.2); WHITE BLOOD COUNT 7.1 TH/MM3 (4.0-11.0)
[2017-11-06] MEDS ORDERED: HYOS1TAB9 PO (05:53)
[2017-11-06] MEDS ORDERED: DEXA2TAB PO (05:53)
[2017-11-06] MEDS ORDERED: MORP10S2 PO (05:53)
[2017-11-06 06:02] LABS: ALBUMIN 2.4 GM/DL (3.4-5.0); ALT (GPT) 20 U/L (10-53); AST (GOT) 241 U/L (15-37); BLOOD UREA NITROGEN 28 MG/DL (7-18); CALCIUM 9.1 MG/DL (8.5-10.1); CHLORIDE 107 MEQ/L (98-107); CREATININE 0.49 MG/DL (0.50-1.00); GLOMERULAR FILTRATION RATE 122 ML/MIN (>89); GLUCOSE,RANDOM 139 MG/DL (74-106); SODIUM (NA) 143 MEQ/L (136-145)
[2017-11-06 06:06] LABS: ALKALINE PHOSPHATASE 125 U/L (45-117); TOTAL BILIRUBIN ADULT 0.5 MG/DL (0.2-1.0); TOTAL PROTEIN 5.6 GM/DL (6.4-8.2); TROPONIN I LESS THAN 0.02 NG/ML (0.02-0.05)
[2017-11-06 06:18] LABS: BANDS 29 % (0-6); CORRECTED NUCLEATED RBC 6 /100 WBC (0-0); LYMPHOCYTES 10 % (9-44); METAMYELOCYTES 2 % (0-1); MONOCYTES 2 % (0-8); MYELOCYTES 6 % (0-0); NEUTROPHIL # MANUAL DIFF 6.2 TH/MM3 (1.8-7.7); NUCLEATED RED BLOOD CELL 6 (0-0); POLYS (SEG NEUTROPHILS) 51 % (16-70)
[2017-11-06 08:00] VITALS: BP 120/74; PULSE 133; RESP 32; O2SAT 95
== END 2017-11-06 19:23 | disposition hospice, inpatient (51) ==
LOC: NEPC 04:11
DX: J44.1 Chronic obstructive pulmonary disease with (acute) exacerbation (principal); J18.1 Lobar pneumonia, unspecified organism; J96.91 Respiratory failure, unspecified with hypoxia; C80.1 Malignant (primary) neoplasm, unspecified; C79.9 Secondary malignant neoplasm of unspecified site; F41.9 Anxiety disorder, unspecified; K21.9 Gastro-esophageal reflux disease without esophagitis; Z86.79 Personal history of other diseases of the circulatory system; Z72.0 Tobacco use
CPT/HCPCS: 36600; 71045; 80053; 82550; 82552; 82805; 83880; 84484; 85007; 85027; 87804; 94640; 94664; 96365; 96367; 99285; J1956; J3475; J7040; J7613